=== PATIENT | female | born 1935 | race Caucasian/White ===

== ENCOUNTER 2018-10-07 17:09 | Inpatient (IN) | payer OTHER ==
[2018-10-07 17:18] VITALS: BMI 29.2
--- NOTE | 2018-10-07 18:49 | PDOC ---
Attending Attestation - HPI HPI: This patient is an 83 year old female with PMHx of DMII, hypothyroidism, cirrhosis, pancreatic cysts, who presents with 2 days of worsening cough w/ [id number] sputum. Patient also reports shortness of breath, worse on exertion. Denies fever. chills. 10/07/18 18:58 <Evelyn Poe - Last Filed: 10/07/18 18:59> - Resident Resident Name: Farshad Taylor - ED Attending Attestation I have performed the following: I have examined & evaluated the patient, The case was reviewed & discussed with the resident, I agree w/resident's findings & plan, Exceptions are as noted - Physicial Exam PE: GENERAL: Awake, alert, and fully oriented, in no acute distress HEAD: No signs of trauma EYES: PERRLA, EOMI, sclera anicteric, conjunctiva clear ENT: Auricles normal inspection, hearing grossly normal, nares patent, oropharynx clear without exudates. Moist mucosa NECK: Normal ROM, supple, no lymphadenopathy, JVD, or masses LUNGS: Good air entry B/L. +Crackles at bases B/L. HEART: Regular rate and rhythm, normal S1 and S2, no murmurs, rubs or gallops ABDOMEN: Soft, nontender, normoactive bowel sounds. No guarding, no rebound. No masses EXTREMITIES: Normal range of motion, 2+ pitting edema to mid-rivera B/L. No clubbing or cyanosis. No cords, erythema, or tenderness NEUROLOGICAL: Cranial nerves II through XII grossly intact. Normal speech. Motor and sensation intact SKIN: Warm, Dry, normal turgor, no rashes or lesions noted. - Medical Decision Making Pt with history of cirrhosis, presenting with cough, SOB, and B/L leg swelling. Suspected CHF. Will send labs, obtain CXR. Likely admission, as she has no prior history of CHF. As per family at bedside, she has known history of leukopenia and thrombocytopenia. She follows with Dr. Mazariegos. <Mallika Garrett - Last Filed: 10/07/18 20:07> Attestations - Attestations 10/07/18 18:59 Documentation prepared by Evelyn Poe, acting as general medical practitioner for Mallika Garrett MD. <Evelyn Poe - Last Filed: 10/07/18 18:59>
[2018-10-07 18:54] LABS: BASO % 0.3 % (0-2.0); EOS % 5.7 % (0-4.5); HEMATOCRIT 31.2 % (32.4-45.2); HEMOGLOBIN 11.1 GM/dL (10.7-15.3); LYMPH % 37.2 % (8-40); MCH 33.8 pg (25.7-33.7); MCHC 35.6 g/dl (32.0-36.0); MEAN CELL VOLUME 94.9 fl (80-96); MEAN PLT VOLUME 10.4 fl (7.5-11.1); MONO % 11.9 % (3.8-10.2); NEUT % 44.9 % (42.8-82.8); RBC 3.29 M/mm3 (3.60-5.2)
[2018-10-07 19:05] LABS: PLATELET COUNT 42 K/MM3 (134-434); WHITE BLOOD COUNT 1.5 K/mm3 (4.0-10.0)
[2018-10-07 19:47] LABS: BLOOD UREA NITROGEN 12 mg/dL (7-18); GLUCOSE,RANDOM 194 mg/dL (74-106)
[2018-10-07 19:48] LABS: ALBUMIN 2.5 g/dl (3.4-5.0); ANION GAP 7 MMOL/L (8-16); BILIRUBIN,TOTAL 1.2 mg/dL (0.2-1); CALCIUM 7.4 mg/dL (8.5-10.1); CHLORIDE 109 mmol/L (98-107); CO2 24 mmol/L (21-32); CREATININE 0.8 mg/dL (0.55-1.3); POTASSIUM 3.8 mmol/L (3.5-5.1); SGOT/AST 64 U/L (15-37); SGPT/ALT 39 U/L (13-61); SODIUM 140 mmol/L (136-145); TOT PROT 5.5 g/dl (6.4-8.2)
[2018-10-07 19:49] LABS: ALK PHOS 85 U/L (45-117); N-TERMINAL BNP 505.37 pg/ml (5-450)
[2018-10-07 19:54] LABS: PLATELET ESTIMATE DECREASED
--- NOTE | 2018-10-07 19:56 | PDOC ---
History of Present Illness - General Chief Complaint: Respiratory Stated Complaint: COLD SYMPTOMS Time Seen by Provider: 10/07/18 18:22 History Source: Patient, Family (Son at bedside) Exam Limitations: No Limitations - History of Present Illness Initial Comments: 10/07/18 19:49 The patient is an 83F with a PMH of liver cirrhosis, HTN, DM, hypothyroidism who presents to the ER for complaints of a cough. The patient is with her son who helps provide the history. The patient states that she's had 2-3 days of worsening cough with white/yellow sputum. She also admits to dyspnea on exertion , especially when she goes uphill or climbs a flight of stairs. She denies CP, fever, chills, nausea, vomiting, abdominal pain. Past History - Past Medical History Allergies/Adverse Reactions: Allergies Allergy/AdvReac Type Severity Reaction Status Date / Time No Known Drug Allergies Allergy Unverified 10/07/18 17:16 Home Medications: Ambulatory Orders Levothyroxine [Synthroid -] 50 mcg PO DAILY 03/28/13 Furosemide [Lasix] 40 mg PO DAILY 10/07/18 metFORMIN HCL [Glucophage -] 0 mg PO BID 10/07/18 Anemia: Yes (thrombocytopenia) Asthma: No Cancer: No Cardiac Disorders: No CVA: No COPD: No CHF: No Dementia: No Diabetes: Yes (DIET CONTROLLED) GI Disorders: Yes (H. PYLORI; DILATED CBD) Disorders: No HTN: Yes Hypercholesterolemia: Yes Liver Disease: Yes (LIVER CIRRHOSIS) Seizures: No Thyroid Disease: Yes - Surgical History Abdominal Surgery: Yes Appendectomy: No Cardiac Surgery: No Cholecystectomy: Yes Lung Surgery: No Neurologic Surgery: No Orthopedic Surgery: No - Suicide/Smoking/Psychosocial Hx Smoking History: Never smoked Have you smoked in the past 12 months: No Hx Alcohol Use: No Drug/Substance Use Hx: No Substance Use Type: None Review of Systems - Review of Systems Able to Perform ROS?: Yes Comments:: 10/07/18 19:59 GENERAL/CONSTITUTIONAL: No fever or chills. No weakness. HEAD, EYES, EARS, NOSE AND THROAT: No change in vision. No ear pain or discharge. No sore throat. CARDIOVASCULAR: No chest pain, palpitations, or lightheadedness. RESPIRATORY: Positive for cough and shortness of breath on exertion. No wheezing or hemoptysis. GASTROINTESTINAL: No nausea, vomiting, diarrhea, constipation, or abdominal pain. GENITOURINARY: No dysuria, frequency, hematuria, or change in urination. MUSCULOSKELETAL: No joint or muscle swelling or pain. No neck or back pain. SKIN: No rash or lesions. NEUROLOGIC: No headache, numbness, tingling, focal weakness, loss of consciousness, or change in strength/sensation. Is the patient limited Surinamese proficient: No *Physical Exam - Vital Signs Last Vital Signs Temp Pulse Resp BP Pulse Ox 97.8 F 82 18 151/76 100 10/07/18 17:13 10/07/18 17:13 10/07/18 17:13 10/07/18 17:13 10/07/18 18:45 - Physical Exam Comments: 10/07/18 20:00 GENERAL: Well developed, well nourished. Awake and alert. No acute distress. HEENT: Normocephalic, atraumatic. Hearing grossly normal. Moist mucous membranes. PERRLA, EOMI. No conjunctival pallor. NECK: Supple. Full ROM. No JVD. CARDIOVASCULAR: Regular rate and rhythm. No murmurs, rubs, or gallops. PULMONARY: No evidence of respiratory distress. B/l rales at the bases. ABDOMINAL: Soft. Non-tender. Non-distended. No rebound or guarding. GENITOURINARY: No CVA tenderness bilaterally. MUSCULOSKELETAL: Normal range of motion at all joints. No bony deformities or tenderness. EXTREMITIES: No cyanosis. No clubbing. 3+ pitting edema in b/l LE. No calf tenderness or swelling. SKIN: Warm and dry. Normal capillary refill. No rashes. No jaundice. NEUROLOGICAL: Alert, awake, appropriate. Cranial nerves 2-12 grossly intact. Normal speech. PSYCHIATRIC: Cooperative. Good eye contact. Appropriate mood and affect. Moderate Sedation - Procedure Monitoring Vital Signs: Procedure Monitoring Vital Signs Temperature 97.8 F 10/07/18 17:13 Pulse Rate 82 10/07/18 17:13 Respiratory Rate 18 10/07/18 17:13 Blood Pressure 151/76 10/07/18 17:13 O2 Sat by Pulse Oximetry (%) 100 10/07/18 18:45 Heart Score/ECG Review #1 General ECG Interpretation: Sinus Rhythm, Normal Rate, Normal Intervals, No acute ischemic changes Compared to previous ECG there are: No significant change 10/07/18 20:03 NSR vent rate 60 AR 132 QRS 76 QTc 459 No STD or YIMI No signs of acute ischemia ED Treatment Course - LABORATORY CBC & Chemistry Diagram: 10/07/18 18:47 10/07/18 18:47 - ADDITIONAL ORDERS Additional order review: 10/07/18 18:47 RBC 3.29 L MCV 94.9 MCHC 35.6 RDW 15.0 MPV 10.4 Neutrophils % 44.9 Lymphocytes % 37.2 Monocytes % 11.9 H Eosinophils % 5.7 H Basophils % 0.3 - RADIOLOGY Radiology Studies Ordered: Category Date Time Status CHEST X-RAY PORTABLE* [RAD] Stat Radiology 10/07/18 18:35 Taken Medical Decision Making - Medical Decision Making 10/07/18 20:04 THe patient is an 83F with a PMH of HTN, DM, hypothyroidism, and hepatic cirrhosis who presents to the ER with wosrening HAIRSTON and leg swelling with a cough, concerning for PNA vs CHF. Preliminary read of CXR concerning for cephalization of fluids without infiltrate. Labs show WBC of 1.5, known to pt and being worked up by Dr. Mazariegos, heme/onc. BNP is 500. Will give lasix for presumed CHF although pt has no history. 10/07/18 20:[address] Hayden for admission. *DC/Admit/Observation/Transfer Diagnosis at time of Disposition: Acute exacerbation of CHF (congestive heart failure) Qualifiers: Heart failure type: unspecified Qualified Code(s): I50.9 - Heart failure, unspecified - Discharge Dispostion Condition at time of disposition: Guarded Decision to Admit order: Yes - Referrals Referrals: Anuja De La Rosa MD [Primary Care Provider] - - Patient Instructions - Post Discharge Activity
[2018-10-07] MEDS ORDERED: FUROSEMIDE 40 MG/4 ML INJECTABLE VIAL IVPUSH ONE (19:59)
[2018-10-07] MEDS ORDERED: FUROSEMIDE 40 MG/4 ML INJECTABLE VIAL ONE (20:06)
[2018-10-07 20:38] LABS: VENOUS PC02 42.9 mmHg (38-52); VENOUS PH 7.39 (7.32-7.42); VENOUS PO2 28.4 mmHg (28-48)
[2018-10-07 20:46] LABS: URINE APPEARANCE CLEAR; URINE BILIRUBIN NEGATIVE (<2.0 mg/dL); URINE COLOR STRAW; URINE GLUCOSE (UA) NEGATIVE (NEGATIVE); URINE KETONE NEGATIVE (NEGATIVE); URINE LEUK ESTERASE NEGATIVE (NEGATIVE); URINE NITRITE NEGATIVE (NEGATIVE); URINE PROTEIN NEGATIVE (NEGATIVE); URINE UROBILINOGEN 4.0 E.U/dl mg/dL (0.2-1.0)
[2018-10-07 20:51] LABS: INR 1.35 (0.83-1.09)
[2018-10-07 20:53] LABS: ACTIVATED PTT 35.8 SECONDS (25.2-36.5)
[2018-10-07] MEDS ORDERED: AZITHROMYCIN IVPB 500 MG/250 ML BAG IVPB ONE ×2 (20:58→21:29)
[2018-10-07] MEDS ORDERED: CEFTRIAXONE 1 GM in DEXTROSE 5%-WATER - 50 ML IVPB ONE (20:58)
--- NOTE | 2018-10-07 21:00 | HP ---
CHIEF COMPLAINT: cough PCP: Estrella HISTORY OF PRESENT ILLNESS: 83yo immunocompromised woman with a PMH of who presents to the ER for complaints of a productive- yellow sputum cough for the past 2-3 days. She also c/o of early fatigue with ambulation. No orthopnea. NO mention of any sick contacts. ER course was notable for: (1) iv furosemide (2) iv ceftriaxone (3) iv azithromycin Recent Travel: 2018 traveled to [facility] and [facility] PAST MEDICAL HISTORY: liver cirrhosis, HTN, DM, hypothyroidism PAST SURGICAL HISTORY: hysterectomy, appendectomy Social History: Smoking: no Alcohol: no Drugs: no Family History: brother with liver cirrhosis Allergies No Known Drug Allergies Allergy (Unverified 10/07/18 17:16) HOME MEDICATIONS: Home Medications Medication Instructions Recorded Levothyroxine [Synthroid -] 50 mcg PO DAILY 03/28/13 Furosemide [Lasix] 40 mg PO DAILY 10/07/18 metFORMIN HCL [Glucophage -] 0 mg PO BID 10/07/18 REVIEW OF SYSTEMS CONSTITUTIONAL: Absent: fever, chills, diaphoresis, generalized weakness, malaise, loss of appetite, weight change HEENT: Absent: rhinorrhea, nasal congestion, throat pain, throat swelling, difficulty swallowing, mouth swelling, ear pain, eye pain, visual changes CARDIOVASCULAR: Absent: chest pain, syncope, palpitations, irregular heart rate, lightheadedness , peripheral edema RESPIRATORY: Absent: orthopnea, wheezing, stridor, hemoptysis present- cough, shortness of breath, dyspnea with exertion, GASTROINTESTINAL: Absent: abdominal pain, abdominal distension, nausea, vomiting, diarrhea, constipation, melena, hematochezia GENITOURINARY: Absent: dysuria, frequency, urgency, hesitancy, hematuria, flank pain, genital pain MUSCULOSKELETAL: Absent: myalgia, arthralgia, joint swelling, back pain, neck pain, b/l lower ext swelling SKIN: Absent: rash, itching, pallor HEMATOLOGIC/IMMUNOLOGIC: Absent: easy bleeding, easy bruising, lymphadenopathy, frequent infections ENDOCRINE: Absent: unexplained weight gain, unexplained weight loss, heat intolerance, cold intolerance NEUROLOGIC: Absent: headache, focal weakness or paresthesias, dizziness, unsteady gait, seizure, mental status changes, bladder or bowel incontinence PSYCHIATRIC: Absent: anxiety, depression, suicidal or homicidal ideation, hallucinations. PHYSICAL EXAMINATION Vital Signs - 24 hr 10/07/18 10/07/18 17:13 18:45 Temperature 97.8 F Pulse Rate 82 Respiratory 18 Rate Blood Pressure 151/76 O2 Sat by Pulse 99 100 Oximetry (%) GENERAL: Awake, alert, and fully oriented, in no acute distress. HEAD: Normal with no signs of trauma. EYES: Pupils equal, round and reactive to light, extraocular movements intact, sclera anicteric, conjunctiva clear. No lid lag. EARS, NOSE, THROAT: Ears normal, nares patent, oropharynx clear without exudates. Moist mucous membranes. NECK: Normal range of motion, supple without lymphadenopathy, JVD, or masses. LUNGS: Breath sounds equal, left midlung crackles appreciated HEART: Regular rate and rhythm, normal S1 and S2 without murmur, rub or gallop. ABDOMEN: Soft, nontender, not distended, normoactive bowel sounds, no guarding, no rebound, no masses. No hepatomegaly or splenomegaly. MUSCULOSKELETAL: Normal range of motion at all joints. No bony deformities or tenderness. No CVA tenderness. UPPER EXTREMITIES: 2+ pulses, warm, well-perfused. No cyanosis. No clubbing. No peripheral edema. LOWER EXTREMITIES: 2+ pulses, warm, well-perfused. No calf tenderness. 2+ pedal edema up to knees b/l NEUROLOGICAL: Cranial nerves II-XII intact. Normal speech. Normal gait. PSYCHIATRIC: Cooperative. Good eye contact. Appropriate mood and affect. SKIN: Warm, dry, normal turgor, no rashes or lesions noted, normal capillary refill. Laboratory Results - last 24 hr 10/07/18 10/07/18 10/07/18 18:47 18:47 20:10 WBC 1.5 L* RBC 3.29 L Hgb 11.1 Hct 31.2 L D MCV 94.9 MCH 33.8 H MCHC 35.6 RDW 15.0 Plt Count 42 L MPV 10.4 Absolute Neuts (auto) 0.7 L Neutrophils % 44.9 Neutrophils % (Manual) 35.0 L Band Neutrophils % 8.0 Lymphocytes % 37.2 Lymphocytes % (Manual) 40.0 Monocytes % 11.9 H Monocytes % (Manual) 9 Eosinophils % 5.7 H Eosinophils % (Manual) 4.0 Basophils % 0.3 Basophils % (Manual) 0.0 Nucleated RBC % 0 Other Cell Type 1 prolymp Platelet Estimate Decreased Platelet Comment No clumping noted PT with INR 16.00 H INR 1.35 H PTT (Actin FS) 35.8 VBG pH POC VBG pCO2 POC VBG pO2 Mixed VBG HCO3 Sodium 140 Potassium 3.8 Chloride 109 H Carbon Dioxide 24 Anion Gap 7 L BUN 12 Creatinine 0.8 Creat Clearance w eGFR > 60 Random Glucose 194 H Calcium 7.4 L Total Bilirubin 1.2 H AST 64 H ALT 39 Alkaline Phosphatase 85 Creatine Kinase 133 Troponin I 0.03 B-Natriuretic Peptide 505.37 H Total Protein 5.5 L Albumin 2.5 L Urine Color Urine Appearance Urine pH Ur Specific [place] Urine Protein Urine Glucose (UA) Urine Ketones Urine Blood Urine Nitrite Urine Bilirubin Urine Urobilinogen Ur Leukocyte Esterase 10/07/18 10/07/18 20:10 20:30 WBC RBC Hgb Hct MCV MCH MCHC RDW Plt Count MPV Absolute Neuts (auto) Neutrophils % Neutrophils % (Manual) Band Neutrophils % Lymphocytes % Lymphocytes % (Manual) Monocytes % Monocytes % (Manual) Eosinophils % Eosinophils % (Manual) Basophils % Basophils % (Manual) Nucleated RBC % Other Cell Type Platelet Estimate Platelet Comment PT with INR INR PTT (Actin FS) VBG pH 7.39 POC VBG pCO2 42.9 POC VBG pO2 28.4 Mixed VBG HCO3 25.4 H Sodium Potassium Chloride Carbon Dioxide Anion Gap BUN Creatinine Creat Clearance w eGFR Random Glucose Calcium Total Bilirubin AST ALT Alkaline Phosphatase Creatine Kinase Troponin I B-Natriuretic Peptide Total Protein Albumin Urine Color Straw Urine Appearance Clear Urine pH 7.0 Ur Specific [place] 1.004 L Urine Protein Negative Urine Glucose (UA) Negative Urine Ketones Negative Urine Blood Negative Urine Nitrite Negative Urine Bilirubin Negative Urine Urobilinogen 4.0 e.u/dl H Ur Leukocyte Esterase Negative CXR reviewed EKG reviewed ASSESSMENT/PLAN: #Community acquired pneumonia in an immunocompromised pt- b/l infiltrates seen on CXR, pancytopenia #CHF exacerbation- uncertain whether present however cannot r/o at this time given her CXR infiltrates and lower ext edema #Pancytopenia- uncertain cause, follows with Dr. Mazariegos in clinic - avoid heparin #Liver cirrhosis #Hypothyroidism -ceftriaxone 1g IV q24hrs -azithromycin 500mg IV q24hrs -ID evaluation -procalcitonin -trend cbc -sputum culture -urine legionella ag -blood cultures x2 -flu swab -esr -ID consult -lasix 40mg IV daily -metoprolol 25mg po bid -lisinopril 5mg daily -cardiology consult -i/o -daily weight -fluid restriction -lower ext duplex US to r/o DVT -c/w home dose levothyroxine 50mcg daily -send tsh -dvt ppx - SCDs - no heparin due to thrombocytopenia -diet- 2g Na Visit type - Emergency Visit Emergency Visit: Yes ED Registration Date: 10/07/18 Care time: The patient presented to the Emergency Department on the above date and was hospitalized for further evaluation of their emergent condition. - New Patient This patient is new to me today: Yes Date on this admission: 10/07/18 - Critical Care Critical Care patient: No
[2018-10-07] MEDS ORDERED: SODIUM CHLORIDE 0.9% 1000 ML INFUS.BAG IV ONE (21:09)
[2018-10-07] MEDS ORDERED: CEFTRIAXONE 1 GM/50 ML BAG ONE (21:29)
[2018-10-07] MEDS: INSULIN SLIDING SCALE (NOVOLOG) 1 VIAL SQ SCH (22:57)
[2018-10-07] MEDS: metoPROLOL SUCCINATE 25 MG TAB.SR.24H (FP) PO SCH (23:00)
[2018-10-07] MEDS ORDERED: INSULIN (NOVOLOG) ASPART 100 UNITS/ML 10ML VIAL ONE (23:03)
[2018-10-08] MEDS ORDERED: LEVOTHYROXINE NA 25 MCG TABLET (FP) ONE (06:55)
[2018-10-08] MEDS: INSULIN SLIDING SCALE (NOVOLOG) 1 VIAL SQ SCH ×4 (07:10→22:44)
[2018-10-08] MEDS: LEVOTHYROXINE NA 50 MCG TABLET (FP) PO SCH (07:10)
[2018-10-08 07:17] LABS: BASO % 0.3 % (0-2.0); EOS % 2.8 % (0-4.5); HEMATOCRIT 32.5 % (32.4-45.2); HEMOGLOBIN 11.3 GM/dL (10.7-15.3); LYMPH % 24.2 % (8-40); MCH 33.4 pg (25.7-33.7); MCHC 34.8 g/dl (32.0-36.0); MEAN CELL VOLUME 95.8 fl (80-96); MONO % 12.4 % (3.8-10.2); NEUT % 60.3 % (42.8-82.8); PLATELET COUNT 44 K/MM3 (134-434); RBC 3.39 M/mm3 (3.60-5.2); RDW 14.6 % (11.6-15.6)
[2018-10-08 07:25] LABS: WHITE BLOOD COUNT 1.8 K/mm3 (4.0-10.0)
[2018-10-08 08:19] LABS: ANION GAP 6 MMOL/L (8-16); BLOOD UREA NITROGEN 14 mg/dL (7-18); CALCIUM 7.7 mg/dL (8.5-10.1); CHLORIDE 109 mmol/L (98-107); CO2 24 mmol/L (21-32); CREATININE 0.6 mg/dL (0.55-1.3); GLUCOSE,RANDOM 121 mg/dL (74-106); MAGNESIUM 1.6 mg/dL (1.8-2.4); POTASSIUM 3.8 mmol/L (3.5-5.1); SODIUM 140 mmol/L (136-145)
[2018-10-08] MEDS: metoPROLOL SUCCINATE 25 MG TAB.SR.24H (FP) PO SCH ×2 (10:53→22:44)
[2018-10-08] MEDS: LISINOPRIL 5 MG TABLET (FP) PO SCH (10:53)
[2018-10-08] MEDS: FUROSEMIDE 40 MG/4 ML INJECTABLE VIAL IVPUSH SCH (10:53)
[2018-10-08 13:13] LABS: ANISOCYTOSIS 1+; MACROCYTOSIS 1+; PLATELET ESTIMATE DECREASED
--- NOTE | 2018-10-08 13:38 | CON.PULM ---
Consult Consult Specialty:: PULMONARY Referred by:: LONNIE Reason for Consultation:: SOB/COUGH - History of Present Illness Chief Complaint: SOB/COUGH History of Present Illness: The patient is an 83F with a PMH of liver cirrhosis, HTN, DM, hypothyroidism who presents to the ER for complaints of a cough. The patient is with her daughter in law who helps provide the history. The patient states that she's had 2-3 days of worsening cough with white/yellow sputum. She also admits to dyspnea on exertion, especially when she goes uphill or climbs a flight of stairs. She denies CP, fever, chills, nausea, vomiting, abdominal pain. 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 No: AFIB Pulmonary: No: COPD, O2 Dependent Gastrointestinal: Yes: Esophageal Varices, Other (cirrhosis) Hepatobiliary: Yes: Cirrhosis Renal/: No: Renal Failure Reproductive: Yes: Postmenopausal ...: No Heme/Onc: Yes: Anemia, Thrombocytopenia, Other (pancytopenic) Infectious Disease: No: AIDS Psych: No: Addictions Musculoskeletal: Yes: Osteoarthritis Rheumatology: No: Fibromyalgia Endocrine: Yes: Diabetes Mellitus, Hypothyroidism - Alcohol/Substance Use Hx Alcohol Use: No - Smoking History Smoking history: Never smoked Have you smoked in the past 12 months: No - Social History Place of : Other Home Medications - Allergies Allergies/Adverse Reactions: Allergies Allergy/AdvReac Type Severity Reaction Status Date / Time No Known Drug Allergies Allergy Unverified 10/07/18 17:16 - Home Medications Home Medications: Ambulatory Orders Levothyroxine [Synthroid -] 50 mcg PO DAILY 03/28/13 Furosemide [Lasix] 40 mg PO DAILY 10/07/18 metFORMIN HCL [Glucophage -] 0 mg PO BID 10/07/18 Family Disease History - Family Disease History Family History: Unremarkable Review of Systems - Review of Systems Constitutional: denies: Fever Eyes: denies: Blurred Vision HENT: denies: Difficult Swallowing Neck: denies: Decreased ROM Cardiovascular: denies: Chest Pain Respiratory: reports: Cough, Exercise Intolerance, SOB on Exertion. denies: Hemoptysis, Wheezing Gastrointestinal: denies: Abdominal Pain Physical Exam Vital Sings: Vital Signs Temperature 98.1 F 10/07/18 19:25 Pulse Rate 63 10/08/18 03:46 Respiratory Rate 18 10/08/18 03:46 Blood Pressure 128/52 L 10/08/18 03:46 O2 Sat by Pulse Oximetry (%) 100 10/08/18 03:46 Constitutional: Yes: Calm Eyes: Yes: EOM Intact HENT: Yes: Normocephalic Neck: Yes: Trachea Midline, Other (jvd) Cardiovascular: Yes: Regular Rate and Rhythm Respiratory: Yes: Rales (bilateral diffuse) Gastrointestinal: Yes: Normal Bowel Sounds Edema: LLE: 2+, RLE: 2+ Integumentary: Yes: WNL Neurological: Yes: WNL ...Motor Strength: WNL Psychiatric: Yes: WNL Labs: CBC, BMP 10/08/18 07:05 10/08/18 07:05 rest reviewed Imaging - Results Chest X-ray: Report Reviewed, Image Reviewed Problem List - Problems (1) Acute bronchitis Code(s): J20.9 - ACUTE BRONCHITIS, UNSPECIFIED (2) Acute exacerbation of CHF (congestive heart failure) Code(s): I50.9 - HEART FAILURE, UNSPECIFIED Qualifiers: Heart failure type: unspecified Qualified Code(s): I50.9 - Heart failure, unspecified (3) Pancytopenia Code(s): D61.818 - OTHER PANCYTOPENIA (4) HTN (hypertension) Code(s): I10 - ESSENTIAL (PRIMARY) HYPERTENSION (5) Hypothyroidism Code(s): E03.9 - HYPOTHYROIDISM, UNSPECIFIED (6) Diabetes Code(s): E11.9 - TYPE 2 DIABETES MELLITUS WITHOUT COMPLICATIONS Assessment/Plan LIKELY COMBINATION ACUTE BRONCHITIS WITH VOLUME OVERLOAD HTN/DM/CIRRHOSIS/ESOPHAGEAL VARICIES/PANCYTOPENIA PANCULTURE/ANTIBIOTICS DIURETICS/O2 SUPPLEMENTATION/CONSIDER BRONCHODILATORS/NO ROLE FOR STEROIDS DVT/PUD PROPHYLAXSIS GLYCEMIC CONTROL WILL FOLLOW Josephine VACA MD
--- NOTE | 2018-10-08 18:52 | PN ---
Progress Note (short form) - Note Progress Note: ID CONSULT DICTATED BRONCHITIS R/O PNEUMONIA PANCYTOPENIA/ NEUTROPENIA AWAIT C/S CONTINUE ZITHROMAX/CEFTRIAXONE
--- NOTE | 2018-10-08 19:10 | CON.CARD ---
Consult Consult Specialty:: cardiology Reason for Consultation:: shortness of breath - History of Present Illness Chief Complaint: Pt, with son at bedside, c/o fatigue. History of Present Illness: This patient is an 83 year old female with PMHx of DMII, hypothyroidism, cirrhosis, pancreatic cysts, who presents with 2 days of worsening cough w/ sjpxz-ek-yjupwv sputum. Patient also reports shortness of breath, worse on exertion. Denies fever. chills. 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 No: AFIB Pulmonary: No: COPD, O2 Dependent Gastrointestinal: Yes: Esophageal Varices, Other (cirrhosis) Hepatobiliary: Yes: Cirrhosis Renal/: No: Renal Failure ...: No Heme/Onc: Yes: Anemia Infectious Disease: No: AIDS Psych: No: Addictions Musculoskeletal: Yes: Osteoarthritis Rheumatology: No: Fibromyalgia Endocrine: Yes: Diabetes Mellitus, Hypothyroidism - Alcohol/Substance Use Hx Alcohol Use: No - Smoking History Smoking history: Never smoked Have you smoked in the past 12 months: No Home Medications - Allergies Allergies/Adverse Reactions: Allergies Allergy/AdvReac Type Severity Reaction Status Date / Time No Known Drug Allergies Allergy Unverified 10/07/18 17:16 - Home Medications Home Medications: Ambulatory Orders Levothyroxine [Synthroid -] 50 mcg PO DAILY 03/28/13 Furosemide [Lasix] 40 mg PO DAILY 10/07/18 metFORMIN HCL [Glucophage -] 0 mg PO BID 10/07/18 Family Disease History - Family Disease History Family History: Denies Review of Systems - Review of Systems Constitutional: reports: Weakness Eyes: reports: No Symptoms HENT: reports: No Symptoms Neck: reports: No Symptoms Cardiovascular: reports: No Symptoms Respiratory: reports: No Symptoms, Cough Gastrointestinal: reports: Nausea Genitourinary: reports: No Symptoms Breasts: reports: No Symptoms Reported Musculoskeletal: reports: Muscle Weakness Integumentary: reports: No Symptoms Neurological: reports: Weakness Endocrine: reports: No Symptoms Hematology/Lymphatic: reports: No Symptoms Psychiatric: reports: No Symptoms Vital Signs: Vital Signs Temperature 100.1 F H 10/08/18 18:47 Pulse Rate 70 10/08/18 18:47 Respiratory Rate 18 10/08/18 18:47 Blood Pressure 118/60 10/08/18 18:47 O2 Sat by Pulse Oximetry (%) 97 10/08/18 18:47 Constitutional: Yes: No Distress Eyes: Yes: WNL HENT: Yes: WNL Neck: Yes: WNL Respiratory: Yes: Diminished Gastrointestinal: Yes: Soft. No: Tenderness Renal/: No: Anuria Cardiovascular: Yes: Regular Rate and Rhythm JVD: No Carotid Bruit: No PMI: Non-Displaced Heart Sounds: Yes: S1, S2 Murmur: Yes: Systolic Murmur, Grade 2 Musculoskeletal: Yes: Muscle Weakness Extremities: Yes: WNL Edema: No Peripheral Pulses WNL: No Integumentary: Yes: WNL Neurological: Yes: Alert, Oriented, Weakness Psychiatric: Yes: WNL - Other Data Labs, Other Data: CBC, BMP 10/08/18 07:05 10/08/18 07:05 INR, PTT INR 1.35 (0.83-1.09) H 10/07/18 20:10 Troponin, BNP 10/07/18 10/08/18 18:47 07:05 Troponin I 0.03 0.03 B-Natriuretic Peptide 505.37 H Troponin, BNP 10/07/18 10/08/18 18:47 07:05 Troponin I 0.03 0.03 B-Natriuretic Peptide 505.37 H Abnormal Lab Results 10/09/18 10/09/18 08:55 08:55 Total Protein (PEP) 5.4 L Free [place] LC, Quant 35.2 H Free Lambda LC, Quant 32.0 H Ejection Fraction %: LVEF > or = 40 % Imaging - Results Chest X-ray: Image Reviewed EKG: Image Reviewed Problem List - Problems (1) Acute bronchitis Code(s): J20.9 - ACUTE BRONCHITIS, UNSPECIFIED (2) Acute exacerbation of CHF (congestive heart failure) Assessment/Plan: Continue metoprolol, lisinopril, and furosemide. Hx diastolic CHF, with mild aortic stenosis and moderately severe MR; f/u repeat ECHO. F/u BUN/Cr, electrolytes, daily weight, Is and Os. Code(s): I50.9 - HEART FAILURE, UNSPECIFIED Qualifiers: Heart failure type: diastolic Qualified Code(s): I50.33 - Acute on chronic diastolic (congestive) heart failure (3) Diabetes Code(s): E11.9 - TYPE 2 DIABETES MELLITUS WITHOUT COMPLICATIONS Qualifiers: Diabetes mellitus type: type 2 (4) HTN (hypertension) Code(s): I10 - ESSENTIAL (PRIMARY) HYPERTENSION (5) Hypothyroidism Code(s): E03.9 - HYPOTHYROIDISM, UNSPECIFIED (6) Shortness of breath Code(s): R06.02 - SHORTNESS OF BREATH (7) Pancytopenia Assessment/Plan: F/u with hematology. Hx chronically low platelets and WBCs. Hx liver cirrhosis and marked splenomegaly. Code(s): D61.818 - OTHER PANCYTOPENIA (8) Sepsis Assessment/Plan: ?bronchitis/PNA. On antibiotics. Code(s): A41.9 - SEPSIS, UNSPECIFIED ORGANISM (9) Cirrhosis Code(s): K74.60 - UNSPECIFIED CIRRHOSIS OF LIVER
[2018-10-08] MEDS ORDERED: CEFTRIAXONE 2 GM/100 ML BAG IVPB ONE (19:24)
[2018-10-08] MEDS: CEFTRIAXONE 2 GM in DEXTROSE 5%-WATER 100 ML IVPB SCH (19:32)
--- NOTE | 2018-10-08 20:01 | CONSULT ---
Consult Consult Specialty:: heme Referred by:: Dr. Hayden Reason for Consultation:: pancytopenia - History of Present Illness Chief Complaint: SOB History of Present Illness: 83F with hypothyroidism, cirrhosis, DM admitted with SOB, likelye 2/2 acute bronchitis +/-CHF. On Abx. Heme consulted for pancytopenia: Hgb 11.3, MCV 96, WBC 1.8 (ANC 1.1). Plt 44. Except for new mild anemia, counts were similar when checked in 2016 and 2010. Spleen was markedly enlarged on 08/2017 imaging. Pt is scheduled to see Dr. Mazariegos for the first time in October. She is feeling better. Denies melena, hematochezia, weight loss, fevers, night sweats. 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 No: AFIB Pulmonary: No: COPD, O2 Dependent Gastrointestinal: Yes: Esophageal Varices, Other (cirrhosis) Hepatobiliary: Yes: Cirrhosis Renal/: No: Renal Failure ...: No Infectious Disease: No: AIDS Psych: No: Addictions Musculoskeletal: Yes: Osteoarthritis Rheumatology: No: Fibromyalgia Endocrine: Yes: Diabetes Mellitus, Hypothyroidism - Alcohol/Substance Use Hx Alcohol Use: No - Smoking History Smoking history: Never smoked Have you smoked in the past 12 months: No Home Medications - Allergies Allergies/Adverse Reactions: Allergies Allergy/AdvReac Type Severity Reaction Status Date / Time No Known Drug Allergies Allergy Unverified 10/07/18 17:16 - Home Medications Home Medications: Ambulatory Orders Levothyroxine [Synthroid -] 50 mcg PO DAILY 03/28/13 Furosemide [Lasix] 40 mg PO DAILY 10/07/18 metFORMIN HCL [Glucophage -] 0 mg PO BID 10/07/18 Review of Systems - Review of Systems Constitutional: reports: No Symptoms Cardiovascular: reports: No Symptoms Respiratory: reports: Cough, SOB Gastrointestinal: reports: No Symptoms Neurological: reports: No Symptoms (w) Physical Exam Vital Signs: Vital Signs Temperature 100.1 F H 10/08/18 18:47 Pulse Rate 70 10/08/18 18:47 Respiratory Rate 18 10/08/18 18:47 Blood Pressure 118/60 10/08/18 18:47 O2 Sat by Pulse Oximetry (%) 97 10/08/18 18:47 Constitutional: Yes: Well Nourished, No Distress Cardiovascular: Yes: Regular Rate and Rhythm Respiratory: Yes: Regular, Rales Gastrointestinal: Yes: WNL, Soft (unable to feel spleen) Edema: Yes Edema: LLE: 2+, RLE: 2+ Labs: CBC, BMP 10/08/18 07:05 10/08/18 07:05 Imaging - Results Chest X-ray: Report Reviewed Assessment/Plan 83F with hypothyroidism, cirrhosis, DM admitted with cough and SOB due to acute bronchitis and possibly CHF. 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 Peripheral smear without plt clumps, rare RBC fragments, no obvious e/o dysplasia or immature cells. Recommend nutritional w/u iron studies, b12, folate; retics; HIV, HBV, HCV, SPEP/UPEP
[2018-10-08] MEDS: AZITHROMYCIN IVPB 500 MG/250 ML BAG IVPB SCH (20:14)
[2018-10-08] MEDS ORDERED: ALBUTEROL SO4 2.5/IPRATROPIUM 0.5 INH SOL 3 ML VIAL.NEB. NEB PRN (20:47)
[2018-10-08] MEDS ORDERED: BENZOCAINE/MENTH/CETYLPYRD CL 1 EACH LOZENGE MM PRN (20:47)
--- NOTE | 2018-10-08 20:48 | PN ---
Progress Note, Physician Chief Complaint: BRONCHITIS R/O PNEUMONIA History of Present Illness: NAD Feeling better Seen by ID+Pulmonary+Cardiology - Current Medication List Current Medications: Active Medications Furosemide (Lasix Injection -) 40 mg IVPUSH DAILY [facility] Last Admin: 10/08/18 10:53 Dose: 40 mg Ceftriaxone Sodium 2 gm/ (Dextrose) 100 mls @ 200 mls/hr IVPB DAILY [facility]; Protocol Last Admin: 10/08/18 19:32 Dose: 200 mls/hr Azithromycin (Zithromax 500mg Ivpb (Pre-Docked)) 500 mg in 250 mls @ 250 mls/ hr IVPB DAILY [facility] Insulin Aspart (Novolog Vial Sliding Scale -) 1 vial SQ ACHS [facility]; Protocol Last Admin: 10/08/18 18:36 Dose: Not Given Levothyroxine Sodium (Synthroid -) 50 mcg PO AM [facility] Last Admin: 10/08/18 07:10 Dose: 50 mcg Lisinopril (Prinivil) 5 mg PO DAILY [facility] Last Admin: 10/08/18 10:53 Dose: 5 mg Metoprolol Succinate (Toprol Xl -) 25 mg PO BID [facility] Last Admin: 10/08/18 10:53 Dose: 25 mg - Objective Vital Signs: Vital Signs Temperature 100.1 F H 10/08/18 18:47 Pulse Rate 70 10/08/18 18:47 Respiratory Rate 18 10/08/18 18:47 Blood Pressure 118/60 10/08/18 18:47 O2 Sat by Pulse Oximetry (%) 97 10/08/18 18:47 Constitutional: Yes: Well Nourished, No Distress, Calm Cardiovascular: Yes: Regular Rate and Rhythm Respiratory: Yes: Regular, SOB on Exertion Gastrointestinal: Yes: WNL Musculoskeletal: Yes: WNL Extremities: Yes: WNL Edema: No Peripheral Pulses WNL: Yes Neurological: Yes: Alert, Oriented Psychiatric: Yes: Alert, Oriented Labs: CBC, BMP 10/08/18 07:05 10/08/18 07:05 INR, PTT INR 1.35 (0.83-1.09) H 10/07/18 20:10 Problem List - Problems (1) Acute bronchitis Assessment/Plan: -Pulmonary+ ID consult -Nasal O2 PRN -Bronchodilators -IV abx -Mucinex Code(s): J20.9 - ACUTE BRONCHITIS, UNSPECIFIED (2) Diabetes Assessment/Plan: -Last A1c at 7.8 -BGM AC HS -Diabetic low sodium diet -Novolog sliding scale Code(s): E11.9 - TYPE 2 DIABETES MELLITUS WITHOUT COMPLICATIONS (3) Shortness of breath Assessment/Plan: -Cardiology+Pulmonary -Nasal O2 prn -bronchodilator -echo Code(s): R06.02 - SHORTNESS OF BREATH (4) Pancytopenia Assessment/Plan: -Oncology consult Code(s): D61.818 - OTHER PANCYTOPENIA Assessment/Plan see problem list Physical therapy
[2018-10-08] MEDS ORDERED: AZITHROMYCIN IVPB 500 MG/250 ML BAG IVPB ONE (21:03)
--- NOTE | 2018-10-08 22:12 | EKG ---
Test Reason : Blood Pressure : / mmHG Vent. Rate : 059 BPM Atrial Rate : 059 BPM P-R Int : 132 ms QRS Dur : 076 ms QT Int : 464 ms P-R-T Axes : 024 042 030 degrees QTc Int : 459 ms SINUS BRADYCARDIA OTHERWISE NORMAL ECG WHEN COMPARED WITH ECG OF 24-MAY-2011 09:52, NO SIGNIFICANT CHANGE WAS FOUND Confirmed by SHILPI HERNANDEZ MD ([id number]) on 10/08/2018 10:11:31 PM Referred By: Confirmed By:SHILPI HERNANDEZ MD
[2018-10-08] MEDS ORDERED: METOPROLOL TARTRATE 25 MG TABLET (FP) ONE (22:38)
[2018-10-08] MEDS: guaiFENesin/D-METHORPHAN HB 1 EACH TAB.ER.12H PO SCH (22:44)
--- NOTE | 2018-10-08 23:41 | CONS ---
DATE OF CONSULTATION: 10/08/2018 The patient is an 83-year-old female with a history of diabetes, hypertension, cirrhosis, and cytopenia, evaluated for possible pneumonia. She was admitted to the hospital with a 2-day history of worsening shortness of breath and cough, productive of yellowish sputum. She was seen in the emergency room where chest x-ray showed increased markings bilaterally suggestive of congestive heart failure. A rapid flu test was negative. She was afebrile, but was noted to be pancytopenic with neutropenia. At the present time, she is awake and alert. She appears slightly short of breath at rest on nasal cannula O2. No reports of any ill contacts. No recent hospitalizations. On review of her laboratory data it appears that she has a history of pancytopenia dating back to at least 2010. PAST MEDICAL HISTORY: Positive for diabetes mellitus, hypertension, hypothyroidism, cirrhosis, pancreatic cysts, history of pancytopenia. ALLERGIES: No known drug allergies. MEDICATIONS: Synthroid, Lasix, Glucophage. SOCIAL HISTORY: Lives at home in the community. Nonsmoker, nondrinker. No recent hospitalizations. REVIEW OF SYSTEMS: Neurologic: No loss of consciousness, seizure activity, focal weakness. Cardiac: Negative chest pain or palpitations. Respiratory: As per HPI. Gastrointestinal: Negative vomiting or diarrhea. Genitourinary: Negative for urinary tract infection. LABORATORY DATA: White count 1.8, 60 neutrophils, 3 bands, 24 lymphocytes, 12 monocytes. Absolute neutrophil count 1.1. Hematocrit 32.5, platelets 44. BUN 14, creatinine 0.6, lactic acid 2.2. Urinalysis is negative for leukocyte esterase. PHYSICAL EXAMINATION: General: She is awake and alert. She appears slightly short of breath at rest on nasal cannula. Vital Signs: Temperature 98.1, blood pressure 128/52, pulse 63 and regular, respirations 18 per minute. HEENT: Sclerae anicteric. Heart Sounds: S1, S2. Lungs: A few crepitations at the bases bilaterally. Abdomen: Soft, obese, nontender. Extremities: Positive for lower extremity edema. IMPRESSION: 1. Tracheobronchitis, rule out pneumonia. 2. Pancytopenia with neutropenia. 3. Lactic acidosis. 4. Possible congestive heart failure. PLAN: Await culture results. Await urine Legionella and Pneumococcal antigens. Continue empiric antibiotic coverage with ceftriaxone and Zithromax. Hematology evaluation. Will follow, thank you for the kind referral. ANABEL BARNES M.D. [facility]/[id number]
[2018-10-09] MEDS: LEVOTHYROXINE NA 50 MCG TABLET (FP) PO SCH (06:36)
[2018-10-09] MEDS: INSULIN SLIDING SCALE (NOVOLOG) 1 VIAL SQ SCH ×4 (06:36→22:43)
[2018-10-09] MEDS: guaiFENesin/D-METHORPHAN HB 1 EACH TAB.ER.12H PO SCH ×2 (09:32→22:43)
[2018-10-09] MEDS: LISINOPRIL 5 MG TABLET (FP) PO SCH (09:32)
[2018-10-09] MEDS: metoPROLOL SUCCINATE 25 MG TAB.SR.24H (FP) PO SCH ×2 (09:33→22:43)
[2018-10-09] MEDS: FUROSEMIDE 40 MG/4 ML INJECTABLE VIAL IVPUSH SCH (09:33)
[2018-10-09] MEDS: CEFTRIAXONE 2 GM in DEXTROSE 5%-WATER 100 ML IVPB SCH (09:33)
[2018-10-09] MEDS: AZITHROMYCIN IVPB 500 MG/250 ML BAG IVPB SCH (09:34)
[2018-10-09] MEDS ORDERED: AZITHROMYCIN IVPB 500 MG/250 ML BAG IVPB ONE (09:44)
[2018-10-09] MEDS ORDERED: CEFTRIAXONE 2 GM/100 ML BAG IVPB ONE (09:44)
[2018-10-09 09:46] LABS: BASO % 0.3 % (0-2.0); HEMATOCRIT 32.6 % (32.4-45.2); HEMOGLOBIN 11.4 GM/dL (10.7-15.3); LYMPH % 31.5 % (8-40); MEAN CELL VOLUME 94.3 fl (80-96); MEAN PLT VOLUME 10.2 fl (7.5-11.1); MONO % 14.9 % (3.8-10.2); NEUT % 49.3 % (42.8-82.8); PLATELET COUNT 38 K/MM3 (134-434); RBC 3.45 M/mm3 (3.60-5.2); RDW 14.6 % (11.6-15.6); RETICULOCYTES 1.99 % (0.5-1.5)
[2018-10-09 09:57] LABS: WHITE BLOOD COUNT 1.5 K/mm3 (4.0-10.0)
--- NOTE | 2018-10-09 10:08 | PN ---
Progress Note, Physician History of Present Illness: This patient is an 83 year old female with PMHx of DMII, hypothyroidism, cirrhosis, pancreatic cysts, who presents with 2 days of worsening cough w/ [id number] sputum. Patient also reports shortness of breath, worse on exertion. - Current Medication List Current Medications: Active Medications Albuterol/Ipratropium (Duoneb -) 1 amp NEB Q6H PRN PRN Reason: SHORTNESS OF BREATH Benzocaine/Menthol (Cepacol Lozenge -) 1 each MM Q2H PRN PRN Reason: SORE THROAT Furosemide (Lasix Injection -) 40 mg IVPUSH DAILY [facility] Last Admin: 10/09/18 09:33 Dose: 40 mg Guaifenesin (Mucinex Dm -) 2 tablet PO BID [facility] Last Admin: 10/09/18 09:32 Dose: 2 tablet Ceftriaxone Sodium 2 gm/ (Dextrose) 100 mls @ 200 mls/hr IVPB DAILY [facility]; Protocol Last Admin: 10/09/18 09:33 Dose: 200 mls/hr Azithromycin (Zithromax 500mg Ivpb (Pre-Docked)) 500 mg in 250 mls @ 250 mls/ hr IVPB DAILY [facility] Last Admin: 10/09/18 09:34 Dose: 250 mls/hr Insulin Aspart (Novolog Vial Sliding Scale -) 1 vial SQ ACHS [facility]; Protocol Last Admin: 10/09/18 06:36 Dose: Not Given Levothyroxine Sodium (Synthroid -) 50 mcg PO AM [facility] Last Admin: 10/09/18 06:36 Dose: 50 mcg Lisinopril (Prinivil) 5 mg PO DAILY [facility] Last Admin: 10/09/18 09:32 Dose: 5 mg Metoprolol Succinate (Toprol Xl -) 25 mg PO BID [facility] Last Admin: 10/09/18 09:33 Dose: 25 mg - Objective Vital Signs: Vital Signs Temperature 98.7 F 10/09/18 09:58 Pulse Rate 64 10/09/18 09:58 Respiratory Rate 17 10/09/18 09:58 Blood Pressure 123/56 L 10/09/18 09:58 O2 Sat by Pulse Oximetry (%) 97 10/08/18 18:47 Eyes: Yes: WNL, Conjunctiva Clear, EOM Intact HENT: Yes: WNL, Atraumatic, Normocephalic Neck: Yes: WNL, Supple, Trachea Midline Cardiovascular: Yes: WNL, Regular Rate and Rhythm Respiratory: Yes: WNL, Regular, CTA Bilaterally Gastrointestinal: Yes: WNL, Normal Bowel Sounds Genitourinary: Yes: WNL Musculoskeletal: Yes: WNL Extremities: Yes: WNL Edema: Yes Integumentary: Yes: WNL Neurological: Yes: WNL, Alert, Oriented ...Motor Strength: WNL Psychiatric: Yes: WNL Labs: CBC, BMP 10/09/18 08:55 INR, PTT INR 1.35 (0.83-1.09) H 10/07/18 20:10 Assessment/Plan - Problems (1) Acute bronchitis Code(s): J20.9 - ACUTE BRONCHITIS, UNSPECIFIED (2) Acute exacerbation of CHF (congestive heart failure) Assessment/Plan: Continue metoprolol, lisinopril, and furosemide. Hx diastolic CHF, with mild aortic stenosis and moderately severe MR; f/u repeat ECHO. F/u BUN/Cr, electrolytes, daily weight, Is and Os. Code(s): I50.9 - HEART FAILURE, UNSPECIFIED Qualifiers: Heart failure type: unspecified Qualified Code(s): I50.9 - Heart failure, unspecified (3) Diabetes Code(s): E11.9 - TYPE 2 DIABETES MELLITUS WITHOUT COMPLICATIONS (4) HTN (hypertension) Code(s): I10 - ESSENTIAL (PRIMARY) HYPERTENSION (5) Hypothyroidism Code(s): E03.9 - HYPOTHYROIDISM, UNSPECIFIED (6) Shortness of breath Code(s): R06.02 - SHORTNESS OF BREATH (7) Pancytopenia Assessment/Plan: F/u with hematology. Hx chronically low platelets and WBCs. Hx liver cirrhosis and marked splenomegaly. Code(s): D61.818 - OTHER PANCYTOPENIA (8) Sepsis Assessment/Plan: ?bronchitis/PNA. On antibiotics. Code(s): A41.9 - SEPSIS, UNSPECIFIED ORGANISM
[2018-10-09 11:30] LABS: ALBUMIN 2.6 g/dl (3.4-5.0); ALK PHOS 76 U/L (45-117); ANION GAP 9 MMOL/L (8-16); BILIRUBIN,TOTAL 1.8 mg/dL (0.2-1); BLOOD UREA NITROGEN 14 mg/dL (7-18); CALCIUM 8.1 mg/dL (8.5-10.1); CHLORIDE 106 mmol/L (98-107); CO2 24 mmol/L (21-32); CREATININE 0.7 mg/dL (0.55-1.3); GLUCOSE,RANDOM 143 mg/dL (74-106); POTASSIUM 3.7 mmol/L (3.5-5.1); SGOT/AST 55 U/L (15-37); SGPT/ALT 34 U/L (13-61); SODIUM 140 mmol/L (136-145); TOT PROT 5.5 g/dl (6.4-8.2)
[2018-10-09 13:24] LABS: ANISOCYTOSIS 1+; MACROCYTOSIS 1+; PLATELET ESTIMATE DECREASED
--- NOTE | 2018-10-09 13:24 | PN ---
Progress Note (short form) - Note Progress Note: PULMONARY States breathing is improving. +nonproductive cough. No fevers or chills. Vital Signs Period Temp Pulse Resp BP Sys/Parker Pulse Ox Last 24 Hr 98.7 F-100.1 F 64-70 17-18 118-123/56-60 97-97 Intake & Output 10/06/18 10/07/18 10/08/18 10/09/18 23:59 23:59 23:59 23:59 Intake Total 50 Balance 50 Weight 72.575 kg Gen: NAD at rest Heart: RRR Lung: bibasilar rales L>R Abd: soft, nontender Ext: + edema CBC, BMP 10/09/18 08:55 10/09/18 06:00 Active Medications Albuterol/Ipratropium (Duoneb -) 1 amp NEB Q6H PRN PRN Reason: SHORTNESS OF BREATH Benzocaine/Menthol (Cepacol Lozenge -) 1 each MM Q2H PRN PRN Reason: SORE THROAT Furosemide (Lasix Injection -) 40 mg IVPUSH DAILY [facility] Last Admin: 10/09/18 09:33 Dose: 40 mg Guaifenesin (Mucinex Dm -) 2 tablet PO BID [facility] Last Admin: 10/09/18 09:32 Dose: 2 tablet Ceftriaxone Sodium 2 gm/ (Dextrose) 100 mls @ 200 mls/hr IVPB DAILY [facility]; Protocol Last Admin: 10/09/18 09:33 Dose: 200 mls/hr Azithromycin (Zithromax 500mg Ivpb (Pre-Docked)) 500 mg in 250 mls @ 250 mls/ hr IVPB DAILY [facility] Last Admin: 10/09/18 09:34 Dose: 250 mls/hr Insulin Aspart (Novolog Vial Sliding Scale -) 1 vial SQ ACHS [facility]; Protocol Last Admin: 10/09/18 12:16 Dose: Not Given Levothyroxine Sodium (Synthroid -) 50 mcg PO AM [facility] Last Admin: 10/09/18 06:36 Dose: 50 mcg Lisinopril (Prinivil) 5 mg PO DAILY [facility] Last Admin: 10/09/18 09:32 Dose: 5 mg Metoprolol Succinate (Toprol Xl -) 25 mg PO BID [facility] Last Admin: 10/09/18 09:33 Dose: 25 mg A/P Acute Bronchitis Acute on Chronic Diastolic Heart Failure Mitral Regurgitation Liver Cirrhosis Pancytopenia DM Hypothyroidism - continue empiric antibiotics - f/u cultures - lasix - monitor urine output, creatinine - O2 as needed - echocardiogram - monitor CBC
--- NOTE | 2018-10-09 15:18 | ECHO ---
Name: CRISTOPHER PEREZ Exam:Adult Echocardiogram Study Date: 10/09/2018 10:58 AM Age: 83 yrs Reason For Study: CHF Height: 62 in Weight: 160 lb BSA: 1.7 m2 MMode/2D Measurements & Calculations IVSd: 1.2 cm Ao root diam: 2.4 cm LVIDd: 4.4 cm LA dimension: 4.4 cm LVIDs: 2.7 cm LVPWd: 0.95 cm EDV(Teich): 86.2 ml ESV(Teich): 26.1 ml Doppler Measurements & Calculations MV E max timmy: 79.1 cm/sec MR max timmy: 445.8 cm/sec MV A max timmy: 90.2 cm/sec MR max P.6 mmHg MV E/A: 0.88 MV dec time: 0.14 sec TR max timmy: 251.1 cm/sec Med Peak E' Timmy: 6.2 cm/sec TR max P.3 mmHg Med E/e': 12.8 Lat Peak E' Timmy: 4.8 cm/sec Lat E/e': 16.5 PI Vmax: 71.9 cm/sec Procedure A complete two-dimensional transthoracic echocardiogram was performed (2D, M-mode, Doppler and color flow Doppler). Left Ventricle The left ventricle is normal in size. Left ventricular systolic function is normal. Ejection Fraction = 60- 65%. Grade I diastolic dysfunction, (abnormal relaxation pattern). Ratio E/E'= 13. No regional wall m otion abnormalities noted. Right Ventricle The right ventricle is normal size. The right ventricular systolic function is normal. Atria The left atrium is mildly dilated. LA volume index is 39 ml/m2. Right atrial size is normal. Mitral Valve There is mild mitral annular calcification. There is mild to moderate mitral regurgitation. Tricuspid Valve The tricuspid valve is normal in structure and function. There is mild tricuspid regurgitation. Aortic Valve There is mild aortic sclerosis.;. Mild aortic regurgitation. Pulmonic Valve The pulmonic valve is not well visualized. Great Vessels The aortic root is normal size. Pericardium/Pleura There is no pericardial effusion. Interpretation Summary The left ventricle is normal in size. Left ventricular systolic function is normal. No regional wall motion abnormalities noted. Ejection Fraction = 60-65%. Grade I diastolic dysfunction, (abnormal relaxation pattern). Ratio E/E'= 13 The right ventricular systolic function is normal. The left atrium is mildly dilated. Right atrial size is normal. There is mild mitral annular calcification. There is mild to moderate mitral regurgitation. There is mild tricuspid regurgitation. There is mild aortic sclerosis.; Mild aortic regurgitation. There is no pericardial effusion. Previous study is not available for comparison Armando Arriaga MD 10/09/2018 03:18 PM
--- NOTE | 2018-10-09 15:25 | PN ---
Progress Note, Physician Chief Complaint: patient awake alert says breathing is better - Current Medication List Current Medications: Active Medications Albuterol/Ipratropium (Duoneb -) 1 amp NEB Q6H PRN PRN Reason: SHORTNESS OF BREATH Benzocaine/Menthol (Cepacol Lozenge -) 1 each MM Q2H PRN PRN Reason: SORE THROAT Furosemide (Lasix Injection -) 40 mg IVPUSH DAILY [facility] Last Admin: 10/09/18 09:33 Dose: 40 mg Guaifenesin (Mucinex Dm -) 2 tablet PO BID [facility] Last Admin: 10/09/18 09:32 Dose: 2 tablet Ceftriaxone Sodium 2 gm/ (Dextrose) 100 mls @ 200 mls/hr IVPB DAILY [facility]; Protocol Last Admin: 10/09/18 09:33 Dose: 200 mls/hr Azithromycin (Zithromax 500mg Ivpb (Pre-Docked)) 500 mg in 250 mls @ 250 mls/ hr IVPB DAILY [facility] Last Admin: 10/09/18 09:34 Dose: 250 mls/hr Insulin Aspart (Novolog Vial Sliding Scale -) 1 vial SQ ACHS [facility]; Protocol Last Admin: 10/09/18 12:16 Dose: Not Given Levothyroxine Sodium (Synthroid -) 50 mcg PO AM [facility] Last Admin: 10/09/18 06:36 Dose: 50 mcg Lisinopril (Prinivil) 5 mg PO DAILY [facility] Last Admin: 10/09/18 09:32 Dose: 5 mg Metoprolol Succinate (Toprol Xl -) 25 mg PO BID [facility] Last Admin: 10/09/18 09:33 Dose: 25 mg - Objective Vital Signs: Vital Signs Temperature 98.7 F 10/09/18 13:35 Pulse Rate 60 10/09/18 13:35 Respiratory Rate 18 10/09/18 13:35 Blood Pressure 129/57 L 10/09/18 13:35 O2 Sat by Pulse Oximetry (%) 97 10/09/18 09:00 Constitutional: Yes: Calm Cardiovascular: Yes: Regular Rate and Rhythm, S1, S2 Respiratory: Yes: CTA Bilaterally Gastrointestinal: Yes: Normal Bowel Sounds, Soft Edema: Yes Neurological: Yes: Alert, Oriented Labs: CBC, BMP 10/09/18 08:55 10/09/18 06:00 INR, PTT INR 1.35 (0.83-1.09) H 10/07/18 20:10 Problem List - Problems (1) Acute bronchitis Assessment/Plan: iv abx nebulizers Code(s): J20.9 - ACUTE BRONCHITIS, UNSPECIFIED (2) Acute exacerbation of CHF (congestive heart failure) Assessment/Plan: iv lasix echo noted grade 1 diastolic dysfunction Code(s): I50.9 - HEART FAILURE, UNSPECIFIED Qualifiers: Heart failure type: diastolic Qualified Code(s): I50.33 - Acute on chronic diastolic (congestive) heart failure (3) Diabetes Assessment/Plan: sliding scale bgm Code(s): E11.9 - TYPE 2 DIABETES MELLITUS WITHOUT COMPLICATIONS Qualifiers: Diabetes mellitus type: type 2 (4) HTN (hypertension) Assessment/Plan: lisinopril 5mg Code(s): I10 - ESSENTIAL (PRIMARY) HYPERTENSION (5) Hypothyroidism Assessment/Plan: synthroid 75mcg Code(s): E03.9 - HYPOTHYROIDISM, UNSPECIFIED (6) Pancytopenia Assessment/Plan: heme on board Code(s): D61.818 - OTHER PANCYTOPENIA
[2018-10-09] MEDS ORDERED: MAGNESIUM SULF 50% (8.12 MEQ/2 ML-1 GM VIAL) IVPB ONE (15:45)
[2018-10-09 17:39] LABS: MAGNESIUM 1.7 mg/dL (1.8-2.4)
[2018-10-10] MEDS: INSULIN SLIDING SCALE (NOVOLOG) 1 VIAL SQ SCH ×4 (06:31→21:59)
[2018-10-10] MEDS: LEVOTHYROXINE NA 75 MCG TABLET (FP) PO SCH (06:31)
[2018-10-10 07:41] LABS: BASO % 0.2 % (0-2.0); HEMATOCRIT 31.8 % (32.4-45.2); HEMOGLOBIN 11.3 GM/dL (10.7-15.3); LYMPH % 27.8 % (8-40); MCH 33.3 pg (25.7-33.7); MCHC 35.6 g/dl (32.0-36.0); MEAN CELL VOLUME 93.7 fl (80-96); MEAN PLT VOLUME 11.3 fl (7.5-11.1); MONO % 13.2 % (3.8-10.2); NEUT % 54.8 % (42.8-82.8); PLATELET COUNT 50 K/MM3 (134-434); RDW 14.8 % (11.6-15.6); WHITE BLOOD COUNT 2.2 K/mm3 (4.0-10.0)
[2018-10-10 08:20] LABS: ALBUMIN 2.4 g/dl (3.4-5.0); ALK PHOS 76 U/L (45-117); ANION GAP 7 MMOL/L (8-16); BILIRUBIN,TOTAL 1.6 mg/dL (0.2-1); BLOOD UREA NITROGEN 16 mg/dL (7-18); CALCIUM 7.6 mg/dL (8.5-10.1); CHLORIDE 108 mmol/L (98-107); CO2 25 mmol/L (21-32); CREATININE 0.7 mg/dL (0.55-1.3); GLUCOSE,RANDOM 95 mg/dL (74-106); MAGNESIUM 2.1 mg/dL (1.8-2.4); POTASSIUM 3.5 mmol/L (3.5-5.1); SGOT/AST 48 U/L (15-37); SGPT/ALT 33 U/L (13-61); SODIUM 140 mmol/L (136-145); TOT PROT 5.2 g/dl (6.4-8.2)
[2018-10-10] MEDS: guaiFENesin/D-METHORPHAN HB 1 EACH TAB.ER.12H PO SCH ×2 (10:00→21:56)
[2018-10-10] MEDS ORDERED: DEXTROSE 5%-WATER 100 ML IVPB ONE (10:19)
[2018-10-10] MEDS: FUROSEMIDE 40 MG/4 ML INJECTABLE VIAL IVPUSH SCH (10:31)
[2018-10-10] MEDS: metoPROLOL SUCCINATE 25 MG TAB.SR.24H (FP) PO SCH ×2 (10:31→21:55)
[2018-10-10] MEDS: LISINOPRIL 5 MG TABLET (FP) PO SCH (10:31)
[2018-10-10] MEDS: CEFTRIAXONE 2 GM in DEXTROSE 5%-WATER 100 ML IVPB SCH (10:31)
[2018-10-10] MEDS: AZITHROMYCIN IVPB 500 MG/250 ML BAG IVPB SCH (10:32)
--- NOTE | 2018-10-10 12:03 | PN ---
Progress Note, Physician History of Present Illness: PULMONARY ALERT,FEELING BETTER,LESS DYSPNEIC,LESS COUGH,OOB-CHAIR - Current Medication List Current Medications: Active Medications Albuterol/Ipratropium (Duoneb -) 1 amp NEB Q6H PRN PRN Reason: SHORTNESS OF BREATH Benzocaine/Menthol (Cepacol Lozenge -) 1 each MM Q2H PRN PRN Reason: SORE THROAT Furosemide (Lasix Injection -) 40 mg IVPUSH DAILY [facility] Last Admin: 10/10/18 10:31 Dose: 40 mg Guaifenesin (Mucinex Dm -) 2 tablet PO BID [facility] Last Admin: 10/09/18 22:43 Dose: 2 tablet Ceftriaxone Sodium 2 gm/ (Dextrose) 100 mls @ 200 mls/hr IVPB DAILY [facility]; Protocol Last Admin: 10/10/18 10:31 Dose: 200 mls/hr Azithromycin (Zithromax 500mg Ivpb (Pre-Docked)) 500 mg in 250 mls @ 250 mls/ hr IVPB DAILY [facility] Last Admin: 10/10/18 10:32 Dose: 250 mls/hr Insulin Aspart (Novolog Vial Sliding Scale -) 1 vial SQ ACHS [facility]; Protocol Last Admin: 10/10/18 06:31 Dose: Not Given Levothyroxine Sodium (Synthroid -) 75 mcg PO AM [facility] Last Admin: 10/10/18 06:31 Dose: 75 mcg Lisinopril (Prinivil) 5 mg PO DAILY [facility] Last Admin: 10/10/18 10:31 Dose: 5 mg Metoprolol Succinate (Toprol Xl -) 25 mg PO BID [facility] Last Admin: 10/10/18 10:31 Dose: 25 mg - Objective Vital Signs: Vital Signs Temperature 98 F 10/10/18 09:00 Pulse Rate 69 10/10/18 09:00 Respiratory Rate 20 10/10/18 09:00 Blood Pressure 132/63 10/10/18 09:00 O2 Sat by Pulse Oximetry (%) 94 L 10/09/18 21:00 Constitutional: Yes: Well Nourished, Calm Eyes: Yes: WNL HENT: Yes: WNL Neck: Yes: WNL Cardiovascular: Yes: Regular Rate and Rhythm, S1, S2 Respiratory: Yes: Rhonchi (FEW SCATTERED RHONCHI) Gastrointestinal: Yes: Normal Bowel Sounds, Soft Extremities: Yes: WNL Edema: No Labs: CBC, BMP 10/10/18 06:40 10/10/18 06:40 INR, PTT INR 1.35 (0.83-1.09) H 10/07/18 20:10 Problem List - Problems (1) Acute bronchitis Code(s): J20.9 - ACUTE BRONCHITIS, UNSPECIFIED (2) Acute exacerbation of CHF (congestive heart failure) Code(s): I50.9 - HEART FAILURE, UNSPECIFIED Qualifiers: Heart failure type: diastolic Qualified Code(s): I50.33 - Acute on chronic diastolic (congestive) heart failure (3) Diabetes Code(s): E11.9 - TYPE 2 DIABETES MELLITUS WITHOUT COMPLICATIONS Qualifiers: Diabetes mellitus type: type 2 (4) HTN (hypertension) Code(s): I10 - ESSENTIAL (PRIMARY) HYPERTENSION (5) Hypothyroidism Code(s): E03.9 - HYPOTHYROIDISM, UNSPECIFIED (6) Pancytopenia Code(s): D61.818 - OTHER PANCYTOPENIA (7) Shortness of breath Code(s): R06.02 - SHORTNESS OF BREATH Assessment/Plan A/P Acute Bronchitis Acute on Chronic Diastolic Heart Failure Mitral Regurgitation Liver Cirrhosis Pancytopenia DM Hypothyroidism - empiric antibiotics - lasix - monitor urine output, creatinine - O2 as needed - chest ct - monitor CBC DR SNOW
--- NOTE | 2018-10-10 16:35 | PN ---
Progress Note, Physician Chief Complaint: AWAKE ALERT EVENTS REVIEWED NO DISTRESS - Current Medication List Current Medications: Active Medications Albuterol/Ipratropium (Duoneb -) 1 amp NEB Q6H PRN PRN Reason: SHORTNESS OF BREATH Benzocaine/Menthol (Cepacol Lozenge -) 1 each MM Q2H PRN PRN Reason: SORE THROAT Furosemide (Lasix Injection -) 40 mg IVPUSH DAILY [facility] Last Admin: 10/10/18 10:31 Dose: 40 mg Guaifenesin (Mucinex Dm -) 2 tablet PO BID [facility] Last Admin: 10/09/18 22:43 Dose: 2 tablet Ceftriaxone Sodium 2 gm/ (Dextrose) 100 mls @ 200 mls/hr IVPB DAILY [facility]; Protocol Last Admin: 10/10/18 10:31 Dose: 200 mls/hr Azithromycin (Zithromax 500mg Ivpb (Pre-Docked)) 500 mg in 250 mls @ 250 mls/ hr IVPB DAILY [facility] Last Admin: 10/10/18 10:32 Dose: 250 mls/hr Insulin Aspart (Novolog Vial Sliding Scale -) 1 vial SQ ACHS [facility]; Protocol Last Admin: 10/10/18 06:31 Dose: Not Given Levothyroxine Sodium (Synthroid -) 75 mcg PO AM [facility] Last Admin: 10/10/18 06:31 Dose: 75 mcg Lisinopril (Prinivil) 5 mg PO DAILY [facility] Last Admin: 10/10/18 10:31 Dose: 5 mg Metoprolol Succinate (Toprol Xl -) 25 mg PO BID [facility] Last Admin: 10/10/18 10:31 Dose: 25 mg Potassium Chloride (K-Dur -) 20 meq PO DAILY [facility] - Objective Vital Signs: Vital Signs Temperature 98.2 F 10/10/18 14:00 Pulse Rate 65 10/10/18 14:00 Respiratory Rate 20 10/10/18 09:00 Blood Pressure 105/49 L 10/10/18 14:00 O2 Sat by Pulse Oximetry (%) 96 10/10/18 09:00 Constitutional: Yes: No Distress Eyes: Yes: WNL HENT: Yes: WNL Neck: Yes: WNL Cardiovascular: Yes: WNL Respiratory: Yes: WNL Gastrointestinal: Yes: WNL Genitourinary: Yes: WNL Musculoskeletal: Yes: WNL Edema: No Peripheral Pulses WNL: Yes Integumentary: Yes: WNL Wound/Incision: Yes: Clean/Dry Neurological: Yes: WNL ...Motor Strength: WNL Psychiatric: Yes: WNL Labs: CBC, BMP 10/10/18 06:40 10/10/18 06:40 INR, PTT INR 1.35 (0.83-1.09) H 10/07/18 20:10 Problem List - Problems (1) Acute bronchitis Code(s): J20.9 - ACUTE BRONCHITIS, UNSPECIFIED (2) Acute exacerbation of CHF (congestive heart failure) Code(s): I50.9 - HEART FAILURE, UNSPECIFIED Qualifiers: Heart failure type: diastolic Qualified Code(s): I50.33 - Acute on chronic diastolic (congestive) heart failure (3) Diabetes Code(s): E11.9 - TYPE 2 DIABETES MELLITUS WITHOUT COMPLICATIONS Qualifiers: Diabetes mellitus type: type 2 (4) HTN (hypertension) Code(s): I10 - ESSENTIAL (PRIMARY) HYPERTENSION (5) Hypothyroidism Code(s): E03.9 - HYPOTHYROIDISM, UNSPECIFIED (6) Pancytopenia Code(s): D61.818 - OTHER PANCYTOPENIA (7) Sepsis Code(s): A41.9 - SEPSIS, UNSPECIFIED ORGANISM Assessment/Plan IV ABX CHANGED TO PO DC PLANNING TOMORROW ID F/U NEBS 02 NC OOB TO CHAIR
--- NOTE | 2018-10-10 16:58 | PN ---
Progress Note, Physician Chief Complaint: Pt sitting up at bedside; feels better; no chest or abdominal pain; History of Present Illness: This patient is an 83 year old female with PMHx of DMII, hypothyroidism, cirrhosis, pancreatic cysts, who presents with 2 days of worsening cough w/ [id number] sputum. Patient also reports shortness of breath, worse on exertion. Denies fever. chills. 10/07/18 18:58 <Evelyn Poe - Last Filed: 10/07/18 18:59> - Current Medication List Current Medications: Active Medications Albuterol/Ipratropium (Duoneb -) 1 amp NEB Q6H PRN PRN Reason: SHORTNESS OF BREATH Benzocaine/Menthol (Cepacol Lozenge -) 1 each MM Q2H PRN PRN Reason: SORE THROAT Furosemide (Lasix Injection -) 40 mg IVPUSH DAILY [facility] Last Admin: 10/10/18 10:31 Dose: 40 mg Guaifenesin (Mucinex Dm -) 2 tablet PO BID [facility] Last Admin: 10/09/18 22:43 Dose: 2 tablet Ceftriaxone Sodium 2 gm/ (Dextrose) 100 mls @ 200 mls/hr IVPB DAILY [facility]; Protocol Last Admin: 10/10/18 10:31 Dose: 200 mls/hr Azithromycin (Zithromax 500mg Ivpb (Pre-Docked)) 500 mg in 250 mls @ 250 mls/ hr IVPB DAILY [facility] Last Admin: 10/10/18 10:32 Dose: 250 mls/hr Insulin Aspart (Novolog Vial Sliding Scale -) 1 vial SQ ACHS [facility]; Protocol Last Admin: 10/10/18 06:31 Dose: Not Given Levothyroxine Sodium (Synthroid -) 75 mcg PO AM [facility] Last Admin: 10/10/18 06:31 Dose: 75 mcg Lisinopril (Prinivil) 5 mg PO DAILY [facility] Last Admin: 10/10/18 10:31 Dose: 5 mg Metoprolol Succinate (Toprol Xl -) 25 mg PO BID [facility] Last Admin: 10/10/18 10:31 Dose: 25 mg Potassium Chloride (K-Dur -) 20 meq PO DAILY [facility] - Objective Vital Signs: Vital Signs Temperature 98.2 F 10/10/18 14:00 Pulse Rate 65 10/10/18 14:00 Respiratory Rate 20 10/10/18 09:00 Blood Pressure 105/49 L 10/10/18 14:00 O2 Sat by Pulse Oximetry (%) 96 10/10/18 09:00 Constitutional: Yes: Calm Eyes: Yes: WNL HENT: Yes: WNL Neck: Yes: WNL Cardiovascular: Yes: Murmur, S1, S2 Respiratory: Yes: Diminished (mildly). No: Rales Gastrointestinal: Yes: Soft. No: Tenderness ...Rectal Exam: Yes: Deferred Genitourinary: No: Anuria Breast(s): Yes: WNL Musculoskeletal: Yes: Muscle Weakness Extremities: Yes: Cool Edema: No Peripheral Pulses WNL: Yes Integumentary: Yes: WNL Neurological: Yes: WNL Psychiatric: Yes: WNL Labs: CBC, BMP 10/10/18 06:40 10/10/18 06:40 INR, PTT INR 1.35 (0.83-1.09) H 10/07/18 20:10 Abnormal Lab Results 10/09/18 10/09/18 08:55 08:55 Total Protein (PEP) 5.4 L Free [place] LC, Quant 35.2 H Free [place] LC, Quant 32.0 H - ....Imaging Ultrasound: Report Reviewed (ECHO) Problem List - Problems (1) Acute bronchitis Assessment/Plan: f/u with business advisor. Code(s): J20.9 - ACUTE BRONCHITIS, UNSPECIFIED (2) Acute exacerbation of CHF (congestive heart failure) Assessment/Plan: Continue metoprolol, lisinopril, and furosemide. ECHO: normal LVEF; abnormal diastolic compliance; mild LAE; mild TR and AR; miild-moderate MR. F/u BUN/Cr, electrolytes, daily weight, Is and Os. Code(s): I50.9 - HEART FAILURE, UNSPECIFIED Qualifiers: Heart failure type: diastolic Qualified Code(s): I50.33 - Acute on chronic diastolic (congestive) heart failure (3) Diabetes Code(s): E11.9 - TYPE 2 DIABETES MELLITUS WITHOUT COMPLICATIONS Qualifiers: Diabetes mellitus type: type 2 (4) HTN (hypertension) Code(s): I10 - ESSENTIAL (PRIMARY) HYPERTENSION (5) Hypothyroidism Code(s): E03.9 - HYPOTHYROIDISM, UNSPECIFIED (6) Shortness of breath Code(s): R06.02 - SHORTNESS OF BREATH (7) Pancytopenia Assessment/Plan: F/u with hematology. Hx chronically low platelets and WBCs. Hx liver cirrhosis and marked splenomegaly. Code(s): D61.818 - OTHER PANCYTOPENIA (8) Sepsis Assessment/Plan: ?bronchitis/PNA. On antibiotics. Code(s): A41.9 - SEPSIS, UNSPECIFIED ORGANISM
[2018-10-10] MEDS: POTASSIUM CHLORIDE TABS 20 MEQ TABLET.ER (FP) PO SCH (18:35)
[2018-10-10 19:13] LABS: FREE KAPPA,SERUM 35.2 mg/L (3.3-19.4)
[2018-10-10] MEDS ORDERED: PT OWN MED DRAWER 7, Y5N ONE (21:16)
[2018-10-11] MEDS: LEVOTHYROXINE NA 75 MCG TABLET (FP) PO SCH (06:04)
[2018-10-11] MEDS: INSULIN SLIDING SCALE (NOVOLOG) 1 VIAL SQ SCH ×4 (06:04→21:09)
--- NOTE | 2018-10-11 08:20 | PN ---
Progress Note, Physician - Current Medication List Current Medications: Active Medications Albuterol/Ipratropium (Duoneb -) 1 amp NEB Q6H PRN PRN Reason: SHORTNESS OF BREATH Benzocaine/Menthol (Cepacol Lozenge -) 1 each MM Q2H PRN PRN Reason: SORE THROAT Furosemide (Lasix Injection -) 40 mg IVPUSH DAILY [facility] Last Admin: 10/10/18 10:31 Dose: 40 mg Guaifenesin (Mucinex Dm -) 2 tablet PO BID [facility] Last Admin: 10/10/18 21:56 Dose: 2 tablet Ceftriaxone Sodium 2 gm/ (Dextrose) 100 mls @ 200 mls/hr IVPB DAILY [facility]; Protocol Last Admin: 10/10/18 10:31 Dose: 200 mls/hr Azithromycin (Zithromax 500mg Ivpb (Pre-Docked)) 500 mg in 250 mls @ 250 mls/ hr IVPB DAILY [facility] Last Admin: 10/10/18 10:32 Dose: 250 mls/hr Insulin Aspart (Novolog Vial Sliding Scale -) 1 vial SQ ACHS [facility]; Protocol Last Admin: 10/11/18 06:04 Dose: Not Given Levothyroxine Sodium (Synthroid -) 75 mcg PO AM [facility] Last Admin: 10/11/18 06:04 Dose: 75 mcg Lisinopril (Prinivil) 5 mg PO DAILY [facility] Last Admin: 10/10/18 10:31 Dose: 5 mg Metoprolol Succinate (Toprol Xl -) 25 mg PO BID [facility] Last Admin: 10/10/18 21:55 Dose: 25 mg Potassium Chloride (K-Dur -) 20 meq PO DAILY [facility] Last Admin: 10/10/18 18:35 Dose: 20 meq - Objective Vital Signs: Vital Signs Temperature 98.4 F 10/11/18 06:00 Pulse Rate 58 L 10/11/18 06:00 Respiratory Rate 20 10/11/18 06:00 Blood Pressure 124/69 10/11/18 06:00 O2 Sat by Pulse Oximetry (%) 95 10/10/18 21:00 Labs: CBC, BMP 10/10/18 06:40 10/10/18 06:40 INR, PTT INR 1.35 (0.83-1.09) H 10/07/18 20:10 Assessment/Plan - Problems (1) Acute bronchitis--Pneumonia Assessment/Plan: iv abx nebulizers pulm and id on case Code(s): J20.9 - ACUTE BRONCHITIS, UNSPECIFIED (2) Acute exacerbation of CHF (congestive heart failure) Assessment/Plan: iv lasix echo noted grade 1 diastolic dysfunction cardio on board Code(s): I50.9 - HEART FAILURE, UNSPECIFIED Qualifiers: Heart failure type: diastolic Qualified Code(s): I50.33 - Acute on chronic diastolic (congestive) heart failure (3) Diabetes Assessment/Plan: sliding scale bgm Code(s): E11.9 - TYPE 2 DIABETES MELLITUS WITHOUT COMPLICATIONS Qualifiers: Diabetes mellitus type: type 2 (4) HTN (hypertension) Assessment/Plan: lisinopril 5mg Code(s): I10 - ESSENTIAL (PRIMARY) HYPERTENSION (5) Hypothyroidism Assessment/Plan: synthroid 75mcg Code(s): E03.9 - HYPOTHYROIDISM, UNSPECIFIED (6) Pancytopenia Assessment/Plan: heme on board chronic--stable Code(s): D61.818 - OTHER PANCYTOPENIA (7) Hepatoma Assessment/Plan: chronic--pt has refused any w/u in past
--- NOTE | 2018-10-11 10:13 | PN ---
Progress Note, Physician History of Present Illness: This patient is an 83 year old female with PMHx of DMII, hypothyroidism, cirrhosis, pancreatic cysts, who presents with 2 days of worsening cough w/ [id number] sputum. Patient also reports shortness of breath, worse on exertion. - Current Medication List Current Medications: Active Medications Albuterol/Ipratropium (Duoneb -) 1 amp NEB Q6H PRN PRN Reason: SHORTNESS OF BREATH Benzocaine/Menthol (Cepacol Lozenge -) 1 each MM Q2H PRN PRN Reason: SORE THROAT Furosemide (Lasix -) 40 mg PO DAILY [facility] Guaifenesin (Mucinex Dm -) 2 tablet PO BID [facility] Last Admin: 10/10/18 21:56 Dose: 2 tablet Ceftriaxone Sodium 2 gm/ (Dextrose) 100 mls @ 200 mls/hr IVPB DAILY [facility]; Protocol Last Admin: 10/10/18 10:31 Dose: 200 mls/hr Azithromycin (Zithromax 500mg Ivpb (Pre-Docked)) 500 mg in 250 mls @ 250 mls/ hr IVPB DAILY [facility] Last Admin: 10/10/18 10:32 Dose: 250 mls/hr Insulin Aspart (Novolog Vial Sliding Scale -) 1 vial SQ ACHS [facility]; Protocol Last Admin: 10/11/18 06:04 Dose: Not Given Levothyroxine Sodium (Synthroid -) 75 mcg PO AM [facility] Last Admin: 10/11/18 06:04 Dose: 75 mcg Lisinopril (Prinivil) 5 mg PO DAILY [facility] Last Admin: 10/10/18 10:31 Dose: 5 mg Metoprolol Succinate (Toprol Xl -) 25 mg PO BID [facility] Last Admin: 10/10/18 21:55 Dose: 25 mg Potassium Chloride (K-Dur -) 20 meq PO DAILY [facility] Last Admin: 10/10/18 18:35 Dose: 20 meq - Objective Vital Signs: Vital Signs Temperature 98.4 F 10/11/18 06:00 Pulse Rate 58 L 10/11/18 06:00 Respiratory Rate 20 10/11/18 08:39 Blood Pressure 124/69 10/11/18 06:00 O2 Sat by Pulse Oximetry (%) 95 10/11/18 08:39 Eyes: Yes: WNL, Conjunctiva Clear, EOM Intact HENT: Yes: WNL, Atraumatic, Normocephalic Neck: Yes: WNL, Supple, Trachea Midline Cardiovascular: Yes: WNL, Regular Rate and Rhythm Respiratory: Yes: WNL, Regular, CTA Bilaterally Gastrointestinal: Yes: WNL, Normal Bowel Sounds Genitourinary: Yes: WNL Musculoskeletal: Yes: WNL Extremities: Yes: WNL Edema: No Integumentary: Yes: WNL Neurological: Yes: WNL, Alert, Oriented ...Motor Strength: WNL Psychiatric: Yes: WNL Labs: CBC, BMP 10/10/18 06:40 10/10/18 06:40 INR, PTT INR 1.35 (0.83-1.09) H 10/07/18 20:10 Assessment/Plan - Problems (1) Acute bronchitis Assessment/Plan: 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 Code(s): J20.9 - ACUTE BRONCHITIS, UNSPECIFIED (2) Acute exacerbation of CHF (congestive heart failure) Assessment/Plan: Continue metoprolol, lisinopril, and furosemide. ECHO: normal LVEF; abnormal diastolic compliance; mild LAE; mild TR and AR; miild-moderate MR. F/u BUN/Cr, electrolytes, daily weight, Is and Os. Code(s): I50.9 - HEART FAILURE, UNSPECIFIED Qualifiers: Heart failure type: diastolic Qualified Code(s): I50.33 - Acute on chronic diastolic (congestive) heart failure (3) Diabetes Code(s): E11.9 - TYPE 2 DIABETES MELLITUS WITHOUT COMPLICATIONS Qualifiers: Diabetes mellitus type: type 2 (4) HTN (hypertension) Code(s): I10 - ESSENTIAL (PRIMARY) HYPERTENSION (5) Hypothyroidism Code(s): E03.9 - HYPOTHYROIDISM, UNSPECIFIED (6) Shortness of breath Code(s): R06.02 - SHORTNESS OF BREATH (7) Pancytopenia Assessment/Plan: F/u with hematology. Hx chronically low platelets and WBCs. Hx liver cirrhosis and marked splenomegaly. Code(s): D61.818 - OTHER PANCYTOPENIA (8) Sepsis Assessment/Plan: ?bronchitis/PNA. On antibiotics. Code(s): A41.9 - SEPSIS, UNSPECIFIED ORGANISM d/c telemetry MIBI stress test as outpatient
[2018-10-11] MEDS ORDERED: DEXTROSE 5%-WATER 100 ML IVPB ONE (10:25)
[2018-10-11] MEDS ORDERED: PT OWN MED DRAWER 7, Y5N ONE (10:30)
[2018-10-11] MEDS: LISINOPRIL 5 MG TABLET (FP) PO SCH (10:39)
[2018-10-11] MEDS: metoPROLOL SUCCINATE 25 MG TAB.SR.24H (FP) PO SCH ×2 (10:39→21:09)
[2018-10-11] MEDS: FUROSEMIDE 40 MG TABLET (FP) PO SCH (10:39)
[2018-10-11] MEDS: AZITHROMYCIN IVPB 500 MG/250 ML BAG IVPB SCH (10:40)
[2018-10-11] MEDS: POTASSIUM CHLORIDE TABS 20 MEQ TABLET.ER (FP) PO SCH (10:40)
[2018-10-11] MEDS: CEFTRIAXONE 2 GM in DEXTROSE 5%-WATER 100 ML IVPB SCH (10:40)
[2018-10-11] MEDS: guaiFENesin/D-METHORPHAN HB 1 EACH TAB.ER.12H PO SCH ×2 (10:40→21:09)
--- NOTE | 2018-10-11 11:35 | PN ---
Progress Note, Physician History of Present Illness: pulmonary alert,no distress,less cough - Current Medication List Current Medications: Active Medications Albuterol/Ipratropium (Duoneb -) 1 amp NEB Q6H PRN PRN Reason: SHORTNESS OF BREATH Benzocaine/Menthol (Cepacol Lozenge -) 1 each MM Q2H PRN PRN Reason: SORE THROAT Furosemide (Lasix -) 40 mg PO DAILY [facility] Last Admin: 10/11/18 10:39 Dose: 40 mg Guaifenesin (Mucinex Dm -) 2 tablet PO BID [facility] Last Admin: 10/11/18 10:40 Dose: 2 tablet Ceftriaxone Sodium 2 gm/ (Dextrose) 100 mls @ 200 mls/hr IVPB DAILY [facility]; Protocol Last Admin: 10/11/18 10:40 Dose: 200 mls/hr Azithromycin (Zithromax 500mg Ivpb (Pre-Docked)) 500 mg in 250 mls @ 250 mls/ hr IVPB DAILY [facility] Last Admin: 10/11/18 10:40 Dose: 250 mls/hr Insulin Aspart (Novolog Vial Sliding Scale -) 1 vial SQ ACHS [facility]; Protocol Last Admin: 10/11/18 06:04 Dose: Not Given Levothyroxine Sodium (Synthroid -) 75 mcg PO AM [facility] Last Admin: 10/11/18 06:04 Dose: 75 mcg Lisinopril (Prinivil) 5 mg PO DAILY [facility] Last Admin: 10/11/18 10:39 Dose: 5 mg Metoprolol Succinate (Toprol Xl -) 25 mg PO BID [facility] Last Admin: 10/11/18 10:39 Dose: 25 mg Potassium Chloride (K-Dur -) 20 meq PO DAILY [facility] Last Admin: 10/11/18 10:40 Dose: 20 meq - Objective Vital Signs: Vital Signs Temperature 98 F 10/11/18 10:00 Pulse Rate 60 10/11/18 10:00 Respiratory Rate 20 10/11/18 10:00 Blood Pressure 124/56 L 10/11/18 10:00 O2 Sat by Pulse Oximetry (%) 95 10/11/18 08:39 Constitutional: Yes: Well Nourished, Calm Eyes: Yes: WNL HENT: Yes: WNL Neck: Yes: WNL Cardiovascular: Yes: Regular Rate and Rhythm, S1, S2 Respiratory: Yes: Rhonchi (few rhonchi) Gastrointestinal: Yes: Normal Bowel Sounds, Soft Extremities: Yes: WNL Edema: No Labs: Problem List - Problems (1) Acute bronchitis Code(s): J20.9 - ACUTE BRONCHITIS, UNSPECIFIED (2) Acute exacerbation of CHF (congestive heart failure) Code(s): I50.9 - HEART FAILURE, UNSPECIFIED Qualifiers: Heart failure type: diastolic Qualified Code(s): I50.33 - Acute on chronic diastolic (congestive) heart failure (3) Diabetes Code(s): E11.9 - TYPE 2 DIABETES MELLITUS WITHOUT COMPLICATIONS Qualifiers: Diabetes mellitus type: type 2 (4) HTN (hypertension) Code(s): I10 - ESSENTIAL (PRIMARY) HYPERTENSION (5) Hypothyroidism Code(s): E03.9 - HYPOTHYROIDISM, UNSPECIFIED (6) Pancytopenia Code(s): D61.818 - OTHER PANCYTOPENIA (7) Shortness of breath Code(s): R06.02 - SHORTNESS OF BREATH Assessment/Plan A/P Acute Bronchitis improving Pneumonia improving Acute on Chronic Diastolic Heart Failure Mitral Regurgitation Liver Cirrhosis Pancytopenia DM Hypothyroidism - antibiotics - lasix - monitor urine output, creatinine - O2 as needed - monitor CBC DR SNOW
--- NOTE | 2018-10-11 15:07 | PN ---
Physical Exam: SUBJECTIVE: Patient seen and examined; no complaints; all count have improved OBJECTIVE: Vital Signs Period Temp Pulse Resp BP Sys/Parker Pulse Ox Last 24 Hr 97.8 F-98.7 F 58-68 20-20 100-124/44-69 95-95 GENERAL: The patient is awake, alert, and fully oriented, in no acute distress. NECK: Trachea midline, full range of motion, supple. LUNGS: Breath sounds equal, clear to auscultation bilaterally, no wheezes, no crackles, no accessory muscle use. HEART: Regular rate and rhythm, S1, S2 without murmur, rub or gallop. ABDOMEN: Soft, nontender, nondistended, normoactive bowel sounds, no guarding, no rebound, no hepatosplenomegaly, no masses. EXTREMITIES: 2+ pulses, warm, well-perfused, no edema. NEUROLOGICAL: Cranial nerves II through XII grossly intact. Normal speech, gait not observed. PSYCH: Normal mood, normal affect. SKIN: Warm, dry, normal turgor, no rashes or lesions noted Laboratory Results - last 24 hr 10/09/18 10/09/18 10/10/18 08:55 08:55 17:13 POC Glucometer 121 Total Protein (PEP) 5.4 L Albumin (PEP) 2.9 Globulin 2.5 Albumin/Globulin Ratio 1.2 Beta Globulins 0.9 LEONELA M-Chris Not observed Free [place] LC, Quant 35.2 H Free Lambda LC, Quant 32.0 H Free [place]/Lambda Ratio 1.10 10/10/18 10/11/18 10/11/18 21:58 05:56 11:14 POC Glucometer 124 99 185 Total Protein (PEP) Albumin (PEP) Globulin Albumin/Globulin Ratio Beta Globulins LEONELA M-Chris Free [place] LC, Quant Free Lambda LC, Quant Free [place]/Lambda Ratio Active Medications Generic Name Dose Route Start Last Admin Trade Name Freq PRN Reason Stop Dose Admin Albuterol/Ipratropium 1 amp 10/08/18 20:47 Duoneb - NEB Q6H PRN SHORTNESS OF BREATH Benzocaine/Menthol 1 each 10/08/18 20:47 Cepacol Lozenge - MM Q2H PRN SORE THROAT Furosemide 40 mg 10/11/18 10:00 10/11/18 10:39 Lasix - PO 40 mg DAILY [facility] Administration Guaifenesin 2 tablet 10/08/18 22:00 10/11/18 10:40 Mucinex Dm - PO 2 tablet BID [facility] Administration Ceftriaxone Sodium 2 gm/ 100 mls @ 200 mls/hr 10/08/18 19:00 10/11/18 10:40 Dextrose IVPB 200 mls/hr DAILY [facility] Administration Protocol Azithromycin 500 mg in 250 mls @ 250 mls/hr 10/08/18 19:00 10/11/18 10:40 Zithromax 500mg Ivpb (Pre-Docked) IVPB 250 mls/hr DAILY [facility] Administration Insulin Aspart 1 vial 10/07/18 22:00 10/11/18 12:36 Novolog Vial Sliding Scale - SQ 2 units ACHS [facility] Administration Protocol Levothyroxine Sodium 75 mcg 10/10/18 07:00 10/11/18 06:04 Synthroid - PO 75 mcg AM [facility] Administration Lisinopril 5 mg 10/08/18 10:00 10/11/18 10:39 Prinivil PO 5 mg DAILY [facility] Administration Metoprolol Succinate 25 mg 10/07/18 22:00 10/11/18 10:39 Toprol Xl - PO 25 mg BID [facility] Administration Potassium Chloride 20 meq 10/10/18 12:30 10/11/18 10:40 K-Dur - PO 20 meq DAILY [facility] Administration ASSESSMENT/PLAN: 83F with hypothyroidism, cirrhosis, DM admitted with SOB, likelye 2/2 acute bronchitis +/-CHF. On Abx. Heme consulted for pancytopenia: Hgb 11.3, MCV 96, WBC 1.8 (ANC 1.1). Plt 44. Except for new mild anemia, counts were similar when checked in 2016 and 2010. Spleen was markedly enlarged on 08/2017 imaging. Pt is scheduled to see Dr. Mazariegos for the first time in October. Acute Bronchitis Pneumonia Acute on Chronic Diastolic Heart Failure Liver Cirrhosis Pancytopenia DM Hypothyroidism -pancytopenia improved after antibiotic treatment; also may be secondary to liver cirrhosis -corrected reticulocyte count normal; which does not suggest acute hemolysis; -b12 and folate normal -as per chart plan to DC in am --protein studies follow up ; had appt in October Dr. Mazariegos office Visit type - Emergency Visit Emergency Visit: Yes ED Registration Date: 10/07/18 Care time: The patient presented to the Emergency Department on the above date and was hospitalized for further evaluation of their emergent condition. - New Patient This patient is new to me today: Yes Date on this admission: 10/11/18 - Critical Care Critical Care patient: No
--- NOTE | 2018-10-11 15:56 | PN ---
Progress Note, Physician History of Present Illness: IMPROVED AMBULATORY NO C/O CHEST PAIN/ DYSPNEA/ COUGH AFEBRILE WBC IMPROVED 2.2 ANC 1.2 BC (-) CT SMALL INFILTRATE L BASE - Current Medication List Current Medications: Active Medications Albuterol/Ipratropium (Duoneb -) 1 amp NEB Q6H PRN PRN Reason: SHORTNESS OF BREATH Benzocaine/Menthol (Cepacol Lozenge -) 1 each MM Q2H PRN PRN Reason: SORE THROAT Furosemide (Lasix -) 40 mg PO DAILY [facility] Last Admin: 10/11/18 10:39 Dose: 40 mg Guaifenesin (Mucinex Dm -) 2 tablet PO BID [facility] Last Admin: 10/11/18 10:40 Dose: 2 tablet Ceftriaxone Sodium 2 gm/ (Dextrose) 100 mls @ 200 mls/hr IVPB DAILY [facility]; Protocol Last Admin: 10/11/18 10:40 Dose: 200 mls/hr Azithromycin (Zithromax 500mg Ivpb (Pre-Docked)) 500 mg in 250 mls @ 250 mls/ hr IVPB DAILY [facility] Last Admin: 10/11/18 10:40 Dose: 250 mls/hr Insulin Aspart (Novolog Vial Sliding Scale -) 1 vial SQ ACHS [facility]; Protocol Last Admin: 10/11/18 12:36 Dose: 2 units Levothyroxine Sodium (Synthroid -) 75 mcg PO AM [facility] Last Admin: 10/11/18 06:04 Dose: 75 mcg Lisinopril (Prinivil) 5 mg PO DAILY [facility] Last Admin: 10/11/18 10:39 Dose: 5 mg Metoprolol Succinate (Toprol Xl -) 25 mg PO BID [facility] Last Admin: 10/11/18 10:39 Dose: 25 mg Potassium Chloride (K-Dur -) 20 meq PO DAILY [facility] Last Admin: 10/11/18 10:40 Dose: 20 meq - Objective Vital Signs: Vital Signs Temperature 97.9 F 10/11/18 14:00 Pulse Rate 76 10/11/18 14:00 Respiratory Rate 20 10/11/18 10:00 Blood Pressure 117/60 10/11/18 14:00 O2 Sat by Pulse Oximetry (%) 95 10/11/18 08:39 Constitutional: Yes: No Distress Eyes: Yes: Conjunctiva Clear Cardiovascular: Yes: Regular Rate and Rhythm, S1, S2 Respiratory: Yes: CTA Bilaterally Gastrointestinal: Yes: Normal Bowel Sounds, Soft. No: Tenderness Edema: No Labs: CBC, BMP 10/10/18 06:40 10/10/18 06:40 INR, PTT INR 1.35 (0.83-1.09) H 10/07/18 20:10 Assessment/Plan LLL PNEUMONIA PANCYTOPENIA/ NEUTROPENIA IMPROVED CHRONIC LIVER DISEASE CONTINUE ZITHROMAX/ CEFTRIAXONE
--- NOTE | 2018-10-11 16:43 | PN ---
Progress Note, Physician Chief Complaint: Bronchitis Pancytopenia CHF History of Present Illness: Previous notes and events reviewed awake and alert NAD denies SOB and chest pain - Current Medication List Current Medications: Active Medications Albuterol/Ipratropium (Duoneb -) 1 amp NEB Q6H PRN PRN Reason: SHORTNESS OF BREATH Benzocaine/Menthol (Cepacol Lozenge -) 1 each MM Q2H PRN PRN Reason: SORE THROAT Furosemide (Lasix -) 40 mg PO DAILY [facility] Last Admin: 10/11/18 10:39 Dose: 40 mg Guaifenesin (Mucinex Dm -) 2 tablet PO BID [facility] Last Admin: 10/11/18 10:40 Dose: 2 tablet Ceftriaxone Sodium 2 gm/ (Dextrose) 100 mls @ 200 mls/hr IVPB DAILY [facility]; Protocol Last Admin: 10/11/18 10:40 Dose: 200 mls/hr Azithromycin (Zithromax 500mg Ivpb (Pre-Docked)) 500 mg in 250 mls @ 250 mls/ hr IVPB DAILY [facility] Last Admin: 10/11/18 10:40 Dose: 250 mls/hr Insulin Aspart (Novolog Vial Sliding Scale -) 1 vial SQ ACHS [facility]; Protocol Last Admin: 10/11/18 12:36 Dose: 2 units Levothyroxine Sodium (Synthroid -) 75 mcg PO AM [facility] Last Admin: 10/11/18 06:04 Dose: 75 mcg Lisinopril (Prinivil) 5 mg PO DAILY [facility] Last Admin: 10/11/18 10:39 Dose: 5 mg Metoprolol Succinate (Toprol Xl -) 25 mg PO BID [facility] Last Admin: 10/11/18 10:39 Dose: 25 mg Potassium Chloride (K-Dur -) 20 meq PO DAILY [facility] Last Admin: 10/11/18 10:40 Dose: 20 meq - Objective Vital Signs: Vital Signs Temperature 97.9 F 10/11/18 14:00 Pulse Rate 76 10/11/18 14:00 Respiratory Rate 20 10/11/18 10:00 Blood Pressure 117/60 10/11/18 14:00 O2 Sat by Pulse Oximetry (%) 95 10/11/18 08:39 Constitutional: Yes: Well Nourished, No Distress, Calm Eyes: Yes: Conjunctiva Clear HENT: Yes: Atraumatic Cardiovascular: Yes: Regular Rate and Rhythm Respiratory: Yes: Regular, CTA Bilaterally Gastrointestinal: Yes: Normal Bowel Sounds, Soft Musculoskeletal: Yes: Muscle Weakness Extremities: Yes: WNL Edema: No Neurological: Yes: Alert, Oriented Psychiatric: Yes: Alert, Oriented Labs: CBC, BMP 10/10/18 06:40 10/10/18 06:40 INR, PTT INR 1.35 (0.83-1.09) H 10/07/18 20:10 Microbiology 10/07/18 Unknown Blood - Peripheral Venous Blood Culture - Preliminary NO GROWTH OBTAINED AFTER 72 HOURS, INCUBATION TO CONTINUE FOR 2 DAYS. 10/07/18 Unknown Blood - Peripheral Venous Blood Culture - Preliminary NO GROWTH OBTAINED AFTER 72 HOURS, INCUBATION TO CONTINUE FOR 2 DAYS. 10/07/18 20:30 Urine - Urine Clean Catch Urine Culture - Final NO GROWTH OBTAINED Problem List - Problems (1) Acute bronchitis Assessment/Plan: -ID on board -pulm on boar -IV ABT -O2 via NC -bronchodilators Code(s): J20.9 - ACUTE BRONCHITIS, UNSPECIFIED (2) Acute exacerbation of CHF (congestive heart failure) Assessment/Plan: -cardiology on board -1L fluid restriction -daily weights -Echo EF 60-65% -continue with lasix Code(s): I50.9 - HEART FAILURE, UNSPECIFIED Qualifiers: Heart failure type: diastolic Qualified Code(s): I50.33 - Acute on chronic diastolic (congestive) heart failure (3) Diabetes Assessment/Plan: -[facility] -diabetic diet Code(s): E11.9 - TYPE 2 DIABETES MELLITUS WITHOUT COMPLICATIONS Qualifiers: Diabetes mellitus type: type 2 (4) HTN (hypertension) Assessment/Plan: -continue with lisinopril, metoprolol Code(s): I10 - ESSENTIAL (PRIMARY) HYPERTENSION (5) Pancytopenia Assessment/Plan: -hematology on board Code(s): D61.818 - OTHER PANCYTOPENIA (6) Cirrhosis Assessment/Plan: -CT scan show 3.3 cm left hepatic lobe lesion suggestive of hepatoma -GI consult placed Code(s): K74.60 - UNSPECIFIED CIRRHOSIS OF LIVER
--- NOTE | 2018-10-11 18:56 | PN ---
Teaching Attending Note Name of Resident: Geraldine Lacy ATTENDING PHYSICIAN STATEMENT I saw and evaluated the patient. I reviewed the resident's note and discussed the case with the resident. I agree with the resident's findings and plan as documented. SUBJECTIVE: patient seen and examined Clinically improved Last Vital Signs Temp Pulse Resp BP Pulse Ox 97.9 F 76 20 117/60 95 10/11/18 14:00 10/11/18 14:00 10/11/18 10:00 10/11/18 14:00 10/11/18 08:39 HEENT: HANK, EOM Intact Oropharynx: No thrush, No mucositis Cor: RSR, No murmurs, No gallops Lungsrales LLL Abd: Soft, Normal bowel sounds, liver 3 FB, spleen 1 FB Ext:No significant edema Skin: No rashes, Integument intact CBC, BMP 10/10/18 06:40 10/10/18 06:40 Current Medications Generic Name Dose Route Start Last Admin Trade Name Freq PRN Reason Stop Dose Admin Albuterol/Ipratropium 1 amp 10/08/18 20:47 Duoneb - NEB Q6H PRN SHORTNESS OF BREATH Benzocaine/Menthol 1 each 10/08/18 20:47 Cepacol Lozenge - MM Q2H PRN SORE THROAT Furosemide 40 mg 10/11/18 10:00 10/11/18 10:39 Lasix - PO 40 mg DAILY [facility] Administration Guaifenesin 2 tablet 10/08/18 22:00 10/11/18 10:40 Mucinex Dm - PO 2 tablet BID [facility] Administration Ceftriaxone Sodium 2 gm/ 100 mls @ 200 mls/hr 10/08/18 19:00 10/11/18 10:40 Dextrose IVPB 200 mls/hr DAILY [facility] Administration Protocol Azithromycin 500 mg in 250 mls @ 250 mls/hr 10/08/18 19:00 10/11/18 10:40 Zithromax 500mg Ivpb (Pre-Docked) IVPB 250 mls/hr DAILY [facility] Administration Insulin Aspart 1 vial 10/07/18 22:00 10/11/18 17:13 Novolog Vial Sliding Scale - SQ Not Given ACHS [facility] Protocol Levothyroxine Sodium 75 mcg 10/10/18 07:00 10/11/18 06:04 Synthroid - PO 75 mcg AM [facility] Administration Lisinopril 5 mg 10/08/18 10:00 10/11/18 10:39 Prinivil PO 5 mg DAILY [facility] Administration Metoprolol Succinate 25 mg 10/07/18 22:00 10/11/18 10:39 Toprol Xl - PO 25 mg BID [facility] Administration Potassium Chloride 20 meq 10/10/18 12:30 10/11/18 10:40 K-Dur - PO 20 meq DAILY [facility] Administration OBJECTIVE: Impression: 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
[2018-10-12] MEDS: INSULIN SLIDING SCALE (NOVOLOG) 1 VIAL SQ SCH ×4 (06:09→21:30)
[2018-10-12] MEDS: LEVOTHYROXINE NA 75 MCG TABLET (FP) PO SCH (06:09)
[2018-10-12 06:39] LABS: BASO % 0.4 % (0-2.0); EOS % 3.7 % (0-4.5); HEMATOCRIT 31.9 % (32.4-45.2); HEMOGLOBIN 11.3 GM/dL (10.7-15.3); MCH 33.1 pg (25.7-33.7); MCHC 35.4 g/dl (32.0-36.0); MEAN CELL VOLUME 93.6 fl (80-96); MEAN PLT VOLUME 10.5 fl (7.5-11.1); MONO % 10.3 % (3.8-10.2); NEUT % 51.6 % (42.8-82.8); PLATELET COUNT 54 K/MM3 (134-434); RBC 3.41 M/mm3 (3.60-5.2); RDW 14.5 % (11.6-15.6); WHITE BLOOD COUNT 2.1 K/mm3 (4.0-10.0)
[2018-10-12 07:33] LABS: ALBUMIN 2.4 g/dl (3.4-5.0); ALK PHOS 74 U/L (45-117); ANION GAP 6 MMOL/L (8-16); BILIRUBIN,TOTAL 1.3 mg/dL (0.2-1); BLOOD UREA NITROGEN 16 mg/dL (7-18); CALCIUM 7.8 mg/dL (8.5-10.1); CHLORIDE 108 mmol/L (98-107); CO2 26 mmol/L (21-32); CREATININE 0.7 mg/dL (0.55-1.3); GLUCOSE,RANDOM 95 mg/dL (74-106); POTASSIUM 3.8 mmol/L (3.5-5.1); SGOT/AST 49 U/L (15-37); SGPT/ALT 31 U/L (13-61); SODIUM 139 mmol/L (136-145); TOT PROT 5.3 g/dl (6.4-8.2)
--- NOTE | 2018-10-12 08:55 | CON.GI ---
Consult Consult Specialty:: GI Referred by:: Reina Grey NP Reason for Consultation:: Liver lesion, Hepatoma - History of Present Illness Chief Complaint: Liver lesion History of Present Illness: Patient is an 83 y/o female with past medical history of liver cirrhosis, HTN, DM, Hypothyroidism. I was consulted for the patient due Chest CT findings of a liver lesion. Chest CT Scan shows 3.3cm left hepatic lobe lesion noted suggestive of a hepatoma. Current LFTs show AST 49, ALT 31, Alk Phospatase 74. Patient denies abdominal pain, nausea, vomiting, abnormal weight loss. 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 No: AFIB Pulmonary: No: COPD, O2 Dependent Gastrointestinal: Yes: Esophageal Varices, Other (cirrhosis) Hepatobiliary: Yes: Cirrhosis Renal/: No: Renal Failure ...: No Infectious Disease: No: AIDS Psych: No: Addictions Musculoskeletal: Yes: Osteoarthritis Rheumatology: No: Fibromyalgia Endocrine: Yes: Diabetes Mellitus, Hypothyroidism - Alcohol/Substance Use Hx Alcohol Use: No - Smoking History Smoking history: Never smoked Have you smoked in the past 12 months: No Home Medications - Allergies Allergies/Adverse Reactions: Allergies Allergy/AdvReac Type Severity Reaction Status Date / Time No Known Drug Allergies Allergy Unverified 10/07/18 17:16 - Home Medications Home Medications: Ambulatory Orders Levothyroxine [Synthroid -] 50 mcg PO DAILY 03/28/13 Furosemide [Lasix] 40 mg PO DAILY 10/07/18 metFORMIN HCL [Glucophage -] 0 mg PO BID 10/07/18 Review of Systems - Review of Systems Constitutional: reports: No Symptoms Eyes: reports: No Symptoms HENT: reports: No Symptoms Neck: reports: No Symptoms Cardiovascular: reports: No Symptoms Respiratory: reports: No Symptoms Gastrointestinal: reports: No Symptoms Genitourinary: reports: No Symptoms Breasts: reports: No Symptoms Reported Musculoskeletal: reports: No Symptoms Integumentary: reports: No Symptoms Neurological: reports: No Symptoms Endocrine: reports: No Symptoms Hematology/Lymphatic: reports: No Symptoms Psychiatric: reports: No Symptoms Physical Exam-GI Vital Signs: Vital Signs Temperature 98.9 F 10/12/18 05:00 Pulse Rate 61 10/12/18 08:44 Respiratory Rate 18 10/12/18 08:44 Blood Pressure 121/64 10/12/18 08:44 O2 Sat by Pulse Oximetry (%) 95 10/12/18 08:44 Constitutional: Yes: Well Nourished, No Distress, Calm Eyes: Yes: Conjunctiva Clear HENT: Yes: Atraumatic Cardiovascular: Yes: Regular Rate and Rhythm Respiratory: Yes: Regular, CTA Bilaterally Gastrointestinal Inspection: Yes: Scars (lower midline). No: WNL, Ascites, Distention, Hernia, Other ...Auscultate: Yes: Normoactive Bowel Sounds. No: Hyperactive Bowel Sounds, Hypoactive Bowel Sounds, No Bowel Sounds, Other ...Palpate: Yes: Soft (non tender), Other. No: Firm/Rigid, Guarding, Hepatomegaly, Mass, Pulsatile Mass, Splenomegaly, Tenderness, Tenderness, Epigastium, Tenderness, Rebound ...Percussion: Yes: Tympanitic. No: Dullness, Fluid Wave, Other Neurological: Yes: Alert, Oriented Psychiatric: Yes: Alert, Oriented Labs: CBC, BMP 10/12/18 05:30 10/12/18 05:30 INR, PTT INR 1.35 (0.83-1.09) H 10/07/18 20:10 Active Medications Generic Name Dose Route Start Last Admin Trade Name Freq PRN Reason Stop Dose Admin Albuterol/Ipratropium 1 amp 10/08/18 20:47 Duoneb - NEB Q6H PRN SHORTNESS OF BREATH Benzocaine/Menthol 1 each 10/08/18 20:47 Cepacol Lozenge - MM Q2H PRN SORE THROAT Furosemide 40 mg 10/11/18 10:00 10/11/18 10:39 Lasix - PO 40 mg DAILY [facility] Administration Guaifenesin 2 tablet 10/08/18 22:00 10/11/18 21:09 Mucinex Dm - PO 2 tablet BID [facility] Administration Ceftriaxone Sodium 2 gm/ 100 mls @ 200 mls/hr 10/08/18 19:00 10/11/18 10:40 Dextrose IVPB 200 mls/hr DAILY [facility] Administration Protocol Azithromycin 500 mg in 250 mls @ 250 mls/hr 10/08/18 19:00 10/11/18 10:40 Zithromax 500mg Ivpb (Pre-Docked) IVPB 250 mls/hr DAILY [facility] Administration Insulin Aspart 1 vial 10/07/18 22:00 10/12/18 06:09 Novolog Vial Sliding Scale - SQ Not Given ACHS [facility] Protocol Levothyroxine Sodium 75 mcg 10/10/18 07:00 10/12/18 06:09 Synthroid - PO 75 mcg AM [facility] Administration Lisinopril 5 mg 10/08/18 10:00 10/11/18 10:39 Prinivil PO 5 mg DAILY [facility] Administration Metoprolol Succinate 25 mg 10/07/18 22:00 10/11/18 21:09 Toprol Xl - PO 25 mg BID [facility] Administration Potassium Chloride 20 meq 10/10/18 12:30 10/11/18 10:40 K-Dur - PO 20 meq DAILY [facility] Administration Imaging - Results Cat Scan: Report Reviewed Problem List - Problems (1) Liver lesion Assessment/Plan: >CT scan shows possible hepatoma consult interventional radiology >AFP, CEA, CA 19-9, CA 125, Hepatitis profile, HCV AB >MRI with contrast of abdomen >patient instructed to follow up as outpatient for further GI workup Code(s): K76.9 - LIVER DISEASE, UNSPECIFIED
[2018-10-12] MEDS ORDERED: DEXTROSE 5%-WATER 100 ML IVPB ONE (09:02)
[2018-10-12] MEDS: CEFTRIAXONE 2 GM in DEXTROSE 5%-WATER 100 ML IVPB SCH (09:48)
[2018-10-12] MEDS: AZITHROMYCIN IVPB 500 MG/250 ML BAG IVPB SCH (09:49)
[2018-10-12] MEDS: metoPROLOL SUCCINATE 25 MG TAB.SR.24H (FP) PO SCH ×2 (09:49→21:31)
[2018-10-12] MEDS: LISINOPRIL 5 MG TABLET (FP) PO SCH (09:49)
[2018-10-12] MEDS: guaiFENesin/D-METHORPHAN HB 1 EACH TAB.ER.12H PO SCH ×2 (09:49→21:48)
[2018-10-12] MEDS: POTASSIUM CHLORIDE TABS 20 MEQ TABLET.ER (FP) PO SCH (09:49)
[2018-10-12] MEDS: FUROSEMIDE 40 MG TABLET (FP) PO SCH (09:49)
--- NOTE | 2018-10-12 09:55 | PN ---
Progress Note, Physician Chief Complaint: Pt sitting up at bedside; feels better; no chest or abdominal pain; not dyspneic ; c/o having to be "stuck" so many times for blood tests. History of Present Illness: This patient is an 83 year old female with PMHx of DMII, hypothyroidism, cirrhosis, pancreatic cysts, who presents with 2 days of worsening cough w/ [id number] sputum. Patient also reports shortness of breath, worse on exertion. Denies fever. chills. 10/07/18 18:58 <Evelyn Poe - Last Filed: 10/07/18 18:59> - Current Medication List Current Medications: Active Medications Albuterol/Ipratropium (Duoneb -) 1 amp NEB Q6H PRN PRN Reason: SHORTNESS OF BREATH Benzocaine/Menthol (Cepacol Lozenge -) 1 each MM Q2H PRN PRN Reason: SORE THROAT Furosemide (Lasix -) 40 mg PO DAILY [facility] Last Admin: 10/11/18 10:39 Dose: 40 mg Guaifenesin (Mucinex Dm -) 2 tablet PO BID [facility] Last Admin: 10/11/18 21:09 Dose: 2 tablet Ceftriaxone Sodium 2 gm/ (Dextrose) 100 mls @ 200 mls/hr IVPB DAILY [facility]; Protocol Last Admin: 10/11/18 10:40 Dose: 200 mls/hr Azithromycin (Zithromax 500mg Ivpb (Pre-Docked)) 500 mg in 250 mls @ 250 mls/ hr IVPB DAILY [facility] Last Admin: 10/11/18 10:40 Dose: 250 mls/hr Insulin Aspart (Novolog Vial Sliding Scale -) 1 vial SQ ACHS [facility]; Protocol Last Admin: 10/12/18 06:09 Dose: Not Given Levothyroxine Sodium (Synthroid -) 75 mcg PO AM [facility] Last Admin: 10/12/18 06:09 Dose: 75 mcg Lisinopril (Prinivil) 5 mg PO DAILY [facility] Last Admin: 10/11/18 10:39 Dose: 5 mg Metoprolol Succinate (Toprol Xl -) 25 mg PO BID [facility] Last Admin: 10/11/18 21:09 Dose: 25 mg Potassium Chloride (K-Dur -) 20 meq PO DAILY [facility] Last Admin: 10/11/18 10:40 Dose: 20 meq - Objective Vital Signs: Vital Signs Temperature 98.9 F 10/12/18 05:00 Pulse Rate 61 10/12/18 08:44 Respiratory Rate 18 10/12/18 08:44 Blood Pressure 121/64 10/12/18 08:44 O2 Sat by Pulse Oximetry (%) 95 10/12/18 08:44 Constitutional: Yes: Calm Eyes: Yes: WNL HENT: Yes: WNL Neck: Yes: WNL Respiratory: Yes: WNL Gastrointestinal: Yes: WNL ...Rectal Exam: Yes: Deferred Genitourinary: No: Anuria Breast(s): Yes: WNL Musculoskeletal: Yes: Muscle Weakness Extremities: Yes: Cool Edema: No Peripheral Pulses WNL: No Integumentary: Yes: WNL Neurological: Yes: WNL Psychiatric: Yes: WNL Labs: CBC, BMP 10/12/18 05:30 10/12/18 05:30 INR, PTT INR 1.35 (0.83-1.09) H 10/07/18 20:10 Abnormal Lab Results 10/12/18 10/12/18 05:30 05:30 WBC 2.1 L RBC 3.41 L Hct 31.9 L Plt Count 54 L Absolute Neuts (auto) 1.1 L Monocytes % 10.3 H Chloride 108 H Anion Gap 6 L Calcium 7.8 L Total Bilirubin 1.3 H AST 49 H Total Protein 5.3 L Albumin 2.4 L Abnormal Lab Results 10/12/18 10/12/18 05:30 05:30 WBC 2.1 L RBC 3.41 L Hct 31.9 L Plt Count 54 L Absolute Neuts (auto) 1.1 L Monocytes % 10.3 H Chloride 108 H Anion Gap 6 L Calcium 7.8 L Total Bilirubin 1.3 H AST 49 H Total Protein 5.3 L Albumin 2.4 L Problem List - Problems (1) Acute bronchitis Assessment/Plan: 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 Code(s): J20.9 - ACUTE BRONCHITIS, UNSPECIFIED (2) Acute exacerbation of CHF (congestive heart failure) Code(s): I50.9 - HEART FAILURE, UNSPECIFIED Qualifiers: Heart failure type: diastolic Qualified Code(s): I50.33 - Acute on chronic diastolic (congestive) heart failure (3) Diabetes Code(s): E11.9 - TYPE 2 DIABETES MELLITUS WITHOUT COMPLICATIONS Qualifiers: Diabetes mellitus type: type 2 (4) HTN (hypertension) Code(s): I10 - ESSENTIAL (PRIMARY) HYPERTENSION (5) Hypothyroidism Code(s): E03.9 - HYPOTHYROIDISM, UNSPECIFIED (6) Shortness of breath Code(s): R06.02 - SHORTNESS OF BREATH (7) Pancytopenia Code(s): D61.818 - OTHER PANCYTOPENIA (8) Sepsis Code(s): A41.9 - SEPSIS, UNSPECIFIED ORGANISM
--- NOTE | 2018-10-12 11:03 | PN ---
Progress Note, Physician Chief Complaint: patient lying in bed no distress - Current Medication List Current Medications: Active Medications Albuterol/Ipratropium (Duoneb -) 1 amp NEB Q6H PRN PRN Reason: SHORTNESS OF BREATH Benzocaine/Menthol (Cepacol Lozenge -) 1 each MM Q2H PRN PRN Reason: SORE THROAT Furosemide (Lasix -) 40 mg PO DAILY [facility] Last Admin: 10/12/18 09:49 Dose: 40 mg Guaifenesin (Mucinex Dm -) 2 tablet PO BID [facility] Last Admin: 10/12/18 09:49 Dose: 2 tablet Ceftriaxone Sodium 2 gm/ (Dextrose) 100 mls @ 200 mls/hr IVPB DAILY [facility]; Protocol Last Admin: 10/12/18 09:48 Dose: 200 mls/hr Azithromycin (Zithromax 500mg Ivpb (Pre-Docked)) 500 mg in 250 mls @ 250 mls/ hr IVPB DAILY [facility] Last Admin: 10/12/18 09:49 Dose: 250 mls/hr Insulin Aspart (Novolog Vial Sliding Scale -) 1 vial SQ ACHS [facility]; Protocol Last Admin: 10/12/18 06:09 Dose: Not Given Levothyroxine Sodium (Synthroid -) 75 mcg PO AM [facility] Last Admin: 10/12/18 06:09 Dose: 75 mcg Lisinopril (Prinivil) 5 mg PO DAILY [facility] Last Admin: 10/12/18 09:49 Dose: 5 mg Metoprolol Succinate (Toprol Xl -) 25 mg PO BID [facility] Last Admin: 10/12/18 09:49 Dose: 25 mg Potassium Chloride (K-Dur -) 20 meq PO DAILY [facility] Last Admin: 10/12/18 09:49 Dose: 20 meq - Objective Vital Signs: Vital Signs Temperature 98.9 F 10/12/18 05:00 Pulse Rate 61 10/12/18 08:44 Respiratory Rate 18 10/12/18 08:44 Blood Pressure 121/64 10/12/18 08:44 O2 Sat by Pulse Oximetry (%) 95 10/12/18 08:44 Cardiovascular: Yes: Regular Rate and Rhythm, S1, S2 Respiratory: Yes: CTA Bilaterally, Diminished (at bases) Gastrointestinal: Yes: Normal Bowel Sounds, Soft Edema: No Neurological: Yes: Alert Labs: CBC, BMP 10/12/18 05:30 10/12/18 05:30 INR, PTT INR 1.35 (0.83-1.09) H 10/07/18 20:10 Problem List - Problems (1) Liver lesion Assessment/Plan: appreicate gi consult MRI of abdomen Code(s): K76.9 - LIVER DISEASE, UNSPECIFIED (2) Acute bronchitis Assessment/Plan: iv abx nebulizers small left posterior basilar infiltrate Code(s): J20.9 - ACUTE BRONCHITIS, UNSPECIFIED (3) Acute exacerbation of CHF (congestive heart failure) Assessment/Plan: iv lasix now change to po lasix echo noted grade 1 diastolic dysfunction Code(s): I50.9 - HEART FAILURE, UNSPECIFIED Qualifiers: Heart failure type: diastolic Qualified Code(s): I50.33 - Acute on chronic diastolic (congestive) heart failure (4) Diabetes Assessment/Plan: sliding scale bgm Code(s): E11.9 - TYPE 2 DIABETES MELLITUS WITHOUT COMPLICATIONS Qualifiers: Diabetes mellitus type: type 2 (5) HTN (hypertension) Assessment/Plan: lisinopril 5mg Code(s): I10 - ESSENTIAL (PRIMARY) HYPERTENSION (6) Hypothyroidism Assessment/Plan: synthroid 75mcg Code(s): E03.9 - HYPOTHYROIDISM, UNSPECIFIED (7) Pancytopenia Assessment/Plan: heme on board Code(s): D61.818 - OTHER PANCYTOPENIA
--- NOTE | 2018-10-12 12:16 | PN ---
Progress Note (short form) - Note Progress Note: PULMONARY Denies shortness of breath, cough or wheezing. No fevers or chills. Vital Signs Period Temp Pulse Resp BP Sys/Parker Pulse Ox Last 24 Hr 97.5 F-98.9 F 59-76 18-20 117-128/59-64 95-95 Gen: NAD at rest Heart: RRR Lung: bibasilar rales L>R Abd: soft, nontender Ext: + edema CBC, BMP 10/12/18 05:30 10/12/18 05:30 Active Medications Albuterol/Ipratropium (Duoneb -) 1 amp NEB Q6H PRN PRN Reason: SHORTNESS OF BREATH Benzocaine/Menthol (Cepacol Lozenge -) 1 each MM Q2H PRN PRN Reason: SORE THROAT Furosemide (Lasix -) 40 mg PO DAILY [facility] Last Admin: 10/12/18 09:49 Dose: 40 mg Guaifenesin (Mucinex Dm -) 2 tablet PO BID [facility] Last Admin: 10/12/18 09:49 Dose: 2 tablet Ceftriaxone Sodium 2 gm/ (Dextrose) 100 mls @ 200 mls/hr IVPB DAILY [facility]; Protocol Last Admin: 10/12/18 09:48 Dose: 200 mls/hr Azithromycin (Zithromax 500mg Ivpb (Pre-Docked)) 500 mg in 250 mls @ 250 mls/ hr IVPB DAILY [facility] Last Admin: 10/12/18 09:49 Dose: 250 mls/hr Insulin Aspart (Novolog Vial Sliding Scale -) 1 vial SQ ACHS [facility]; Protocol Last Admin: 10/12/18 06:09 Dose: Not Given Levothyroxine Sodium (Synthroid -) 75 mcg PO AM [facility] Last Admin: 10/12/18 06:09 Dose: 75 mcg Lisinopril (Prinivil) 5 mg PO DAILY [facility] Last Admin: 10/12/18 09:49 Dose: 5 mg Metoprolol Succinate (Toprol Xl -) 25 mg PO BID [facility] Last Admin: 10/12/18 09:49 Dose: 25 mg Potassium Chloride (K-Dur -) 20 meq PO DAILY [facility] Last Admin: 10/12/18 09:49 Dose: 20 meq A/P Acute Bronchitis Acute on Chronic Diastolic Heart Failure Mitral Regurgitation Liver Cirrhosis Pancytopenia DM Hypothyroidism - continue antibiotics - lasix - monitor urine output, creatinine - O2 as needed - monitor CBC
[2018-10-13 04:15] LABS: CARCINOEMBRYONIC ANTIGEN 2.7 ng/mL (0.0-4.7)
[2018-10-13] MEDS: INSULIN SLIDING SCALE (NOVOLOG) 1 VIAL SQ SCH ×2 (06:30→10:25)
[2018-10-13] MEDS: LEVOTHYROXINE NA 75 MCG TABLET (FP) PO SCH (06:46)
--- NOTE | 2018-10-13 08:41 | DS ---
Physical Examination Vital Signs: Vital Signs Temperature 98.0 F 10/13/18 02:00 Pulse Rate 62 10/13/18 06:00 Respiratory Rate 20 10/13/18 06:00 Blood Pressure 126/60 10/13/18 06:00 O2 Sat by Pulse Oximetry (%) 95 10/12/18 21:00 Cardiovascular: Yes: Regular Rate and Rhythm Respiratory: Yes: Regular, CTA Bilaterally Gastrointestinal: Yes: Normal Bowel Sounds, Soft Labs: CBC, BMP 10/12/18 05:30 10/12/18 05:30 Discharge Summary Reason For Visit: ACUTE ON CHRONIC CONGESTIVE HEART FAILURE Current Active Problems Acute bronchitis (Acute) Acute exacerbation of CHF (congestive heart failure) (Acute) Cirrhosis (Acute) Diabetes (Acute) HTN (hypertension) (Acute) Hypothyroidism (Acute) Liver lesion (Acute) Pancytopenia (Acute) Sepsis (Acute) Shortness of breath (Acute) Hospital Course: - Problems (1) Liver lesion Assessment/Plan: appreicate gi consult MRI of abdomen pt has refuses and still refusing w/u Code(s): K76.9 - LIVER DISEASE, UNSPECIFIED (2) Acute bronchitis Assessment/Plan: iv abx--to po nebulizers small left posterior basilar infiltrate Code(s): J20.9 - ACUTE BRONCHITIS, UNSPECIFIED (3) Acute exacerbation of CHF (congestive heart failure) Assessment/Plan: iv lasix now change to po lasix echo noted grade 1 diastolic dysfunction Code(s): I50.9 - HEART FAILURE, UNSPECIFIED Qualifiers: Heart failure type: diastolic Qualified Code(s): I50.33 - Acute on chronic diastolic (congestive) heart failure (4) Diabetes Assessment/Plan: sliding scale bgm Code(s): E11.9 - TYPE 2 DIABETES MELLITUS WITHOUT COMPLICATIONS Qualifiers: Diabetes mellitus type: type 2 (5) HTN (hypertension) Assessment/Plan: lisinopril 5mg Code(s): I10 - ESSENTIAL (PRIMARY) HYPERTENSION (6) Hypothyroidism Assessment/Plan: synthroid 75mcg Code(s): E03.9 - HYPOTHYROIDISM, UNSPECIFIED (7) Pancytopenia Assessment/Plan: heme on board Code(s): D61.818 - OTHER PANCYTOPENIA Condition: Guarded - Instructions Referrals: Anuja De La Rosa MD [Primary Care Provider] - - Home Medications Comprehensive Discharge Medication List: Ambulatory Orders Levothyroxine [Synthroid -] 50 mcg PO DAILY 03/28/13 Furosemide [Lasix] 40 mg PO DAILY 10/07/18 metFORMIN HCL [Glucophage -] 0 mg PO BID 10/07/18 Cefuroxime Axetil [Ceftin -] 500 mg PO BID #14 tablet 10/13/18 Levothyroxine [Synthroid -] 75 mcg PO AM #30 tablet 10/13/18 Lisinopril [Prinivil] 5 mg PO DAILY #30 tablet 10/13/18 Metoprolol Succinate [Toprol XL -] 25 mg PO BID #60 tab.sr.24h 10/13/18 Potassium Chloride [K-Dur -] 20 meq PO DAILY #30 tablet.er 10/13/18
[2018-10-13] MEDS ORDERED: CEFUROXIME AXETIL 500 MG TABLET PO SCH (10:00)
[2018-10-13] MEDS: FUROSEMIDE 40 MG TABLET (FP) PO SCH (10:15)
[2018-10-13] MEDS: POTASSIUM CHLORIDE TABS 20 MEQ TABLET.ER (FP) PO SCH (10:15)
[2018-10-13] MEDS: metoPROLOL SUCCINATE 25 MG TAB.SR.24H (FP) PO SCH (10:15)
[2018-10-13] MEDS: LISINOPRIL 5 MG TABLET (FP) PO SCH (10:15)
[2018-10-13] MEDS ORDERED: INSULIN (NOVOLOG) ASPART 100 UNITS/ML 10ML VIAL ONE (10:25)
[2018-10-13 14:30] VITALS: BP 110/58; PULSE 59; TEMP 98.1
[2018-10-13 21:09] LABS: HEP B CORE AB, IGM Negative (Negative); HEP B CORE AB, TOT Negative (Negative)
[2018-10-14 00:08] LABS: HBSAG SCREEN Negative (Negative); HEP A AB, IGM Negative (Negative); HEP B CORE AB, TOT Negative (Negative)
== END 2018-10-13 15:58 | disposition home or self-care (01) | DRG 291 ==
LOC: JER 17:09 → JERBED 20:43 → J4W 10-09 13:54 → J6S 10-13 07:55
PROVIDERS: ADMIT Internal Medicine; ATTEND Family Medicine
DX: I11.0 Hypertensive heart disease with heart failure (principal); J18.9 Pneumonia, unspecified organism; D61.818 Other pancytopenia; K86.2 Cyst of pancreas; I50.33 Acute on chronic diastolic (congestive) heart failure; K74.60 Unspecified cirrhosis of liver; J20.9 Acute bronchitis, unspecified; E11.9 Type 2 diabetes mellitus without complications; E03.9 Hypothyroidism, unspecified; D69.6 Thrombocytopenia, unspecified; Z79.84 Long term (current) use of oral hypoglycemic drugs; D73.1 Hypersplenism; I34.0 Nonrheumatic mitral (valve) insufficiency; D13.4 Benign neoplasm of liver; K74.69 Other cirrhosis of liver
CPT/HCPCS: 36415; 71045-TC-FY; 71250-TC; 80048; 80053; 81003; 82105; 82378; 82550; 82607; 82728; 82746; 82803; 82962; 83540; 83605; 83735; 83880; 83883; 84155; 84165; 84443; 84484; 85025; 85044; 85610; 85651; 85730; 86301; 86304; 86704; 86705; 86706; 86707; 86708; 86803; 87040; 87086; 87340; 87804; 93005; 93010; 93306-TC; 93970-TC; 97116-GP; 99285-25; J7030

== ENCOUNTER 2018-11-12 09:10 | Inpatient (IN) | payer OTHER ==
--- NOTE | 2018-11-12 09:53 | PDOC ---
History of Present Illness - General Chief Complaint: Altered Mental Status Stated Complaint: ALTERED MENTAL STATUS Time Seen by Provider: 11/12/18 09:21 History Source: Patient, Family Exam Limitations: No Limitations - History of Present Illness Initial Comments: 11/12/18 10:07 HPI Ms Brewer is a 83 YOF with PMH hypothyroidism, HTN, diastolic CHF, liver cirrhosis/lesion of unclear etiology, pancytopenia, recent bronchitis/PNA presenting with AMS x 2 days, which family noticed after visiting her and calling via telephone. Family notes she has been talking nonsense over the phone, disoriented and confused. Yesterday, there was episode of dizziness and gait imbalance, where she walked like she was drunk. no falls. No trauma. +urinary frequency noted, likely 2/2 diuretic use for her diastolic CHF. bilateral leg swelling present at baseline, much improved compared to her previous admission time 1 month ago. Last admission in 10/07-10/13/2018 for acute bronchitis /pna s/p abx course and diastolic CHF exacerbation. Denies fever, chills, BROWN, chest pain, SOB, palpitation, weakness, N, V, D, abdominal pain, bladder and bowel problems, leg swelling, currently on furosemide, lisinopril, metoprolol, synthroid. Per primary doctor, started on chlorthalidone on PMD visit 2 weeks ago, and also clomitrazole for her oral thrush by Dr Mazariegos Allergies: NKA Past Medical History: hypothyroidism, HTN, diastolic CHF, liver cirrhosis/lesion , pancytopenia, recent bronchitis Social history: Lives with alone in nursing home center. No smoking. No alcohol. No illicit drugs. Surgical history: DARIAN, fibroid, BSO, cholecystectomy PMD: Dr D eLa Rosa H/O: Dr Mazariegos Past History - Past Medical History Allergies/Adverse Reactions: Allergies Allergy/AdvReac Type Severity Reaction Status Date / Time No Known Drug Allergies Allergy Unverified 11/12/18 09:16 Home Medications: Ambulatory Orders Levothyroxine [Synthroid -] 50 mcg PO DAILY 03/28/13 Furosemide [Lasix] 40 mg PO DAILY 10/07/18 metFORMIN HCL [Glucophage -] 0 mg PO BID 10/07/18 Cefuroxime Axetil [Ceftin -] 500 mg PO BID #14 tablet 10/13/18 Levothyroxine [Synthroid -] 75 mcg PO AM #30 tablet 10/13/18 Lisinopril [Prinivil] 5 mg PO DAILY #30 tablet 10/13/18 Metoprolol Succinate [Toprol XL -] 25 mg PO BID #60 tab.sr.24h 10/13/18 Potassium Chloride [K-Dur -] 20 meq PO DAILY #30 tablet.er 10/13/18 Anemia: Yes (thrombocytopenia) Asthma: No Cancer: No Cardiac Disorders: No CVA: No COPD: No CHF: No Dementia: No Diabetes: Yes (DIET CONTROLLED) GI Disorders: Yes (H. PYLORI; DILATED CBD) Disorders: No HTN: Yes Hypercholesterolemia: Yes Liver Disease: Yes (LIVER CIRRHOSIS) Seizures: No Thyroid Disease: Yes - Surgical History Abdominal Surgery: Yes Appendectomy: No Cardiac Surgery: No Cholecystectomy: Yes Lung Surgery: No Neurologic Surgery: No Orthopedic Surgery: No - Suicide/Smoking/Psychosocial Hx Smoking History: Never smoked Have you smoked in the past 12 months: No Hx Alcohol Use: No Drug/Substance Use Hx: No Substance Use Type: None Review of Systems - Review of Systems Comments:: 11/12/18 10:07 Review of systems Constitutional: no fevers or chills. HEENT: no headache No congestion. No visual/hearing disturbances. No sore throat or ear pain. +dizziness CVS: no cp or syncope. Resp: no sob. No cough. Gastrointestinal: no abdominal pain, nausea or vomiting. No diarrhea Genitourinary: no urinary sx, hematuria. +urinary frequency. MUSCULOSKELETAL: No joint pain and swelling. No myalgias. No neck or back pain. SKIN: no redness or skin changes, no discharge, no rash. No wounds. Hematologic: no easy bruising/bleeding. NEUROLOGIC: No headache, LOC. No weakness, numbness or tingling. +dizziness. Allergic/Immunologic: no allergies Psych: no hallucinations/anxiety or depression All other systems reviewed and negative, or as documented in HPI. *Physical Exam - Vital Signs Last Vital Signs Temp Pulse Resp BP Pulse Ox 97.9 F 65 18 109/55 L 99 11/12/18 09:13 11/12/18 09:13 11/12/18 09:13 11/12/18 09:13 11/12/18 09:13 - Physical Exam Comments: 11/12/18 10:08 Physical exam: General: Well appearing, awake and alert, NAD. pleasant elderly female. HEENT: NCAT, PERRL, EOMI, clear conjunctiva, anicteric, moist mucus membranes, clear oropharynx, no oral lesions.. No thrush visible in posterior oropharynx. Neck: neck supple, FROM Resp: CTAB, normal and even respirations, no respiratory distress CVS: RRR, no murmurs, 2+ peripheral pulses throughout, no peripheral edema Abdomen: soft, NTND, no peritoneal signs. Back: nontender, normal inspection and ROM MSK: no edema, VIRK x4, ROM intact at pelvis, prox joints, hip and shoulder. No clubbing or cyanosis. normal bulk and tone. Neuro: alert, oriented to person time and place. no focal neuro deficits. 5/5 prox and distal strength in all extrem, SILT. speech clear. gait_ Psych: no hallucinations, delusions or paranoia. Skin: warm and well perfused, cap refill <2 sec, normal color Heart Score/ECG Review #1 ECG reviewed & interpreted by me at: 13:10 General ECG Interpretation: Sinus Rhythm, Normal Rate, Normal Intervals 11/12/18 14:08 EKG normal sinus rhythm at 62 bpm, no interval abnormalities, narrow QRS, ST and T wave segments and morphology normal. Nonspecific T wave abnormalities in III, AVF similar to prior ED Treatment Course - LABORATORY CBC & Chemistry Diagram: 11/12/18 10:07 11/12/18 10:07 - RADIOLOGY Radiology Studies Ordered: Category Date Time Status HEAD CT WITHOUT CONTRAST [CT] Stat CT Scan 11/12/18 09:28 Ordered CHEST X-RAY PORTABLE* [RAD] Stat Radiology 11/12/18 09:28 Ordered Medical Decision Making - Medical Decision Making 11/12/18 10:08 See HPI for details Vital signs reviewed, wnl. no fever. normotensive, no respiratory distress. DDx AMS: infection, UTI, metabolic/electrolyte derangement, metabolic/infectious , encephalopathy, dehydration, CVA, ACS, elevated ammonia Prior notes reviewed, including admissions, discharges and consultations. laboratory results and imaging reviewed, basic labs and lytes wnl, notable for chronic leukopenia. +ammonia 161, correlating with grade I hepatic encephalopathy UA_small leuk esterase, but wbc 4, f/u urine culture, not enough to suggest infection, as no urinary sx and defer abx until cultures. CXR_no acute chest pathology CTH neg for CVA or bleed or mass Cardiac panel_neg trop, less likely cardiac. EKG normal sinus rhythm at 62 bpm, no interval abnormalities, narrow QRS, ST and T wave segments and morphology normal. Nonspecific T wave abnormalities similar to prior ED course - lactulose for hepatic encephalopathy, with +known liver disease and elevated ammonia level. Admit for AMS workup, hepatic encephalopathy. Discussed results and management plan with pt and family member at bedside, agree with impression and plan admit to Dr Cárdenas, trade promotion analyst physician for Dr De La Rosa, signed out, admit order in. 11/12/18 12:10 11/12/18 12:12 11/12/18 12:13 11/12/18 14:07 *DC/Admit/Observation/Transfer Diagnosis at time of Disposition: Hepatic encephalopathy Altered mental status, unspecified Qualifiers: Altered mental status type: unspecified Qualified Code(s): R41.82 - Altered mental status, unspecified - Discharge Dispostion Condition at time of disposition: Fair Decision to Admit order: Yes Decision to Admit order Date/Time: 11/12/18 12:13 Decision to Admit Order Category Date Time Status Decision to Admit to Hospital Routine Admission 11/12/18 12:07 Ordered - Referrals - Patient Instructions - Post Discharge Activity
[2018-11-12 10:30] LABS: BASO % 0.3 % (0-2.0); EOS % 2.1 % (0-4.5); HEMATOCRIT 38.4 % (32.4-45.2); HEMOGLOBIN 13.2 GM/dL (10.7-15.3); LYMPH % 20.2 % (8-40); MCH 32.2 pg (25.7-33.7); MCHC 34.4 g/dl (32.0-36.0); MEAN CELL VOLUME 93.5 fl (80-96); MEAN PLT VOLUME 11.5 fl (7.5-11.1); MONO % 9.7 % (3.8-10.2); NEUT % 67.7 % (42.8-82.8); PLATELET COUNT 61 K/MM3 (134-434); RBC 4.11 M/mm3 (3.60-5.2); RDW 14.3 % (11.6-15.6); WHITE BLOOD COUNT 3.6 K/mm3 (4.0-10.0)
[2018-11-12] MEDS ORDERED: LACTULOSE 20 GM/30 ML UDC (FOR ORAL USE ONLY) PO ONE (11:03)
[2018-11-12] MEDS ORDERED: LACTULOSE 20 GM/30 ML UDC (FOR ORAL USE ONLY) ONE (11:09)
[2018-11-12 11:10] LABS: EPI CELLS 1.5 /HPF (0-5); PH,URINE 8.5 (5.0-8.0); URINE APPEARANCE CLEAR; URINE BACTERIA 11.7 /hpf (NEGATIVE); URINE BILIRUBIN NEGATIVE (NEGATIVE); URINE CASTS 4 /hpf (0-8); URINE COLOR DK YELLOW; URINE GLUCOSE (UA) NEGATIVE (NEGATIVE); URINE KETONE TRACE (NEGATIVE); URINE LEUK ESTERASE 1+ (NEGATIVE); URINE NITRITE NEGATIVE (NEGATIVE); URINE PROTEIN TRACE (NEGATIVE); URINE RBC 4 /hpf (0-4); URINE WBC 2 /hpf (0-5)
[2018-11-12 11:49] LABS: ALBUMIN 3.1 g/dl (3.4-5.0); ALK PHOS 87 U/L (45-117); ANION GAP 8 MMOL/L (8-16); BILIRUBIN,TOTAL 2.6 mg/dL (0.2-1); BLOOD UREA NITROGEN 29 mg/dL (7-18); CALCIUM 9.4 mg/dL (8.5-10.1); CHLORIDE 105 mmol/L (98-107); CO2 25 mmol/L (21-32); CREATININE 0.8 mg/dL (0.55-1.3); GLUCOSE,RANDOM 160 mg/dL (74-106); SGOT/AST 55 U/L (15-37); SGPT/ALT 38 U/L (13-61); SODIUM 138 mmol/L (136-145); TOT PROT 6.7 g/dl (6.4-8.2)
--- NOTE | 2018-11-12 14:02 | HP ---
Admitting History and Physical - Primary Care Physician PCP: Anuja De La Rosa - Admission Chief Complaint: CONFUSION/AMS History of Present Illness: 83 Y/O FEMALE H/O DM, HTN, LIVER CIRRHOSIS HER WITH CONFUSION AND AMS. FOUND TO HAVE ELEVATED AMMONIA LEVELS. DENIES FALLS OR LOC. FAMILY BEDSIDE. History Source: Family Member Limitations to Obtaining History: Clinical Condition - Past Medical History Cardiovascular: Yes: CHF, HTN. No: AFIB Gastrointestinal: Yes: Esophageal Varices, Other (cirrhosis) Hepatobiliary: Yes: Cirrhosis Heme/Onc: Yes: Anemia Musculoskeletal: Yes: Osteoarthritis Endocrine: Yes: Diabetes Mellitus, Hypothyroidism - Smoking History Smoking history: Never smoked Have you smoked in the past 12 months: No - Alcohol/Substance Use Hx Alcohol Use: No Home Medications - Allergies Allergies/Adverse Reactions: Allergies Allergy/AdvReac Type Severity Reaction Status Date / Time No Known Drug Allergies Allergy Unverified 11/12/18 09:16 - Home Medications Home Medications: Ambulatory Orders Levothyroxine [Synthroid -] 50 mcg PO DAILY 03/28/13 Furosemide [Lasix] 40 mg PO DAILY 10/07/18 metFORMIN HCL [Glucophage -] 0 mg PO BID 10/07/18 Cefuroxime Axetil [Ceftin -] 500 mg PO BID #14 tablet 10/13/18 Levothyroxine [Synthroid -] 75 mcg PO AM #30 tablet 10/13/18 Lisinopril [Prinivil] 5 mg PO DAILY #30 tablet 10/13/18 Metoprolol Succinate [Toprol XL -] 25 mg PO BID #60 tab.sr.24h 10/13/18 Potassium Chloride [K-Dur -] 20 meq PO DAILY #30 tablet.er 10/13/18 Review of Systems - Review of Systems Constitutional: reports: Weakness Eyes: reports: No Symptoms HENT: reports: No Symptoms Neck: reports: No Symptoms Cardiovascular: reports: No Symptoms Respiratory: reports: No Symptoms Gastrointestinal: reports: No Symptoms Genitourinary: reports: No Symptoms Musculoskeletal: reports: No Symptoms Neurological: reports: Confusion Physical Examination Vital Signs: Vital Signs Temperature 98.2 F 11/12/18 10:29 Pulse Rate 62 11/12/18 10:29 Respiratory Rate 16 11/12/18 10:29 Blood Pressure 94/60 11/12/18 10:29 O2 Sat by Pulse Oximetry (%) 98 11/12/18 10:29 Constitutional: Yes: Mild Distress Eyes: Yes: WNL HENT: Yes: WNL Neck: Yes: WNL Cardiovascular: Yes: Regular Rate and Rhythm Respiratory: Yes: WNL Gastrointestinal: Yes: WNL Musculoskeletal: Yes: WNL Extremities: Yes: WNL Edema: No Integumentary: Yes: WNL Wound/Incision: Yes: Clean/Dry Neurological: Yes: Confusion ...Motor Strength: WNL Psychiatric: Yes: Other Labs: CBC, BMP 11/12/18 10:07 11/12/18 10:07 Problem List - Problems (1) Altered mental status, unspecified Code(s): R41.82 - ALTERED MENTAL STATUS, UNSPECIFIED Qualifiers: Altered mental status type: unspecified Qualified Code(s): R41.82 - Altered mental status, unspecified (2) Hepatic encephalopathy Code(s): K72.90 - HEPATIC FAILURE, UNSPECIFIED WITHOUT COMA (3) Cirrhosis Code(s): K74.60 - UNSPECIFIED CIRRHOSIS OF LIVER (4) Diabetes Code(s): E11.9 - TYPE 2 DIABETES MELLITUS WITHOUT COMPLICATIONS Qualifiers: Diabetes mellitus type: type 2 (5) HTN (hypertension) Code(s): I10 - ESSENTIAL (PRIMARY) HYPERTENSION (6) Hypothyroidism Code(s): E03.9 - HYPOTHYROIDISM, UNSPECIFIED Assessment/Plan LACTOLOSE PER RECTAL GIVEN START XIFAXIN TID PT EVAL NEURO CHECKS SWALLOW EVAL R/O ASPIRATIONS WILL NEED CONTINUED TREATMENT FOR HEPATIC ENCEPHALOPATHY STOP CHLORTHALIDONE IN ELDERLY WOMAN WITH AMS
[2018-11-12 17:00] LABS: INR 1.47 (0.83-1.09); PROTHROMBIN TIME (PATIENT) 17.4 SEC (9.7-13.0)
[2018-11-12] MEDS: INSULIN SLIDING SCALE (NOVOLOG) 1 VIAL SQ SCH ×2 (17:30→21:34)
[2018-11-12] MEDS: metFORMIN HCL 500 MG TABLET (FP) PO SCH (17:30)
[2018-11-12 18:17] VITALS: BMI 26.5
[2018-11-12] MEDS: RIFAXIMIN 550 MG TABLET (UD) PO SCH (21:33)
[2018-11-12] MEDS: metoPROLOL SUCCINATE 25 MG TAB.SR.24H (FP) PO SCH (21:34)
[2018-11-12] MEDS: HEPARIN NA (PORCINE) 5,000 UNITS/ML 1ML VIAL SQ SCH (21:34)
[2018-11-13] MEDS ORDERED: ONDANSETRON 4 MG/2 ML VIAL IVPUSH ONE (00:01)
[2018-11-13] MEDS: INSULIN SLIDING SCALE (NOVOLOG) 1 VIAL SQ SCH ×4 (06:24→21:21)
[2018-11-13] MEDS: metFORMIN HCL 500 MG TABLET (FP) PO SCH ×2 (06:40→17:09)
[2018-11-13] MEDS: LEVOTHYROXINE NA 75 MCG TABLET (FP) PO SCH (06:40)
[2018-11-13 07:32] LABS: HEMATOCRIT 38.8 % (32.4-45.2); HEMOGLOBIN 13.2 GM/dL (10.7-15.3); MCH 31.4 pg (25.7-33.7); MEAN CELL VOLUME 92.4 fl (80-96); MEAN PLT VOLUME 12.6 fl (7.5-11.1); PLATELET COUNT 68 K/MM3 (134-434); RDW 14.5 % (11.6-15.6); WHITE BLOOD COUNT 6.1 K/mm3 (4.0-10.0)
[2018-11-13 08:02] LABS: ALK PHOS 88 U/L (45-117); ANION GAP 11 MMOL/L (8-16); BILIRUBIN,TOTAL 2.9 mg/dL (0.2-1); BLOOD UREA NITROGEN 36 mg/dL (7-18); CALCIUM 8.9 mg/dL (8.5-10.1); CHLORIDE 104 mmol/L (98-107); CO2 26 mmol/L (21-32); CREATININE 1.2 mg/dL (0.55-1.3); GLUCOSE,RANDOM 166 mg/dL (74-106); POTASSIUM 3.9 mmol/L (3.5-5.1); SGOT/AST 49 U/L (15-37); SGPT/ALT 33 U/L (13-61); SODIUM 140 mmol/L (136-145); TOT PROT 6.4 g/dl (6.4-8.2)
--- NOTE | 2018-11-13 09:13 | CON.GI ---
Consult Consult Specialty:: GI Referred by:: Dr. Rose Cárdenas Reason for Consultation:: Hepatic Encephalopathy - History of Present Illness Chief Complaint: Altered mental status History of Present Illness: Patient is an 83 y/o female with past medical history of CHF, HTN, DM, OA, hypothyroidism, and liver cirrhosis. I was asked to evaluate patient for hepatic encephalopathy. Patient presented to ER with altered mental status and was noted with elevated ammonia level 161, now currently 140.4. Patient has history of cirrhosis but denies history of chronic alcohol use. On examination patient complain of abnormal weight loss. She states she lost a total of 7lbs in more than 1 month. Patient denies abdominal pain, nausea, vomiting, diarrhea , melena. - History Source History Provided By: Patient Limitations to Obtaining History: Clinical Condition - Past Medical History Cardio/Vascular: Yes: CHF, HTN. No: AFIB Gastrointestinal: Yes: Esophageal Varices, Other (cirrhosis) Hepatobiliary: Yes: Cirrhosis ...: No Musculoskeletal: Yes: Osteoarthritis Endocrine: Yes: Diabetes Mellitus, Hypothyroidism - Alcohol/Substance Use Hx Alcohol Use: No - Smoking History Smoking history: Never smoked Have you smoked in the past 12 months: No - Social History Usual Living Arrangement: Alone Home Medications - Allergies Allergies/Adverse Reactions: Allergies Allergy/AdvReac Type Severity Reaction Status Date / Time No Known Drug Allergies Allergy Unverified 11/12/18 09:16 - Home Medications Home Medications: Ambulatory Orders Levothyroxine [Synthroid -] 50 mcg PO DAILY 03/28/13 Furosemide [Lasix] 40 mg PO DAILY 10/07/18 metFORMIN HCL [Glucophage -] 0 mg PO BID 10/07/18 Cefuroxime Axetil [Ceftin -] 500 mg PO BID #14 tablet 10/13/18 Levothyroxine [Synthroid -] 75 mcg PO AM #30 tablet 10/13/18 Lisinopril [Prinivil] 5 mg PO DAILY #30 tablet 10/13/18 Metoprolol Succinate [Toprol XL -] 25 mg PO BID #60 tab.sr.24h 10/13/18 Potassium Chloride [K-Dur -] 20 meq PO DAILY #30 tablet.er 10/13/18 Review of Systems - Review of Systems Constitutional: reports: Unintentional Wgt. Loss Eyes: reports: No Symptoms HENT: reports: No Symptoms Neck: reports: No Symptoms Cardiovascular: reports: No Symptoms Respiratory: reports: No Symptoms Gastrointestinal: reports: No Symptoms Genitourinary: reports: No Symptoms Breasts: reports: No Symptoms Reported Musculoskeletal: reports: No Symptoms Integumentary: reports: No Symptoms Neurological: reports: Confusion Endocrine: reports: No Symptoms Hematology/Lymphatic: reports: No Symptoms Psychiatric: reports: No Symptoms Physical Exam-GI Vital Signs: Vital Signs Temperature 99.2 F 11/13/18 06:00 Pulse Rate 77 11/13/18 06:00 Respiratory Rate 20 11/12/18 22:29 Blood Pressure 148/81 11/13/18 06:00 O2 Sat by Pulse Oximetry (%) 97 11/12/18 22:29 Constitutional: Yes: No Distress, Calm Eyes: Yes: Conjunctiva Clear HENT: Yes: Atraumatic Cardiovascular: Yes: Regular Rate and Rhythm Respiratory: Yes: Regular, CTA Bilaterally Gastrointestinal Inspection: Yes: WNL. No: Ascites, Distention, Hernia, Scars, Other ...Auscultate: Yes: Normoactive Bowel Sounds ...Palpate: Yes: Soft. No: Firm/Rigid, Guarding, Hepatomegaly, Mass, Pulsatile Mass, Splenomegaly, Tenderness, Tenderness, Epigastium, Tenderness, Rebound, Other ...Percussion: Yes: Tympanitic. No: Dullness, Fluid Wave, Other Neurological: Yes: Alert, Confusion Psychiatric: Yes: Alert, Oriented (to person and place) Labs: CBC, BMP 11/13/18 07:00 11/13/18 07:00 INR, PTT INR 1.47 (0.83-1.09) H 11/12/18 16:00 Imaging - Results Chest X-ray: Report Reviewed Cat Scan: Report Reviewed Problem List - Problems (1) Hepatic encephalopathy Assessment/Plan: R>continue with Xifaxin 550mg BID and Lactulose 20 BID >Abdominal US ordered Code(s): K72.90 - HEPATIC FAILURE, UNSPECIFIED WITHOUT COMA (2) Unintentional weight loss Assessment/Plan: -AFP, CEA, CA 19-9, CA 125 ordered Code(s): R63.4 - ABNORMAL WEIGHT LOSS
--- NOTE | 2018-11-13 09:23 | PN ---
Progress Note, Physician - Current Medication List Current Medications: Active Medications Furosemide (Lasix -) 40 mg PO DAILY [facility] Heparin Sodium (Porcine) (Heparin -) 5,000 unit SQ BID [facility] Last Admin: 11/12/18 21:34 Dose: 5,000 unit Insulin Aspart (Novolog Vial Sliding Scale -) 1 vial SQ ACHS [facility]; Protocol Last Admin: 11/13/18 06:24 Dose: Not Given Lactulose (Cephulac (Oral Use)) 20 gm PO Q8H PRN PRN Reason: CONSTIPATION Levothyroxine Sodium (Synthroid -) 75 mcg PO DAILY@0700 [facility] Last Admin: 11/13/18 06:40 Dose: 75 mcg Lisinopril (Prinivil) 5 mg PO DAILY [facility] Metformin HCl (Glucophage -) 500 mg PO BID@0700,1630 [facility] Last Admin: 11/13/18 06:40 Dose: 500 mg Metoprolol Succinate (Toprol Xl -) 25 mg PO BID [facility] Last Admin: 11/12/18 21:34 Dose: 25 mg Nadolol (Corgard -) 40 mg PO DAILY [facility] Rifaximin (Xifaxan -) 550 mg PO BID [facility] Last Admin: 11/12/18 21:33 Dose: 550 mg - Objective Vital Signs: Vital Signs Temperature 99.2 F 11/13/18 06:00 Pulse Rate 77 11/13/18 06:00 Respiratory Rate 20 11/12/18 22:29 Blood Pressure 148/81 11/13/18 06:00 O2 Sat by Pulse Oximetry (%) 97 11/12/18 22:29 Cardiovascular: Yes: S1, S2 Respiratory: Yes: Regular, CTA Bilaterally Gastrointestinal: Yes: Normal Bowel Sounds, Soft Labs: CBC, BMP 11/13/18 07:00 11/13/18 07:00 INR, PTT INR 1.47 (0.83-1.09) H 11/12/18 16:00 Problem List - Problems (1) Hepatic encephalopathy Assessment/Plan: Laboratory Tests 11/12/18 11/13/18 10:07 07:00 Ammonia 161.00 H 140.40 H Continue with lactulose and xifaxin Code(s): K72.90 - HEPATIC FAILURE, UNSPECIFIED WITHOUT COMA (2) Altered mental status, unspecified Assessment/Plan: as above Code(s): R41.82 - ALTERED MENTAL STATUS, UNSPECIFIED Qualifiers: Altered mental status type: unspecified Qualified Code(s): R41.82 - Altered mental status, unspecified (3) Diabetes Assessment/Plan: [facility] Code(s): E11.9 - TYPE 2 DIABETES MELLITUS WITHOUT COMPLICATIONS Qualifiers: Diabetes mellitus type: type 2
[2018-11-13] MEDS ORDERED: PT OWN MED DRAWER 7, Y5N ONE (09:44)
[2018-11-13] MEDS: LISINOPRIL 5 MG TABLET (FP) PO SCH (09:48)
[2018-11-13] MEDS: RIFAXIMIN 550 MG TABLET (UD) PO SCH ×2 (09:48→21:21)
[2018-11-13] MEDS: FUROSEMIDE 40 MG TABLET (FP) PO SCH (09:48)
[2018-11-13] MEDS: metoPROLOL SUCCINATE 25 MG TAB.SR.24H (FP) PO SCH ×2 (09:48→21:21)
[2018-11-13] MEDS: NADOLOL 40 MG TABLET (FP) PO SCH (09:48)
[2018-11-13] MEDS: HEPARIN NA (PORCINE) 5,000 UNITS/ML 1ML VIAL SQ SCH ×2 (09:48→21:21)
[2018-11-13] MEDS: LACTULOSE 20 GM/30 ML UDC (FOR ORAL USE ONLY) PO PRN (09:49)
--- NOTE | 2018-11-13 10:01 | EKG ---
Test Reason : Blood Pressure : / mmHG Vent. Rate : 062 BPM Atrial Rate : 062 BPM P-R Int : 154 ms QRS Dur : 070 ms QT Int : 460 ms P-R-T Axes : -16 -05 009 degrees QTc Int : 466 ms NORMAL SINUS RHYTHM NONSPECIFIC T WAVE ABNORMALITY ABNORMAL ECG WHEN COMPARED WITH ECG OF 07-OCT-2018 18:55, NO SIGNIFICANT CHANGE WAS FOUND Confirmed by SHILPI HERNANDEZ MD ([id number]) on 11/13/2018 10:01:03 AM Referred By: Confirmed By:SHILPI HERNANDEZ MD
--- NOTE | 2018-11-13 11:06 | CONSULT ---
Admitting History and Physical - Primary Care Physician PCP: Rose Cárdenas - Admission History of Present Illness: 83 y/o female with past medical history of CHF, HTN, DM, OA, hypothyroidism, and liver cirrhosis admitted with AMS and elevated ammonia level 161 with dx of hepatic encephalopathy. Patient with h/o cirrhosis but denies history of chronic alcohol use and reports abnormal weight loss. Pt has reportedly vomited and abdomen is enlarged. Pt has been evaluated by GI. This is my first consult with this pt. Selected Entries 11/12/18 11/12/18 11/12/18 09:13 10:29 18:08 Temperature 97.9 F 98.2 F 97.6 F 11/13/18 11/13/18 06:00 10:00 Temperature 99.2 F 99.0 F Laboratory Tests 11/12/18 11/13/18 10:07 07:00 WBC 3.6 L 6.1 History Source: Family Member Limitations to Obtaining History: Clinical Condition (euphoric, oriented to [facility] ,83 yo.) - Past Medical History Cardiovascular: Yes: CHF, HTN. No: AFIB Gastrointestinal: Yes: Esophageal Varices, Other (cirrhosis) Hepatobiliary: Yes: Cirrhosis ...: No Heme/Onc: Yes: Anemia Musculoskeletal: Yes: Osteoarthritis Endocrine: Yes: Diabetes Mellitus, Hypothyroidism - Smoking History Smoking history: Never smoked Have you smoked in the past 12 months: No - Alcohol/Substance Use Hx Alcohol Use: No History - Admission Reason For Visit: HEPATIC ENCEPHALOPATHY - Diagnostics X-ray: Report Reviewed - General Mental Status: Alert and Oriented, Awake and Alert, Able to Follow Commands, Vague (slow to respond) Attention: Distractible, Mild Impairment Ability to Follow Directions: Good Head/Neck Control: WFL - Hearing Hearing: Impaired Hearing Aide: No With Patient: No Speech Evaluation - Communication Primary Language: CROATIAN Communication: Yes: Simple Responses Oral Expression Ability: Yes: Mild Impairment - Speech Production Able to Make Needs Known: Yes: Mildly Impaired Intelligibility: Yes: WNL - Speech Characteristics Voice Loudness: Normal Voice Pitch: Yes: Normal Voice Phonatory-based Quality: Yes: Normal Speech Pattern: Normal Speech Clarity: < 100% Nasal Resonance: Normal Articulation: Yes: Precise Rate of Speech: Too Slow - Language/Auditory Comprehension Follows: Yes: 1 Stage Simple Commands Observation: Able to respond to yes/no queries: Yes, Yes/No Confusion: No, Comprehends Conversational Speech: Yes - Language/Verbal Expression Aphasia: Yes: Anomia Able to Respond to Simple Queries: Yes: Mildly Impaired Able to Communicate Wants and Needs: Yes: Mildly Impaired Functional Communication Status: Yes: Mildly Impaired - Swallow Evaluation/Bedside Assessment Current Nutritional Intake: Regular, Thin Liquids Oral Secretions: Yes: WFL Dentition: Yes: Edentulous (lost upper dentures a week ago. More difficulty chewing now.), Dental Appliance Lower Facial Symmetry at Rest: Symmetrical Facial Symmetry on Retraction: Symmetrical Facial Movement: Controlled Against Resistance Opening: Normal Against Resistance Closing: Normal Pucker Lips: Normal Smile: Normal Lingual Movement: Normal, Symmetric Lingual Speed of Movement: Normal Lingual Movement Strgth Against Opposition: Normal Lingual Movement Characteristics: Normal Velopharyngeal Movement: Normal Laryngeal Elevation: WFL Laryngeal Movement: Able to Palpate Rate of Intake: WFL Bolus Size: WFL Labial Seal: WFL Chewing: Impaired Oral Prep Time: WFL A-P Transit: WFL Pocketing: None Timing of Swallow: WFL Coughing/Throat Clear: No Change in Voice: No Recommendations - Speech Evaluation, Impression/Plan Impression: Euphoric, slow to formulate responses. Improving since admission.Swallowing intact. Lost upper dentures a week ago. h/o "fungal infection in her throat diagnosed by Dr. Mazariegos 2 weeks ago, per pt's daughter Kaylan. - Dysphagia Impressions/Plan Dysphagia Impressions: Minimal Impairment (chewing difficulty related to dentures and mental status) *Silent aspiration: cannot be R/O at bedside Dysphagia Treatment Plan: Small Bites, Chin Tuck/Down, Clear Pocket Food, Safe Rate, 1/2 tsp. at a time, OOB for 1 h. after meals - Recommendations Diet Consistency: Dysphagia Pureed Medication Administration: Crushed with applesauce Liquids: Thin Liquids Supplement: Ensure, Magic Cup
--- NOTE | 2018-11-13 19:37 | CONSULT ---
Consult - text type - Consultation Consultation Note: NEUROLOGY CONSULT APPRECIATED: Events reviewed and discussed with nursing. Health aide from facility aiding in translation. This 83 yo RH woman lives with her son. PMHX includes hypothyroidism, CHF, HTN, DM, and liver cirrhosis (etiology?). Maintained on levothyroxine, furosemide, metformin, lisinopril, and metoprolol. Here after reports of 2 days of increasing confusion and gait imbalance per family. Pt is a vague historian. WBC 3.6 pt 61 BUN 36/Cr 1.2 ammonia 140.40 TSH 2.08 UA WBC=2 Ct head (reviewed): Mod atrophy. Periventricular ischemic changes. SARA: Cor reg. No bruit. Neck supple. Wearing diaper NEURO: Mentation/Speech: Ox [facility]. September. No year. TRUMP. Poor reversals. Recalls 0 of 3 @ 3 mins. CNII-CNXII: EOM intact. Poss left visual field cut. Gag ok. Motor: Mild L drift. No asterixis or myoclonus. St normal. Reflexes normal. Decreased ESE's. Toes downgoing. Coordination: No FTN dystaxia. Sensation: Sl.Reduced vibration in toes. Romberg - Gait: Flexed, sl shuffle. Unsteady. Impression: 1. Non-focal exam sig for Moderate, B/L cerebral dysfunction c/w hepatic encephalopathy 2. Possible R cerebral accentuation (CVA) with reduced visual response on the left. Suggest: Monitor ammonia and r/o GI bleed Lactulose and Rx as per Dr. Hamilton MRI of brain (C-) Obtain B12, RPR PT with walker for gait training Pt may require higher level of care (home health services, SNF) Thank you very much, Jeremiah Paul MD
[2018-11-14] MEDS: LACTULOSE 20 GM/30 ML UDC (FOR ORAL USE ONLY) PO PRN ×2 (00:22→10:56)
[2018-11-14] MEDS: metFORMIN HCL 500 MG TABLET (FP) PO SCH ×2 (06:07→17:49)
[2018-11-14] MEDS: LEVOTHYROXINE NA 75 MCG TABLET (FP) PO SCH (06:07)
[2018-11-14] MEDS: INSULIN SLIDING SCALE (NOVOLOG) 1 VIAL SQ SCH ×4 (06:07→21:53)
--- NOTE | 2018-11-14 08:42 | PN.GI ---
GI Progress Note Subjective: Patient denies abdominal pain, nausea, vomiting, diarrhea. Abdominal US shows liver measuring 11.5cm in sagittal length with diffuse coarse echotexture, echogenic lesion in right hepatic lobe 2.4x1.8cm, hypoechoic mass anteriorly measuring 3x2.6cm, the echogenic lesion may represent cavernous hemangioma. - Objective Vital Signs: Vital Signs Temperature 98.6 F 11/14/18 06:07 Pulse Rate 65 11/14/18 06:07 Respiratory Rate 20 11/14/18 06:07 Blood Pressure 105/57 L 11/14/18 06:07 O2 Sat by Pulse Oximetry (%) 96 11/13/18 22:00 Constitutional: No Distress, Calm Eyes: Yes: Conjunctiva Clear HENT: Yes: Atraumatic Cardiovascular: Yes: Regular Rate and Rhythm Respiratory: Yes: Regular, CTA Bilaterally Gastrointestinal Inspection: Yes: WNL. No: Ascites, Distention, Hernia, Scars, Other ...Auscultate: Yes: Normoactive Bowel Sounds. No: Hyperactive Bowel Sounds, Hypoactive Bowel Sounds, No Bowel Sounds, Other ...Palpate: Yes: Soft. No: Firm/Rigid, Guarding, Hepatomegaly, Mass, Pulsatile Mass, Splenomegaly, Tenderness, Tenderness, Epigastium, Tenderness, Rebound, Other Neurological: Yes: Alert, Confusion Labs: CBC, BMP 11/13/18 07:00 11/13/18 07:00 INR, PTT INR 1.47 (0.83-1.09) H 11/12/18 16:00 Active Medications Generic Name Dose Route Start Last Admin Trade Name Freq PRN Reason Stop Dose Admin Furosemide 40 mg 11/13/18 10:00 11/13/18 09:48 Lasix - PO 40 mg DAILY [facility] Administration Heparin Sodium (Porcine) 5,000 unit 11/12/18 22:00 11/13/18 21:21 Heparin - SQ 5,000 unit BID [facility] Administration Insulin Aspart 1 vial 11/12/18 16:30 11/14/18 06:07 Novolog Vial Sliding Scale - SQ Not Given ACHS [facility] Protocol Lactulose 20 gm 11/12/18 16:57 11/14/18 00:22 Cephulac (Oral Use) PO 20 gm Q8H PRN Administration CONSTIPATION Levothyroxine Sodium 75 mcg 11/13/18 07:00 11/14/18 06:07 Synthroid - PO 75 mcg DAILY@0700 [facility] Administration Lisinopril 5 mg 11/13/18 10:00 11/13/18 09:48 Prinivil PO 5 mg DAILY [facility]SA Administration Metformin HCl 500 mg 11/12/18 16:30 11/14/18 06:07 Glucophage - PO 500 mg BID@0700,1630 [facility] Administration Metoprolol Succinate 25 mg 11/12/18 22:00 11/13/18 21:21 Toprol Xl - PO 25 mg BID [facility] Administration Nadolol 40 mg 11/13/18 10:00 11/13/18 09:48 Corgard - PO 40 mg DAILY [facility] Administration Rifaximin 550 mg 11/12/18 22:00 11/13/18 21:21 Xifaxan - PO 550 mg BID D[facility] Administration Problem List - Problems (1) Hepatic encephalopathy Assessment/Plan: R>continue with Xifaxin 550mg BID and Lactulose 20 BID >Abdominal US results reviewed Code(s): K72.90 - HEPATIC FAILURE, UNSPECIFIED WITHOUT COMA (2) Unintentional weight loss Assessment/Plan: -AFP, CEA, CA 19-9, CA 125 ordered Code(s): R63.4 - ABNORMAL WEIGHT LOSS
[2018-11-14] MEDS: FUROSEMIDE 40 MG TABLET (FP) PO SCH (09:21)
[2018-11-14] MEDS: LISINOPRIL 5 MG TABLET (FP) PO SCH (09:21)
[2018-11-14] MEDS: NADOLOL 40 MG TABLET (FP) PO SCH (09:21)
[2018-11-14] MEDS: metoPROLOL SUCCINATE 25 MG TAB.SR.24H (FP) PO SCH ×2 (09:21→21:53)
[2018-11-14] MEDS: RIFAXIMIN 550 MG TABLET (UD) PO SCH ×2 (10:56→21:53)
[2018-11-14] MEDS: HEPARIN NA (PORCINE) 5,000 UNITS/ML 1ML VIAL SQ SCH ×2 (10:56→21:53)
--- NOTE | 2018-11-14 14:56 | PN ---
Progress Note, CHILD CARE COORDINATOR - Note Progress Note: Selected Entries 11/14/18 11/14/18 11/14/18 02:00 06:07 09:00 Breakfast Diet Tolerated Lunch Temperature 98.3 F 98.6 F 97.7 F 11/14/18 11/14/18 11/14/18 09:52 10:00 14:10 Breakfast 100% Diet Tolerated Well Well Well Lunch 100% Temperature 98.1 F 97.6 F Laboratory Tests 11/13/18 07:00 WBC 6.1 Tolerating puree/thin liquids.Sleeping but family reports mentation improving. Continue puree due to missing dentition.
--- NOTE | 2018-11-14 16:31 | PN ---
Progress Note, Physician Chief Complaint: Hepatic Encephalopathy AMS History of Present Illness: Previous notes and events reviewed awake and alert NAD denies complaints of chest pain or SOB - Current Medication List Current Medications: Active Medications Furosemide (Lasix -) 40 mg PO DAILY [facility] Last Admin: 11/14/18 09:21 Dose: Not Given Heparin Sodium (Porcine) (Heparin -) 5,000 unit SQ BID [facility] Last Admin: 11/14/18 10:56 Dose: 5,000 unit Insulin Aspart (Novolog Vial Sliding Scale -) 1 vial SQ ACHS [facility]; Protocol Last Admin: 11/14/18 16:25 Dose: Not Given Lactulose (Cephulac (Oral Use)) 20 gm PO Q8H PRN PRN Reason: CONSTIPATION Last Admin: 11/14/18 10:56 Dose: 20 gm Levothyroxine Sodium (Synthroid -) 75 mcg PO DAILY@0700 [facility] [place] Last Admin: 11/14/18 06:07 Dose: 75 mcg Lisinopril (Prinivil) 5 mg PO DAILY [facility] [place] Last Admin: 11/14/18 09:21 Dose: Not Given Metformin HCl (Glucophage -) 500 mg PO BID@0700,1630 [facility] Last Admin: 11/14/18 06:07 Dose: 500 mg Metoprolol Succinate (Toprol Xl -) 25 mg PO BID [facility] [place] Last Admin: 11/14/18 09:21 Dose: Not Given Nadolol (Corgard -) 40 mg PO DAILY [facility] [place] Last Admin: 11/14/18 09:21 Dose: Not Given Rifaximin (Xifaxan -) 550 mg PO BID [facility] [place] Last Admin: 11/14/18 10:56 Dose: 550 mg - Objective Vital Signs: Vital Signs Temperature 97.6 F 11/14/18 14:10 Pulse Rate 63 11/14/18 14:10 Respiratory Rate 20 11/14/18 10:00 Blood Pressure 113/45 L 11/14/18 14:10 O2 Sat by Pulse Oximetry (%) 96 11/13/18 22:00 Constitutional: Yes: No Distress, Calm Eyes: Yes: Conjunctiva Clear HENT: Yes: Atraumatic Cardiovascular: Yes: Regular Rate and Rhythm Respiratory: Yes: Regular, CTA Bilaterally Gastrointestinal: Yes: Normal Bowel Sounds, Soft Genitourinary: Yes: Incontinence Musculoskeletal: Yes: Muscle Weakness Extremities: Yes: WNL Edema: No Neurological: Yes: Alert, Pre-Existing Deficit Psychiatric: Yes: Alert Labs: CBC, BMP 11/13/18 07:00 11/13/18 07:00 INR, PTT INR 1.47 (0.83-1.09) H 11/12/18 16:00 Microbiology 11/12/18 11:05 Urine - Urine Clean Catch Urine Culture - Final NO GROWTH OBTAINED Problem List - Problems (1) Altered mental status, unspecified Assessment/Plan: -Neurology on board -pending MRI of brain Code(s): R41.82 - ALTERED MENTAL STATUS, UNSPECIFIED Qualifiers: Altered mental status type: unspecified Qualified Code(s): R41.82 - Altered mental status, unspecified (2) Hepatic encephalopathy Assessment/Plan: -GI on board -continue xifaxin -ammonia level 140 Code(s): K72.90 - HEPATIC FAILURE, UNSPECIFIED WITHOUT COMA (3) Unintentional weight loss Assessment/Plan: -tumor markers pending Code(s): R63.4 - ABNORMAL WEIGHT LOSS (4) Diabetes Assessment/Plan: -bgm achs -ISS and metformin Code(s): E11.9 - TYPE 2 DIABETES MELLITUS WITHOUT COMPLICATIONS Qualifiers: Diabetes mellitus type: type 2 (5) HTN (hypertension) Assessment/Plan: -continue with nadolol, lisinopril Code(s): I10 - ESSENTIAL (PRIMARY) HYPERTENSION (6) Hypothyroidism Assessment/Plan: -continue with levothyroxine Code(s): E03.9 - HYPOTHYROIDISM, UNSPECIFIED Assessment/Plan see problem list
[2018-11-15] MEDS: metFORMIN HCL 500 MG TABLET (FP) PO SCH ×2 (06:10→17:15)
[2018-11-15] MEDS: LEVOTHYROXINE NA 75 MCG TABLET (FP) PO SCH (06:10)
[2018-11-15] MEDS: INSULIN SLIDING SCALE (NOVOLOG) 1 VIAL SQ SCH ×4 (06:11→21:15)
[2018-11-15 07:12] LABS: HEMATOCRIT 35.6 % (32.4-45.2); HEMOGLOBIN 12.3 GM/dL (10.7-15.3); MCH 32.1 pg (25.7-33.7); MCHC 34.6 g/dl (32.0-36.0); MEAN CELL VOLUME 92.8 fl (80-96); PLATELET COUNT 53 K/MM3 (134-434); RBC 3.84 M/mm3 (3.60-5.2); RDW 14.6 % (11.6-15.6); WHITE BLOOD COUNT 3.2 K/mm3 (4.0-10.0)
[2018-11-15 07:38] LABS: ALBUMIN 2.7 g/dl (3.4-5.0); ALK PHOS 90 U/L (45-117); ANION GAP 8 MMOL/L (8-16); BLOOD UREA NITROGEN 25 mg/dL (7-18); CALCIUM 8.2 mg/dL (8.5-10.1); CHLORIDE 106 mmol/L (98-107); CO2 25 mmol/L (21-32); CREATININE 0.9 mg/dL (0.55-1.3); GLUCOSE,RANDOM 141 mg/dL (74-106); POTASSIUM 3.6 mmol/L (3.5-5.1); SGOT/AST 71 U/L (15-37); SGPT/ALT 44 U/L (13-61); SODIUM 139 mmol/L (136-145); TOT PROT 5.9 g/dl (6.4-8.2)
--- NOTE | 2018-11-15 08:32 | PN.GI ---
GI Progress Note Subjective: Patient examined at bedside and denies complaints of abdominal pain, nausea, vomiting, diarrhea. - Objective Vital Signs: Vital Signs Temperature 98.4 F 11/15/18 06:43 Pulse Rate 73 11/15/18 06:43 Respiratory Rate 20 11/15/18 06:43 Blood Pressure 116/64 11/15/18 06:43 O2 Sat by Pulse Oximetry (%) 95 11/14/18 22:00 Constitutional: No Distress, Calm Eyes: Yes: Conjunctiva Clear HENT: Yes: Atraumatic Cardiovascular: Yes: Regular Rate and Rhythm Respiratory: Yes: Regular, CTA Bilaterally Gastrointestinal Inspection: Yes: WNL. No: Ascites, Distention, Hernia, Scars, Other ...Auscultate: Yes: Normoactive Bowel Sounds. No: Hyperactive Bowel Sounds, Hypoactive Bowel Sounds, No Bowel Sounds, Other ...Palpate: Yes: Soft. No: Firm/Rigid, Guarding, Hepatomegaly, Mass, Pulsatile Mass, Splenomegaly, Tenderness, Tenderness, Epigastium, Tenderness, Rebound, Other ...Percussion: Yes: Tympanitic. No: Dullness, Fluid Wave, Other Neurological: Yes: Alert, Pre-Existing Deficit Psychiatric: Yes: Alert Labs: CBC, BMP 11/15/18 05:30 11/15/18 05:30 INR, PTT INR 1.47 (0.83-1.09) H 11/12/18 16:00 Active Medications Generic Name Dose Route Start Last Admin Trade Name Freq PRN Reason Stop Dose Admin Furosemide 40 mg 11/13/18 10:00 11/14/18 09:21 Lasix - PO Not Given DAILY [facility] Heparin Sodium (Porcine) 5,000 unit 11/12/18 22:00 11/14/18 21:53 Heparin - SQ 5,000 unit BID [facility] Administration Insulin Aspart 1 vial 11/12/18 16:30 11/15/18 06:11 Novolog Vial Sliding Scale - SQ Not Given ACHS [facility] Protocol Lactulose 20 gm 11/12/18 16:57 11/14/18 10:56 Cephulac (Oral Use) PO 20 gm Q8H PRN Administration CONSTIPATION Levothyroxine Sodium 75 mcg 11/13/18 07:00 11/15/18 06:10 Synthroid - PO 75 mcg DAILY@0700 [facility] Administration Lisinopril 5 mg 11/13/18 10:00 11/14/18 09:21 Prinivil PO Not Given DAILY [facility] Metformin HCl 500 mg 11/12/18 16:30 11/15/18 06:10 Glucophage - PO 500 mg BID@0700,1630 [facility] Administration Metoprolol Succinate 25 mg 11/12/18 22:00 11/14/18 21:53 Toprol Xl - PO 25 mg BID [facility] Administration Nadolol 40 mg 11/13/18 10:00 11/14/18 09:21 Corgard - PO Not Given DAILY [facility] Rifaximin 550 mg 11/12/18 22:00 11/14/18 21:53 Xifaxan - PO 550 mg BID [facility] Administration Problem List - Problems (1) Hepatic encephalopathy Assessment/Plan: R>continue with Xifaxin 550mg BID and Lactulose 20 BID >Abdominal US results reviewed >follow up as outpatient for further management Code(s): K72.90 - HEPATIC FAILURE, UNSPECIFIED WITHOUT COMA (2) Unintentional weight loss Assessment/Plan: -AFP pending, CEA 3.4, CA 19-9 35, CA 125 12.8 Code(s): R63.4 - ABNORMAL WEIGHT LOSS
[2018-11-15] MEDS: FUROSEMIDE 40 MG TABLET (FP) PO SCH (10:08)
[2018-11-15] MEDS: HEPARIN NA (PORCINE) 5,000 UNITS/ML 1ML VIAL SQ SCH ×2 (10:08→21:18)
[2018-11-15] MEDS: LISINOPRIL 5 MG TABLET (FP) PO SCH (10:08)
[2018-11-15] MEDS: NADOLOL 40 MG TABLET (FP) PO SCH (10:08)
[2018-11-15] MEDS: metoPROLOL SUCCINATE 25 MG TAB.SR.24H (FP) PO SCH ×2 (10:08→21:21)
[2018-11-15] MEDS: RIFAXIMIN 550 MG TABLET (UD) PO SCH ×2 (10:09→21:19)
--- NOTE | 2018-11-15 10:39 | PN ---
Progress Note, Physician Chief Complaint: Hepatic Encephalopathy AMS History of Present Illness: MRI brain is pending Seen by GI On Xifaxan sitting in chair, moved to bed for asymptomatic hypotension. Pt denies any dizziness or light headedness She is on 2 beta blockers, not sure why Pleasantly confused - Current Medication List Current Medications: Active Medications Furosemide (Lasix -) 40 mg PO DAILY [facility] Last Admin: 11/15/18 10:08 Dose: 40 mg Heparin Sodium (Porcine) (Heparin -) 5,000 unit SQ BID [facility] Last Admin: 11/15/18 10:08 Dose: 5,000 unit Insulin Aspart (Novolog Vial Sliding Scale -) 1 vial SQ ACHS [facility]; Protocol Last Admin: 11/15/18 06:11 Dose: Not Given Lactulose (Cephulac (Oral Use)) 20 gm PO Q8H PRN PRN Reason: CONSTIPATION Last Admin: 11/14/18 10:56 Dose: 20 gm Levothyroxine Sodium (Synthroid -) 75 mcg PO DAILY@0700 [facility] Last Admin: 11/15/18 06:10 Dose: 75 mcg Lisinopril (Prinivil) 5 mg PO DAILY [facility] Last Admin: 11/15/18 10:08 Dose: 5 mg Metformin HCl (Glucophage -) 500 mg PO BID@0700,1630 [facility] Last Admin: 11/15/18 06:10 Dose: 500 mg Metoprolol Succinate (Toprol Xl -) 25 mg PO BID [facility] Last Admin: 11/15/18 10:08 Dose: 25 mg Nadolol (Corgard -) 40 mg PO DAILY [facility] Last Admin: 11/15/18 10:08 Dose: 40 mg Rifaximin (Xifaxan -) 550 mg PO BID [facility] Last Admin: 11/15/18 10:09 Dose: 550 mg - Objective Vital Signs: Vital Signs Temperature 97.8 F 11/15/18 09:00 Pulse Rate 68 11/15/18 09:00 Respiratory Rate 20 11/15/18 09:00 Blood Pressure 112/57 L 11/15/18 09:00 O2 Sat by Pulse Oximetry (%) 95 11/14/18 22:00 Constitutional: Yes: Well Nourished, No Distress, Calm Cardiovascular: Yes: Regular Rate and Rhythm Respiratory: Yes: Regular Gastrointestinal: Yes: Normal Bowel Sounds, Soft Musculoskeletal: Yes: Muscle Weakness Extremities: Yes: WNL Edema: No Peripheral Pulses WNL: Yes Neurological: Yes: Alert, Confusion Psychiatric: Yes: Alert Labs: CBC, BMP 11/15/18 05:30 11/15/18 05:30 INR, PTT INR 1.47 (0.83-1.09) H 11/12/18 16:00 Problem List - Problems (1) Altered mental status, unspecified Assessment/Plan: -Seen by Neurology -Awaiting MRI -2/2 metabolic encephalopathy Code(s): R41.82 - ALTERED MENTAL STATUS, UNSPECIFIED Qualifiers: Altered mental status type: unspecified Qualified Code(s): R41.82 - Altered mental status, unspecified (2) Hepatic encephalopathy Assessment/Plan: -On Xifixan -Lactulose changed to standing dose -needs to have 3-4 BM's per day, as ammonia level is rising Code(s): K72.90 - HEPATIC FAILURE, UNSPECIFIED WITHOUT COMA (3) Cirrhosis Assessment/Plan: -Seen by GI -workup outpatient Code(s): K74.60 - UNSPECIFIED CIRRHOSIS OF LIVER (4) Diabetes Assessment/Plan: -BGM AC HS -Novolog sliding scale -Last A1c at 6.6 in 10/2018 -Continue metformin -Diabetic diet Code(s): E11.9 - TYPE 2 DIABETES MELLITUS WITHOUT COMPLICATIONS Qualifiers: Diabetes mellitus type: type 2 (5) HTN (hypertension) Code(s): I10 - ESSENTIAL (PRIMARY) HYPERTENSION Assessment/Plan See problem list Physical therapy Spoke to daughter at bedside
[2018-11-15] MEDS: LACTULOSE 20 GM/30 ML UDC (FOR ORAL USE ONLY) PO PRN (12:45)
[2018-11-15] MEDS ORDERED: LACTULOSE 20 GM/30 ML UDC (FOR ORAL USE ONLY) PO SCH (14:00)
--- NOTE | 2018-11-15 16:00 | CON.CARD ---
Consult Consult Specialty:: Cardiology - History of Present Illness History of Present Illness: Ms Brewer is a 83 YOF with PMH hypothyroidism, HTN, diastolic CHF, liver cirrhosis/lesion of unclear etiology, pancytopenia, recent bronchitis/PNA presenting with AMS x 2 days, which family noticed after visiting her and calling via telephone. Family notes she has been talking nonsense over the phone, disoriented and confused. Yesterday, there was episode of dizziness and gait imbalance, where she walked like she was drunk. no falls. No trauma. +urinary frequency noted, likely 2/2 diuretic use for her diastolic CHF. bilateral leg swelling present at baseline, much improved compared to her previous admission time 1 month ago. Last admission in 10/07-10/13/2018 for acute bronchitis /pna s/p abx course and diastolic CHF exacerbation. Denies fever, chills, BROWN, chest pain, SOB, palpitation, weakness, N, V, D, abdominal pain, bladder and bowel problems, leg swelling, currently on furosemide, lisinopril, metoprolol, synthroid. Per primary doctor, started on chlorthalidone on PMD visit 2 weeks ago, and also clomitrazole for her oral thrush by Dr Mazariegos Allergies: NKA Past Medical History: hypothyroidism, HTN, diastolic CHF, liver cirrhosis/lesion , pancytopenia, recent bronchitis Social history: [facility] with [facility] [place] [facility] [place]. No smoking. No alcohol. No illicit drugs. Surgical history: DARIAN, fibroid, BSO, cholecystectomy PMD: Dr De La Rosa H/O: Dr Mazariegos - History Source History Provided By: Patient, Medical Record - Past Medical History Cardio/Vascular: Yes: CHF, HTN. No: AFIB Gastrointestinal: Yes: Esophageal Varices, Other (cirrhosis) Hepatobiliary: Yes: Cirrhosis ...: No Musculoskeletal: Yes: Osteoarthritis Endocrine: Yes: Diabetes Mellitus, Hypothyroidism - Alcohol/Substance Use Hx Alcohol Use: No - Smoking History Smoking history: Never smoked Have you smoked in the past 12 months: No - Social History Usual Living Arrangement: Alone Home Medications - Allergies Allergies/Adverse Reactions: Allergies Allergy/AdvReac Type Severity Reaction Status Date / Time No Known Drug Allergies Allergy Unverified 11/12/18 09:16 - Home Medications Home Medications: Ambulatory Orders Levothyroxine [Synthroid -] 50 mcg PO DAILY 08/14/13 Furosemide [Lasix] 40 mg PO DAILY 10/07/18 metFORMIN HCL [Glucophage -] 0 mg PO BID 10/07/18 Cefuroxime Axetil [Ceftin -] 500 mg PO BID #14 tablet 10/13/18 Levothyroxine [Synthroid -] 75 mcg PO AM #30 tablet 10/13/18 Lisinopril [Prinivil] 5 mg PO DAILY #30 tablet 10/13/18 Metoprolol Succinate [Toprol XL -] 25 mg PO BID #60 tab.sr.24h 10/13/18 Potassium Chloride [K-Dur -] 20 meq PO DAILY #30 tablet.er 10/13/18 Review of Systems - Review of Systems Constitutional: reports: No Symptoms Eyes: reports: No Symptoms HENT: reports: No Symptoms Neck: reports: No Symptoms Cardiovascular: reports: No Symptoms Gastrointestinal: reports: No Symptoms Genitourinary: reports: No Symptoms Breasts: reports: No Symptoms Reported Musculoskeletal: reports: No Symptoms Integumentary: reports: No Symptoms Neurological: reports: No Symptoms Endocrine: reports: No Symptoms Hematology/Lymphatic: reports: No Symptoms Psychiatric: reports: No Symptoms Vital Signs: Vital Signs Temperature 98.2 F 11/15/18 15:06 Pulse Rate 69 11/15/18 15:06 Respiratory Rate 20 11/15/18 15:06 Blood Pressure 118/46 L 11/15/18 15:06 O2 Sat by Pulse Oximetry (%) 95 11/14/18 22:00 Constitutional: Yes: Well Nourished, No Distress, Calm Eyes: Yes: WNL, Conjunctiva Clear, EOM Intact HENT: Yes: WNL, Atraumatic, Normocephalic Neck: Yes: WNL, Supple, Trachea Midline Respiratory: Yes: WNL, Regular, CTA Bilaterally Gastrointestinal: Yes: WNL, Normal Bowel Sounds Renal/: Yes: WNL Cardiovascular: Yes: WNL, Regular Rate and Rhythm Musculoskeletal: Yes: WNL Extremities: Yes: WNL Integumentary: Yes: WNL ...Motor Strength: WNL Psychiatric: Yes: WNL, Alert, Oriented - Other Data Labs, Other Data: CBC, BMP 11/15/18 05:30 11/15/18 05:30 INR, PTT INR 1.47 (0.83-1.09) H 11/12/18 16:00 Imaging - Results EKG: Image Reviewed (sr nonspec rep abn) Problem List - Problems (1) Altered mental status, unspecified Code(s): R41.82 - ALTERED MENTAL STATUS, UNSPECIFIED Qualifiers: Altered mental status type: unspecified Qualified Code(s): R41.82 - Altered mental status, unspecified (2) Hepatic encephalopathy Code(s): K72.90 - HEPATIC FAILURE, UNSPECIFIED WITHOUT COMA (3) Unintentional weight loss Code(s): R63.4 - ABNORMAL WEIGHT LOSS (4) Acute bronchitis Code(s): J20.9 - ACUTE BRONCHITIS, UNSPECIFIED (5) Acute exacerbation of CHF (congestive heart failure) Code(s): I50.9 - HEART FAILURE, UNSPECIFIED Qualifiers: Heart failure type: diastolic Qualified Code(s): I50.33 - Acute on chronic diastolic (congestive) heart failure (6) Cirrhosis Code(s): K74.60 - UNSPECIFIED CIRRHOSIS OF LIVER (7) Diabetes Code(s): E11.9 - TYPE 2 DIABETES MELLITUS WITHOUT COMPLICATIONS Qualifiers: Diabetes mellitus type: type 2 (8) HTN (hypertension) Code(s): I10 - ESSENTIAL (PRIMARY) HYPERTENSION (9) Hypothyroidism Code(s): E03.9 - HYPOTHYROIDISM, UNSPECIFIED (10) Liver lesion Code(s): K76.9 - LIVER DISEASE, UNSPECIFIED (11) Pancytopenia Code(s): D61.818 - OTHER PANCYTOPENIA (12) Sepsis Code(s): A41.9 - SEPSIS, UNSPECIFIED ORGANISM (13) Shortness of breath Code(s): R06.02 - SHORTNESS OF BREATH Assessment/Plan hypothyroidism, HTN, diastolic CHF diastolic , moderate mrliver cirrhosis/ lesion of unclear etiology, pancytopenia, recent bronchitis/PNA presenting with AMS Plan cardiac jeter stable repeat ekg check bnp will f/u
[2018-11-15] MEDS ORDERED: INSULIN (NOVOLOG) ASPART 100 UNITS/ML 10ML VIAL ONE (19:34)
[2018-11-15] MEDS: LACTULOSE 20 GM/30 ML UDC (FOR ORAL USE ONLY) PO SCH (21:18)
[2018-11-16] MEDS: LEVOTHYROXINE NA 75 MCG TABLET (FP) PO SCH (06:36)
[2018-11-16] MEDS: INSULIN SLIDING SCALE (NOVOLOG) 1 VIAL SQ SCH ×4 (06:36→22:27)
[2018-11-16] MEDS: metFORMIN HCL 500 MG TABLET (FP) PO SCH ×2 (06:42→17:16)
[2018-11-16] MEDS: LACTULOSE 20 GM/30 ML UDC (FOR ORAL USE ONLY) PO SCH ×3 (06:42→22:27)
[2018-11-16] MEDS: metoPROLOL SUCCINATE 25 MG TAB.SR.24H (FP) PO SCH ×2 (10:07→22:27)
[2018-11-16] MEDS: FUROSEMIDE 40 MG TABLET (FP) PO SCH (10:07)
[2018-11-16] MEDS: LISINOPRIL 5 MG TABLET (FP) PO SCH (10:07)
[2018-11-16] MEDS: RIFAXIMIN 550 MG TABLET (UD) PO SCH ×2 (10:26→22:27)
[2018-11-16] MEDS: HEPARIN NA (PORCINE) 5,000 UNITS/ML 1ML VIAL SQ SCH ×2 (10:26→22:27)
--- NOTE | 2018-11-16 11:10 | PN ---
Progress Note, Physician Chief Complaint: Hepatic Encephalopathy AMS History of Present Illness: Previous notes and events reviewed awake and alert NAD denies complaints of chest pain or SOB patient hypotensive--denies dizziness or chest pain--EKG ordered - Current Medication List Current Medications: Active Medications Furosemide (Lasix -) 40 mg PO DAILY [facility] Last Admin: 11/16/18 10:07 Dose: Not Given Heparin Sodium (Porcine) (Heparin -) 5,000 unit SQ BID [facility] Last Admin: 11/16/18 10:26 Dose: 5,000 unit Insulin Aspart (Novolog Vial Sliding Scale -) 1 vial SQ ACHS [facility]; Protocol Last Admin: 11/16/18 06:36 Dose: Not Given Lactulose (Cephulac (Oral Use)) 20 gm PO TID [facility] Last Admin: 11/16/18 06:42 Dose: 20 gm Levothyroxine Sodium (Synthroid -) 75 mcg PO DAILY@0700 [facility] Last Admin: 11/16/18 06:36 Dose: 75 mcg Lisinopril (Prinivil) 2.5 mg PO DAILY [facility] Last Admin: 11/16/18 10:07 Dose: Not Given Metformin HCl (Glucophage -) 500 mg PO BID@0700,1630 [facility] Last Admin: 11/16/18 06:42 Dose: 500 mg Metoprolol Succinate (Toprol Xl -) 25 mg PO BID [facility] Last Admin: 11/16/18 10:07 Dose: Not Given Rifaximin (Xifaxan -) 550 mg PO BID [facility] Last Admin: 11/16/18 10:26 Dose: 550 mg - Objective Vital Signs: Vital Signs Temperature 98.3 F 11/16/18 09:28 Pulse Rate 70 11/16/18 09:28 Respiratory Rate 18 11/16/18 09:28 Blood Pressure 103/54 L 11/16/18 09:28 O2 Sat by Pulse Oximetry (%) 95 11/16/18 09:00 Constitutional: Yes: No Distress, Calm Eyes: Yes: Conjunctiva Clear HENT: Yes: Atraumatic Cardiovascular: Yes: Regular Rate and Rhythm Respiratory: Yes: Regular, CTA Bilaterally Gastrointestinal: Yes: Normal Bowel Sounds, Soft Musculoskeletal: Yes: Muscle Weakness Extremities: Yes: WNL Edema: No Neurological: Yes: Alert, Pre-Existing Deficit Psychiatric: Yes: Alert Labs: CBC, BMP 11/15/18 05:30 11/15/18 05:30 INR, PTT INR 1.47 (0.83-1.09) H 11/12/18 16:00 Problem List - Problems (1) Altered mental status, unspecified Assessment/Plan: -Neurology on board -Brain MRI shows moderate atrophy and chronic microvascular ischemic disease changes, no acute intracranial pathology -ammonia level 140--ammonia level ordered for AM Code(s): R41.82 - ALTERED MENTAL STATUS, UNSPECIFIED Qualifiers: Altered mental status type: unspecified Qualified Code(s): R41.82 - Altered mental status, unspecified (2) Hepatic encephalopathy Assessment/Plan: -GI on board -continue xifaxin -ammonia level 140--repeat in AM -lactoulose TID Code(s): K72.90 - HEPATIC FAILURE, UNSPECIFIED WITHOUT COMA (3) Unintentional weight loss Assessment/Plan: -tumor markes negative Code(s): R63.4 - ABNORMAL WEIGHT LOSS (4) Diabetes Assessment/Plan: -bgm achs -ISS and metformin Code(s): E11.9 - TYPE 2 DIABETES MELLITUS WITHOUT COMPLICATIONS Qualifiers: Diabetes mellitus type: type 2 (5) HTN (hypertension) Assessment/Plan: -lasix, lisinopril, toprol XL -hold BP meds if SBP <100 and/or DBP <70 -cardiology on board Code(s): I10 - ESSENTIAL (PRIMARY) HYPERTENSION (6) Hypothyroidism Assessment/Plan: -continue with levothyroxine Code(s): E03.9 - HYPOTHYROIDISM, UNSPECIFIED (7) Cirrhosis Assessment/Plan: -GI on board -outpatient workup on discharge Code(s): K74.60 - UNSPECIFIED CIRRHOSIS OF LIVER
--- NOTE | 2018-11-16 11:30 | PN ---
Progress Note, SOFTWARE QUALITY ANALYST - Note Progress Note: Selected Entries 11/15/18 11/15/18 11/15/18 06:43 09:00 12:47 Breakfast Diet Tolerated Fair Lunch 75% Supper Temperature 98.4 F 97.8 F 11/15/18 11/15/18 11/15/18 13:45 15:06 21:02 Breakfast Diet Tolerated Fair Lunch Supper 50% Temperature 98.1 F 98.2 F 11/15/18 11/16/18 11/16/18 22:33 06:54 09:28 Breakfast Diet Tolerated Lunch Supper Temperature 98.0 F 99.0 F 98.3 F 11/16/18 10:27 Breakfast 75% Diet Tolerated Fair Lunch Supper Temperature Laboratory Tests 11/15/18 05:30 WBC 3.2 L Reported to be doing much better.Continue diet as ordered.
--- NOTE | 2018-11-16 14:14 | EKG ---
Test Reason : Blood Pressure : / mmHG Vent. Rate : 063 BPM Atrial Rate : 063 BPM P-R Int : 152 ms QRS Dur : 076 ms QT Int : 444 ms P-R-T Axes : -07 055 057 degrees QTc Int : 454 ms NORMAL SINUS RHYTHM NORMAL ECG WHEN COMPARED WITH ECG OF 12-NOV-2018 13:10, CRITERIA FOR INFERIOR INFARCT ARE NO LONGER PRESENT T WAVE INVERSION NO LONGER EVIDENT IN INFERIOR LEADS NONSPECIFIC T WAVE ABNORMALITY NO LONGER EVIDENT IN ANTERIOR LEADS Confirmed by AMIRA SMITH MD ([id number]) on 11/16/2018 2:14:09 PM Referred By: RAMU LONG Confirmed By:AMIRA SMITH MD
[2018-11-16] MEDS ORDERED: INSULIN (NOVOLOG) ASPART 100 UNITS/ML 10ML VIAL ONE ×2 (17:11→19:49)
[2018-11-17] MEDS: metFORMIN HCL 500 MG TABLET (FP) PO SCH ×2 (06:11→18:43)
[2018-11-17] MEDS: LEVOTHYROXINE NA 75 MCG TABLET (FP) PO SCH (06:11)
[2018-11-17] MEDS: LACTULOSE 20 GM/30 ML UDC (FOR ORAL USE ONLY) PO SCH ×3 (06:11→21:29)
[2018-11-17] MEDS: INSULIN SLIDING SCALE (NOVOLOG) 1 VIAL SQ SCH ×4 (06:11→21:29)
[2018-11-17 08:14] LABS: HEMATOCRIT 33.3 % (32.4-45.2); HEMOGLOBIN 11.3 GM/dL (10.7-15.3); MCH 31.8 pg (25.7-33.7); MCHC 34.1 g/dl (32.0-36.0); MEAN CELL VOLUME 93.3 fl (80-96); MEAN PLT VOLUME 12.7 fl (7.5-11.1); PLATELET COUNT 52 K/MM3 (134-434); RBC 3.57 M/mm3 (3.60-5.2); RDW 14.6 % (11.6-15.6); WHITE BLOOD COUNT 2.2 K/mm3 (4.0-10.0)
[2018-11-17 08:26] LABS: ALBUMIN 2.5 g/dl (3.4-5.0); ALK PHOS 83 U/L (45-117); ANION GAP 7 MMOL/L (8-16); BILIRUBIN,TOTAL 1.9 mg/dL (0.2-1); BLOOD UREA NITROGEN 20 mg/dL (7-18); CALCIUM 8.1 mg/dL (8.5-10.1); CHLORIDE 105 mmol/L (98-107); CO2 28 mmol/L (21-32); CREATININE 0.8 mg/dL (0.55-1.3); GLUCOSE,RANDOM 118 mg/dL (74-106); POTASSIUM 3.8 mmol/L (3.5-5.1); SGOT/AST 80 U/L (15-37); SGPT/ALT 57 U/L (13-61); SODIUM 140 mmol/L (136-145); TOT PROT 5.4 g/dl (6.4-8.2)
[2018-11-17] MEDS: FUROSEMIDE 40 MG TABLET (FP) PO SCH (11:20)
[2018-11-17] MEDS: RIFAXIMIN 550 MG TABLET (UD) PO SCH ×2 (11:20→21:29)
[2018-11-17] MEDS: HEPARIN NA (PORCINE) 5,000 UNITS/ML 1ML VIAL SQ SCH ×2 (11:20→21:29)
[2018-11-17] MEDS: LISINOPRIL 5 MG TABLET (FP) PO SCH (11:21)
[2018-11-17] MEDS: metoPROLOL SUCCINATE 25 MG TAB.SR.24H (FP) PO SCH ×2 (11:21→21:29)
--- NOTE | 2018-11-17 14:40 | PN ---
Progress Note, Physician Chief Complaint: patient seen and examiend in bed family at bedside - Current Medication List Current Medications: Active Medications Furosemide (Lasix -) 40 mg PO DAILY [facility] Last Admin: 11/17/18 11:20 Dose: 40 mg Heparin Sodium (Porcine) (Heparin -) 5,000 unit SQ BID [facility] Last Admin: 11/17/18 11:20 Dose: 5,000 unit Insulin Aspart (Novolog Vial Sliding Scale -) 1 vial SQ ACHS [facility]; Protocol Last Admin: 11/17/18 11:26 Dose: Not Given Lactulose (Cephulac (Oral Use)) 20 gm PO TID [facility] Last Admin: 11/17/18 06:11 Dose: 20 gm Levothyroxine Sodium (Synthroid -) 75 mcg PO DAILY@0700 [facility] Last Admin: 11/17/18 06:11 Dose: 75 mcg Lisinopril (Prinivil) 2.5 mg PO DAILY [facility] Last Admin: 11/17/18 11:21 Dose: 2.5 mg Metformin HCl (Glucophage -) 500 mg PO BID@0700,1630 [facility] Last Admin: 11/17/18 06:11 Dose: 500 mg Metoprolol Succinate (Toprol Xl -) 25 mg PO BID [facility] Last Admin: 11/17/18 11:21 Dose: 25 mg Rifaximin (Xifaxan -) 550 mg PO BID [facility] Last Admin: 11/17/18 11:20 Dose: 550 mg - Objective Vital Signs: Vital Signs Temperature 98.4 F 11/17/18 06:05 Pulse Rate 77 11/17/18 06:05 Respiratory Rate 20 11/17/18 06:05 Blood Pressure 108/62 11/17/18 06:05 O2 Sat by Pulse Oximetry (%) 95 11/16/18 21:00 Constitutional: Yes: Calm, Thin Cardiovascular: Yes: Regular Rate and Rhythm, S1, S2 Respiratory: Yes: CTA Bilaterally Gastrointestinal: Yes: Normal Bowel Sounds, Soft Edema: No Neurological: Yes: Alert Labs: CBC, BMP 11/17/18 06:25 11/17/18 06:25 INR, PTT INR 1.47 (0.83-1.09) H 11/12/18 16:00 Problem List - Problems (1) Hepatic encephalopathy Assessment/Plan: ammonia trending down stil elevated lactulose rifaxmin brain Kee noted no acute infacts neurlogy on board Code(s): K72.90 - HEPATIC FAILURE, UNSPECIFIED WITHOUT COMA (2) Hypothyroidism Assessment/Plan: synthroid tsh noted Code(s): E03.9 - HYPOTHYROIDISM, UNSPECIFIED (3) Diabetes Assessment/Plan: bgm metformin Code(s): E11.9 - TYPE 2 DIABETES MELLITUS WITHOUT COMPLICATIONS Qualifiers: Diabetes mellitus type: type 2
[2018-11-18] MEDS ORDERED: PT OWN MED DRAWER 7, Y5N ONE (00:26)
[2018-11-18] MEDS ORDERED: INSULIN (NOVOLOG) ASPART 100 UNITS/ML 10ML VIAL ONE (00:26)
[2018-11-18] MEDS: INSULIN SLIDING SCALE (NOVOLOG) 1 VIAL SQ SCH ×4 (06:28→22:01)
[2018-11-18] MEDS: LEVOTHYROXINE NA 75 MCG TABLET (FP) PO SCH (07:11)
[2018-11-18] MEDS: LACTULOSE 20 GM/30 ML UDC (FOR ORAL USE ONLY) PO SCH ×3 (07:11→22:07)
[2018-11-18] MEDS: metFORMIN HCL 500 MG TABLET (FP) PO SCH ×2 (07:11→17:46)
[2018-11-18 08:23] LABS: BASO % 0.3 % (0-2.0); EOS % 4.1 % (0-4.5); HEMATOCRIT 31.6 % (32.4-45.2); HEMOGLOBIN 10.9 GM/dL (10.7-15.3); MCH 32.3 pg (25.7-33.7); MCHC 34.5 g/dl (32.0-36.0); MEAN CELL VOLUME 93.4 fl (80-96); MEAN PLT VOLUME 12.4 fl (7.5-11.1); MONO % 10.9 % (3.8-10.2); NEUT % 52.7 % (42.8-82.8); PLATELET COUNT 47 K/MM3 (134-434); RBC 3.38 M/mm3 (3.60-5.2); RDW 14.9 % (11.6-15.6); WHITE BLOOD COUNT 2.2 K/mm3 (4.0-10.0)
[2018-11-18 08:29] LABS: ALBUMIN 2.5 g/dl (3.4-5.0); ALK PHOS 86 U/L (45-117); ANION GAP 8 MMOL/L (8-16); BILIRUBIN,TOTAL 1.7 mg/dL (0.2-1); BLOOD UREA NITROGEN 16 mg/dL (7-18); CHLORIDE 105 mmol/L (98-107); CO2 27 mmol/L (21-32); CREATININE 0.7 mg/dL (0.55-1.3); GLUCOSE,RANDOM 98 mg/dL (74-106); POTASSIUM 3.8 mmol/L (3.5-5.1); SGOT/AST 73 U/L (15-37); SGPT/ALT 56 U/L (13-61); SODIUM 140 mmol/L (136-145); TOT PROT 5.5 g/dl (6.4-8.2)
[2018-11-18] MEDS: metoPROLOL SUCCINATE 25 MG TAB.SR.24H (FP) PO SCH ×2 (09:17→22:07)
[2018-11-18] MEDS: LISINOPRIL 5 MG TABLET (FP) PO SCH (09:17)
[2018-11-18] MEDS: FUROSEMIDE 40 MG TABLET (FP) PO SCH (09:17)
[2018-11-18] MEDS: HEPARIN NA (PORCINE) 5,000 UNITS/ML 1ML VIAL SQ SCH ×2 (09:23→22:07)
[2018-11-18] MEDS: RIFAXIMIN 550 MG TABLET (UD) PO SCH ×2 (09:23→22:07)
--- NOTE | 2018-11-18 14:23 | PN ---
Progress Note, Physician - Current Medication List Current Medications: Active Medications Furosemide (Lasix -) 40 mg PO DAILY [facility] Last Admin: 11/18/18 09:17 Dose: Not Given Heparin Sodium (Porcine) (Heparin -) 5,000 unit SQ BID [facility] Last Admin: 11/18/18 09:23 Dose: 5,000 unit Insulin Aspart (Novolog Vial Sliding Scale -) 1 vial SQ ACHS [facility]; Protocol Last Admin: 11/18/18 11:36 Dose: Not Given Lactulose (Cephulac (Oral Use)) 20 gm PO TID [facility] Last Admin: 11/18/18 13:41 Dose: 20 gm Levothyroxine Sodium (Synthroid -) 75 mcg PO DAILY@0700 [facility] Last Admin: 11/18/18 07:11 Dose: 75 mcg Lisinopril (Prinivil) 2.5 mg PO DAILY [facility] Last Admin: 11/18/18 09:17 Dose: Not Given Metformin HCl (Glucophage -) 500 mg PO BID@0700,1630 [facility] Last Admin: 11/18/18 07:11 Dose: 500 mg Metoprolol Succinate (Toprol Xl -) 25 mg PO BID [facility] Last Admin: 11/18/18 09:17 Dose: Not Given Rifaximin (Xifaxan -) 550 mg PO BID [facility] Last Admin: 11/18/18 09:23 Dose: 550 mg - Objective Vital Signs: Vital Signs Temperature 98.3 F 11/18/18 06:00 Pulse Rate 65 11/18/18 06:00 Respiratory Rate 20 11/17/18 21:14 Blood Pressure 98/48 L 11/18/18 06:00 O2 Sat by Pulse Oximetry (%) 97 11/17/18 21:00 Cardiovascular: Yes: Regular Rate and Rhythm Respiratory: Yes: Regular, CTA Bilaterally Gastrointestinal: Yes: Normal Bowel Sounds, Soft Labs: CBC, BMP 11/18/18 07:00 11/18/18 07:00 INR, PTT INR 1.47 (0.83-1.09) H 11/12/18 16:00 Problem List - Problems (1) Hepatic encephalopathy Code(s): K72.90 - HEPATIC FAILURE, UNSPECIFIED WITHOUT COMA (2) Altered mental status, unspecified Code(s): R41.82 - ALTERED MENTAL STATUS, UNSPECIFIED Qualifiers: Altered mental status type: unspecified Qualified Code(s): R41.82 - Altered mental status, unspecified (3) Diabetes Code(s): E11.9 - TYPE 2 DIABETES MELLITUS WITHOUT COMPLICATIONS Qualifiers: Diabetes mellitus type: type 2 Assessment/Plan - Problems (1) Hepatic encephalopathy Assessment/Plan: ammonia trending down stil elevated lactulose rifaxmin brain Kee noted no acute infacts neurlogy on board Code(s): K72.90 - HEPATIC FAILURE, UNSPECIFIED WITHOUT COMA (2) Hypothyroidism Assessment/Plan: synthroid tsh noted Code(s): E03.9 - HYPOTHYROIDISM, UNSPECIFIED (3) Diabetes Assessment/Plan: bgm metformin Code(s): E11.9 - TYPE 2 DIABETES MELLITUS WITHOUT COMPLICATIONS Qualifiers: Diabetes mellitus type: type 2
[2018-11-19] MEDS: LACTULOSE 20 GM/30 ML UDC (FOR ORAL USE ONLY) PO SCH ×3 (06:37→21:25)
[2018-11-19] MEDS: INSULIN SLIDING SCALE (NOVOLOG) 1 VIAL SQ SCH ×4 (06:37→21:29)
[2018-11-19] MEDS: metFORMIN HCL 500 MG TABLET (FP) PO SCH ×2 (06:37→16:43)
[2018-11-19] MEDS: LEVOTHYROXINE NA 75 MCG TABLET (FP) PO SCH (06:37)
[2018-11-19] MEDS: metoPROLOL SUCCINATE 25 MG TAB.SR.24H (FP) PO SCH ×2 (09:20→21:26)
[2018-11-19] MEDS: LISINOPRIL 5 MG TABLET (FP) PO SCH (09:20)
[2018-11-19] MEDS: FUROSEMIDE 40 MG TABLET (FP) PO SCH (09:20)
[2018-11-19] MEDS: HEPARIN NA (PORCINE) 5,000 UNITS/ML 1ML VIAL SQ SCH ×2 (09:30→21:25)
[2018-11-19] MEDS: RIFAXIMIN 550 MG TABLET (UD) PO SCH ×2 (09:30→21:26)
--- NOTE | 2018-11-19 12:33 | PN ---
Progress Note, Physician - Current Medication List Current Medications: Active Medications Furosemide (Lasix -) 40 mg PO DAILY [facility] Last Admin: 11/19/18 09:20 Dose: Not Given Heparin Sodium (Porcine) (Heparin -) 5,000 unit SQ BID [facility] Last Admin: 11/19/18 09:30 Dose: 5,000 unit Insulin Aspart (Novolog Vial Sliding Scale -) 1 vial SQ ACHS [facility]; Protocol Last Admin: 11/19/18 11:44 Dose: 2 units Lactulose (Cephulac (Oral Use)) 20 gm PO TID [facility] Last Admin: 11/19/18 06:37 Dose: 20 gm Levothyroxine Sodium (Synthroid -) 75 mcg PO DAILY@0700 [facility] Last Admin: 11/19/18 06:37 Dose: 75 mcg Lisinopril (Prinivil) 2.5 mg PO DAILY [facility] Last Admin: 11/19/18 09:20 Dose: Not Given Metformin HCl (Glucophage -) 500 mg PO BID@0700,1630 [facility] Last Admin: 11/19/18 06:37 Dose: 500 mg Metoprolol Succinate (Toprol Xl -) 25 mg PO BID [facility] Last Admin: 11/19/18 09:20 Dose: Not Given Rifaximin (Xifaxan -) 550 mg PO BID [facility] Last Admin: 11/19/18 09:30 Dose: 550 mg - Objective Vital Signs: Vital Signs Temperature 97.6 F 11/19/18 08:57 Pulse Rate 75 11/19/18 08:57 Respiratory Rate 18 11/19/18 08:57 Blood Pressure 100/47 L 11/19/18 08:57 O2 Sat by Pulse Oximetry (%) 97 11/18/18 21:00 Cardiovascular: Yes: S1, S2 Respiratory: Yes: Regular, CTA Bilaterally Gastrointestinal: Yes: Normal Bowel Sounds, Soft Labs: CBC, BMP 11/18/18 07:00 11/18/18 07:00 INR, PTT INR 1.47 (0.83-1.09) H 11/12/18 16:00 Problem List - Problems (1) Hepatic encephalopathy Code(s): K72.90 - HEPATIC FAILURE, UNSPECIFIED WITHOUT COMA (2) Altered mental status, unspecified Code(s): R41.82 - ALTERED MENTAL STATUS, UNSPECIFIED Qualifiers: Altered mental status type: unspecified Qualified Code(s): R41.82 - Altered mental status, unspecified (3) Diabetes Code(s): E11.9 - TYPE 2 DIABETES MELLITUS WITHOUT COMPLICATIONS Qualifiers: Diabetes mellitus type: type 2 Assessment/Plan - Problems (1) Hepatic encephalopathy Assessment/Plan: ammonia trending down still elevated-trending down--60 lactulose rifaxmin brain Kee noted no acute infacts neurlogy on board Code(s): K72.90 - HEPATIC FAILURE, UNSPECIFIED WITHOUT COMA (2) Hypothyroidism Assessment/Plan: synthroid tsh noted Code(s): E03.9 - HYPOTHYROIDISM, UNSPECIFIED (3) Diabetes Assessment/Plan: bgm metformin Code(s): E11.9 - TYPE 2 DIABETES MELLITUS WITHOUT COMPLICATIONS Qualifiers: Diabetes mellitus type: type 2
[2018-11-19 12:45] LABS: BASO % 0.3 % (0-2.0); HEMATOCRIT 36.2 % (32.4-45.2); HEMOGLOBIN 12.3 GM/dL (10.7-15.3); LYMPH % 24.9 % (8-40); MCH 32.4 pg (25.7-33.7); MEAN CELL VOLUME 95.4 fl (80-96); MEAN PLT VOLUME 11.6 fl (7.5-11.1); MONO % 9.8 % (3.8-10.2); PLATELET COUNT 53 K/MM3 (134-434); RBC 3.79 M/mm3 (3.60-5.2); RDW 14.7 % (11.6-15.6); WHITE BLOOD COUNT 2.7 K/mm3 (4.0-10.0)
[2018-11-19 13:11] LABS: ALBUMIN 2.7 g/dl (3.4-5.0); ALK PHOS 107 U/L (45-117); ANION GAP 8 MMOL/L (8-16); BILIRUBIN,TOTAL 1.4 mg/dL (0.2-1); BLOOD UREA NITROGEN 16 mg/dL (7-18); CALCIUM 8.8 mg/dL (8.5-10.1); CHLORIDE 103 mmol/L (98-107); CO2 26 mmol/L (21-32); CREATININE 0.9 mg/dL (0.55-1.3); GLUCOSE,RANDOM 224 mg/dL (74-106); POTASSIUM 4.2 mmol/L (3.5-5.1); SGOT/AST 76 U/L (15-37); SGPT/ALT 63 U/L (13-61); SODIUM 137 mmol/L (136-145); TOT PROT 6.3 g/dl (6.4-8.2)
--- NOTE | 2018-11-19 21:04 | PN ---
Progress Note, Physician - Current Medication List Current Medications: Active Medications Furosemide (Lasix -) 40 mg PO DAILY [facility] Last Admin: 11/19/18 09:20 Dose: Not Given Heparin Sodium (Porcine) (Heparin -) 5,000 unit SQ BID [facility] Insulin Aspart (Novolog Vial Sliding Scale -) 1 vial SQ ACHS [facility]; Protocol Last Admin: 11/19/18 16:43 Dose: Not Given Lactulose (Cephulac (Oral Use)) 20 gm PO TID [facility] Last Admin: 11/19/18 14:36 Dose: 20 gm Levothyroxine Sodium (Synthroid -) 75 mcg PO DAILY@0700 [facility] Last Admin: 11/19/18 06:37 Dose: 75 mcg Lisinopril (Prinivil) 2.5 mg PO DAILY [facility] Last Admin: 11/19/18 09:20 Dose: Not Given Metformin HCl (Glucophage -) 500 mg PO BID@0700,1630 [facility] Last Admin: 11/19/18 16:43 Dose: 500 mg Metoprolol Succinate (Toprol Xl -) 25 mg PO BID [facility] Last Admin: 11/19/18 09:20 Dose: Not Given Rifaximin (Xifaxan -) 550 mg PO BID [facility] - Objective Vital Signs: Vital Signs Temperature 98.2 F 11/19/18 15:34 Pulse Rate 75 11/19/18 15:34 Respiratory Rate 18 11/19/18 15:34 Blood Pressure 110/54 L 11/19/18 15:34 O2 Sat by Pulse Oximetry (%) 94 L 11/19/18 09:00 Labs: CBC, BMP 11/19/18 12:25 11/19/18 12:25 INR, PTT INR 1.47 (0.83-1.09) H 11/12/18 16:00
--- NOTE | 2018-11-19 21:04 | PN ---
Progress Note, Physician - Current Medication List Current Medications: Active Medications Furosemide (Lasix -) 40 mg PO DAILY [facility] Last Admin: 11/19/18 09:20 Dose: Not Given Heparin Sodium (Porcine) (Heparin -) 5,000 unit SQ BID [facility] Insulin Aspart (Novolog Vial Sliding Scale -) 1 vial SQ ACHS [facility]; Protocol Last Admin: 11/19/18 16:43 Dose: Not Given Lactulose (Cephulac (Oral Use)) 20 gm PO TID [facility] Last Admin: 11/19/18 14:36 Dose: 20 gm Levothyroxine Sodium (Synthroid -) 75 mcg PO DAILY@0700 [facility] Last Admin: 11/19/18 06:37 Dose: 75 mcg Lisinopril (Prinivil) 2.5 mg PO DAILY [facility] Last Admin: 11/19/18 09:20 Dose: Not Given Metformin HCl (Glucophage -) 500 mg PO BID@0700,1630 [facility] Last Admin: 11/19/18 16:43 Dose: 500 mg Metoprolol Succinate (Toprol Xl -) 25 mg PO BID [facility] Last Admin: 11/19/18 09:20 Dose: Not Given Rifaximin (Xifaxan -) 550 mg PO BID [facility] - Objective Vital Signs: Vital Signs Temperature 98.2 F 11/19/18 15:34 Pulse Rate 75 11/19/18 15:34 Respiratory Rate 18 11/19/18 15:34 Blood Pressure 110/54 L 11/19/18 15:34 O2 Sat by Pulse Oximetry (%) 94 L 11/19/18 09:00 Labs: CBC, BMP 11/19/18 12:25 11/19/18 12:25 INR, PTT INR 1.47 (0.83-1.09) H 11/12/18 16:00
--- NOTE | 2018-11-19 21:04 | PN ---
Progress Note, Physician Chief Complaint: Pt A&O; no chest pain, abdominal pain, or dyspnea. No leg swelling. History of Present Illness: Ms Brewer is a 83 YO woman with PMH hypothyroidism, HTN, diastolic CHF, liver cirrhosis/lesion of unclear etiology, pancytopenia, recent bronchitis/PNA presenting with AMS x 2 days, which family noticed after visiting her and calling via telephone. Family notes she has been talking nonsense over the phone, disoriented and confused. Yesterday, there was episode of dizziness and gait imbalance, where she walked like she was drunk. no falls. No trauma. +urinary frequency noted, likely 2/2 diuretic use for her diastolic CHF. bilateral leg swelling present at baseline, much improved compared to her previous admission time 1 month ago. Last admission in 10/07-10/13/2018 for acute bronchitis /pna s/p abx course and diastolic CHF exacerbation. - Current Medication List Current Medications: Active Medications Furosemide (Lasix -) 40 mg PO DAILY [facility] Last Admin: 11/19/18 09:20 Dose: Not Given Heparin Sodium (Porcine) (Heparin -) 5,000 unit SQ BID [facility] Insulin Aspart (Novolog Vial Sliding Scale -) 1 vial SQ ACHS [facility]; Protocol Last Admin: 11/19/18 16:43 Dose: Not Given Lactulose (Cephulac (Oral Use)) 20 gm PO TID [facility] Last Admin: 11/19/18 14:36 Dose: 20 gm Levothyroxine Sodium (Synthroid -) 75 mcg PO DAILY@0700 [facility] Last Admin: 11/19/18 06:37 Dose: 75 mcg Lisinopril (Prinivil) 2.5 mg PO DAILY [facility] Last Admin: 11/19/18 09:20 Dose: Not Given Metformin HCl (Glucophage -) 500 mg PO BID@0700,1630 [facility] Last Admin: 11/19/18 16:43 Dose: 500 mg Metoprolol Succinate (Toprol Xl -) 25 mg PO BID [facility] Last Admin: 11/19/18 09:20 Dose: Not Given Rifaximin (Xifaxan -) 550 mg PO BID [facility] - Objective Vital Signs: Vital Signs Temperature 98.2 F 11/19/18 15:34 Pulse Rate 75 11/19/18 15:34 Respiratory Rate 18 11/19/18 15:34 Blood Pressure 110/54 L 11/19/18 15:34 O2 Sat by Pulse Oximetry (%) 94 L 11/19/18 09:00 Labs: CBC, BMP 11/19/18 12:25 11/19/18 12:25 INR, PTT INR 1.47 (0.83-1.09) H 11/12/18 16:00 Abnormal Lab Results 11/19/18 11/19/18 11/19/18 12:25 12:25 12:25 WBC 2.7 L Plt Count 53 L MPV 11.6 H Random Glucose 224 H Total Bilirubin 1.4 H AST 76 H ALT 63 H Ammonia 60.00 H Total Protein 6.3 L Albumin 2.7 L
[2018-11-20] MEDS: LEVOTHYROXINE NA 75 MCG TABLET (FP) PO SCH (06:09)
[2018-11-20] MEDS: LACTULOSE 20 GM/30 ML UDC (FOR ORAL USE ONLY) PO SCH ×2 (06:10→14:31)
[2018-11-20] MEDS: metFORMIN HCL 500 MG TABLET (FP) PO SCH (06:10)
[2018-11-20] MEDS: INSULIN SLIDING SCALE (NOVOLOG) 1 VIAL SQ SCH ×2 (06:26→11:55)
[2018-11-20 08:43] LABS: BASO % 0.3 % (0-2.0); LYMPH % 29.8 % (8-40); MCH 32.7 pg (25.7-33.7); MCHC 34.3 g/dl (32.0-36.0); MEAN CELL VOLUME 95.4 fl (80-96); MEAN PLT VOLUME 12.2 fl (7.5-11.1); MONO % 10.1 % (3.8-10.2); NEUT % 56.8 % (42.8-82.8); PLATELET COUNT 53 K/MM3 (134-434); RBC 3.67 M/mm3 (3.60-5.2); RDW 15.1 % (11.6-15.6); WHITE BLOOD COUNT 2.1 K/mm3 (4.0-10.0)
[2018-11-20 09:11] LABS: ANION GAP 6 MMOL/L (8-16); BLOOD UREA NITROGEN 13 mg/dL (7-18); CALCIUM 8.8 mg/dL (8.5-10.1); CHLORIDE 108 mmol/L (98-107); CO2 26 mmol/L (21-32); CREATININE 0.7 mg/dL (0.55-1.3); GLUCOSE,RANDOM 128 mg/dL (74-106); SODIUM 140 mmol/L (136-145)
[2018-11-20] MEDS: RIFAXIMIN 550 MG TABLET (UD) PO SCH (09:51)
[2018-11-20] MEDS: HEPARIN NA (PORCINE) 5,000 UNITS/ML 1ML VIAL SQ SCH (09:52)
[2018-11-20] MEDS: FUROSEMIDE 40 MG TABLET (FP) PO SCH (09:52)
[2018-11-20] MEDS: LISINOPRIL 5 MG TABLET (FP) PO SCH (09:52)
[2018-11-20] MEDS: metoPROLOL SUCCINATE 25 MG TAB.SR.24H (FP) PO SCH (09:52)
--- NOTE | 2018-11-20 10:47 | PN ---
Progress Note, Physician History of Present Illness: Ms Brewer is a 83 YOF with PMH hypothyroidism, HTN, diastolic CHF, liver cirrhosis/lesion of unclear etiology, pancytopenia, recent bronchitis/PNA presenting with AMS x 2 days, which family noticed after visiting her and calling via telephone. Family notes she has been talking nonsense over the phone, disoriented and confused. Yesterday, there was episode of dizziness and gait imbalance, where she walked like she was drunk. no falls. No trauma. +urinary frequency noted, likely 2/2 diuretic use for her diastolic CHF. bilateral leg swelling present at baseline, much improved compared to her previous admission time 1 month ago. Last admission in 10/07-10/13/2018 for acute bronchitis /pna s/p abx course and diastolic CHF exacerbation. Denies fever, chills, BROWN, chest pain, SOB, palpitation, weakness, N, V, D, abdominal pain, bladder and bowel problems, leg swelling, currently on furosemide, lisinopril, metoprolol, synthroid. Per primary doctor, started on chlorthalidone on PMD visit 2 weeks ago, and also clomitrazole for her oral thrush by Dr Mazariegos Allergies: NKA Past Medical History: hypothyroidism, HTN, diastolic CHF, liver cirrhosis/lesion , pancytopenia, recent bronchitis Social history: [facility] with [facility]. No smoking. No alcohol. No illicit drugs. Surgical history: DARIAN, fibroid, BSO, cholecystectomy PMD: Dr De La Rosa H/O: Dr Mazariegos - Current Medication List Current Medications: Active Medications Furosemide (Lasix -) 40 mg PO DAILY [facility] Last Admin: 11/20/18 09:52 Dose: 40 mg Heparin Sodium (Porcine) (Heparin -) 5,000 unit SQ BID [facility] Last Admin: 11/20/18 09:52 Dose: 5,000 unit Insulin Aspart (Novolog Vial Sliding Scale -) 1 vial SQ ACHS [facility]; Protocol Last Admin: 11/20/18 06:26 Dose: Not Given Lactulose (Cephulac (Oral Use)) 20 gm PO TID [facility] Last Admin: 11/20/18 06:10 Dose: 20 gm Levothyroxine Sodium (Synthroid -) 75 mcg PO DAILY@0700 [facility] Last Admin: 11/20/18 06:09 Dose: 75 mcg Lisinopril (Prinivil) 2.5 mg PO DAILY [facility] Last Admin: 11/20/18 09:52 Dose: 2.5 mg Metformin HCl (Glucophage -) 500 mg PO BID@0700,1630 [facility] Last Admin: 11/20/18 06:10 Dose: 500 mg Metoprolol Succinate (Toprol Xl -) 25 mg PO BID [facility] Last Admin: 11/20/18 09:52 Dose: 25 mg Rifaximin (Xifaxan -) 550 mg PO BID [facility] Last Admin: 11/20/18 09:51 Dose: 550 mg - Objective Vital Signs: Vital Signs Temperature 98.5 F 11/20/18 09:57 Pulse Rate 75 11/20/18 09:57 Respiratory Rate 18 11/20/18 09:57 Blood Pressure 109/57 L 11/20/18 09:57 O2 Sat by Pulse Oximetry (%) 94 L 11/19/18 21:00 Eyes: Yes: WNL, Conjunctiva Clear, EOM Intact HENT: Yes: WNL, Atraumatic, Normocephalic Neck: Yes: WNL, Supple, Trachea Midline Cardiovascular: Yes: WNL, Regular Rate and Rhythm Respiratory: Yes: WNL, Regular, CTA Bilaterally Gastrointestinal: Yes: WNL, Normal Bowel Sounds Genitourinary: Yes: WNL Musculoskeletal: Yes: WNL Extremities: Yes: WNL Edema: No Integumentary: Yes: WNL Neurological: Yes: WNL, Alert, Oriented ...Motor Strength: WNL Psychiatric: Yes: WNL Labs: CBC, BMP 11/20/18 07:50 11/20/18 07:50 INR, PTT INR 1.47 (0.83-1.09) H 11/12/18 16:00 Problem List - Problems (1) Altered mental status, unspecified Code(s): R41.82 - ALTERED MENTAL STATUS, UNSPECIFIED Qualifiers: Altered mental status type: unspecified Qualified Code(s): R41.82 - Altered mental status, unspecified (2) Hepatic encephalopathy Code(s): K72.90 - HEPATIC FAILURE, UNSPECIFIED WITHOUT COMA (3) Unintentional weight loss Code(s): R63.4 - ABNORMAL WEIGHT LOSS (4) Acute bronchitis Code(s): J20.9 - ACUTE BRONCHITIS, UNSPECIFIED (5) Acute exacerbation of CHF (congestive heart failure) Code(s): I50.9 - HEART FAILURE, UNSPECIFIED Qualifiers: Heart failure type: diastolic Qualified Code(s): I50.33 - Acute on chronic diastolic (congestive) heart failure (6) Cirrhosis Code(s): K74.60 - UNSPECIFIED CIRRHOSIS OF LIVER (7) Diabetes Code(s): E11.9 - TYPE 2 DIABETES MELLITUS WITHOUT COMPLICATIONS Qualifiers: Diabetes mellitus type: type 2 (8) HTN (hypertension) Code(s): I10 - ESSENTIAL (PRIMARY) HYPERTENSION (9) Hypothyroidism Code(s): E03.9 - HYPOTHYROIDISM, UNSPECIFIED (10) Liver lesion Code(s): K76.9 - LIVER DISEASE, UNSPECIFIED (11) Pancytopenia Code(s): D61.818 - OTHER PANCYTOPENIA (12) Sepsis Code(s): A41.9 - SEPSIS, UNSPECIFIED ORGANISM (13) Shortness of breath Code(s): R06.02 - SHORTNESS OF BREATH Assessment/Plan hypothyroidism, HTN, diastolic CHF diastolic , moderate mrliver cirrhosis/ lesion of unclear etiology, pancytopenia, recent bronchitis/PNA presenting with AMS Plan cardiac jeter stable repeat ekg check bnp will f/u
--- NOTE | 2018-11-20 11:47 | DS ---
Physical Examination Vital Signs: Vital Signs Temperature 98.5 F 11/20/18 09:57 Pulse Rate 75 11/20/18 09:57 Respiratory Rate 18 11/20/18 09:57 Blood Pressure 109/57 L 11/20/18 09:57 O2 Sat by Pulse Oximetry (%) 94 L 11/19/18 21:00 Constitutional: Yes: Calm, Thin Cardiovascular: Yes: Regular Rate and Rhythm, S1, S2 Respiratory: Yes: CTA Bilaterally Gastrointestinal: Yes: Normal Bowel Sounds, Soft Edema: No Neurological: Yes: Alert Labs: CBC, BMP 11/20/18 07:50 11/20/18 07:50 Discharge Summary Reason For Visit: HEPATIC ENCEPHALOPATHY Current Active Problems Altered mental status, unspecified (Acute) Hepatic encephalopathy (Acute) Unintentional weight loss (Acute) Other Procedures: brain MRI. moderate atrophy and chronic microvascular changes noted. liver sono: small liver with Hospital Course: Chief Complaint: CONFUSION/AMS History of Present Illness: 83 Y/O FEMALE H/O DM, HTN, LIVER CIRRHOSIS HER WITH CONFUSION AND AMS. FOUND TO HAVE ELEVATED AMMONIA LEVELS. DENIES FALLS OR LOC. FAMILY BEDSIDE. seen by [facility] nad GI lactulose and rifaminin for hepatic encephalopathy ammonia trending down FUwith GI as outpatient seen by swallow team pureed deit Condition: Fair - Instructions Disposition: ALF FACILITY - Home Medications Comprehensive Discharge Medication List: Ambulatory Orders Levothyroxine [Synthroid -] 50 mcg PO DAILY 03/28/13 Furosemide [Lasix] 40 mg PO DAILY 10/07/18 metFORMIN HCL [Glucophage -] 0 mg PO BID 10/07/18 Cefuroxime Axetil [Ceftin -] 500 mg PO BID #14 tablet 10/13/18 Levothyroxine [Synthroid -] 75 mcg PO AM #30 tablet 10/13/18 Lisinopril [Prinivil] 5 mg PO DAILY #30 tablet 10/13/18 Metoprolol Succinate [Toprol XL -] 25 mg PO BID #60 tab.sr.24h 10/13/18 Potassium Chloride [K-Dur -] 20 meq PO DAILY #30 tablet.er 10/13/18
[2018-11-20 15:09] VITALS: BP 113/51; PULSE 77; TEMP 98.1
== END 2018-11-20 17:12 | disposition home or self-care (01) | DRG 442 ==
LOC: JER 09:10 → JERBED 12:07 → J6S 16:17
PROVIDERS: ADMIT Family Medicine; ATTEND Family Medicine
DX: K72.90 Hepatic failure, unspecified without coma (principal); I50.30 Unspecified diastolic (congestive) heart failure; K74.60 Unspecified cirrhosis of liver; E11.9 Type 2 diabetes mellitus without complications; R63.4 Abnormal weight loss; D18.03 Hemangioma of intra-abdominal structures; I95.9 Hypotension, unspecified; E03.9 Hypothyroidism, unspecified; R41.82 Altered mental status, unspecified; I11.0 Hypertensive heart disease with heart failure
CPT/HCPCS: 36415; 70450-TC; 70551-TC; 71045-TC-FY; 76705-TC; 80048; 80053; 81003; 82105; 82140; 82378; 82607; 82962; 83880; 84443; 84484; 85025; 85027; 85610; 86301; 86304; 86593; 87086; 93005; 93010; 97116-GP; 97161-GP; 99283-25; J1644

== ENCOUNTER 2019-03-05 13:00 | Emergency (ER) | payer OTHER ==
[2019-03-05 13:10] VITALS: BMI 25.1
--- NOTE | 2019-03-05 13:10 | PDOC ---
Rapid Medical Evaluation Medical Evaluation: Allergies Allergy/AdvReac Type Severity Reaction Status Date / Time No Known Drug Allergies Allergy Unverified 11/12/18 09:16 03/05/19 13:06 I have performed a brief in-person evaluation of this patient. The patient presents with a chief complaint of: "Acting strange" per family Pertinent physical exam findings: AA&Ox person, elevated NH4 from labs drawn yesterday I have ordered the following: labs, CTH, bgm, urine, ekg, cxr The patient will proceed to the ED for further evaluation. 03/05/19 13:08 Discharge Disposition - Diagnosis Altered mental status, unspecified - Referrals - Patient Instructions - Post Discharge Activity
[2019-03-05 14:05] LABS: BASO % 0.3 % (0-2.0); EOS % 4.2 % (0-4.5); HEMATOCRIT 37.7 % (32.4-45.2); HEMOGLOBIN 12.7 GM/dL (10.7-15.3); LYMPH % 27.6 % (8-40); MCH 32.1 pg (25.7-33.7); MCHC 33.6 g/dl (32.0-36.0); MEAN CELL VOLUME 95.5 fl (80-96); MEAN PLT VOLUME 12.5 fl (7.5-11.1); NEUT % 53.9 % (42.8-82.8); PLATELET COUNT 88 K/MM3 (134-434); RBC 3.95 M/mm3 (3.60-5.2); RDW 14.1 % (11.6-15.6); WHITE BLOOD COUNT 4.6 K/mm3 (4.0-10.0)
[2019-03-05 14:22] LABS: INR 1.34 (0.83-1.09); PROTHROMBIN TIME (PATIENT) 15.9 SEC (9.7-13.0)
[2019-03-05 14:34] LABS: ALK PHOS 110 U/L (45-117); ANION GAP 11 MMOL/L (8-16); BILIRUBIN,TOTAL 2.6 mg/dL (0.2-1); BLOOD UREA NITROGEN 31.8 mg/dL (7-18); CALCIUM 9.5 mg/dL (8.5-10.1); CHLORIDE 102 mmol/L (98-107); CO2 28 mmol/L (21-32); CREATININE 1.6 mg/dL (0.55-1.3); GLUCOSE,RANDOM 129 mg/dL (74-106); POTASSIUM 3.5 mmol/L (3.5-5.1); SGOT/AST 47 U/L (15-37); SGPT/ALT 32 U/L (13-61); SODIUM 140 mmol/L (136-145); TOT PROT 6.3 g/dl (6.4-8.2)
[2019-03-05] MEDS ORDERED: LACTULOSE 20 GM/30 ML UDC (FOR ORAL USE ONLY) PO ONE (15:28)
--- NOTE | 2019-03-05 15:55 | PDOC ---
History of Present Illness - General Chief Complaint: Altered Mental Status Stated Complaint: ACTING WEIRD Time Seen by Provider: 03/05/19 13:11 - History of Present Illness Initial Comments: 03/05/19 15:54 HPI: 83 y/o F hx of DM, HTN, diastolic CHF, hypothyroidism, cirrhosis presenting with 1 day of confusion and appearing tired to family. She was in her normal state of health but around noon she started speaking incomprehensibly. No other complaints. Patient denies BROWN, vision change, palpitations, cough, wheezing, orthopena, PND , leg swelling/pain, N/V, F,C, CP, SOB, urinary complaints, hematuria, BPR, abdominal pain, diarrhea, constipation, lightheadedness, weakness, sensory changes. Of note, she had her blood drawn yesterday and her son is an employee here and when he saw her ammonia level elevated at 140 he brought her in. PMHx: as noted above ROS: as noted SHx: Denies Etoh, IVDA, tobacco use Allergies: NKDA Past History - Past Medical History Allergies/Adverse Reactions: Allergies Allergy/AdvReac Type Severity Reaction Status Date / Time No Known Drug Allergies Allergy Verified 03/05/19 13:10 Home Medications: Ambulatory Orders Furosemide [Lasix] 40 mg PO TID 10/07/18 Levothyroxine [Synthroid -] 75 mcg PO AM #30 tablet 10/13/18 metFORMIN HCL [Glucophage -] 500 mg PO BID #60 tab 11/20/18 Lactulose (Oral Use) [Cephulac -] 20 gm PO Q6H 03/05/19 Lisinopril [Prinivil] 5 mg PO DAILY 03/05/19 Anemia: Yes (thrombocytopenia) Asthma: No Cancer: No Cardiac Disorders: No CVA: No COPD: No CHF: No Dementia: No Diabetes: Yes (DIET CONTROLLED) GI Disorders: Yes (H. PYLORI; DILATED CBD) Disorders: No HTN: Yes Hypercholesterolemia: Yes Liver Disease: Yes (LIVER CIRRHOSIS) Seizures: No Thyroid Disease: Yes - Surgical History Abdominal Surgery: Yes Appendectomy: No Cardiac Surgery: No Cholecystectomy: Yes Lung Surgery: No Neurologic Surgery: No Orthopedic Surgery: No - Immunization History Immunization Up to Date: Yes - Suicide/Smoking/Psychosocial Hx Smoking History: Never smoked Have you smoked in the past 12 months: No Hx Alcohol Use: No Drug/Substance Use Hx: No Substance Use Type: None Hx Substance Use Treatment: No Review of Systems - Review of Systems Comments:: 03/05/19 19:22 GENERAL/CONSTITUTIONAL: No fever or chills. No weakness. HEAD, EYES, EARS, NOSE AND THROAT: No change in vision. No ear pain or discharge. No sore throat. CARDIOVASCULAR: No chest pain or shortness of breath RESPIRATORY: No cough, wheezing, or hemoptysis. GASTROINTESTINAL: No nausea, vomiting, diarrhea or constipation. GENITOURINARY: No dysuria, frequency, or change in urination. MUSCULOSKELETAL: No joint or muscle swelling or pain. No neck or back pain. SKIN: No rash NEUROLOGIC: No headache, vertigo, loss of consciousness, or change in strength/ sensation. ENDOCRINE: No increased thirst. No abnormal weight change HEMATOLOGIC/LYMPHATIC: No anemia, easy bleeding, or history of blood clots. ALLERGIC/IMMUNOLOGIC: No hives or skin allergy. *Physical Exam - Vital Signs Last Vital Signs Temp Pulse Resp BP Pulse Ox 97.7 F 62 18 127/56 L 98 03/05/19 13:08 03/05/19 13:08 03/05/19 13:08 03/05/19 13:08 03/05/19 13:08 - Physical Exam Comments: 03/05/19 19:22 GENERAL: Awake, alert, and fully oriented, in no acute distress HEAD: No signs of trauma, normocephalic, atraumatic EYES: PERRLA, EOMI, sclera anicteric, conjunctiva clear ENT: Auricles normal inspection, hearing grossly normal, nares patent, oropharynx clear without exudates. Moist mucosa NECK: Normal ROM, supple, no lymphadenopathy, JVD, or masses LUNGS: No distress, speaks full sentences, clear to auscultation bilaterally HEART: Regular rate and rhythm, normal S1 and S2, +systolic murmur, peripheral pulses normal and equal bilaterally. ABDOMEN: Soft, nontender, normoactive bowel sounds. No guarding, no rebound. No masses EXTREMITIES : Normal inspection, Normal range of motion, no edema. No clubbing or cyanosis. NEUROLOGICAL: Cranial nerves II through XII grossly intact. Normal speech, normal gait, no focal sensorimotor deficits SKIN: Warm, Dry, normal turgor, no rashes or lesions noted ED Treatment Course - LABORATORY CBC & Chemistry Diagram: 03/05/19 13:45 03/05/19 13:45 - ADDITIONAL ORDERS Additional order review: Laboratory Results 03/05/19 03/05/19 03/05/19 15:00 13:45 13:45 WBC RBC Hgb Hct MCV MCH MCHC RDW Plt Count MPV Absolute Neuts (auto) Neutrophils % Lymphocytes % Monocytes % Eosinophils % Basophils % Nucleated RBC % PT with INR 15.90 H INR 1.34 H Sodium Potassium Chloride Carbon Dioxide Anion Gap BUN Creatinine Est GFR (CKD-EPI)AfAm Est GFR (CKD-EPI)NonAf Random Glucose Calcium Magnesium 2.3 Total Bilirubin AST ALT Alkaline Phosphatase Ammonia 69.90 H Creatine Kinase Troponin I Total Protein Albumin 03/05/19 03/05/19 13:45 13:45 WBC 4.6 RBC 3.95 Hgb 12.7 Hct 37.7 MCV 95.5 MCH 32.1 MCHC 33.6 RDW 14.1 Plt Count 88 L D MPV 12.5 H Absolute Neuts (auto) 2.5 Neutrophils % 53.9 Lymphocytes % 27.6 Monocytes % 14.0 H Eosinophils % 4.2 Basophils % 0.3 Nucleated RBC % 0 PT with INR INR Sodium 140 Potassium 3.5 Chloride 102 Carbon Dioxide 28 Anion Gap 11 BUN 31.8 H Creatinine 1.6 H Est GFR (CKD-EPI)AfAm 34.66 Est GFR (CKD-EPI)NonAf 29.91 Random Glucose 129 H Calcium 9.5 Magnesium Total Bilirubin 2.6 H AST 47 H ALT 32 Alkaline Phosphatase 110 Ammonia Creatine Kinase 63 Troponin I < 0.02 Total Protein 6.3 L Albumin 3.0 L 03/05/19 13:45 RBC 3.95 MCV 95.5 MCHC 33.6 RDW 14.1 MPV 12.5 H Neutrophils % 53.9 Lymphocytes % 27.6 Monocytes % 14.0 H Eosinophils % 4.2 Basophils % 0.3 Medical Decision Making - Medical Decision Making 03/05/19 19:23 83 y/o F hx of DM, HTN, diastolic CHF, hypothyroidism, cirrhosis presenting with 1 day of confusion and elevated ammonia 140s. -will rule out causes of acute hepatic decompensation -cbc, cmp, ammonia, ua, trops -ekg, cxr 03/05/19 19:24 downtrending ammonia from 140 to 70 Hospitalist consulted for admission for AMS and increased ammonia, however, RADIOLOGY ADMINISTRATOR reported family would like to go home and in setting of decreased amminia would not require admission son states he is comfortable taking mother home in setting of decreased ammonia with 1:1 supervision and would like to leave 03/05/19 19:26 Patient preapred for DC with close followup for PCP and to return to ED if condiiton worsens *DC/Admit/Observation/Transfer Diagnosis at time of Disposition: Altered mental status, unspecified Qualifiers: Altered mental status type: unspecified Qualified Code(s): R41.82 - Altered mental status, unspecified - Discharge Dispostion Disposition: HOME Condition at time of disposition: Stable Decision to Admit order: No - Referrals Referrals: Anuja De La Rosa MD [Primary Care Provider] - - Patient Instructions Printed Discharge Instructions: DI for Altered Mental Status Additional Instructions: Additional Instructions: Please return to the emergency department with any new or worsening symptoms or concerns. Please follow up with your primary care physician within 72 hours. - Post Discharge Activity
[2019-03-05] MEDS ORDERED: LACTULOSE 20 GM/30 ML UDC (FOR ORAL USE ONLY) ONE (15:56)
--- NOTE | 2019-03-05 16:55 | PDOC ---
Documentation entered by Candice Saavedra SCRIBE, acting as scribe for Mallika Garrett MD. Mallika Garrett MD: This documentation has been prepared by the Quentin foster Adrianna, SCRIBE, under my direction and personally reviewed by me in its entirety. I confirm that the documentation accurately reflects all work, treatment, procedures, and medical decision making performed by me. Attending Attestation - Resident Resident Name: JayaTrae - ED Attending Attestation I have performed the following: I have examined & evaluated the patient, The case was reviewed & discussed with the resident, I agree w/resident's findings & plan, Exceptions are as noted - HPI HPI: The patient is an 83 year old female, with a significant PMH of hypothyroidism, HTN, diastolic CHF, liver cirrhosis/lesion of unclear etiology, pancytopenia, thrombocytopenia, bronchitis/PNA, and DM, who presents for evaluation of confusion and elevated ammonia for one day. Son at bedside notes the patient has been more confused than normal. Patient had lab work done at PCP s office yesterday, which demonstrated elevated ammonia measured at 160 (baseline is 50) . Patients ammonia level is 65 while in the ED. Patient is otherwise asymptomatic while in the ED. Denies fever, chills, nausea, vomit, chest pain, SOB, palpitations, changes in vision, or changes in sensation. Allergies: NKA, NKDA Surgical History: Abdominal surgery, cholecystectomy Social History: Denies EtOH, tobacco, or illicit drug use. PCP: Dr. De La Rosa - Physicial Exam PE: GENERAL: Awake, alert, and fully oriented, in no acute distress HEAD: No signs of trauma EYES: PERRLA, EOMI, sclera anicteric, conjunctiva clear ENT: Auricles normal inspection, hearing grossly normal, nares patent, oropharynx clear without exudates. Moist mucosa NECK: Normal ROM, supple, no lymphadenopathy, JVD, or masses LUNGS: Breath sounds equal, clear to auscultation bilaterally. No wheezes, and no crackles HEART: Regular rate and rhythm, normal S1 and S2, no murmurs, rubs or gallops ABDOMEN: Soft, nontender, normoactive bowel sounds. No guarding, no rebound. No masses EXTREMITIES: Normal range of motion, no edema. No clubbing or cyanosis. No cords, erythema, or tenderness NEUROLOGICAL: Cranial nerves II through XII grossly intact. Normal speech, normal gait SKIN: Warm, Dry, normal turgor, no rashes or lesions noted. - Medical Decision Making Initial plan was for admission, however, case was discussed with hospitalist- prior ammonia was ~160, now 65. As she is improving, will continue to treat with lactulose at home. D/w son at bedside, who is comfortable with this plan, and will bring her back if she starts to worsen again. She is with family 07/03, and can be monitored. ED Treatment Course - LABORATORY CBC & Chemistry Diagram: 03/05/19 13:45 03/05/19 13:45 - ADDITIONAL ORDERS Additional order review: Laboratory Results 03/05/19 03/05/19 03/05/19 15:00 13:45 13:45 PT with INR 15.90 H INR 1.34 H Sodium Potassium Chloride Carbon Dioxide Anion Gap BUN Creatinine Est GFR (CKD-EPI)AfAm Est GFR (CKD-EPI)NonAf Random Glucose Calcium Magnesium 2.3 Total Bilirubin AST ALT Alkaline Phosphatase Ammonia 69.90 H Creatine Kinase Troponin I Total Protein Albumin 03/05/19 13:45 PT with INR INR Sodium 140 Potassium 3.5 Chloride 102 Carbon Dioxide 28 Anion Gap 11 BUN 31.8 H Creatinine 1.6 H Est GFR (CKD-EPI)AfAm 34.66 Est GFR (CKD-EPI)NonAf 29.91 Random Glucose 129 H Calcium 9.5 Magnesium Total Bilirubin 2.6 H AST 47 H ALT 32 Alkaline Phosphatase 110 Ammonia Creatine Kinase 63 Troponin I < 0.02 Total Protein 6.3 L Albumin 3.0 L 03/05/19 13:45 RBC 3.95 MCV 95.5 MCHC 33.6 RDW 14.1 MPV 12.5 H Neutrophils % 53.9 Lymphocytes % 27.6 Monocytes % 14.0 H Eosinophils % 4.2 Basophils % 0.3 - RADIOLOGY Radiograph Interpretation: EXAM#: TYPE/EXAM: RESULT: [id number] RAD/CHEST PA LAT CHEST : Chest pain A single AP view of the chest reveals scoliosis with convexity to the right, clear lungs, sclerotic knob, normal katty and normal heart. The angles are sharp and the soft tissues are intact. There is a scoliosis with degenerative changes. Reported By: Filemon Berg MD 03/05/19 14:41 EXAM#: TYPE/EXAM: RESULT: [id number] CT/HEAD CT WITHOUT CONTRAST HISTORY PROVIDED : Confusion IMPRESSION: No evidence of acute intracranial pathology. Reported By: Bakari Ellsworth MD 03/05/19 15:10 - Additional Consults Time Called: 15:45 (paged SIDE TRIMMER Mirna) Time Called: 16:40 (paged SHEILA Bradley )
[2019-03-05] MEDS ORDERED: SENNOSIDES 8.6MG TABLET (FP) PO PRN (17:21)
[2019-03-05] MEDS ORDERED: DOCUSATE SODIUM 100 MG CAPSULE (FP) PO PRN (17:21)
[2019-03-05] MEDS ORDERED: ACETAMINOPHEN 325 MG TABLET (FP) PO PRN (17:21)
--- NOTE | 2019-03-05 17:24 | EKG ---
Test Reason : Blood Pressure : / mmHG Vent. Rate : 059 BPM Atrial Rate : 059 BPM P-R Int : 142 ms QRS Dur : 076 ms QT Int : 472 ms P-R-T Axes : -20 015 019 degrees QTc Int : 467 ms SINUS BRADYCARDIA OTHERWISE NORMAL ECG WHEN COMPARED WITH ECG OF 16-NOV-2018 11:42, T WAVE INVERSION NOW EVIDENT IN INFERIOR LEADS Confirmed by MARILU GOODMAN MD ([id number]) on 03/05/2019 5:23:47 PM Referred By: Confirmed By:MARILU GOODMAN MD
--- NOTE | 2019-03-05 17:28 | HP ---
Admitting History and Physical - Primary Care Physician PCP: Anuja De La Rosa - Admission Chief Complaint: Mild confusion History Source: Patient, Caregiver - Past Medical History Cardiovascular: Yes: CHF, HTN. No: AFIB Gastrointestinal: Yes: Esophageal Varices, Other (cirrhosis) Hepatobiliary: Yes: Cirrhosis Heme/Onc: Yes: Anemia Musculoskeletal: Yes: Osteoarthritis Endocrine: Yes: Diabetes Mellitus, Hypothyroidism - Smoking History Smoking history: Never smoked Have you smoked in the past 12 months: No - Alcohol/Substance Use Hx Alcohol Use: No - Social History History of Recent Travel: No Home Medications - Allergies Allergies/Adverse Reactions: Allergies Allergy/AdvReac Type Severity Reaction Status Date / Time No Known Drug Allergies Allergy Verified 03/05/19 13:10 - Home Medications Home Medications: Ambulatory Orders Furosemide [Lasix] 40 mg PO TID 10/07/18 Levothyroxine [Synthroid -] 75 mcg PO AM #30 tablet 10/13/18 metFORMIN HCL [Glucophage -] 500 mg PO BID #60 tab 11/20/18 Lactulose (Oral Use) [Cephulac -] 20 gm PO Q6H 03/05/19 Lisinopril [Prinivil] 5 mg PO DAILY 03/05/19 Physical Examination Vital Signs: Vital Signs Temperature 97.7 F 03/05/19 13:08 Pulse Rate 59 L 03/05/19 16:58 Respiratory Rate 17 03/05/19 16:58 Blood Pressure 106/56 L 03/05/19 16:58 O2 Sat by Pulse Oximetry (%) 98 03/05/19 16:58 Labs: CBC, BMP 03/05/19 13:45 03/05/19 13:45 Imaging - Results Chest X-ray: Report Reviewed Cat Scan: Report Reviewed Visit type - Emergency Visit Emergency Visit: Yes Care time: The patient presented to the Emergency Department on the above date and was hospitalized for further evaluation of their emergent condition. - New Patient This patient is new to me today: Yes Date on this admission: 03/05/19 - Critical Care Critical Care patient: No
[2019-03-05] MEDS ORDERED: LACTATED RINGERS SOLUTION 500 ML IV SCH (17:30)
[2019-03-05] MEDS ORDERED: LACTULOSE 20 GM/30 ML UDC (FOR ORAL USE ONLY) PO SCH (18:00)
[2019-03-05 18:58] VITALS: BP 115/75; PULSE 62; TEMP 98.1
[2019-03-05] MEDS ORDERED: HEPARIN NA (PORCINE) 5,000 UNITS/ML 1ML VIAL SQ SCH (22:00)
[2019-03-05] MEDS ORDERED: FUROSEMIDE 40 MG TABLET (FP) PO SCH (22:00)
[2019-03-06] MEDS ORDERED: LEVOTHYROXINE NA 75 MCG TABLET (FP) PO SCH (07:00)
[2019-03-06] MEDS ORDERED: metFORMIN HCL 500 MG TABLET (FP) PO SCH (07:00)
[2019-03-06] MEDS ORDERED: LISINOPRIL 5 MG TABLET (FP) PO SCH (10:00)
[2019-03-06] MEDS ORDERED: NADOLOL 40 MG TABLET (FP) PO SCH (10:00)
== END 2019-03-05 18:57 | disposition home or self-care (01) ==
LOC: JER 13:00 → JERBED 17:39 → UNDOADMIN 17:39
DX: R41.82 Altered mental status, unspecified (principal); I11.0 Hypertensive heart disease with heart failure; E78.5 Hyperlipidemia, unspecified; I50.30 Unspecified diastolic (congestive) heart failure; E11.9 Type 2 diabetes mellitus without complications; E03.9 Hypothyroidism, unspecified; K74.60 Unspecified cirrhosis of liver; D69.6 Thrombocytopenia, unspecified
CPT/HCPCS: 36415; 70450-TC; 71046-TC-FY; 80053; 82140; 82550; 83735; 84484; 85025; 85610; 93005; 93010; 99283-25

== ENCOUNTER 2019-03-09 12:47 | Inpatient (IN) | payer OTHER ==
[2019-03-09 12:51] VITALS: BMI 23.3
--- NOTE | 2019-03-09 13:06 | PDOC ---
History of Present Illness - General Chief Complaint: Altered Mental Status Stated Complaint: ACTING DIFFERENT Time Seen by Provider: 03/09/19 13:05 Past History - Past Medical History Allergies/Adverse Reactions: Allergies Allergy/AdvReac Type Severity Reaction Status Date / Time No Known Drug Allergies Allergy Verified 03/09/19 12:51 Home Medications: Ambulatory Orders Furosemide [Lasix] 40 mg PO TID 10/07/18 Levothyroxine [Synthroid -] 75 mcg PO AM #30 tablet 10/13/18 metFORMIN HCL [Glucophage -] 500 mg PO BID #60 tab 11/20/18 Lactulose (Oral Use) [Cephulac -] 20 gm PO Q6H 03/05/19 Lisinopril [Prinivil] 5 mg PO DAILY 03/05/19 Anemia: Yes (thrombocytopenia) Asthma: No Cancer: No Cardiac Disorders: No CVA: No COPD: No CHF: No Dementia: No Diabetes: Yes (DIET CONTROLLED) GI Disorders: Yes (H. PYLORI; DILATED CBD) Disorders: No HTN: Yes Hypercholesterolemia: Yes Liver Disease: Yes (LIVER CIRRHOSIS) Seizures: No Thyroid Disease: Yes - Surgical History Abdominal Surgery: Yes Appendectomy: No Cardiac Surgery: No Cholecystectomy: Yes Lung Surgery: No Neurologic Surgery: No Orthopedic Surgery: No - Immunization History Immunization Up to Date: Yes - Suicide/Smoking/Psychosocial Hx Smoking History: Never smoked Have you smoked in the past 12 months: No Hx Alcohol Use: No Drug/Substance Use Hx: No Substance Use Type: None Hx Substance Use Treatment: No *Physical Exam - Vital Signs Last Vital Signs Temp Pulse Resp BP Pulse Ox 97.3 F L 67 14 127/60 97 03/09/19 12:48 03/09/19 12:48 03/09/19 12:48 03/09/19 12:48 03/09/19 12:48 ED Treatment Course - LABORATORY CBC & Chemistry Diagram: 03/09/19 13:30 03/09/19 13:30 Medical Decision Making - Medical Decision Making HPI: 83F with PMH of cirrhosis, HTN, HLD, DM presenting with confusion. Patient was brought in by her son who is providing collateral history. She was seen on Tuesday in this ED for elevated ammonia level which was repeated and downtrending. Patient has acutely gotten worse since that time. Her son reports that the patient is speaking nonsensically. She takes lactulose at home and has not missed any doses. Patient does not have any acute complaints. No fevers, chills, chest pain, or shortness of breath. ROS: not able to complete due to confusion PE: General: Awake, alert, oriented x 2 (able to state name, but not age/ able to state place/ able to state month, but not year), in no acute distress Head: No signs of trauma Eyes: EOMI, sclera anicteric ENT: Moist mucus membranes Neck: Normal ROM, supple Lungs: Lungs clear, Normal breath sounds Cardio: Regular rhythm, S1 and S2 present Abdomen: Soft, nontender. No guarding, no rebound, no masses Extremities: Normal range of motion, Distal pulses present, No tremor noted upon flexion of bilateral wrists SKIN: Warm, Dry, normal turgor Neurologic: Cranial nerves II through XII grossly intact ED Courses/MDM: DDX including but not limited to hyperammonemia, CVA/TIA, infection, metabolic derangement, brain bleed Labs EKG CXR CT head Home dose of lactulose due at 1:30pm 03/09/19 13:05 Ammonia is 150. Patient has failed outpatient therapy. 03/09/19 14:20 CXR: "Single AP view of the chest reveals scoliosis with convexity to the right , clear lungs, sclerotic knob, normal katty and prominent heart. The angles are sharp and the soft tissues are intact. Since 03/05/2019, there is no change of an adverse nature. Impression: No acute pathology. Large heart. Scoliosis. " 03/09/19 14:37 CBC WBC 5.7 K/mm3 (4.0-10.0) 03/09/19 13:30 RBC 4.14 M/mm3 (3.60-5.2) 03/09/19 13:30 Hgb 13.5 GM/dL (10.7-15.3) 03/09/19 13:30 Hct 39.5 % (32.4-45.2) 03/09/19 13:30 MCV 95.4 fl (80-96) 03/09/19 13:30 MCH 32.7 pg (25.7-33.7) 03/09/19 13:30 MCHC 34.2 g/dl (32.0-36.0) 03/09/19 13:30 RDW 14.4 % (11.6-15.6) 03/09/19 13:30 Plt Count 94 K/MM3 (134-434) L 03/09/19 13:30 MPV 13.1 fl (7.5-11.1) H 03/09/19 13:30 Absolute Neuts (auto) 3.2 K/mm3 (1.5-8.0) 03/09/19 13:30 Neutrophils % 56.5 % (42.8-82.8) 03/09/19 13:30 Lymphocytes % 26.4 % (8-40) 03/09/19 13:30 Monocytes % 12.4 % (3.8-10.2) H 03/09/19 13:30 Eosinophils % 4.3 % (0-4.5) 03/09/19 13:30 Basophils % 0.4 % (0-2.0) 03/09/19 13:30 Nucleated RBC % 0 % (0-0) 03/09/19 13:30 No anemia or leukocytosis CMP Sodium 140 mmol/L (136-145) 03/09/19 13:30 Potassium 3.9 mmol/L (3.5-5.1) 03/09/19 13:30 Chloride 102 mmol/L (98-107) 03/09/19 13:30 Carbon Dioxide 23 mmol/L (21-32) 03/09/19 13:30 Anion Gap 15 MMOL/L (8-16) 03/09/19 13:30 BUN 27.1 mg/dL (7-18) H 03/09/19 13:30 Creatinine 1.6 mg/dL (0.55-1.3) H 03/09/19 13:30 Est GFR (CKD-EPI)AfAm 34.66 03/09/19 13:30 Est GFR (CKD-EPI)NonAf 29.91 03/09/19 13:30 Random Glucose 150 mg/dL (74-106) H 03/09/19 13:30 Calcium 9.6 mg/dL (8.5-10.1) 03/09/19 13:30 Total Bilirubin 3.0 mg/dL (0.2-1) H 03/09/19 13:30 AST 58 U/L (15-37) H 03/09/19 13:30 ALT 35 U/L (13-61) 03/09/19 13:30 Alkaline Phosphatase 109 U/L (45-117) 03/09/19 13:30 Ammonia 150.10 umol/L (11-32) H 03/09/19 13:30 B-Natriuretic Peptide 120.6 pg/ml (5-450) 03/09/19 13:30 Total Protein 6.5 g/dl (6.4-8.2) 03/09/19 13:30 Albumin 3.1 g/dl (3.4-5.0) L 03/09/19 13:30 Elevated BUN and Cr Normal BNP CT head negative for acute pathology: "Sequential axial images were obtained from the base of the skull to the vertex. There is no evidence of acute intracranial hemorrhage, mass lesions or infarctions. There is a mild degree of diffuse cerebral atrophy with sulcal widening and ventricular dilatation. Since a prior study of 03/05/2019, there has been no significant change. IMPRESSION: No evidence of acute intracranial pathology." Plan for admission 03/09/19 15:[address] Melvin who accepted patient for admission under Dr. De La Rosa 03/09/19 15:44 *DC/Admit/Observation/Transfer Diagnosis at time of Disposition: Confusion, Hyperammonemia - Discharge Dispostion Condition at time of disposition: Guarded Decision to Admit order: Yes - Referrals - Patient Instructions - Post Discharge Activity
[2019-03-09] MEDS ORDERED: LACTULOSE 20 GM/30 ML UDC (FOR ORAL USE ONLY) PO ONE (13:24)
[2019-03-09] MEDS ORDERED: LACTULOSE 20 GM/30 ML UDC (FOR ORAL USE ONLY) ONE (13:42)
[2019-03-09 13:49] LABS: BASO % 0.4 % (0-2.0); EOS % 4.3 % (0-4.5); HEMATOCRIT 39.5 % (32.4-45.2); HEMOGLOBIN 13.5 GM/dL (10.7-15.3); LYMPH % 26.4 % (8-40); MCH 32.7 pg (25.7-33.7); MCHC 34.2 g/dl (32.0-36.0); MEAN CELL VOLUME 95.4 fl (80-96); MEAN PLT VOLUME 13.1 fl (7.5-11.1); MONO % 12.4 % (3.8-10.2); NEUT % 56.5 % (42.8-82.8); PLATELET COUNT 94 K/MM3 (134-434); RBC 4.14 M/mm3 (3.60-5.2); RDW 14.4 % (11.6-15.6); WHITE BLOOD COUNT 5.7 K/mm3 (4.0-10.0)
--- NOTE | 2019-03-09 14:24 | PDOC ---
Documentation entered by Judi Saavedra SCRIBE, acting as scribe for Damir Juarez MD. Damir Juarez MD: This documentation has been prepared by the Quentin foster Brenda, SCRIBE, under my direction and personally reviewed by me in its entirety. I confirm that the documentation accurately reflects all work, treatment, procedures, and medical decision making performed by me. Attending Attestation - Resident Resident Name: Mallika Hartley - ED Attending Attestation I have performed the following: I have examined & evaluated the patient, The case was reviewed & discussed with the resident, I agree w/resident's findings & plan, Exceptions are as noted - HPI HPI: 03/09/19 13:59 The patient is an 83 year old female, with a significant PMH of hypothyroidism, HTN, diastolic CHF, liver cirrhosis/lesion of unclear etiology, pancytopenia, thrombocytopenia, bronchitis/PNA, and DM, who presents to the emergency department with altered mental status. Son, on the bedside who is an employee at [employer] and brought her here for evaluation of increasing confusion. The son reports that she has been saying things that aren't sensical, and doesnt know which month it is. He notes that she usually communicates normally and is aware , but hasn't been able to recently. Allergies: NKDA Surgical History: Abdominal surgery, cholecystectomy Social History: Denies EtOH, tobacco, or illicit drug use PCP: Dr. De La Rosa / - Physicial Exam PE: 03/09/19 14:24 GENERAL: Awake, alert, and fully oriented, in no acute distress HEAD: No signs of trauma EYES: PERRLA, EOMI, sclera anicteric, conjunctiva clear ENT: Auricles normal inspection, hearing grossly normal.Moist mucosa NECK: Normal ROM, supple, no lymphadenopathy, JVD, or masses LUNGS: Breath sounds equal, clear to auscultation bilaterally. No wheezes, and no crackles HEART: Regular rate and rhythm, normal S1 and S2, no murmurs, rubs or gallops ABDOMEN: Soft, nontender, normoactive bowel sounds. No guarding, no rebound. No masses EXTREMITIES: Normal range of motion, no edema. No clubbing or cyanosis. No cords, erythema, or tenderness NEUROLOGICAL: Cranial nerves II through XII intact. 5/5 strength in upper and lower extremities. No pronator drift. Coordinated movements but not always follow directions Unable to access asterixis due to not following commands. Normal but slowed speech. SKIN: Warm, Dry, normal turgor, no rashes or lesions noted. - Medical Decision Making 03/09/19 14:21 A portion of this note was written by my scribe, under my supervision. Vital Signs Temp Pulse Resp BP Pulse Ox 97.3 F L 67 14 127/60 97 03/09/19 12:48 03/09/19 12:48 03/09/19 12:48 03/09/19 12:48 03/09/19 12:48 83 year old female HTN, DM, thyroid disorder, CHF, liver cirrhosis p/w worsening AMS. The patient was here in the ED several days ago for the onset of confusion. At that time, she had a workup performed and ultimately deemed to be elements of hepatic encelopathy. At that time, determined to have outpatient PO lactulose. Pt since then has stayed with her family. The patient's family has been giving the patient laculose as scheduled, but family noted that the confusion was worsening. At baseline, the patient can converse without confusion. Here in the ED, pt seems to be alert and pleasant but confused. She is AAOx2.5. Neurologically intact and normal. I suspect that the patient likely has hepatic encelopathy as ammonia level still persistently elevated. However, will need UA to r/o occult UTI as a provoking factor. Head CT and labs reviewed with no other obvious findings. Ultimately, because the AMS is worsened despite treatment, pt should be admitted to the hospital CBC, BMP 03/09/19 13:30 03/09/19 13:30 CMP Sodium 140 mmol/L (136-145) 03/09/19 13:30 Potassium 3.9 mmol/L (3.5-5.1) 03/09/19 13:30 Chloride 102 mmol/L (98-107) 03/09/19 13:30 Carbon Dioxide 23 mmol/L (21-32) 03/09/19 13:30 Anion Gap 15 MMOL/L (8-16) 03/09/19 13:30 BUN 27.1 mg/dL (7-18) H 03/09/19 13:30 Creatinine 1.6 mg/dL (0.55-1.3) H 03/09/19 13:30 Est GFR (CKD-EPI)AfAm 34.66 03/09/19 13:30 Est GFR (CKD-EPI)NonAf 29.91 03/09/19 13:30 Random Glucose 150 mg/dL (74-106) H 03/09/19 13:30 Calcium 9.6 mg/dL (8.5-10.1) 03/09/19 13:30 Total Bilirubin 3.0 mg/dL (0.2-1) H 03/09/19 13:30 AST 58 U/L (15-37) H 03/09/19 13:30 ALT 35 U/L (13-61) 03/09/19 13:30 Alkaline Phosphatase 109 U/L (45-117) 03/09/19 13:30 Ammonia 150.10 umol/L (11-32) H 03/09/19 13:30 B-Natriuretic Peptide 120.6 pg/ml (5-450) 03/09/19 13:30 Total Protein 6.5 g/dl (6.4-8.2) 03/09/19 13:30 Albumin 3.1 g/dl (3.4-5.0) L 03/09/19 13:30 UA pending. Admit.
[2019-03-09 14:32] LABS: ALBUMIN 3.1 g/dl (3.4-5.0); BLOOD UREA NITROGEN 27.1 mg/dL (7-18); CALCIUM 9.6 mg/dL (8.5-10.1); CREATININE 1.6 mg/dL (0.55-1.3); N-TERMINAL BNP 120.6 pg/ml (5-450); POTASSIUM 3.9 mmol/L (3.5-5.1); TOT PROT 6.5 g/dl (6.4-8.2)
--- NOTE | 2019-03-09 16:11 | HP ---
Admitting History and Physical - Admission Chief Complaint: came in for incerased confusion History of Present Illness: 83F with PMH of cirrhosis, HTN, HLD, DM presenting with confusion. Patient was brought in by her son who is providing collateral history. She was seen on Tuesday in this ED for elevated ammonia level which was repeated and downtrending. Patient has acutely gotten worse since that time. Her son reports that the patient is speaking nonsensically. She takes lactulose at home and has not missed any doses. Patient does not have any acute complaints. No fevers, chills, chest pain, or shortness of breath. History Source: Family Member, Medical Record - Past Medical History Cardiovascular: Yes: CHF, HTN. No: AFIB Gastrointestinal: Yes: Esophageal Varices, Other (cirrhosis) Hepatobiliary: Yes: Cirrhosis Heme/Onc: Yes: Anemia Musculoskeletal: Yes: Osteoarthritis Endocrine: Yes: Diabetes Mellitus, Hypothyroidism - Smoking History Smoking history: Never smoked Have you smoked in the past 12 months: No - Alcohol/Substance Use Hx Alcohol Use: No Home Medications - Allergies Allergies/Adverse Reactions: Allergies Allergy/AdvReac Type Severity Reaction Status Date / Time No Known Drug Allergies Allergy Verified 03/09/19 12:51 - Home Medications Home Medications: Ambulatory Orders Furosemide [Lasix] 40 mg PO TID 10/07/18 Levothyroxine [Synthroid -] 75 mcg PO AM #30 tablet 10/13/18 metFORMIN HCL [Glucophage -] 500 mg PO BID #60 tab 11/20/18 Lactulose (Oral Use) [Cephulac -] 20 gm PO Q6H 03/05/19 Lisinopril [Prinivil] 5 mg PO DAILY 03/05/19 Physical Examination Vital Signs: Vital Signs Temperature 97.3 F L 03/09/19 12:48 Pulse Rate 67 03/09/19 12:48 Respiratory Rate 14 03/09/19 12:48 Blood Pressure 127/60 03/09/19 12:48 O2 Sat by Pulse Oximetry (%) 97 03/09/19 12:48 Labs: CBC, BMP 03/09/19 13:30 03/09/19 13:30 Problem List - Problems (1) Confusion Assessment/Plan: related to inc ammonia lactulose qid Code(s): R41.0 - DISORIENTATION, UNSPECIFIED (2) Hyperammonemia Assessment/Plan: lacutlose Code(s): E72.20 - DISORDER OF UREA CYCLE METABOLISM, UNSPECIFIED (3) Cirrhosis Assessment/Plan: nadalojerrod rifamiximn gi consult dr pederson Code(s): K74.60 - UNSPECIFIED CIRRHOSIS OF LIVER (4) Diabetes Assessment/Plan: bgm sliding sclae Code(s): E11.9 - TYPE 2 DIABETES MELLITUS WITHOUT COMPLICATIONS Qualifiers: Diabetes mellitus type: type 2 (5) Hypothyroidism Assessment/Plan: tsh synthroid Code(s): E03.9 - HYPOTHYROIDISM, UNSPECIFIED
[2019-03-09] MEDS ORDERED: LACTULOSE 20 GM/30 ML UDC (FOR ORAL USE ONLY) PO PRN (16:36)
[2019-03-09] MEDS ORDERED: SODIUM CHLORIDE 1,000 ML IV SCH (16:45)
[2019-03-09] MEDS: LACTULOSE 20 GM/30 ML UDC (FOR ORAL USE ONLY) PO SCH (18:47)
[2019-03-09] MEDS ORDERED: PNEUMOC 13-VAL CONJ-DIP CRM/PF 0.5 ML DISP.SYRIN IM ONE (19:00)
[2019-03-09] MEDS ORDERED: INSULIN (NOVOLOG) ASPART 100 UNITS/ML 10ML VIAL ONE (21:30)
[2019-03-09] MEDS: INSULIN SLIDING SCALE (NOVOLOG) 1 VIAL SQ SCH (21:46)
[2019-03-09] MEDS: RIFAXIMIN 550 MG TABLET (UD) PO SCH (21:47)
[2019-03-09] MEDS ORDERED: HEPARIN NA (PORCINE) 5,000 UNITS/ML 1ML VIAL SQ SCH (22:00)
[2019-03-09] MEDS ORDERED: INSULIN SLIDING SCALE (NOVOLOG) 1 VIAL SQ SCH (22:00)
[2019-03-09] MEDS ORDERED: HEPARIN NA (PORCINE) 5,000 UNITS/ML 1ML VIAL IVPUSH PRN ×2 (22:30)
[2019-03-09] MEDS ORDERED: HEPARIN - 25,000 UNIT in SODIUM CHLORIDE 495 ML IV SCH (22:30)
[2019-03-09 23:43] LABS: EPI CELLS 0.9 /HPF (0-5/HPF); HYALINE CASTS 6 /lpf (0-8); URINE APPEARANCE CLEAR; URINE BACTERIA 2.2 /hpf (NEGATIVE); URINE BILIRUBIN NEGATIVE (NEGATIVE); URINE COLOR YELLOW; URINE GLUCOSE (UA) NEGATIVE (NEGATIVE); URINE KETONE NEGATIVE (NEGATIVE); URINE LEUK ESTERASE TRACE (NEGATIVE); URINE NITRITE NEGATIVE (NEGATIVE); URINE PROTEIN NEGATIVE (NEGATIVE); URINE RBC 1 /hpf (0-4); URINE WBC 1 /hpf (0-5)
[2019-03-10] MEDS: LACTULOSE 20 GM/30 ML UDC (FOR ORAL USE ONLY) PO SCH ×5 (00:21→23:51)
[2019-03-10 01:22] LABS: ALBUMIN 2.6 g/dl (3.4-5.0); BLOOD UREA NITROGEN 28.6 mg/dL (7-18); CALCIUM 8.9 mg/dL (8.5-10.1); CREATININE 1.6 mg/dL (0.55-1.3); TOT PROT 5.6 g/dl (6.4-8.2)
[2019-03-10] MEDS ORDERED: POTASSIUM CHLORIDE TABS 10 MEQ TABLET.ER (FP) PO ONE (01:55)
--- NOTE | 2019-03-10 02:02 | HOSP ---
Subjective - Review of Symptoms Events since last encounter: Radiologist called with US Abdomen: interval development of thrombus within the main portal vein, further evaluation multiphase contast CT suggest, left hepatic lobe lesion suggestive of neoplastic disease , hepatic cirrhosis and splenomegaly seen. STAT CMP, Lactic acid, CTA ordered, Heparin drip started. STAT labs noted with K+ 3.0, lactic acid 5.4, kcl ordered and Vascular surgery consult placed. Trend Lactic and BMP. Pending CTA monitor closely General: No: Chills, Night Sweats, Fatigue, Malaise, Appetite, Other HEENT: No: Head Aches, Visual Changes, Eye Pain, Ear Pain, Dysphasia, Sinus Congestion, Post Nasal Drip, Sore Throat, Other Pulmonary: No: Dyspnea, Cough, Pleuritic Chest Pain, Other Cardiovascular: No: Chest Pain, Palpitations, Orthopnea, Paroxysmal Noc. Dyspnea , Edema, Light Headedness, Other Gastrointestinal: No: Nausea, NOSYM, Vomiting, Abdominal Pain, Diarrhea, Constipation, Melena, Hematochezia, Other Physical Examination Vital Signs: Vital Signs Temperature 97.9 F 03/09/19 18:27 Pulse Rate 59 L 03/09/19 18:27 Respiratory Rate 18 03/09/19 18:27 Blood Pressure 143/58 L 03/09/19 18:27 O2 Sat by Pulse Oximetry (%) 97 03/09/19 17:57 Constitutional: Yes: No Distress Eyes: Yes: Conjunctiva Clear, EOM Intact HENT: Yes: Atraumatic, Normocephalic Neck: Yes: Supple, Trachea Midline Cardiovascular: Yes: Regular Rate and Rhythm Respiratory: Yes: Regular, CTA Bilaterally Gastrointestinal: Yes: Normal Bowel Sounds, Soft Labs: CBC, BMP 03/09/19 13:30 03/10/19 00:05 Hospitalist Encounter Assessment: ? Main portal vein thrombus - pending CTA - heparin drip in place - follow up vascular surgery consult - trend lactic and BMP (K + level)
[2019-03-10] MEDS ORDERED: INSULIN (NOVOLOG) ASPART 100 UNITS/ML 10ML VIAL ONE ×2 (06:16→21:03)
[2019-03-10] MEDS: LEVOTHYROXINE NA 75 MCG TABLET (FP) PO SCH (06:39)
[2019-03-10] MEDS: INSULIN SLIDING SCALE (NOVOLOG) 1 VIAL SQ SCH ×4 (06:41→21:22)
[2019-03-10] MEDS ORDERED: SODIUM CHLORIDE 0.45% 1,000 ML IV SCH (07:00)
[2019-03-10 08:29] LABS: HEMATOCRIT 31.6 % (32.4-45.2); HEMOGLOBIN 11.1 GM/dL (10.7-15.3); MCH 32.7 pg (25.7-33.7); MEAN CELL VOLUME 93.4 fl (80-96); MEAN PLT VOLUME 11.8 fl (7.5-11.1); PLATELET COUNT 52 K/MM3 (134-434); RBC 3.38 M/mm3 (3.60-5.2); WHITE BLOOD COUNT 2.5 K/mm3 (4.0-10.0)
--- NOTE | 2019-03-10 09:47 | CON.GI ---
Consult Consult Specialty:: GI Referred by:: Hospitalist service Reason for Consultation:: Hepatic encephalopathy; cirrhosis; liver mass; portal vein thrombosis. - History of Present Illness Chief Complaint: 83 y.o. F with several admissions for hepatic encephalopathy, brought to hospital because of increasing confusion. History of Present Illness: 83 y.o. F with cryptogenic cirrhosis. Known to have esophageal varices (EGD 2014 ), liver mass found on CT scan 08/2017 (son not aware of liver mass or of any workup of this mass). Has been on lactulose 15 cc qid at home, no Xifaxan. Also on metolazone, potassium, levothyroxine, nadolol, metformin. - History Source History Provided By: Family Member Limitations to Obtaining History: No Limitations - Past Medical History [employer]: Yes: Other (hepatic encephalopathy) Cardio/Vascular: Yes: CHF, HTN. No: AFIB Gastrointestinal: Yes: Esophageal Varices, Other (cirrhosis) Hepatobiliary: Yes: Cirrhosis ...: No Musculoskeletal: Yes: Osteoarthritis Endocrine: Yes: Diabetes Mellitus, Hypothyroidism - Alcohol/Substance Use Hx Alcohol Use: No - Smoking History Smoking history: Never smoked Have you smoked in the past 12 months: No - Social History Usual Living Arrangement: Alone Home Medications - Allergies Allergies/Adverse Reactions: Allergies Allergy/AdvReac Type Severity Reaction Status Date / Time No Known Drug Allergies Allergy Verified 03/09/19 12:51 - Home Medications Home Medications: Ambulatory Orders Furosemide [Lasix] 40 mg PO TID 10/07/18 Levothyroxine [Synthroid -] 75 mcg PO AM #30 tablet 10/13/18 metFORMIN HCL [Glucophage -] 500 mg PO BID #60 tab 11/20/18 Lactulose (Oral Use) [Cephulac -] 20 gm PO Q6H 03/05/19 Lisinopril [Prinivil] 5 mg PO DAILY 03/05/19 Metolazone PO DAILY 03/10/19 Physical Exam-GI Vital Signs: Vital Signs Temperature 98.3 F 03/10/19 09:24 Pulse Rate 60 03/10/19 09:24 Respiratory Rate 18 03/10/19 09:24 Blood Pressure 111/69 03/10/19 09:24 O2 Sat by Pulse Oximetry (%) 96 03/10/19 09:00 ...Rectal Exam: Yes: Deferred Neurological: Yes: Oriented (Currently alert, oriented to year, place. No asterixis.) Labs: CBC, BMP 03/10/19 07:35 Imaging - Results Ultrasound: Report Reviewed Problem List - Problems (1) Confusion Code(s): R41.0 - DISORIENTATION, UNSPECIFIED (2) Portal cirrhosis Code(s): K74.69 - OTHER CIRRHOSIS OF LIVER Assessment/Plan Case discussed with Dr De La Rosa, who informs me that the patient has been aware of the liver tumor and has not wanted any biopsy or other investigation. Given her history of esophageal varices, will d/c heparin. Also the portal vein thrombus might be a tumor thrombus instead of a blood clot. Current the patient is alert, oriented to place ("[place]'"), year ("2018"), and knows who the president is ("Trump"). Would initiate Xifaxan 550 mg bid in addition to lactulose. Would also obtain AFP as outpatient to help make a diagnosis.
[2019-03-10] MEDS ORDERED: POTASSIUM CHLORIDE TABS 10 MEQ TABLET.ER (FP) PO SCH (10:00)
[2019-03-10 10:02] LABS: INR 1.59 (0.83-1.09); PROTHROMBIN TIME (PATIENT) 18.9 SEC (9.7-13.0)
[2019-03-10 10:09] LABS: ALBUMIN 2.6 g/dl (3.4-5.0); BILIRUBIN,TOTAL 2.3 mg/dL (0.2-1); BLOOD UREA NITROGEN 28.2 mg/dL (7-18); CALCIUM 8.8 mg/dL (8.5-10.1); CREATININE 1.5 mg/dL (0.55-1.3); MAGNESIUM 1.8 mg/dL (1.8-2.4); PHOSPHOROUS 3.5 mg/dL (2.5-4.9); POTASSIUM 3.1 mmol/L (3.5-5.1); TOT PROT 5.4 g/dl (6.4-8.2)
[2019-03-10] MEDS: RIFAXIMIN 550 MG TABLET (UD) PO SCH ×2 (10:43→21:22)
[2019-03-10] MEDS: NADOLOL 20 MG TABLET (FP) PO SCH (11:40)
[2019-03-10] MEDS ORDERED: POTASSIUM CHLORIDE TABS 20 MEQ TABLET.ER (FP) PO ONE (13:45)
--- NOTE | 2019-03-10 13:48 | DS ---
Physical Examination Vital Signs: Vital Signs Temperature 98.3 F 03/10/19 09:24 Pulse Rate 60 03/10/19 09:24 Respiratory Rate 18 03/10/19 09:24 Blood Pressure 111/69 03/10/19 09:24 O2 Sat by Pulse Oximetry (%) 96 03/10/19 09:00 Cardiovascular: Yes: Regular Rate and Rhythm Respiratory: Yes: Regular, CTA Bilaterally Gastrointestinal: Yes: Normal Bowel Sounds, Soft Neurological: Yes: Alert, Oriented Labs: CBC, BMP 03/10/19 07:35 03/10/19 07:35 Discharge Summary Reason For Visit: CONFUSION Current Active Problems Confusion (Acute) Hyperammonemia (Acute) Portal cirrhosis (Acute) Hospital Course: - Problems (1) Confusion Assessment/Plan: related to inc ammonia lactulose qid improved Code(s): R41.0 - DISORIENTATION, UNSPECIFIED (2) Hyperammonemia Assessment/Plan: lacutlose Code(s): E72.20 - DISORDER OF UREA CYCLE METABOLISM, UNSPECIFIED (3) Cirrhosis Assessment/Plan: nadalol Xifaxin gi consult dr pederson Code(s): K74.60 - UNSPECIFIED CIRRHOSIS OF LIVER (4) Diabetes Assessment/Plan: bgm sliding sclae Code(s): E11.9 - TYPE 2 DIABETES MELLITUS WITHOUT COMPLICATIONS Qualifiers: Diabetes mellitus type: type 2 (5) Hypothyroidism Assessment/Plan: tsh synthroid Code(s): E03.9 - HYPOTHYROIDISM, UNSPECIFIED (6) 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 --maybe tumor--pt with h/o varices dc heparin (7) Anemia Assessment/Plan: trend cbc if stable will dc home (8) Liver Mass Assessment/Plan: pt aware of this > 2 years and does not want work up Condition: Guarded - Instructions Referrals: Anuja De La Rosa MD [Staff Physician] - 1 Week - Home Medications Comprehensive Discharge Medication List: Ambulatory Orders Furosemide [Lasix] 40 mg PO TID 10/07/18 Levothyroxine [Synthroid -] 75 mcg PO AM #30 tablet 10/13/18 metFORMIN HCL [Glucophage -] 500 mg PO BID #60 tab 11/20/18 Lactulose (Oral Use) [Cephulac -] 20 gm PO Q6H 03/05/19 Lisinopril [Prinivil] 5 mg PO DAILY 03/05/19 Metolazone PO DAILY 03/10/19 Potassium Chloride [K-Dur -] 20 meq PO BID #60 tablet.er 03/10/19 Rifaximin [Xifaxan -] 550 mg PO BID #60 tablet 03/10/19
[2019-03-10 14:29] LABS: BASO % 0.5 % (0-2.0); EOS % 6.2 % (0-4.5); HEMATOCRIT 30.1 % (32.4-45.2); HEMOGLOBIN 10.4 GM/dL (10.7-15.3); LYMPH % 31.6 % (8-40); MCH 32.5 pg (25.7-33.7); MCHC 34.6 g/dl (32.0-36.0); MEAN CELL VOLUME 93.8 fl (80-96); MEAN PLT VOLUME 12.6 fl (7.5-11.1); MONO % 17.2 % (3.8-10.2); NEUT % 44.5 % (42.8-82.8); PLATELET COUNT 52 K/MM3 (134-434); RBC 3.21 M/mm3 (3.60-5.2); RDW 13.8 % (11.6-15.6); WHITE BLOOD COUNT 2.7 K/mm3 (4.0-10.0)
[2019-03-10] MEDS: POTASSIUM CHLORIDE TABS 20 MEQ TABLET.ER (FP) PO SCH (21:22)
[2019-03-11] MEDS: LEVOTHYROXINE NA 75 MCG TABLET (FP) PO SCH (06:05)
[2019-03-11] MEDS: INSULIN SLIDING SCALE (NOVOLOG) 1 VIAL SQ SCH ×4 (06:05→21:32)
[2019-03-11] MEDS: LACTULOSE 20 GM/30 ML UDC (FOR ORAL USE ONLY) PO SCH ×3 (06:05→17:52)
[2019-03-11] MEDS ORDERED: PT OWN MED DRAWER 7, Y5N ONE (07:51)
[2019-03-11 07:56] LABS: BASO % 0.3 % (0-2.0); EOS % 5.1 % (0-4.5); HEMATOCRIT 31.4 % (32.4-45.2); LYMPH % 27.5 % (8-40); MCH 32.6 pg (25.7-33.7); MCHC 34.9 g/dl (32.0-36.0); MEAN CELL VOLUME 93.4 fl (80-96); MEAN PLT VOLUME 12.4 fl (7.5-11.1); MONO % 15.8 % (3.8-10.2); NEUT % 51.3 % (42.8-82.8); PLATELET COUNT 49 K/MM3 (134-434); RBC 3.36 M/mm3 (3.60-5.2); RDW 13.9 % (11.6-15.6); WHITE BLOOD COUNT 2.3 K/mm3 (4.0-10.0)
[2019-03-11] MEDS: RIFAXIMIN 550 MG TABLET (UD) PO SCH ×2 (09:28→21:32)
[2019-03-11] MEDS: POTASSIUM CHLORIDE TABS 20 MEQ TABLET.ER (FP) PO SCH ×2 (09:28→21:32)
[2019-03-11] MEDS: NADOLOL 20 MG TABLET (FP) PO SCH (09:28)
[2019-03-11 10:05] LABS: BLOOD UREA NITROGEN 28.5 mg/dL (7-18); CALCIUM 8.6 mg/dL (8.5-10.1); CREATININE 1.3 mg/dL (0.55-1.3); POTASSIUM 3.5 mmol/L (3.5-5.1)
--- NOTE | 2019-03-11 10:49 | EKG ---
Test Reason : Blood Pressure : / mmHG Vent. Rate : 066 BPM Atrial Rate : 066 BPM P-R Int : 146 ms QRS Dur : 072 ms QT Int : 454 ms P-R-T Axes : -12 008 026 degrees QTc Int : 475 ms NORMAL SINUS RHYTHM NONSPECIFIC T WAVE ABNORMALITY WHEN COMPARED WITH ECG OF 05-MAR-2019 13:30, NONSPECIFIC T WAVE ABNORMALITY NOW EVIDENT IN ANTERIOR LEADS Confirmed by YOLI PAYNE MD ([id number]) on 03/11/2019 10:48:55 AM Referred By: Confirmed By:YOLI PAYNE MD
--- NOTE | 2019-03-11 11:40 | PN ---
Progress Note, Physician - Current Medication List Current Medications: Active Medications Insulin Aspart (Novolog Vial Sliding Scale -) 1 vial SQ ACHS [facility]; Protocol Last Admin: 03/11/19 10:15 Dose: Not Given Lactulose (Cephulac (Oral Use)) 20 gm PO Q6HPO [facility] Last Admin: 03/11/19 11:34 Dose: 20 gm Levothyroxine Sodium (Synthroid -) 75 mcg PO DAILY@0700 [facility] Last Admin: 03/11/19 06:05 Dose: 75 mcg Nadolol (Corgard -) 20 mg PO DAILY [facility] Last Admin: 03/11/19 09:28 Dose: 20 mg Potassium Chloride (K-Dur -) 20 meq PO BID [facility] Last Admin: 03/11/19 09:28 Dose: 20 meq Rifaximin (Xifaxan -) 550 mg PO BID [facility] Last Admin: 03/11/19 09:28 Dose: 550 mg - Objective Vital Signs: Vital Signs Temperature 98.6 F 03/11/19 09:42 Pulse Rate 59 L 03/11/19 09:42 Respiratory Rate 18 03/11/19 09:42 Blood Pressure 115/56 L 03/11/19 09:42 O2 Sat by Pulse Oximetry (%) 96 03/11/19 09:00 Cardiovascular: Yes: Regular Rate and Rhythm Respiratory: Yes: Regular, CTA Bilaterally Gastrointestinal: Yes: Normal Bowel Sounds, Soft Labs: CBC, BMP 03/11/19 07:10 03/11/19 07:00 INR, PTT INR 1.59 (0.83-1.09) H 03/10/19 09:10 Assessment/Plan - Problems (1) Confusion Assessment/Plan: related to inc ammonia lactulose qid improved Code(s): R41.0 - DISORIENTATION, UNSPECIFIED (2) Hyperammonemia Assessment/Plan: lacutlose Code(s): E72.20 - DISORDER OF UREA CYCLE METABOLISM, UNSPECIFIED (3) Cirrhosis Assessment/Plan: nadalol Xifaxin gi consult dr pederson Code(s): K74.60 - UNSPECIFIED CIRRHOSIS OF LIVER (4) Diabetes Assessment/Plan: bgm sliding sclae Code(s): E11.9 - TYPE 2 DIABETES MELLITUS WITHOUT COMPLICATIONS Qualifiers: Diabetes mellitus type: type 2 (5) Hypothyroidism Assessment/Plan: tsh synthroid Code(s): E03.9 - HYPOTHYROIDISM, UNSPECIFIED (6) 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 --maybe tumor--pt with h/o varices dc heparin (7) Anemia Assessment/Plan: trend cbc if stable will dc home (8) Liver Mass Assessment/Plan: pt aware of this > 2 years and does not want work up Condition: Guarded dc planning--snf
[2019-03-11] MEDS: POLYETHYLENE GLYCOL 3350 119 GM BTL PO SCH ×2 (14:42→21:32)
[2019-03-11] MEDS ORDERED: INSULIN (NOVOLOG) ASPART 100 UNITS/ML 10ML VIAL ONE (21:13)
[2019-03-12] MEDS: LACTULOSE 20 GM/30 ML UDC (FOR ORAL USE ONLY) PO SCH ×5 (00:05→23:44)
[2019-03-12] MEDS: LEVOTHYROXINE NA 75 MCG TABLET (FP) PO SCH (06:23)
[2019-03-12] MEDS: INSULIN SLIDING SCALE (NOVOLOG) 1 VIAL SQ SCH ×4 (06:23→21:23)
[2019-03-12 07:40] LABS: HEMATOCRIT 31.4 % (32.4-45.2); HEMOGLOBIN 11.1 GM/dL (10.7-15.3); MCHC 35.3 g/dl (32.0-36.0); MEAN CELL VOLUME 93.5 fl (80-96); MEAN PLT VOLUME 12.2 fl (7.5-11.1); PLATELET COUNT 50 K/MM3 (134-434); RBC 3.35 M/mm3 (3.60-5.2); RDW 13.7 % (11.6-15.6); WHITE BLOOD COUNT 3.5 K/mm3 (4.0-10.0)
[2019-03-12] MEDS: POLYETHYLENE GLYCOL 3350 119 GM BTL PO SCH ×2 (09:47→21:22)
[2019-03-12] MEDS: NADOLOL 20 MG TABLET (FP) PO SCH (09:48)
[2019-03-12] MEDS: POTASSIUM CHLORIDE TABS 20 MEQ TABLET.ER (FP) PO SCH ×2 (09:48→21:22)
[2019-03-12] MEDS: RIFAXIMIN 550 MG TABLET (UD) PO SCH ×2 (09:48→21:23)
[2019-03-12] MEDS ORDERED: INSULIN (NOVOLOG) ASPART 100 UNITS/ML 10ML VIAL ONE ×2 (11:39→21:07)
--- NOTE | 2019-03-12 14:30 | DS ---
Physical Examination Vital Signs: Vital Signs Temperature 98.2 F 03/12/19 06:03 Pulse Rate 76 03/12/19 06:03 Respiratory Rate 20 03/12/19 06:03 Blood Pressure 130/59 L 03/12/19 06:03 O2 Sat by Pulse Oximetry (%) 96 03/11/19 09:00 Constitutional: Yes: Calm, Thin Cardiovascular: Yes: Regular Rate and Rhythm, S1, S2 Respiratory: Yes: CTA Bilaterally Gastrointestinal: Yes: Normal Bowel Sounds, Soft Renal/: Yes: Other (mo) Edema: No Neurological: Yes: Alert, Oriented Labs: CBC, BMP 03/12/19 06:40 03/11/19 07:00 Discharge Summary Reason For Visit: CONFUSION Current Active Problems Confusion (Acute) Hyperammonemia (Acute) Portal cirrhosis (Acute) Hospital Course: - Admission Chief Complaint: came in for incerased confusion History of Present Illness: 83F with PMH of cirrhosis, HTN, HLD, DM presenting with confusion. Patient was brought in by her son who is providing collateral history. She was seen on Tuesday in this ED for elevated ammonia level which was repeated and downtrending. Patient has acutely gotten worse since that time. Her son reports that the patient is speaking nonsensically. She takes lactulose at home and has not missed any doses. Patient does not have any acute complaints. No fevers, chills, chest pain, or shortness of breath. patient got lactulose ammonia level now 59 urinary retention failed trial of voiding reinsert mo with leg to see urologist as outpatient patient needs MRI of liver for left liver lobe lesion and contrast enhance CT scan of main portal vein to look for thrombus Condition: Guarded - Instructions Referrals: Anuja De La Rosa MD [Staff Physician] - 1 Week - Home Medications Comprehensive Discharge Medication List: Ambulatory Orders Furosemide [Lasix] 40 mg PO TID 10/07/18 Levothyroxine [Synthroid -] 75 mcg PO AM #30 tablet 10/13/18 metFORMIN HCL [Glucophage -] 500 mg PO BID #60 tab 11/20/18 Lactulose (Oral Use) [Cephulac -] 20 gm PO Q6H 03/05/19 Lisinopril [Prinivil] 5 mg PO DAILY 03/05/19 Metolazone PO DAILY 03/10/19 Potassium Chloride [K-Dur -] 20 meq PO BID #60 tablet.er 03/10/19 Rifaximin [Xifaxan -] 550 mg PO BID #60 tablet 03/10/19
--- NOTE | 2019-03-12 14:48 | PN ---
Problem List - Problems (1) Confusion Code(s): R41.0 - DISORIENTATION, UNSPECIFIED (2) Hyperammonemia Code(s): E72.20 - DISORDER OF UREA CYCLE METABOLISM, UNSPECIFIED (3) Cirrhosis Code(s): K74.60 - UNSPECIFIED CIRRHOSIS OF LIVER (4) Diabetes Code(s): E11.9 - TYPE 2 DIABETES MELLITUS WITHOUT COMPLICATIONS Qualifiers: Diabetes mellitus type: type 2 (5) Hypothyroidism Code(s): E03.9 - HYPOTHYROIDISM, UNSPECIFIED
[2019-03-12] MEDS ORDERED: MINERAL OIL ENEMA 133 ML ENEMA PR ONE (15:17)
[2019-03-12] MEDS ORDERED: BISACODYL 10 MG SUPP.RECT PR ONE (15:18)
--- NOTE | 2019-03-12 15:18 | PN ---
Progress Note (short form) - Note Progress Note: mo cath inserted for urinary retention urology consult family wants Snf Problem List - Problems (1) Confusion Code(s): R41.0 - DISORIENTATION, UNSPECIFIED (2) Hyperammonemia Code(s): E72.20 - DISORDER OF UREA CYCLE METABOLISM, UNSPECIFIED (3) Cirrhosis Code(s): K74.60 - UNSPECIFIED CIRRHOSIS OF LIVER (4) Diabetes Code(s): E11.9 - TYPE 2 DIABETES MELLITUS WITHOUT COMPLICATIONS Qualifiers: Diabetes mellitus type: type 2 (5) Hypothyroidism Code(s): E03.9 - HYPOTHYROIDISM, UNSPECIFIED
[2019-03-13 05:51] VITALS: PULSE 76
[2019-03-13] MEDS: LEVOTHYROXINE NA 75 MCG TABLET (FP) PO SCH (06:09)
[2019-03-13] MEDS: LACTULOSE 20 GM/30 ML UDC (FOR ORAL USE ONLY) PO SCH ×3 (06:09→17:29)
[2019-03-13] MEDS: INSULIN SLIDING SCALE (NOVOLOG) 1 VIAL SQ SCH ×3 (06:09→16:21)
[2019-03-13 07:30] LABS: HEMATOCRIT 31.1 % (32.4-45.2); HEMOGLOBIN 10.7 GM/dL (10.7-15.3); MCH 32.5 pg (25.7-33.7); MCHC 34.3 g/dl (32.0-36.0); MEAN CELL VOLUME 94.7 fl (80-96); MEAN PLT VOLUME 11.4 fl (7.5-11.1); PLATELET COUNT 39 K/MM3 (134-434); RBC 3.28 M/mm3 (3.60-5.2); WHITE BLOOD COUNT 2.9 K/mm3 (4.0-10.0)
[2019-03-13 08:29] LABS: ALBUMIN 2.5 g/dl (3.4-5.0); BILIRUBIN,TOTAL 2.6 mg/dL (0.2-1); BLOOD UREA NITROGEN 27.7 mg/dL (7-18); CALCIUM 8.6 mg/dL (8.5-10.1); POTASSIUM 3.7 mmol/L (3.5-5.1); TOT PROT 5.4 g/dl (6.4-8.2)
--- NOTE | 2019-03-13 08:38 | PN ---
Progress Note, Physician - Current Medication List Current Medications: Active Medications Insulin Aspart (Novolog Vial Sliding Scale -) 1 vial SQ ACHS [facility]; Protocol Last Admin: 03/13/19 06:09 Dose: Not Given Lactulose (Cephulac (Oral Use)) 20 gm PO Q6HPO [facility] Last Admin: 03/13/19 06:09 Dose: 20 gm Levothyroxine Sodium (Synthroid -) 75 mcg PO DAILY@0700 [facility] Last Admin: 03/13/19 06:09 Dose: 75 mcg Nadolol (Corgard -) 20 mg PO DAILY [facility] Last Admin: 03/12/19 09:48 Dose: 20 mg Polyethylene Glycol (Miralax (For Daily Use) -) 17 gm PO BID [facility] Last Admin: 03/12/19 21:22 Dose: 17 gm Potassium Chloride (K-Dur -) 20 meq PO BID [facility] Last Admin: 03/12/19 21:22 Dose: 20 meq Rifaximin (Xifaxan -) 550 mg PO BID [facility] Last Admin: 03/12/19 21:23 Dose: 550 mg - Objective Vital Signs: Vital Signs Temperature 97.7 F 03/13/19 05:50 Pulse Rate 76 03/13/19 05:50 Respiratory Rate 17 03/13/19 05:50 Blood Pressure 118/64 03/13/19 05:50 O2 Sat by Pulse Oximetry (%) 96 03/11/19 09:00 Cardiovascular: Yes: Regular Rate and Rhythm Respiratory: Yes: Regular, CTA Bilaterally Gastrointestinal: Yes: Normal Bowel Sounds, Soft Labs: CBC, BMP 03/13/19 06:25 03/13/19 06:25 INR, PTT INR 1.59 (0.83-1.09) H 03/10/19 09:10 Assessment/Plan - Problems (1) Confusion Assessment/Plan: related to inc ammonia lactulose qid improved Code(s): R41.0 - DISORIENTATION, UNSPECIFIED (2) Hyperammonemia Assessment/Plan: lacutlose Code(s): E72.20 - DISORDER OF UREA CYCLE METABOLISM, UNSPECIFIED (3) Cirrhosis Assessment/Plan: nadalol Xifaxin gi consult dr pederson Code(s): K74.60 - UNSPECIFIED CIRRHOSIS OF LIVER (4) Diabetes Assessment/Plan: bgm sliding sclae Code(s): E11.9 - TYPE 2 DIABETES MELLITUS WITHOUT COMPLICATIONS Qualifiers: Diabetes mellitus type: type 2 (5) Hypothyroidism Assessment/Plan: tsh synthroid Code(s): E03.9 - HYPOTHYROIDISM, UNSPECIFIED (6) 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 --maybe tumor--pt with h/o varices dc heparin (7) Anemia Assessment/Plan: trend cbc if stable will dc home (8) Liver Mass Assessment/Plan: pt aware of this > 2 years and does not want work up Condition: Guarded (9) Thrombocytopenia Assessment/Plan: Due to cirhosis dropping hem consult monitor dc planning--snf
[2019-03-13] MEDS ORDERED: PT OWN MED DRAWER 7, Y5N ONE (10:07)
[2019-03-13] MEDS: NADOLOL 20 MG TABLET (FP) PO SCH (10:09)
[2019-03-13] MEDS: POTASSIUM CHLORIDE TABS 20 MEQ TABLET.ER (FP) PO SCH (10:09)
[2019-03-13] MEDS: RIFAXIMIN 550 MG TABLET (UD) PO SCH (10:09)
[2019-03-13] MEDS: POLYETHYLENE GLYCOL 3350 119 GM BTL PO SCH (10:09)
--- NOTE | 2019-03-13 10:57 | CON.PULM ---
Consult Consult Specialty:: PULMONARY Referred by:: Dr Cárdenas Reason for Consultation:: shortness of breath - History of Present Illness Chief Complaint: confusion History of Present Illness: 83yo female with h/o HTN, DM, hyperlipidemia, hypothyroidism, LV diastolic dysfunction, liver cirrhosis with known liver mass and esophageal varices who was admitted with altered mental status. Being treated for hepatic encephalopathy with some improvement per niece at bedside. She denies shortness of breath, chest pain. No fevers, chills or sweats. No cough or wheezing. She is a nonsmoker. 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 No: AFIB Gastrointestinal: Yes: Esophageal Varices, Other (cirrhosis) Hepatobiliary: Yes: Cirrhosis ...: No Musculoskeletal: Yes: Osteoarthritis Endocrine: Yes: Diabetes Mellitus, Hypothyroidism - Alcohol/Substance Use Hx Alcohol Use: No - Smoking History Smoking history: Never smoked Have you smoked in the past 12 months: No - Social History Usual Living Arrangement: Alone Home Medications - Allergies Allergies/Adverse Reactions: Allergies Allergy/AdvReac Type Severity Reaction Status Date / Time No Known Drug Allergies Allergy Verified 03/09/19 12:51 - Home Medications Home Medications: Ambulatory Orders Furosemide [Lasix] 40 mg PO TID 10/07/18 Levothyroxine [Synthroid -] 75 mcg PO AM #30 tablet 10/13/18 metFORMIN HCL [Glucophage -] 500 mg PO BID #60 tab 11/20/18 Lactulose (Oral Use) [Cephulac -] 20 gm PO Q6H 03/05/19 Lisinopril [Prinivil] 5 mg PO DAILY 03/05/19 Metolazone PO DAILY 03/10/19 Potassium Chloride [K-Dur -] 20 meq PO BID #60 tablet.er 03/10/19 Rifaximin [Xifaxan -] 550 mg PO BID #60 tablet 03/10/19 Review of Systems - Review of Systems Constitutional: denies: Chills, Fever Eyes: denies: Recent Change in Vision HENT: denies: Nasal Congestion, Throat Pain Neck: denies: Stiffness, Tenderness Cardiovascular: denies: Chest Pain, Palpitations, Shortness of Breath Respiratory: denies: Cough, SOB, Wheezing Gastrointestinal: denies: Abdominal Pain, Nausea, Vomiting Genitourinary: denies: Dysuria, Hematuria Neurological: denies: Dizziness, Headache Endocrine: denies: Unexplained Weight Loss Physical Exam Vital Sings: Vital Signs Temperature 97.7 F 03/13/19 05:50 Pulse Rate 76 03/13/19 05:50 Respiratory Rate 17 03/13/19 05:50 Blood Pressure 118/64 03/13/19 05:50 O2 Sat by Pulse Oximetry (%) 96 03/11/19 09:00 Constitutional: Yes: Calm Eyes: Yes: Conjunctiva Clear, EOM Intact HENT: Yes: Atraumatic, Normocephalic Neck: Yes: Supple, Trachea Midline Cardiovascular: Yes: Regular Rate and Rhythm Respiratory: Yes: Diminished (decreased breath sounds at the bases) ...Clubbing: No Gastrointestinal: Yes: Normal Bowel Sounds, Soft. No: Tenderness Edema: No Neurological: Yes: Alert Labs: CBC, BMP 03/13/19 06:25 03/13/19 06:25 Imaging - Results Chest X-ray: Report Reviewed, Image Reviewed (cardiomegaly, no infiltrates) Assessment/Plan Altered Mental Status Liver Cirrhosis Hepatic Encephalopathy Liver Mass LV Diastolic Dysfunction HTN DM Hyperlipidemia Hypothyroidism - continue lactulose, rifaximin - nadolol - work up of liver mass if pt/family agrees - PT - DVT prophylaxis - will follow as needed, please call if further questions Thank you for this consult Diogenes Javde MD
--- NOTE | 2019-03-13 11:02 | CONSULT ---
Consultation: CONSULT REQUEST: Heme/Onc HISTORY OF PRESENT ILLNESS: Patient is an 83 yo F with a PMhx of Cryptogenic Cirrhosis, HTN, DM, esophageal varices (EGD 2014), Liver mass on CT (09/01), multiple admissions for encephalopathy, presenting to the ED because of confusion. Patient was found to have an elevated ammonia level. Patient was also found to have a Main portal vein thrombus on U/S. She was started on heparin but d/c'd because of history of esophageal varices. Patient has baseline thombocytopenia but was found with platelet count of 39 this am. Patient offers no complaints. Denies signs of bleeding. Patient denies sob, nausea, vomiting, fevers, chills, rectal bleeding, hematemesis, dizziness, sob, cough. Background: [place] Citizen Allergies: NKDA Surgical History: Abdominal surgery, cholecystectomy Social History: Denies EtOH, tobacco, or illicit drug use Home meds: Furosemide [Lasix] 40 mg PO TID 10/07/18 Levothyroxine [Synthroid -] 75 mcg PO AM #30 tablet 10/13/18 metFORMIN HCL [Glucophage -] 500 mg PO BID #60 tab 11/20/18 Lactulose (Oral Use) [Cephulac -] 20 gm PO Q6H 03/05/19 Lisinopril [Prinivil] 5 mg PO DAILY 03/05/19 Metolazone PO DAILY 03/10/19 REVIEW OF SYSTEMS: CONSTITUTIONAL: Absent: fever, chills, diaphoresis, generalized weakness, malaise, loss of appetite, weight change HEENT: Absent: rhinorrhea, nasal congestion, throat pain, throat swelling, difficulty swallowing, mouth swelling, ear pain, eye pain, visual changes CARDIOVASCULAR: Absent: chest pain, syncope, palpitations, irregular heart rate, lightheadedness , peripheral edema RESPIRATORY: Absent: cough, shortness of breath, dyspnea with exertion, orthopnea, wheezing, stridor, hemoptysis GASTROINTESTINAL: Absent: abdominal pain, abdominal distension, nausea, vomiting, diarrhea, constipation, melena, hematochezia GENITOURINARY: Absent: dysuria, frequency, urgency, hesitancy, hematuria, flank pain, genital pain SKIN: Absent: rash, itching, pallor HEMATOLOGIC/IMMUNOLOGIC: Absent: easy bleeding, easy bruising, lymphadenopathy, frequent infections ENDOCRINE: Absent: unexplained weight gain, unexplained weight loss, heat intolerance, cold intolerance NEUROLOGIC: Absent: headache, focal weakness or paresthesias, dizziness, unsteady gait, seizure, mental status changes, bladder or bowel incontinence PHYSICAL EXAMINATION Vital Signs - 24 hr 03/12/19 03/12/19 03/13/19 14:00 22:23 05:50 Temperature 98.4 F 98.6 F 97.7 F Pulse Rate 68 70 76 Respiratory 16 20 17 Rate Blood Pressure 122/60 130/70 118/64 GENERAL: a/o x 3 with me this am. answering questions appropriately. HEAD: Normal with no signs of trauma. EYES: cataracts, Pupils equal, round and reactive to light, sclera anicteric, conjunctiva clear. EARS, NOSE, THROAT: oropharynx clear without exudates NECK: supple without lymphadenopathy, JVD, or masses. LUNGS: CTA b/l HEART: RRR, no murmurs appreciated. ABDOMEN: Patient sitting on chair. Soft, nontender, not distended, normoactive bowel sounds LOWER EXTREMITIES: 2+ pulses, +edema BREAST: no masses palpable, no nipple discharge. Laboratory Results - last 24 hr 03/12/19 03/12/19 03/12/19 11:22 11:30 16:16 WBC RBC Hgb Hct MCV MCH MCHC RDW Plt Count MPV PTT (Actin FS) Sodium Potassium Chloride Carbon Dioxide Anion Gap BUN Creatinine Est GFR (CKD-EPI)AfAm Est GFR (CKD-EPI)NonAf POC Glucometer 238 202 Random Glucose Calcium Total Bilirubin AST ALT Alkaline Phosphatase Ammonia 59.80 H Total Protein Albumin Active Medications Generic Name Dose Route Start Last Admin Trade Name Freq PRN Reason Stop Dose Admin Insulin Aspart 1 vial 03/09/19 22:00 03/13/19 06:09 Novolog Vial Sliding Scale - SQ Not Given ACHS DASHA Protocol Lactulose 20 gm 03/09/19 18:00 03/13/19 06:09 Cephulac (Oral Use) PO 20 gm Q6HPO DASHA Administration Levothyroxine Sodium 75 mcg 03/10/19 07:00 03/13/19 06:09 Synthroid - PO 75 mcg DAILY@0700 DASHA Administration Nadolol 20 mg 03/10/19 10:00 03/13/19 10:09 Corgard - PO 20 mg DAILY DASHA Administration Polyethylene Glycol 17 gm 03/11/19 14:00 03/13/19 10:09 Miralax (For Daily Use) - PO 17 gm BID DASHA Administration Potassium Chloride 20 meq 03/10/19 22:00 03/13/19 10:09 K-Dur - PO 20 meq BID DASHA Administration Rifaximin 550 mg 03/09/19 22:00 03/13/19 10:09 Xifaxan - PO 550 mg BID DASHA Administration ASSESSMENT/PLAN: #Main Portal Vein Thrombus #Thrombocytopenia Dispo: We will continue to follow the patient. Thank you for this consultative opportunity. ATTENDING PHYSICIAN STATEMENT I saw and evaluated the patient. I reviewed the resident's note and discussed the case with the resident. I agree with the resident's findings and plan as documented. SUBJECTIVE: OBJECTIVE: ASSESSMENT AND PLAN:
[2019-03-13] MEDS ORDERED: INSULIN (NOVOLOG) ASPART 100 UNITS/ML 10ML VIAL ONE ×2 (11:19→16:08)
[2019-03-13 13:12] LABS: EPI CELLS 6.6 /HPF (0-5/HPF); HYALINE CASTS 23 /lpf (0-8); URINE APPEARANCE CLEAR; URINE BACTERIA 216.5 /hpf (NEGATIVE); URINE BILIRUBIN 1+ (NEGATIVE); URINE COLOR DK YELLOW; URINE GLUCOSE (UA) NEGATIVE (NEGATIVE); URINE KETONE TRACE (NEGATIVE); URINE LEUK ESTERASE 1+ (NEGATIVE); URINE NITRITE POSITIVE (NEGATIVE); URINE PROTEIN TRACE (NEGATIVE); URINE RBC 31 /hpf (0-4); URINE UROBILINOGEN 4.0 E.U/dl mg/dL (0.2-1.0); URINE WBC 10 /hpf (0-5)
[2019-03-13 15:23] VITALS: BP 112/62; TEMP 98.1
[2019-03-13 15:58] LABS: HEMATOCRIT 31.9 % (32.4-45.2); HEMOGLOBIN 10.9 GM/dL (10.7-15.3); RBC 3.36 M/mm3 (3.60-5.2)
[2019-03-13 16:29] LABS: MCH 32.5 pg (25.7-33.7); MCHC 34.2 g/dl (32.0-36.0); MEAN PLT VOLUME 12.8 fl (7.5-11.1); PLATELET COUNT 54 K/MM3 (134-434); RDW 14.3 % (11.6-15.6); WHITE BLOOD COUNT 3.6 K/mm3 (4.0-10.0)
--- NOTE | 2019-03-13 16:54 | DS ---
Physical Examination Vital Signs: Vital Signs Temperature 98.1 F 03/13/19 13:00 Pulse Rate 76 03/13/19 13:00 Respiratory Rate 16 03/13/19 13:00 Blood Pressure 112/62 03/13/19 13:00 O2 Sat by Pulse Oximetry (%) 96 03/11/19 09:00 Labs: CBC, BMP 03/13/19 15:00 03/13/19 06:25 Discharge Summary Reason For Visit: CONFUSION Current Active Problems Confusion (Acute) Hyperammonemia (Acute) Portal cirrhosis (Acute) Condition: Improved - Instructions Diet, Activity, Other Instructions: cbc and cmp and ammonia level q week Referrals: Anuja De La Rosa MD [Staff Physician] - 1 Week Linus Donahue MD [Staff Physician] - 1 Week (make apppt for urinary retetion to have mo cath removed) Disposition: RETIREMENT FACILITY - Home Medications Comprehensive Discharge Medication List: Ambulatory Orders Furosemide [Lasix] 40 mg PO TID 10/07/18 Levothyroxine [Synthroid -] 75 mcg PO AM #30 tablet 10/13/18 metFORMIN HCL [Glucophage -] 500 mg PO BID #60 tab 11/20/18 Lactulose (Oral Use) [Cephulac -] 20 gm PO Q6H 03/05/19 Lisinopril [Prinivil] 5 mg PO DAILY 03/05/19 Metolazone PO DAILY 03/10/19 Potassium Chloride [K-Dur -] 20 meq PO BID #60 tablet.er 03/10/19 Rifaximin [Xifaxan -] 550 mg PO BID #60 tablet 03/10/19
== END 2019-03-13 17:59 | DRG 441 ==
LOC: JER 12:47 → JERBED 15:35 → J6S 17:47
PROVIDERS: ADMIT Family Medicine; ATTEND Family Medicine
PROC: 0T2BX0Z Change Drainage Device in Bladder, External Approach (ICD-10-PCS; principal; 2019-03-12)
DX: K72.90 Hepatic failure, unspecified without coma (principal); I81 Portal vein thrombosis; E72.20 Disorder of urea cycle metabolism, unspecified; I50.32 Chronic diastolic (congestive) heart failure; I85.00 Esophageal varices without bleeding; I11.0 Hypertensive heart disease with heart failure; E11.9 Type 2 diabetes mellitus without complications; E78.5 Hyperlipidemia, unspecified; E03.9 Hypothyroidism, unspecified; R41.0 Disorientation, unspecified; K74.69 Other cirrhosis of liver; R16.0 Hepatomegaly, not elsewhere classified; R33.9 Retention of urine, unspecified; Z79.84 Long term (current) use of oral hypoglycemic drugs; D69.6 Thrombocytopenia, unspecified; M19.90 Unspecified osteoarthritis, unspecified site; D64.9 Anemia, unspecified
CPT/HCPCS: 36415; 70450-TC; 71045-TC-FY; 76700-TC; 80048; 80053; 81003; 82140; 82962; 83605; 83735; 83880; 84100; 84443; 85025; 85027; 85610; 85730; 87086; 87186; 90670; 93005; 93010; 97116-GP; 97161-GP; 99283-25; J1644; J7030

== ENCOUNTER 2019-03-15 16:03 | Inpatient (IN) | payer OTHER | END 2019-03-22 16:36 | LOC: J8W 03-20 19:52 → JER 16:03 → J4W 20:05 ==

== ENCOUNTER 2019-03-27 17:04 | Inpatient (IN) | payer OTHER ==
--- NOTE | 2019-03-27 17:46 | PDOC ---
History of Present Illness - General History Source: Patient, Family Exam Limitations: No Limitations - History of Present Illness Initial Comments: 03/27/19 17:45 83 yo female pmh liver mass, HTN, HLD, DM, Hypothyroidism and recently diagnosed hepatic encephalopathy presents from [facility] to the ED with hypotension and poor appetite as per family. Pt recently admitted for new onset hepatic encephalopathy, no cause found, pt continues treatment on lactulose and xifaxin daily. Family states pt has had the same mentation over the last 1 month while ion the NH without any recent changes. Pt unable to provide further ROS. <Konstantin Quiroz - Last Filed: 03/27/19 19:58> <Penny Wheeler - Last Filed: 03/28/19 10:30> - General Chief Complaint: Altered Mental Status Stated Complaint: AMS Time Seen by Provider: 03/27/19 17:18 Past History - Past Medical History Anemia: Yes (thrombocytopenia) Asthma: No Cancer: No Cardiac Disorders: No CVA: No COPD: No CHF: No Dementia: No Diabetes: Yes (DIET CONTROLLED) GI Disorders: Yes (H. PYLORI; DILATED CBD) Disorders: No HTN: Yes Hypercholesterolemia: Yes Liver Disease: Yes (LIVER CIRRHOSIS, mass, hyperkalemia) Seizures: No Thyroid Disease: Yes (DNR/DNI, osteoarthritis) - Surgical History Abdominal Surgery: Yes Appendectomy: No Cardiac Surgery: No Cholecystectomy: Yes Lung Surgery: No Neurologic Surgery: No Orthopedic Surgery: No - Immunization History Immunization Up to Date: Yes - Suicide/Smoking/Psychosocial Hx Smoking History: Never smoked Have you smoked in the past 12 months: No Information on smoking cessation initiated: No Hx Alcohol Use: No Drug/Substance Use Hx: No Substance Use Type: None Hx Substance Use Treatment: No <Konstantin Quiroz - Last Filed: 03/27/19 19:58> <Penny Wheeler - Last Filed: 03/28/19 10:30> - Past Medical History Allergies/Adverse Reactions: Allergies Allergy/AdvReac Type Severity Reaction Status Date / Time No Known Drug Allergies Allergy Verified 03/27/19 17:24 Home Medications: Ambulatory Orders Furosemide [Lasix] 40 mg PO TID 10/07/18 Levothyroxine [Synthroid -] 75 mcg PO AM #30 tablet 10/13/18 metFORMIN HCL [Glucophage -] 500 mg PO BID #60 tab 11/20/18 Lactulose (Oral Use) [Cephulac -] 20 gm PO Q6H 03/05/19 Lisinopril [Prinivil] 5 mg PO DAILY 03/05/19 Metolazone 5 mg PO DAILY 03/10/19 Potassium Chloride [K-Dur -] 20 meq PO BID #60 tablet.er 03/10/19 Rifaximin [Xifaxan -] 550 mg PO BID #60 tablet 03/10/19 Insulin Sliding Scale [Novolog Vial Sliding Scale -] 0 units SQ TIDAC 03/27/19 Nadolol 20 mg PO DAILY 03/27/19 Review of Systems - Review of Systems Able to Perform ROS?: No (hepatic encephalopathy) <Konstantin Quiroz - Last Filed: 03/27/19 19:58> *Physical Exam - Vital Signs Last Vital Signs Temp Pulse Resp BP Pulse Ox 98.9 F 75 16 90/44 L 95 03/27/19 17:10 03/27/19 17:10 03/27/19 17:10 03/27/19 17:10 03/27/19 17:10 - Physical Exam General Appearance: Yes: Nourished, Appropriately Dressed. No: Apparent Distress HEENT: positive: EOMI, JUNIOR Neck: positive: Supple. negative: Carotid bruit Respiratory/Chest: positive: Lungs Clear, Normal Breath Sounds. negative: Respiratory Distress, Labored Respiration, Rapid RR, Crackles, Rales, Rhonchi, Stridor, Wheezing Cardiovascular: positive: Regular Rhythm, Regular Rate, S1, S2. negative: Edema , JVD, Murmur Vascular Pulses: Dorsalis-Pedis (R): 3+, Doralis-Pedis (L): 3+ Gastrointestinal/Abdominal: positive: Flat, Soft. 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 negative: Fully Oriented <Konstantin Quiroz - Last Filed: 03/27/19 19:58> - Vital Signs Last Vital Signs Temp Pulse Resp BP Pulse Ox 97.5 F L 82 20 107/57 L 97 03/28/19 08:00 03/28/19 08:00 03/28/19 08:00 03/28/19 08:00 03/28/19 02:00 <Penny Wheeler - Last Filed: 03/28/19 10:30> ED Treatment Course - LABORATORY CBC & Chemistry Diagram: 03/27/19 18:30 03/27/19 18:30 <Konstantin Quiroz - Last Filed: 03/27/19 19:58> - LABORATORY CBC & Chemistry Diagram: 03/28/19 05:43 03/28/19 05:43 - ADDITIONAL ORDERS Additional order review: 03/27/19 18:30 RBC 3.66 MCV 94.6 MCHC 34.6 RDW 14.8 MPV 11.9 H Neutrophils % 64.7 Lymphocytes % 22.6 Monocytes % 9.6 Eosinophils % 2.8 Basophils % 0.3 - RADIOLOGY Radiology Studies Ordered: Category Date Time Status CHEST X-RAY PORTABLE* [RAD] Stat Radiology 03/27/19 17:16 Completed - Medications Given in the ED: ED Medications Discontinued Medications Generic Name Dose Route Start Last Admin Trade Name Freq PRN Reason Stop Dose Admin Sodium Chloride 500 mls @ 1,000 mls/hr 03/27/19 18:15 03/27/19 18:59 Normal Saline - IV 03/27/19 18:44 Not Given ASDIR STA Sodium Chloride 1,000 mls @ 1,000 mls/hr 03/27/19 18:22 03/27/19 18:57 Normal Saline - IV 03/27/19 19:14 1,000 mls/hr ASDIR STA Administration Sodium Chloride 1,000 mls @ 1,000 mls/hr 03/27/19 20:18 03/27/19 21:34 Normal Saline - IV 03/27/19 21:17 1,000 mls/hr ASDIR STA Administration Piperacillin Sod/Tazobactam 50 mls @ 100 mls/hr 03/27/19 20:20 03/27/19 22:25 Sod 3.375 gm/ Dextrose IVPB 03/27/19 20:49 100 mls/hr ONCE ONE Administration Protocol Sodium Chloride 1,000 mls @ 75 mls/hr 03/27/19 22:00 03/27/19 22:26 Normal Saline - IV 75 mls/hr ASDIR DASHA Administration Potassium Chloride 10 meq/ 1,005 mls @ 75 mls/hr 03/28/19 09:51 03/28/19 10: 11 Sodium Chloride IVPB Not Given ASDIR DASHA Potassium Chloride 10 meq/ 1,005 mls @ 75 mls/hr 03/28/19 09:54 03/28/19 10: 12 Sodium Chloride IVPB Not Given Q13H DASHA Potassium Chloride 20 meq 03/28/19 10:00 03/28/19 09:21 K-Dur - PO 20 meq BID DASHA Administration Sodium Chloride 1,000 ml 03/27/19 22:18 03/28/19 00:17 Normal Saline - IV 03/27/19 22:19 1,000 ml ONCE ONE Administration Vancomycin HCl 1,000 mg 03/27/19 20:19 03/27/19 22:25 Vancomycin (Pre-Docked) IVPB 03/27/19 20:20 1,000 mg ONCE ONE Administration Protocol <Penny Wheeler - Last Filed: 03/28/19 10:30> Medical Decision Making - Medical Decision Making 03/27/19 18:53 83 yo female pmh liver mass, HTN, HLD, DM, Hypothyroidism and recently diagnosed hepatic encephalopathy presents from [facility] to the ED with hypotension and poor appetite as per family. Pt recently admitted for new onset hepatic encephalopathy, no cause found, pt continues treatment on lactulose and xifaxin daily. Family states pt has had the same mentation over the last 1 month while ion the NH without any recent changes. Pt unable to provide further ROS. vitals show low BP in the 80s to 90s systolic. Baseline in the low 100s. Will give 1L NS, no CKD or CHF noted on hx cardiac work up, ammonia ordered after 250 cc BP continues to be in the 80s blood work pending, pt will be admitted for hypotension pt s/o tonight team <Konstantin Quiroz - Last Filed: 03/27/19 19:58> *DC/Admit/Observation/Transfer <Konstantin Quiroz - Last Filed: 03/27/19 19:58> - Discharge Dispostion Decision to Admit order: Yes <Penny Wheeler - Last Filed: 03/28/19 10:30> Diagnosis at time of Disposition: Hyperammonemia, Hypotension, UTI (urinary tract infection) - Discharge Dispostion Condition at time of disposition: Fair
--- NOTE | 2019-03-27 18:07 | PDOC ---
Documentation entered by Trae Headley SCRIBE, acting as scribe for Penny Wheeler MD. Penny Wheeler MD: This documentation has been prepared by the Kayode foster Renju, SCRIBE, under my direction and personally reviewed by me in its entirety. I confirm that the documentation accurately reflects all work, treatment, procedures, and medical decision making performed by me. Attending Attestation - Resident Resident Name: Konstantin Qurioz - ED Attending Attestation I have performed the following: I have examined & evaluated the patient, The case was reviewed & discussed with the resident, I agree w/resident's findings & plan - HPI HPI: 03/27/19 17:55 83 yo F BIBEMS from [place] with a significant PMH of liver mass, hepatic encephalopathy, HTN, HLD, DM, Hypothyroidism. who presents to the emergency department for evaluation of altered mental status and lethargy. Patient was recently admitted to [facility] 1 week ago for similar chief complaint and was started on lactulose and Rifaxin. Recently admitted on 03/15/2019 for hepatic encephalopathy. Unable to obtain ROS secondary to clinical condition. Allergies: None Past Medical History: hepatic encephalopathy, HTN, DM, cirrhosis with liver mass , and HLD Social history: No tobacco, ETOH or drug use. Surgical history: Abdominal surgery, cholecystectomy Meds: as documented in EMR PMD: Dr. De La Rosa 03/27/19 18:08 - Physicial Exam PE: 03/27/19 17:55 NAD, well appearing, pleasantly confused, EOMI, PERRL, dry membranes, nl conjunctiva, anicteric; neck supple. lungs clear, RRR, abdomen soft nontender. Back nontender. VIRK x4, no focal neuro deficits. No peripheral edema. normal color for ethnicity, WWP. 03/27/19 18:08 03/27/19 19:08 - Medical Decision Making 03/27/19 18:07 See HPI for details. Prior notes reviewed, including admissions, discharges and consultations. Vital signs reviewed, soft BP, recheck but also has not been eating last several days with confusion Vital Signs Temp Pulse Resp BP Pulse Ox 98.9 F 75 16 90/44 L 95 03/27/19 17:10 03/27/19 17:10 03/27/19 17:10 03/27/19 17:10 03/27/19 17:10 DDx AMS: infection, UTI, metabolic/electrolyte derangement, encephalopathy, dehydration, CVA, ACS, elevated ammonia laboratory results and imaging reviewed, pending workup including imaging, labs/ lytes, Cr function, ammonia UA/culture EKG normal sinus rhythm at 70 bpm, no interval abnormalities, narrow QRS, ST and T wave segments and morphology normal. Nonspecific T wave abnormalities ED course -s/o pending labs and workup, anticipate admission for presumed AMS/hepatic encephalopathy. Discussed results and management plan with pt and family member at bedside, agree with impression, treatment indications, recommendations and plan. 03/27/19 18:08 03/27/19 18:09 03/27/19 18:36 03/28/19 10:26 Heart Score/ECG Review #1 ECG reviewed & interpreted by me at: 18:05 General ECG Interpretation: Sinus Rhythm, Normal Rate, Normal Intervals 03/27/19 18:39 EKG normal sinus rhythm at 70 bpm, no interval abnormalities, narrow QRS, ST and T wave segments and morphology normal. Nonspecific T wave abnormalities
[2019-03-27] MEDS ORDERED: SODIUM CHLORIDE 500 ML IV STA (18:15)
[2019-03-27] MEDS ORDERED: SODIUM CHLORIDE 1,000 ML IV STA ×2 (18:22→20:18)
[2019-03-27 18:53] LABS: BASO % 0.3 % (0-2.0); EOS % 2.8 % (0-4.5); HEMATOCRIT 34.6 % (32.4-45.2); LYMPH % 22.6 % (8-40); MCH 32.7 pg (25.7-33.7); MCHC 34.6 g/dl (32.0-36.0); MEAN CELL VOLUME 94.6 fl (80-96); MEAN PLT VOLUME 11.9 fl (7.5-11.1); MONO % 9.6 % (3.8-10.2); NEUT % 64.7 % (42.8-82.8); PLATELET COUNT 110 K/MM3 (134-434); RBC 3.66 M/mm3 (3.60-5.2); RDW 14.8 % (11.6-15.6); WHITE BLOOD COUNT 5.3 K/mm3 (4.0-10.0)
[2019-03-27 19:09] LABS: EPI CELLS 3.8 /HPF (0-5/HPF); HYALINE CASTS 9 /lpf (0-8); URINE APPEARANCE TURBID; URINE BACTERIA 5289.8 /hpf (NEGATIVE); URINE BILIRUBIN 1+ (NEGATIVE); URINE COLOR DK YELLOW; URINE GLUCOSE (UA) NEGATIVE (NEGATIVE); URINE KETONE TRACE (NEGATIVE); URINE LEUK ESTERASE 3+ (NEGATIVE); URINE NITRITE NEGATIVE (NEGATIVE); URINE PROTEIN 2+ (NEGATIVE); URINE RBC 100 /hpf (0-4); URINE WBC 971 /hpf (0-5)
[2019-03-27 19:18] LABS: INR 1.37 (0.83-1.09); PROTHROMBIN TIME (PATIENT) 16.2 SEC (9.7-13.0)
[2019-03-27 19:20] LABS: ACTIVATED PTT 32.6 SECONDS (25.2-36.5)
[2019-03-27 19:21] LABS: ALBUMIN 2.6 g/dl (3.4-5.0); ALK PHOS 118 U/L (45-117); ANION GAP 14 MMOL/L (8-16); BILIRUBIN,TOTAL 1.7 mg/dL (0.2-1); BLOOD UREA NITROGEN 42.8 mg/dL (7-18); CALCIUM 9.3 mg/dL (8.5-10.1); CHLORIDE 102 mmol/L (98-107); CO2 23 mmol/L (21-32); CREATININE 1.9 mg/dL (0.55-1.3); GLUCOSE,RANDOM 137 mg/dL (74-106); POTASSIUM 4.1 mmol/L (3.5-5.1); SGOT/AST 55 U/L (15-37); SGPT/ALT 44 U/L (13-61); SODIUM 139 mmol/L (136-145); TOT PROT 5.9 g/dl (6.4-8.2)
--- NOTE | 2019-03-27 19:51 | PDOC ---
*Physical Exam - Vital Signs Last Vital Signs Temp Pulse Resp BP Pulse Ox 98.9 F 70 18 90/44 L 95 03/27/19 17:10 03/27/19 18:55 03/27/19 18:55 03/27/19 19:24 03/27/19 17:10 ED Treatment Course - LABORATORY CBC & Chemistry Diagram: 03/29/19 07:00 03/29/19 07:00 - ADDITIONAL ORDERS Additional order review: Laboratory Results 03/27/19 03/27/19 03/27/19 18:34 18:30 18:30 PT with INR INR PTT (Actin FS) Cancelled Sodium Potassium Chloride Carbon Dioxide Anion Gap BUN Creatinine Est GFR (CKD-EPI)AfAm Est GFR (CKD-EPI)NonAf Random Glucose Calcium Total Bilirubin AST ALT Alkaline Phosphatase Ammonia 127.90 H Creatine Kinase Troponin I Total Protein Albumin TSH Urine Color Dk yellow Urine Appearance Turbid Urine pH 5.0 D Ur Specific [place] 1.015 Urine Protein 2+ H Urine Glucose (UA) Negative Urine Ketones Trace H Urine Blood 3+ H Urine Nitrite Negative Urine Bilirubin 1+ H Urine Urobilinogen 1.0 Ur Leukocyte Esterase 3+ H Urine WBC (Auto) 971 Urine RBC (Auto) 100 Urine Casts (Auto) 9 U Epithel Cells (Auto) 3.8 Urine Bacteria (Auto) 5289.8 03/27/19 03/27/19 03/27/19 18:30 18:30 18:30 PT with INR 16.20 H INR 1.37 H PTT (Actin FS) 32.6 Sodium 139 Potassium 4.1 Chloride 102 Carbon Dioxide 23 Anion Gap 14 BUN 42.8 H Creatinine 1.9 H Est GFR (CKD-EPI)AfAm 28.16 Est GFR (CKD-EPI)NonAf 24.30 Random Glucose 137 H Calcium 9.3 Total Bilirubin 1.7 H AST 55 H ALT 44 Alkaline Phosphatase 118 H Ammonia Creatine Kinase 27 Troponin I < 0.02 Total Protein 5.9 L Albumin 2.6 L TSH 4.79 H Urine Color Urine Appearance Urine pH Ur Specific [place] Urine Protein Urine Glucose (UA) Urine Ketones Urine Blood Urine Nitrite Urine Bilirubin Urine Urobilinogen Ur Leukocyte Esterase Urine WBC (Auto) Urine RBC (Auto) Urine Casts (Auto) U Epithel Cells (Auto) Urine Bacteria (Auto) 03/27/19 18:30 RBC 3.66 MCV 94.6 MCHC 34.6 RDW 14.8 MPV 11.9 H Neutrophils % 64.7 Lymphocytes % 22.6 Monocytes % 9.6 Eosinophils % 2.8 Basophils % 0.3 - Medications Given in the ED: ED Medications Discontinued Medications Generic Name Dose Route Start Last Admin Trade Name Anjelica PRN Reason Stop Dose Admin Sodium Chloride 500 mls @ 1,000 mls/hr 03/27/19 18:15 03/27/19 18:59 Normal Saline - IV 03/27/19 18:44 Not Given ASDIR STA Sodium Chloride 1,000 mls @ 1,000 mls/hr 03/27/19 18:22 03/27/19 18:57 Normal Saline - IV 03/27/19 19:14 1,000 mls/hr ASDIR STA Administration Medical Decision Making - Medical Decision Making 03/27/19 19:49 Pt signed out to me by Dr. Quiroz. 83 y/o F with recent dx. of hepatic encephalopathy has been living in [facility] since diagnosis hypotensive to 80's in [facility] today. had poor appetite and was not eating. Initially given a fluid bolus of 1L and workup was done (awaiting labs) Admitting to hospital for hypotension and hyperammonemia at this time. Recycle BP every half hour UA: 3+ blood, leukocyte esterase + -Sepsis workup initiated, -Vanc and zosyn given -Lactic acid -Rectal temp -Blood culture, urine culture -another bag of fluids (1000cc) given -BP now at 93/52 03/27/19 21:49 Lactic acid pending at this time. *DC/Admit/Observation/Transfer Diagnosis at time of Disposition: Hyperammonemia, Hypotension, UTI (urinary tract infection) - Discharge Dispostion Condition at time of disposition: Fair Decision to Admit order: Yes - Referrals - Patient Instructions - Post Discharge Activity
[2019-03-27] MEDS ORDERED: VANCOMYCIN 1 GM in D5W (PRE-DOCKED) 1,000 MG/250 ML IVPB ONE (20:19)
[2019-03-27] MEDS ORDERED: PIPERACILLIN/TAZOB 3.375 GM 3.375 GM in DEXTROSE 5%-WATER - 50 ML IVPB ONE (20:20)
[2019-03-27] MEDS ORDERED: PIPERACILLIN/TAZOB 3.375 GM 3.375 GM/50 ML BAG IVPB ONE (21:45)
[2019-03-27] MEDS ORDERED: SODIUM CHLORIDE 1,000 ML IV SCH (22:00)
[2019-03-27] MEDS ORDERED: VANCOMYCIN 1 GRAM (PRE-DOCKED) 1,000 MG/250 ML BAG IVPB ONE (22:05)
--- NOTE | 2019-03-27 22:14 | HP ---
CHIEF COMPLAINT: AMS, Hypotensive, Poor PO intake PCP: Dr. De La Rosa HISTORY OF PRESENT ILLNESS: 83 year old female with PMHx of HTN, HLD, DM, Hypothyroidism, liver cirrhosis recently diagnosed hepatic encephalopathy arrived from [facility] to the ED with AMS, hypotension and poor appetite as per family. Last visit on 03/15/19 due to new onset hepatic encephalopathy, no cause found, was placed on lactulose and xifaxin daily. Unable to obtain ROS secondary to clinical condition. ER course was notable for: (1) EKG normal sinus rhythm at 70 bpm ----> Bp in 80s systolic on arrival -- given 2L IVF ; with improvement (2) positive UA, pending Urine, blood cx - give IV Vanco and Zosyn X1 (3) Ammonia level 127.90, elevated LFTs monitor trend Recent Travel: No PAST MEDICAL HISTORY: hepatic encephalopathy, liver cirrhosis, HTN, HLD DM, hypothyroidism, Anemia, thrombocytopenia, PAST SURGICAL HISTORY: hysterectomy, appendectomy Social History: Smoking:no Alcohol:no Drugs: no Family History: brother with liver cirrhosis Allergies: No Known Drug Allergies Allergy (Verified 03/27/19 17:24) HOME MEDICATIONS: Home Medications Medication Instructions Recorded Furosemide [Lasix] 40 mg PO TID 10/07/18 Levothyroxine [Synthroid -] 75 mcg PO AM #30 tablet 10/13/18 metFORMIN HCL [Glucophage -] 500 mg PO BID #60 tab 11/20/18 Lactulose (Oral Use) [Cephulac -] 20 gm PO Q6H 03/05/19 Lisinopril [Prinivil] 5 mg PO DAILY 03/05/19 Metolazone 5 mg PO DAILY 03/10/19 Potassium Chloride [K-Dur -] 20 meq PO BID #60 tablet.er 03/10/19 Rifaximin [Xifaxan -] 550 mg PO BID #60 tablet 03/10/19 Insulin Sliding Scale [Novolog 0 units SQ TIDAC 03/27/19 Vial Sliding Scale -] Nadolol 20 mg PO DAILY 03/27/19 REVIEW OF SYSTEMS unable to conduct ROS due to AMS/lethargy PHYSICAL EXAMINATION Vital Signs - 24 hr 03/27/19 03/27/19 03/27/19 17:10 18:25 18:55 Temperature 98.9 F Pulse Rate 75 Pulse Rate [ 70 70 Radial] Respiratory 16 18 18 Rate Blood Pressure 90/44 L Blood Pressure 80/40 L 84/39 L [Left Arm] O2 Sat by Pulse 95 Oximetry (%) 03/27/19 19:24 Temperature Pulse Rate Pulse Rate [ Radial] Respiratory Rate Blood Pressure Blood Pressure 90/44 L [Left Arm] O2 Sat by Pulse Oximetry (%) GENERAL: NAD HEENT: NC/AT, EOMI, No JVD LUNGS: Breath sounds equal, clear to auscultation bilaterally. No wheezes, and no crackles. HEART: Regular rate and rhythm, normal S1 and S2 without murmur, rub or gallop. ABDOMEN: Soft, nontender, not distended, normoactive bowel sounds, no guarding, no rebound, no masses. MUSCULOSKELETAL: Normal range of motion at all joints. No bony deformities or tenderness. No CVA tenderness. NEUROLOGICAL: opens eyes now responds to verbal, tactile stimuli SKIN: Warm, dry Laboratory Results - last 24 hr 03/27/19 03/27/19 03/27/19 18:30 18:30 18:30 WBC 5.3 RBC 3.66 Hgb 12.0 Hct 34.6 MCV 94.6 MCH 32.7 MCHC 34.6 RDW 14.8 Plt Count 110 L D MPV 11.9 H Absolute Neuts (auto) 3.4 Neutrophils % 64.7 Lymphocytes % 22.6 Monocytes % 9.6 Eosinophils % 2.8 Basophils % 0.3 Nucleated RBC % 0 PT with INR 16.20 H INR 1.37 H PTT (Actin FS) 32.6 Sodium 139 Potassium 4.1 Chloride 102 Carbon Dioxide 23 Anion Gap 14 BUN 42.8 H Creatinine 1.9 H Est GFR (CKD-EPI)AfAm 28.16 Est GFR (CKD-EPI)NonAf 24.30 Random Glucose 137 H Calcium 9.3 Total Bilirubin 1.7 H AST 55 H ALT 44 Alkaline Phosphatase 118 H Ammonia Creatine Kinase 27 Troponin I < 0.02 Total Protein 5.9 L Albumin 2.6 L TSH Urine Color Urine Appearance Urine pH Ur Specific [place] Urine Protein Urine Glucose (UA) Urine Ketones Urine Blood Urine Nitrite Urine Bilirubin Urine Urobilinogen Ur Leukocyte Esterase Urine WBC (Auto) Urine RBC (Auto) Urine Casts (Auto) U Epithel Cells (Auto) Urine Bacteria (Auto) 03/27/19 03/27/19 03/27/19 18:30 18:30 18:30 WBC RBC Hgb Hct MCV MCH MCHC RDW Plt Count MPV Absolute Neuts (auto) Neutrophils % Lymphocytes % Monocytes % Eosinophils % Basophils % Nucleated RBC % PT with INR INR PTT (Actin FS) Cancelled Sodium Potassium Chloride Carbon Dioxide Anion Gap BUN Creatinine Est GFR (CKD-EPI)AfAm Est GFR (CKD-EPI)NonAf Random Glucose Calcium Total Bilirubin AST ALT Alkaline Phosphatase Ammonia 127.90 H Creatine Kinase Troponin I Total Protein Albumin TSH 4.79 H Urine Color Urine Appearance Urine pH Ur Specific [place] Urine Protein Urine Glucose (UA) Urine Ketones Urine Blood Urine Nitrite Urine Bilirubin Urine Urobilinogen Ur Leukocyte Esterase Urine WBC (Auto) Urine RBC (Auto) Urine Casts (Auto) U Epithel Cells (Auto) Urine Bacteria (Auto) 03/27/19 18:34 WBC RBC Hgb Hct MCV MCH MCHC RDW Plt Count MPV Absolute Neuts (auto) Neutrophils % Lymphocytes % Monocytes % Eosinophils % Basophils % Nucleated RBC % PT with INR INR PTT (Actin FS) Sodium Potassium Chloride Carbon Dioxide Anion Gap BUN Creatinine Est GFR (CKD-EPI)AfAm Est GFR (CKD-EPI)NonAf Random Glucose Calcium Total Bilirubin AST ALT Alkaline Phosphatase Ammonia Creatine Kinase Troponin I Total Protein Albumin TSH Urine Color Dk yellow Urine Appearance Turbid Urine pH 5.0 D Ur Specific [place] 1.015 Urine Protein 2+ H Urine Glucose (UA) Negative Urine Ketones Trace H Urine Blood 3+ H Urine Nitrite Negative Urine Bilirubin 1+ H Urine Urobilinogen 1.0 Ur Leukocyte Esterase 3+ H Urine WBC (Auto) 971 Urine RBC (Auto) 100 Urine Casts (Auto) 9 U Epithel Cells (Auto) 3.8 Urine Bacteria (Auto) 5289.8 ASSESSMENT/PLAN: 83 year old female with PMHx of HTN, HLD, DM, Hypothyroidism, liver cirrhosis recently diagnosed hepatic encephalopathy arrived from [facility] to the ED with AMS, hypotension and poor appetite as per family. #AMS # UTI # hypotension # hepatic encephalopathy arrived to Ed with systolic in 80s - given 2 L NS with improvement in BP CXR: No acute infiltrate noted EKG: normal sinus rhythm at 70 bpm UA is positive given IV Vanco & zosyn given x1 in ED - pending Urine, blood cx - follow up lactic acid - monitor vitals - follow up ID - follow up GI - Continue with lactulose, and xifaxan #DM - monitor FSBS - continue with metFORMIN HCL 500 mg PO BID - continue with Novolog sliding scale #HTN - hold antihypertensive medication for now #Hypothyroidism - Continue with Synthroid 9 Problem List - Problem (1) Altered mental status, unspecified Code(s): R41.82 - ALTERED MENTAL STATUS, UNSPECIFIED Qualifiers: Altered mental status type: somnolence Qualified Code(s): R40.0 - Somnolence (2) Hypotension Code(s): I95.9 - HYPOTENSION, UNSPECIFIED (3) UTI (urinary tract infection) Code(s): N39.0 - URINARY TRACT INFECTION, SITE NOT SPECIFIED (4) Hyperammonemia Code(s): E72.20 - DISORDER OF UREA CYCLE METABOLISM, UNSPECIFIED (5) Diabetes Code(s): E11.9 - TYPE 2 DIABETES MELLITUS WITHOUT COMPLICATIONS Qualifiers: Diabetes mellitus type: type 2 (6) Hepatic encephalopathy Code(s): K72.90 - HEPATIC FAILURE, UNSPECIFIED WITHOUT COMA (7) Hypothyroidism Code(s): E03.9 - HYPOTHYROIDISM, UNSPECIFIED Visit type - Emergency Visit Emergency Visit: Yes Care time: The patient presented to the Emergency Department on the above date and was hospitalized for further evaluation of their emergent condition. - New Patient This patient is new to me today: Yes Date on this admission: 03/27/19 - Critical Care Critical Care patient: No
[2019-03-27] MEDS ORDERED: SODIUM CHLORIDE 0.9% 500 ML INFUS.BAG IV ONE (22:18)
--- NOTE | 2019-03-27 23:52 | PDOC ---
*Physical Exam - Vital Signs Last Vital Signs Temp Pulse Resp BP Pulse Ox 96.4 F L 89 18 94/53 L 95 03/27/19 22:59 03/27/19 22:59 03/27/19 18:55 03/27/19 22:59 03/27/19 22:59 ED Treatment Course - LABORATORY CBC & Chemistry Diagram: 03/27/19 18:30 03/27/19 18:30 - ADDITIONAL ORDERS Additional order review: Laboratory Results 03/27/19 03/27/19 03/27/19 18:34 18:30 18:30 PT with INR INR PTT (Actin FS) Cancelled Sodium Potassium Chloride Carbon Dioxide Anion Gap BUN Creatinine Est GFR (CKD-EPI)AfAm Est GFR (CKD-EPI)NonAf Random Glucose Calcium Total Bilirubin AST ALT Alkaline Phosphatase Ammonia 127.90 H Creatine Kinase Troponin I Total Protein Albumin TSH Urine Color Dk yellow Urine Appearance Turbid Urine pH 5.0 D Ur Specific [place] 1.015 Urine Protein 2+ H Urine Glucose (UA) Negative Urine Ketones Trace H Urine Blood 3+ H Urine Nitrite Negative Urine Bilirubin 1+ H Urine Urobilinogen 1.0 Ur Leukocyte Esterase 3+ H Urine WBC (Auto) 971 Urine RBC (Auto) 100 Urine Casts (Auto) 9 U Epithel Cells (Auto) 3.8 Urine Bacteria (Auto) 5289.8 03/27/19 03/27/19 03/27/19 18:30 18:30 18:30 PT with INR 16.20 H INR 1.37 H PTT (Actin FS) 32.6 Sodium 139 Potassium 4.1 Chloride 102 Carbon Dioxide 23 Anion Gap 14 BUN 42.8 H Creatinine 1.9 H Est GFR (CKD-EPI)AfAm 28.16 Est GFR (CKD-EPI)NonAf 24.30 Random Glucose 137 H Calcium 9.3 Total Bilirubin 1.7 H AST 55 H ALT 44 Alkaline Phosphatase 118 H Ammonia Creatine Kinase 27 Troponin I < 0.02 Total Protein 5.9 L Albumin 2.6 L TSH 4.79 H Urine Color Urine Appearance Urine pH Ur Specific [place] Urine Protein Urine Glucose (UA) Urine Ketones Urine Blood Urine Nitrite Urine Bilirubin Urine Urobilinogen Ur Leukocyte Esterase Urine WBC (Auto) Urine RBC (Auto) Urine Casts (Auto) U Epithel Cells (Auto) Urine Bacteria (Auto) 03/27/19 18:30 RBC 3.66 MCV 94.6 MCHC 34.6 RDW 14.8 MPV 11.9 H Neutrophils % 64.7 Lymphocytes % 22.6 Monocytes % 9.6 Eosinophils % 2.8 Basophils % 0.3 - Medications Given in the ED: ED Medications Discontinued Medications Generic Name Dose Route Start Last Admin Trade Name Freq PRN Reason Stop Dose Admin Sodium Chloride 500 mls @ 1,000 mls/hr 03/27/19 18:15 03/27/19 18:59 Normal Saline - IV 03/27/19 18:44 Not Given ASDIR STA Sodium Chloride 1,000 mls @ 1,000 mls/hr 03/27/19 18:22 03/27/19 18:57 Normal Saline - IV 03/27/19 19:14 1,000 mls/hr ASDIR STA Administration Sodium Chloride 1,000 mls @ 1,000 mls/hr 03/27/19 20:18 03/27/19 21:34 Normal Saline - IV 03/27/19 21:17 1,000 mls/hr ASDIR STA Administration Piperacillin Sod/Tazobactam 50 mls @ 100 mls/hr 03/27/19 20:20 03/27/19 22:25 Sod 3.375 gm/ Dextrose IVPB 03/27/19 20:49 100 mls/hr ONCE ONE Administration Protocol Vancomycin HCl 1,000 mg 03/27/19 20:19 03/27/19 22:25 Vancomycin (Pre-Docked) IVPB 03/27/19 20:20 1,000 mg ONCE ONE Administration Protocol Medical Decision Making - Medical Decision Making 03/27/19 23:52 Received signout from day team. Patient is 83F with complex medical history here today with UTI. Patient has remained persistently hypotensive despite 1L fluid bolus. Lactate 5. 2L was ordered, remained hypotensive but improving. ICU consulted, will continue to fluid resuscitate. Patient MAP now 65 with 2L +fluids from ABx in. Patient continues to mentate well, feels better. Now stable for floor. Family was consented for central line due to concerning hypotension, but does not need it at this time now. Patient is now stable for medsur. *DC/Admit/Observation/Transfer Diagnosis at time of Disposition: Hyperammonemia, Hypotension, UTI (urinary tract infection) - Referrals - Patient Instructions - Post Discharge Activity
[2019-03-28] MEDS: INSULIN SLIDING SCALE (NOVOLOG) 1 VIAL SQ SCH ×2 (06:05→16:16)
[2019-03-28] MEDS: LEVOTHYROXINE NA 75 MCG TABLET (FP) PO SCH (06:05)
[2019-03-28 07:04] LABS: HEMOGLOBIN 10.4 GM/dL (10.7-15.3); MCH 33.1 pg (25.7-33.7); MCHC 34.6 g/dl (32.0-36.0); MEAN CELL VOLUME 95.5 fl (80-96); MEAN PLT VOLUME 12.4 fl (7.5-11.1); PLATELET COUNT 56 K/MM3 (134-434); RBC 3.15 M/mm3 (3.60-5.2); RDW 14.7 % (11.6-15.6); WHITE BLOOD COUNT 3.1 K/mm3 (4.0-10.0)
[2019-03-28 07:24] LABS: ALBUMIN 2.2 g/dl (3.4-5.0); BILIRUBIN,TOTAL 1.8 mg/dL (0.2-1); BLOOD UREA NITROGEN 38.2 mg/dL (7-18); CALCIUM 8.3 mg/dL (8.5-10.1); CREATININE 1.5 mg/dL (0.55-1.3); TOT PROT 5.2 g/dl (6.4-8.2)
--- NOTE | 2019-03-28 08:28 | PN ---
Progress Note, Physician - Current Medication List Current Medications: Active Medications Heparin Sodium (Porcine) (Heparin -) 5,000 unit SQ BID [facility] Sodium Chloride (Normal Saline -) 1,000 mls @ 75 mls/hr IV ASDIR [facility] Last Admin: 03/27/19 22:26 Dose: 75 mls/hr Ceftriaxone Sodium 1 gm/ (Dextrose) 50 mls @ 100 mls/hr IVPB DAILY [facility] Insulin Aspart (Novolog Vial Sliding Scale -) 1 vial SQ [facility]; Protocol Last Admin: 03/28/19 06:05 Dose: Not Given Lactulose (Cephulac (Oral Use)) 20 gm PO TID PRN PRN Reason: CONSTIPATION Levothyroxine Sodium (Synthroid -) 75 mcg PO AM [facility] Last Admin: 03/28/19 06:05 Dose: 75 mcg Metformin HCl (Glucophage -) 500 mg PO BID@0700,1630 [facility] Potassium Chloride (K-Dur -) 20 meq PO BID [facility] Rifaximin (Xifaxan -) 550 mg PO BID [facility] - Objective Vital Signs: Vital Signs Temperature 97.5 F L 03/28/19 08:00 Pulse Rate 82 03/28/19 08:00 Respiratory Rate 20 03/28/19 08:00 Blood Pressure 107/57 L 03/28/19 08:00 O2 Sat by Pulse Oximetry (%) 97 03/28/19 02:00 Cardiovascular: Yes: Regular Rate and Rhythm Respiratory: Yes: Regular, CTA Bilaterally Gastrointestinal: Yes: Normal Bowel Sounds, Soft Labs: CBC, BMP 03/28/19 05:43 03/28/19 05:43 INR, PTT INR 1.37 (0.83-1.09) H 03/27/19 18:30 Problem List - Problems (1) Hyperammonemia Assessment/Plan: lactulose and xifaxin monitor levels Code(s): E72.20 - DISORDER OF UREA CYCLE METABOLISM, UNSPECIFIED (2) Toxic metabolic encephalopathy Code(s): G92 - TOXIC ENCEPHALOPATHY (3) UTI (urinary tract infection) Assessment/Plan: abx id await cultures Code(s): N39.0 - URINARY TRACT INFECTION, SITE NOT SPECIFIED
[2019-03-28] MEDS ORDERED: DEXTROSE 5%-WATER - 50 ML IVPB ONE (09:14)
[2019-03-28] MEDS ORDERED: cefTRIAXone SODIUM 1 GM VIAL ONE (09:14)
[2019-03-28] MEDS: CEFTRIAXONE 1 GM in DEXTROSE 5%-WATER - 50 ML IVPB SCH (09:20)
[2019-03-28] MEDS: RIFAXIMIN 550 MG TABLET (UD) PO SCH ×2 (09:21→21:30)
[2019-03-28] MEDS: HEPARIN NA (PORCINE) 5,000 UNITS/ML 1ML VIAL SQ SCH ×2 (09:21→21:30)
[2019-03-28] MEDS ORDERED: SODIUM CHLORIDE 1,000 ML with POTASSIUM CHLORIDE 10 MEQ IVPB SCH ×2 (09:51→09:54)
--- NOTE | 2019-03-28 09:55 | PN ---
Progress Note, Physician Chief Complaint: AWAKE MORE ALERT CHART AND NOTES REVIEWED - Current Medication List Current Medications: Active Medications Heparin Sodium (Porcine) (Heparin -) 5,000 unit SQ BID [facility] Last Admin: 03/28/19 09:21 Dose: 5,000 unit Ceftriaxone Sodium 1 gm/ (Dextrose) 50 mls @ 100 mls/hr IVPB DAILY [facility] Last Admin: 03/28/19 09:20 Dose: 100 mls/hr Potassium Chloride 10 meq/ (Sodium Chloride) 1,005 mls @ 75 mls/hr IVPB ASDIR [facility] Insulin Aspart (Novolog Vial Sliding Scale -) 1 vial SQ BIDAC [facility]; Protocol Last Admin: 03/28/19 06:05 Dose: Not Given Lactulose (Cephulac (Oral Use)) 20 gm PO TID PRN PRN Reason: CONSTIPATION Levothyroxine Sodium (Synthroid -) 75 mcg PO AM [facility] Last Admin: 03/28/19 06:05 Dose: 75 mcg Metformin HCl (Glucophage -) 500 mg PO BID@0700,1630 [facility] Potassium Chloride (K-Dur -) 20 meq PO BID [facility] Last Admin: 03/28/19 09:21 Dose: 20 meq Rifaximin (Xifaxan -) 550 mg PO BID [facility] Last Admin: 03/28/19 09:21 Dose: 550 mg - Objective Vital Signs: Vital Signs Temperature 97.5 F L 03/28/19 08:00 Pulse Rate 82 03/28/19 08:00 Respiratory Rate 20 03/28/19 08:00 Blood Pressure 107/57 L 03/28/19 08:00 O2 Sat by Pulse Oximetry (%) 97 03/28/19 02:00 Constitutional: Yes: No Distress HENT: Yes: WNL Neck: Yes: WNL Cardiovascular: Yes: Regular Rate and Rhythm Respiratory: Yes: WNL Gastrointestinal: Yes: WNL Genitourinary: Yes: Matias Present Musculoskeletal: Yes: Muscle Weakness Edema: No Peripheral Pulses WNL: Yes Integumentary: Yes: WNL Wound/Incision: Yes: Clean/Dry Neurological: Yes: Confusion, Pre-Existing Deficit ...Motor Strength: LLE, RLE Psychiatric: Yes: Other Labs: CBC, BMP 03/28/19 05:43 03/28/19 05:43 INR, PTT INR 1.37 (0.83-1.09) H 03/27/19 18:30 Problem List - Problems (1) Toxic metabolic encephalopathy Code(s): G92 - TOXIC ENCEPHALOPATHY (2) Hyperammonemia Code(s): E72.20 - DISORDER OF UREA CYCLE METABOLISM, UNSPECIFIED (3) Hypotension Code(s): I95.9 - HYPOTENSION, UNSPECIFIED (4) UTI (urinary tract infection) Code(s): N39.0 - URINARY TRACT INFECTION, SITE NOT SPECIFIED (5) Cirrhosis Code(s): K74.60 - UNSPECIFIED CIRRHOSIS OF LIVER (6) Hepatic encephalopathy Code(s): K72.90 - HEPATIC FAILURE, UNSPECIFIED WITHOUT COMA Assessment/Plan IV ABX PER ID SWALLOW EVAL DYSPHAGIA WORKUP PT EVAL MATAIS FOR NOW CAN DC TOMORROW DVT PROPHYLAXIS NEURO WORKUP IN PROGRESS KCL ADDED TO NS IV FLUIDS RENAL F/U
[2019-03-28] MEDS ORDERED: POTASSIUM CHLORIDE TABS 20 MEQ TABLET.ER (FP) PO SCH (10:00)
--- NOTE | 2019-03-28 10:24 | CONSULT ---
Admitting History and Physical - Primary Care Physician PCP: Anuja De La Rosa - Admission History of Present Illness: Per EMR- 83 year old female with PMHx of HTN, HLD, DM, Hypothyroidism, liver cirrhosis recently diagnosed hepatic encephalopathy arrived from [facility] to the ED with AMS, hypotension and poor appetite as per family. #AMS # UTI # hypotension # hepatic encephalopathy Selected Entries 03/27/19 03/27/19 03/27/19 17:10 20:06 20:20 Temperature 98.9 F 98.2 F 96.4 F L 03/27/19 03/28/19 03/28/19 22:59 04:00 08:00 Temperature 96.4 F L 97.6 F 97.5 F L Laboratory Tests 03/27/19 03/28/19 18:30 05:43 WBC 5.3 3.1 L Last seen by me in November,, on puree/thin liquids, as he had recently lost his dentures. Diet order 03/22/19 [facility] Reg/thin liquids. Pt now noted to have upper and lower dentures. 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 No: AFIB Gastrointestinal: Yes: Esophageal Varices, Other (cirrhosis) Hepatobiliary: Yes: Cirrhosis Heme/Onc: Yes: Anemia Musculoskeletal: Yes: Osteoarthritis Endocrine: Yes: Diabetes Mellitus, Hypothyroidism - Past Surgical History Past Surgical History: Yes: Cholecystectomy, Hysterectomy - Advance Directives Advance Directives: Yes: DNR - Smoking History Smoking history: Never smoked Have you smoked in the past 12 months: No - Alcohol/Substance Use Hx Alcohol Use: No - Social History ADL: Support Services History - Admission Reason For Visit: HYPERAMMONEMIA,HYPOTENSION,HEPATIC ENCEPHALOPATHY - Diagnostics X-ray: Report Reviewed CT Scan: Report Reviewed - General Mental Status: Alert and Oriented, Awake and Alert, Able to Follow Commands, Forgetful, Vague Attention: Distractible, Mild Impairment Ability to Follow Directions: Fair Head/Neck Control: Good - Hearing Hearing: Normal Speech Evaluation - Communication Primary Language: DJIBOUTIAN Communication: Yes: Simple Responses Oral Expression Ability: Yes: No Impairment - Speech Production Able to Make Needs Known: Yes: WNL Intelligibility: Yes: WNL - Speech Characteristics Voice Loudness: Normal Voice Pitch: Yes: Normal Voice Phonatory-based Quality: Yes: Normal Speech Pattern: Normal Speech Clarity: < 100% Nasal Resonance: Normal Articulation: Yes: Precise Rate of Speech: Intact - Language/Auditory Comprehension Follows: Yes: 1 Stage Simple Commands Observation: Able to respond to yes/no queries: No (responded No to many questions including do you speak Korean, asked in Korean), Yes/No Confusion: Yes, Comprehends Conversational Speech: Yes - Language/Verbal Expression Aphasia: Yes: Anomia - Swallow Evaluation/Bedside Assessment Current Nutritional Intake: Dysphagia Whole, Thin Liquids, Other (Ensure pudding ) Dentition: Yes: Adequate, Dental Appliance Upper, Dental Appliance Lower Facial Symmetry at Rest: Symmetrical Facial Symmetry on Retraction: Symmetrical Against Resistance Opening: Normal Against Resistance Closing: Normal Pucker Lips: Normal Smile: Normal Lingual Movement: Normal, Symmetric Lingual Speed of Movement: Normal Lingual Movement Strgth Against Opposition: Normal Lingual Movement Characteristics: Normal Velopharyngeal Movement: Normal Laryngeal Elevation: WFL Laryngeal Movement: Able to Palpate Rate of Intake: Slow/Holding Bolus Size: Small Labial Seal: WFL Chewing: Impaired (efficient but slow, suspect sec to distractibility) A-P Transit: WFL Pocketing: None Timing of Swallow: Delayed Coughing/Throat Clear: No Change in Voice: No Recommendations - Speech Evaluation, Impression/Plan Impression: Mastication efficient but slow, suspect sec to distractibility. Pt has full set of dentures now, well fitting. Needs assistance with meals. If insufficient PO acceptance, may need to downgrade diet to Chopped. No overt signs of aspiration. - Dysphagia Impressions/Plan Dysphagia Impressions: Mild Impairment *Silent aspiration: cannot be R/O at bedside Dysphagia Treatment Plan: Small Bites, Chin Tuck/Down, Clear Pocket Food, Facilitative Feeding, Safe Rate, 1/2 tsp. at a time, Elevate HOB during feed - Recommendations Diet Consistency: Dysphagia Whole Liquids: Thin Liquids Supplement: Ensure, Magic Cup, Ensure Pudding, Other (Supplement between meals)
[2019-03-28] MEDS: POTASSIUM CHLORIDE TABS 10 MEQ TABLET.ER (FP) PO SCH (10:30)
[2019-03-28] MEDS: POTASSIUM CHLORIDE 10 MEQ in SODIUM CHLORIDE 1,000 ML IVPB SCH ×2 (11:30→22:38)
--- NOTE | 2019-03-28 12:10 | CON.GI ---
Consult Consult Specialty:: Gastroenterology Referred by:: Dr. 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 No: AFIB Gastrointestinal: Yes: Esophageal Varices, Other (cirrhosis) Hepatobiliary: Yes: Cirrhosis Musculoskeletal: Yes: Osteoarthritis Endocrine: Yes: Diabetes Mellitus, Hypothyroidism - Past Surgical History Past Surgical History: Yes: Cholecystectomy, Hysterectomy - Alcohol/Substance Use Hx Alcohol Use: No - Smoking History Smoking history: Never smoked Have you smoked in the past 12 months: No - Social History Usual Living Arrangement: Intermediate ADL: Support Services Home Medications - Allergies Allergies/Adverse Reactions: Allergies Allergy/AdvReac Type Severity Reaction Status Date / Time No Known Drug Allergies Allergy Verified 03/27/19 17:24 - Home Medications Home Medications: Ambulatory Orders Furosemide [Lasix] 40 mg PO TID 10/07/18 Levothyroxine [Synthroid -] 75 mcg PO AM #30 tablet 10/13/18 metFORMIN HCL [Glucophage -] 500 mg PO BID #60 tab 11/20/18 Lactulose (Oral Use) [Cephulac -] 20 gm PO Q6H 03/05/19 Lisinopril [Prinivil] 5 mg PO DAILY 03/05/19 Metolazone 5 mg PO DAILY 03/10/19 Potassium Chloride [K-Dur -] 20 meq PO BID #60 tablet.er 03/10/19 Rifaximin [Xifaxan -] 550 mg PO BID #60 tablet 03/10/19 Insulin Sliding Scale [Novolog Vial Sliding Scale -] 0 units SQ TIDAC 03/27/19 Nadolol 20 mg PO DAILY 03/27/19 Physical Exam-GI Vital Signs: Vital Signs Temperature 97.5 F L 03/28/19 08:00 Pulse Rate 82 03/28/19 08:00 Respiratory Rate 20 03/28/19 08:00 Blood Pressure 107/57 L 03/28/19 08:00 O2 Sat by Pulse Oximetry (%) 97 03/28/19 09:00 Labs: CBC, BMP 03/28/19 05:43 03/28/19 05:43 INR, PTT INR 1.37 (0.83-1.09) H 03/27/19 18:30
--- NOTE | 2019-03-28 12:32 | CON.GI ---
Consult Consult Specialty:: Gastroenterology Referred by:: Dr. 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 Pt previously seen by Dr. Hamilton, most recently hospitalized on 03/15/19. Pt poor historian states she has cirrhosis though unclear of reason for admission. Reports feeling well today, denies abdominal pain, n/v, tolerating diet, moving bowels per nursing staff. No blood reported. More alert today per staff. Spoke with pts son Dewey who provided history reporting pt had increased weakness, confusion and poor po intake prompting hospitalization. Pts son expressing concern that pt has not been receiving her medications consistently and is looking into placement at alternate facilities. Pt also with known left lobe liver mass seen on prior imaging however pts son refused further interventions/ biopsy. UA and urine culture positive in ED, started on Rocephin. Abd US (02/2019): Cirrhotic liver, left hepatic lobe lesion measuring 4.[address] abd (08/2017): Cirrhotic appearing liver, hypodense mass within the left lobe of the liver measuring 3.1 x 2.4 x 3.8cm MRI/MRCP (2017): left lobe mass appearing consistent with HCC. - History Source History Provided By: Patient, Family Member, Medical Record - Past Medical History [employer]: Yes: Other (hepatic encephalopathy) Cardio/Vascular: Yes: CHF, HTN. No: AFIB Gastrointestinal: Yes: Esophageal Varices, Other (cirrhosis) Hepatobiliary: Yes: Cirrhosis Musculoskeletal: Yes: Osteoarthritis Endocrine: Yes: Diabetes Mellitus, Hypothyroidism - Past Surgical History Past Surgical History: Yes: Cholecystectomy, Hysterectomy - Alcohol/Substance Use Hx Alcohol Use: No - Smoking History Smoking history: Never smoked Have you smoked in the past 12 months: No - Social History Usual Living Arrangement: Halfway ADL: Support Services Home Medications - Allergies Allergies/Adverse Reactions: Allergies Allergy/AdvReac Type Severity Reaction Status Date / Time No Known Drug Allergies Allergy Verified 03/27/19 17:24 - Home Medications Home Medications: Ambulatory Orders Furosemide [Lasix] 40 mg PO TID 10/07/18 Levothyroxine [Synthroid -] 75 mcg PO AM #30 tablet 10/13/18 metFORMIN HCL [Glucophage -] 500 mg PO BID #60 tab 11/20/18 Lactulose (Oral Use) [Cephulac -] 20 gm PO Q6H 03/05/19 Lisinopril [Prinivil] 5 mg PO DAILY 03/05/19 Metolazone 5 mg PO DAILY 03/10/19 Potassium Chloride [K-Dur -] 20 meq PO BID #60 tablet.er 03/10/19 Rifaximin [Xifaxan -] 550 mg PO BID #60 tablet 03/10/19 Insulin Sliding Scale [Novolog Vial Sliding Scale -] 0 units SQ TIDAC 03/27/19 Nadolol 20 mg PO DAILY 03/27/19 Review of Systems Findings/Remarks: Pt poor historian, no complaints on my evaulation - Review of Systems Constitutional: reports: No Symptoms Cardiovascular: reports: No Symptoms Respiratory: reports: No Symptoms Gastrointestinal: reports: No Symptoms Physical Exam-GI Vital Signs: Vital Signs Temperature 97.5 F L 03/28/19 08:00 Pulse Rate 82 03/28/19 08:00 Respiratory Rate 20 03/28/19 08:00 Blood Pressure 107/57 L 03/28/19 08:00 O2 Sat by Pulse Oximetry (%) 97 03/28/19 09:00 Constitutional: Yes: Well Nourished, No Distress, Calm, Other (Alert, oriented x 2 (person, place)) Cardiovascular: Yes: WNL, Regular Rate and Rhythm Respiratory: Yes: WNL, Regular, CTA Bilaterally ...Palpate: Yes: Other (Abd soft, nt, nd, no appreciable ascites) Extremities: Yes: Other (no LE edema) Labs: CBC, BMP 03/28/19 05:43 03/28/19 05:43 INR, PTT INR 1.37 (0.83-1.09) H 03/27/19 18:30 Imaging - Results Ultrasound: Report Reviewed Problem List - Problems (1) Hepatic encephalopathy Assessment/Plan: 83yo female h/o 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 Possible medication noncompliance also contributing. LFTs with mild stable elevation. No overt bleeding. MELD 16. -Continue complete infectious workup including cultures/sensitivities -Continue antibiotics per ID -Repeat Abd US -Lactulose 30ml tid titrate to 2-3 loose bms -Rifaximin 550mg bid -Can monitor clinically, no need to monitor daily ammonia levels -2g Na diet, consistency per [employer] recommendations -Diuretics on hold until renal function improves Code(s): K72.90 - HEPATIC FAILURE, UNSPECIFIED WITHOUT COMA (2) Liver lesion, left lobe Assessment/Plan: Left hepatic lobe lesion appears increased in size on prior US with suspicion for HCC. AFP normal. LFTs stable. -Repeat abd US -Discussed previous imaging findings from MRI and CT of which son is aware including suspicion for HCC - pts son verbalized understanding and still opting for conservative measures and refuses further intervention/treatments at this time. Code(s): K76.9 - LIVER DISEASE, UNSPECIFIED
[2019-03-28] MEDS: LACTULOSE 20 GM/30 ML UDC (FOR ORAL USE ONLY) PO PRN (13:16)
--- NOTE | 2019-03-28 15:24 | PN ---
Progress Note (short form) - Note Progress Note: ID consult dictated imp/reccd 83 yo female with liver cirrhosis - currently at SNF for rehab, admitted with lethargy and poor po intake for last 2 days she has a chronic mo at the [place] no fevers known liver mass- son has declined treatment suspect UTI dehydration liver cirrhosis with varices and hepatic encephalopathy liver mass jackelyn lactic acidosis prior enterococcus in urine culture given vancomycin and zosyn in ED now on ceftriaxone will redose vancomycin after checking level and f/u cultures family at bedside reports improved mental status continue hydration Problem List - Problems (1) Hepatic encephalopathy Code(s): K72.90 - HEPATIC FAILURE, UNSPECIFIED WITHOUT COMA (2) UTI (urinary tract infection) Code(s): N39.0 - URINARY TRACT INFECTION, SITE NOT SPECIFIED (3) Cirrhosis Code(s): K74.60 - UNSPECIFIED CIRRHOSIS OF LIVER (4) JACKELYN (acute kidney injury) Code(s): N17.9 - ACUTE KIDNEY FAILURE, UNSPECIFIED (5) Lactic acid acidosis Code(s): E87.2 - ACIDOSIS
[2019-03-28] MEDS ORDERED: INSULIN (NOVOLOG) ASPART 100 UNITS/ML 10ML VIAL ONE (16:15)
[2019-03-28] MEDS ORDERED: PT OWN MED DRAWER 7, Y5N ONE (17:40)
--- NOTE | 2019-03-28 19:07 | CONS ---
DATE OF CONSULTATION: DATE OF DICTATION: 03/28/2019 INFECTIOUS DISEASE CONSULTATION REQUESTING PHYSICIAN: Rose Cárdenas M.D. CONSULTING PHYSICIAN: Lisa Mauro M.D. HISTORY OF PRESENT ILLNESS: This is an 83-year-old woman with a history of liver cirrhosis for many years. She has esophageal varices. She gets recurrent hepatic encephalopathy. She was recently discovered to have a liver mass that family has elected not to pursue. The currently has [facility]. The family reports that she has really not been able to complete any rehabilitation therapy, because every time she goes there, her appetite becomes very poor, she stops eating, she gets dehydrated, and gets readmitted to the hospital. She presents again yesterday with poor appetite and lethargy for the last 2 days. No fevers or chills. She was evaluated in the ER. She was noted to be extremely dehydrated with low blood pressure. She was given IV fluids with improvement. She was noted to have a positive urinalysis. She had a Nathan in place at the detention; it was unclear if it was changed in the ER. The nurse is unable to document this. She has had an elevated ammonia level as well. She was given vancomycin and Zosyn in the ER, and I was asked to see her for further evaluation. PAST MEDICAL HISTORY: Notable for liver cirrhosis with hepatic encephalopathy in the past and esophageal varices, hypertension, hyperlipidemia, diabetes, hypothyroidism, anemia, thrombocytopenia. SURGICAL HISTORY: Notable for hysterectomy and appendectomy. As well she has diagnosis of recent liver mass. FAMILY HISTORY: Notable for a brother with liver cirrhosis. SOCIAL HISTORY: Unremarkable. She has a lot of family support, and they have been seeing her daily at the detention. MEDICATION: Her medications at the detention include furosemide, Synthroid, Glucophage, lactulose, Prinivil, metolazone, K-Dur, rifaximin, insulin, and nadolol. REVIEW OF SYSTEMS: Per the family is notable for the poor fluid intake. They say she is not really eating well. They deny any vomiting, and she has not had any abdominal pain. They state that since she has come back, been admitted yesterday, that her mental status has markedly improved. Her prior imaging studies reveal a cirrhotic liver with a left liver lobe lesion measuring 3 x 2.4 x 3.8 cm mass. Her review of systems is as per HPI. No other review of systems could be obtained. PHYSICAL EXAMINATION: VITAL SIGNS: Temperature is 97.5, pulse is 82, blood pressure 107/57, respiratory rate 20. She is saturating 97%. HEENT: Normocephalic. Eyes are anicteric. NECK: Supple. She has no meningeal signs. LUNGS: Diminished breath sounds at the bases. HEART: Regular rate and rhythm. ABDOMEN: Soft, nontender. EXTREMITIES: Without edema. GENITOURINARY: She has a Nathan that is now draining clear urine. LABORATORY: Her white count is 3.1, hemoglobin 10.4, platelets are 56 which is her baseline, INR is 1.3, BUN and creatinine are 38 and 1.5 with a total bilirubin of 1.8, and ammonia level of 114. Urinalysis showed 3+ leukocytes with 971 white cells. She had a chest x-ray done that was normal. IMPRESSION: In summary, this is an 83-year-old woman with advanced liver cirrhosis admitted with dehydration, hepatic encephalopathy, in the setting of UTI. She has a known liver mass and now has acute kidney injury with lactic acidosis. She has prior enterococcus in the urine. She was given vancomycin and Zosyn in the emergency room and is now on ceftriaxone. We will re-dose vancomycin after checking level. Follow up her cultures. Family at bedside reports improved mental status. Would continue hydration as well. We will also see if we can document if the Nathan was changed, and if not we will change the Nathan and repeat a urine culture. LISA MAURO M.D. [id number]
[2019-03-28] MEDS: metFORMIN HCL 500 MG TABLET (FP) PO SCH ×2 (19:25→19:27)
[2019-03-28 19:43] LABS: EPI CELLS 26.1 /HPF (0-5/HPF); HYALINE CASTS 59 /lpf (0-8); PH,URINE 5.5 (5.0-8.0); URINE APPEARANCE CLOUDY; URINE BILIRUBIN NEGATIVE (NEGATIVE); URINE COLOR YELLOW; URINE GLUCOSE (UA) NEGATIVE (NEGATIVE); URINE KETONE NEGATIVE (NEGATIVE); URINE LEUK ESTERASE 3+ (NEGATIVE); URINE NITRITE NEGATIVE (NEGATIVE); URINE PROTEIN NEGATIVE (NEGATIVE); URINE WBC 24 /hpf (0-5)
[2019-03-28 22:38] LABS: URINE BACTERIA 17.1 /hpf (NEGATIVE); URINE RBC 3.7 /hpf (0-4)
[2019-03-29] MEDS: POTASSIUM CHLORIDE 10 MEQ in SODIUM CHLORIDE 1,000 ML IVPB SCH ×3 (01:46→17:05)
[2019-03-29] MEDS: INSULIN SLIDING SCALE (NOVOLOG) 1 VIAL SQ SCH ×2 (06:16→16:43)
[2019-03-29] MEDS: LEVOTHYROXINE NA 75 MCG TABLET (FP) PO SCH (06:41)
[2019-03-29 07:50] LABS: HEMATOCRIT 27.6 % (32.4-45.2); HEMOGLOBIN 9.6 GM/dL (10.7-15.3); MCH 33.1 pg (25.7-33.7); MCHC 34.9 g/dl (32.0-36.0); MEAN CELL VOLUME 94.9 fl (80-96); MEAN PLT VOLUME 11.3 fl (7.5-11.1); PLATELET COUNT 45 K/MM3 (134-434); RBC 2.91 M/mm3 (3.60-5.2); RDW 14.5 % (11.6-15.6)
[2019-03-29 08:05] LABS: ALBUMIN 2.1 g/dl (3.4-5.0); BILIRUBIN,TOTAL 1.7 mg/dL (0.2-1); BLOOD UREA NITROGEN 27.5 mg/dL (7-18); CALCIUM 8.2 mg/dL (8.5-10.1); MAGNESIUM 1.7 mg/dL (1.8-2.4); POTASSIUM 3.3 mmol/L (3.5-5.1); TOT PROT 4.9 g/dl (6.4-8.2)
[2019-03-29 08:41] LABS: WHITE BLOOD COUNT 1.4 K/mm3 (4.0-10.0)
[2019-03-29] MEDS ORDERED: PT OWN MED DRAWER 7, Y5N ONE ×4 (10:20→17:01)
[2019-03-29] MEDS ORDERED: DEXTROSE 5%-WATER - 50 ML IVPB ONE ×2 (10:20→18:44)
[2019-03-29] MEDS ORDERED: cefTRIAXone SODIUM 1 GM VIAL ONE (10:20)
[2019-03-29] MEDS: POTASSIUM CHLORIDE TABS 10 MEQ TABLET.ER (FP) PO SCH (10:24)
[2019-03-29] MEDS: RIFAXIMIN 550 MG TABLET (UD) PO SCH ×2 (10:24→21:32)
[2019-03-29] MEDS: CEFTRIAXONE 1 GM in DEXTROSE 5%-WATER - 50 ML IVPB SCH (10:25)
[2019-03-29] MEDS: HEPARIN NA (PORCINE) 5,000 UNITS/ML 1ML VIAL SQ SCH ×2 (10:26→21:32)
--- NOTE | 2019-03-29 11:59 | PN ---
Progress Note, Physician Chief Complaint: awake more alert deneis fever or chills hungry - Current Medication List Current Medications: Active Medications Heparin Sodium (Porcine) (Heparin -) 5,000 unit SQ BID [facility] Last Admin: 03/29/19 10:26 Dose: 5,000 unit Ceftriaxone Sodium 1 gm/ (Dextrose) 50 mls @ 100 mls/hr IVPB DAILY [facility] Last Admin: 03/29/19 10:25 Dose: 100 mls/hr Potassium Chloride 10 meq/ (Sodium Chloride) 1,005 mls @ 75 mls/hr IVPB Q13H [facility] Last Admin: 03/29/19 01:46 Dose: 75 mls/hr Insulin Aspart (Novolog Vial Sliding Scale -) 1 vial SQ BIDAC [facility]; Protocol Last Admin: 03/29/19 06:16 Dose: Not Given Lactulose (Cephulac (Oral Use)) 20 gm PO TID PRN PRN Reason: CONSTIPATION Last Admin: 03/28/19 13:16 Dose: 20 gm Levothyroxine Sodium (Synthroid -) 75 mcg PO AM [facility] Last Admin: 03/29/19 06:41 Dose: 75 mcg Potassium Chloride (K-Dur -) 10 meq PO DAILY [facility] Last Admin: 03/29/19 10:24 Dose: 10 meq Rifaximin (Xifaxan -) 550 mg PO BID [facility] Last Admin: 03/29/19 10:24 Dose: 550 mg - Objective Vital Signs: Vital Signs Temperature 97.8 F 03/29/19 07:04 Pulse Rate 70 03/29/19 07:04 Respiratory Rate 20 03/29/19 07:04 Blood Pressure 98/50 L 03/29/19 07:04 O2 Sat by Pulse Oximetry (%) 97 03/28/19 21:00 Constitutional: Yes: Mild Distress HENT: Yes: WNL Cardiovascular: Yes: Regular Rate and Rhythm Respiratory: Yes: WNL Gastrointestinal: Yes: Soft Musculoskeletal: Yes: Muscle Weakness Neurological: Yes: Confusion Labs: CBC, BMP 03/29/19 07:00 03/29/19 07:00 INR, PTT INR 1.37 (0.83-1.09) H 03/27/19 18:30 Problem List - Problems (1) Toxic metabolic encephalopathy Code(s): G92 - TOXIC ENCEPHALOPATHY (2) Hyperammonemia Code(s): E72.20 - DISORDER OF UREA CYCLE METABOLISM, UNSPECIFIED (3) Hypotension Code(s): I95.9 - HYPOTENSION, UNSPECIFIED (4) UTI (urinary tract infection) Code(s): N39.0 - URINARY TRACT INFECTION, SITE NOT SPECIFIED (5) Cirrhosis Code(s): K74.60 - UNSPECIFIED CIRRHOSIS OF LIVER (6) Hepatic encephalopathy Code(s): K72.90 - HEPATIC FAILURE, UNSPECIFIED WITHOUT COMA Assessment/Plan IV ABX PER ID SWALLOW EVAL DYSPHAGIA WORKUP PT EVAL leukopeni precautions neurology f/u DVT PROPHYLAXIS NEURO WORKUP IN PROGRESS KCL ADDED TO NS IV FLUIDS RENAL F/U
[2019-03-29 16:26] VITALS: BMI 23.7
--- NOTE | 2019-03-29 18:36 | PN ---
Progress Note (short form) - Note Progress Note: so alert awake eating dinner son at bedside Vital Signs Period Temp Pulse Resp BP Sys/Parker Pulse Ox Last 24 Hr 97.7 F-98.5 F 68-79 16-20 96-109/50-54 97 cor-rrr lungs clear abd soft,nt ext no edema mo- urine cloudy CBC, BMP 03/29/19 07:00 03/29/19 07:00 Microbiology 03/27/19 21:20 Urine - Urine Mo Urine Culture - Preliminary Lactose Fermenting Neg Bacilli Group D Strep Or Entero Coccus 03/27/19 21:20 Blood - Peripheral Venous Blood Culture - Preliminary NO GROWTH OBTAINED AFTER 24 HOURS, INCUBATION TO CONTINUE FOR 4 DAYS. 03/27/19 21:20 Blood - Peripheral Venous Blood Culture - Preliminary NO GROWTH OBTAINED AFTER 24 HOURS, INCUBATION TO CONTINUE FOR 4 DAYS. a/p suspect UTI dehydration liver cirrhosis with varices and hepatic encephalopathy liver mass jackelyn lactic acidosis switch to zosyn, repeat urine culture after mo change sent neutropenic precautions repeat labs in am Problem List - Problems (1) Hepatic encephalopathy Code(s): K72.90 - HEPATIC FAILURE, UNSPECIFIED WITHOUT COMA (2) UTI (urinary tract infection) Code(s): N39.0 - URINARY TRACT INFECTION, SITE NOT SPECIFIED (3) Cirrhosis Code(s): K74.60 - UNSPECIFIED CIRRHOSIS OF LIVER (4) JACKELYN (acute kidney injury) Code(s): N17.9 - ACUTE KIDNEY FAILURE, UNSPECIFIED (5) Lactic acid acidosis Code(s): E87.2 - ACIDOSIS
[2019-03-29] MEDS ORDERED: PIPERACILLIN/TAZOBACTAM 3.375 GM VIAL IVPB ONE (18:44)
[2019-03-29] MEDS: PIPERACILLIN/TAZOB 3.375 GM 3.375 GM in DEXTROSE 5%-WATER - 50 ML IVPB SCH (18:48)
--- NOTE | 2019-03-29 20:57 | PN ---
Progress Note (short form) - Note Progress Note: Patient seen and examined 83 yo female pmh liver mass, HTN, HLD, DM, Hypothyroidism and recently diagnosed hepatic encephalopathy presents from [facility] to the ED with hypotension and poor appetite as per family. Pt recently admitted for new onset hepatic encephalopathy, no cause found, pt continues treatment on lactulose and xifaxin daily. - Past Medical History Anemia: Yes (thrombocytopenia) Diabetes: Yes (DIET CONTROLLED) GI Disorders: Yes (H. PYLORI; DILATED CBD) HTN: Yes Hypercholesterolemia: Yes Liver Disease: Yes (LIVER CIRRHOSIS, mass, hyperkalemia) Thyroid Disease: Yes (DNR/DNI, osteoarthritis) - Surgical History Abdominal Surgery: Yes Cholecystectomy: Yes - Immunization History Immunization Up to Date: Yes - Suicide/Smoking/Psychosocial Hx Smoking History: Never smoked Allergies/Adverse Reactions: Allergies Allergy/AdvReac Type Severity Reaction Status Date / Time No Known Drug Allergies Allergy Verified 03/27/19 17:24 Home Medications: Ambulatory Orders Furosemide [Lasix] 40 mg PO TID 10/07/18 Levothyroxine [Synthroid -] 75 mcg PO AM #30 tablet 10/13/18 metFORMIN HCL [Glucophage -] 500 mg PO BID #60 tab 11/20/18 Lactulose (Oral Use) [Cephulac -] 20 gm PO Q6H 03/05/19 Lisinopril [Prinivil] 5 mg PO DAILY 03/05/19 Metolazone 5 mg PO DAILY 03/10/19 Potassium Chloride [K-Dur -] 20 meq PO BID #60 tablet.er 03/10/19 Rifaximin [Xifaxan -] 550 mg PO BID #60 tablet 03/10/19 Insulin Sliding Scale [Novolog Vial Sliding Scale -] 0 units SQ TIDAC 03/27/19 Nadolol 20 mg PO DAILY 03/27/19 Active Medications Generic Name Dose Route Start Last Admin Trade Name Freq PRN Reason Stop Dose Admin Heparin Sodium (Porcine) 5,000 unit 03/28/19 10:00 03/29/19 10:26 Heparin - SQ 5,000 unit BID [facility] Administration Potassium Chloride 10 meq/ 1,005 mls @ 75 mls/hr 03/28/19 09:55 03/29/19 17: 05 Sodium Chloride IVPB Not Given Q13H [facility] Piperacillin Sod/Tazobactam 50 mls @ 100 mls/hr 03/29/19 18:45 03/29/19 18:48 Sod 3.375 gm/ Dextrose IVPB 100 mls/hr Q8H-IV [facility] Administration Protocol Insulin Aspart 1 vial 03/28/19 07:00 03/29/19 16:43 Novolog Vial Sliding Scale - SQ 4 units BIDAC [facility] Administration Protocol Lactulose 20 gm 03/28/19 06:00 03/28/19 13:16 Cephulac (Oral Use) PO 20 gm TID PRN Administration CONSTIPATION Levothyroxine Sodium 75 mcg 03/28/19 07:00 03/29/19 06:41 Synthroid - PO 75 mcg AM [facility] Administration Potassium Chloride 10 meq 03/28/19 10:00 03/29/19 10:24 K-Dur - PO 10 meq DAILY [facility] Administration Rifaximin 550 mg 03/28/19 10:00 03/29/19 10:24 Xifaxan - PO 550 mg BID [facility] Administration Last Vital Signs Temp Pulse Resp BP Pulse Ox 98.5 F 79 20 109/51 L 97 03/29/19 17:52 03/29/19 17:52 03/29/19 17:52 03/29/19 17:52 03/28/19 21:00 Cor: RSR, No murmurs, No gallops Lungs: Clear to P&A Abd: Soft, Normal bowel sounds, No organomegaly Ext:No significant edema Labs/Meds reviewed A/P 83 yo female pmh liver mass, HTN, HLD, DM, Hypothyroidism and recently diagnosed hepatic encephalopathy presents from [facility] to the ED with hypotension and poor appetite . Pt recently admitted for new onset hepatic encephalopathy, no cause found, pt continues treatment on lactulose and xifaxin daily. On zosyn for presumed UTI Left hepatic lobe lesion 3.3 cm left hepatic lobe lesion noted on CT scan 03/09/19 U/S -- main portal vein thrombosis/ increased size of left hepaticc lobe lesion increasing size of left hepatic lobe lesion AFP/CEA nl in 04/02 Patient refusing further w/u with buiopsy at this time. Understands that this could compromise her outcome from presumed hepatoma. But she is adamant about deferring w/u and treatment until family issues are resolved. Portal v. thrombosis--will reconsult gi regardingportal vein thrombosis thrombocytopenic and coagulopathic from liver disease--not an ideal candidate for a/c PAncytopenic/coagulopathic from liver disease monitor
[2019-03-30] MEDS ORDERED: DEXTROSE 5%-WATER - 50 ML IVPB ONE ×4 (00:21→23:33)
[2019-03-30] MEDS ORDERED: PIPERACILLIN/TAZOBACTAM 3.375 GM VIAL IVPB ONE ×4 (00:21→23:33)
[2019-03-30] MEDS: PIPERACILLIN/TAZOB 3.375 GM 3.375 GM in DEXTROSE 5%-WATER - 50 ML IVPB SCH ×3 (01:51→17:21)
[2019-03-30] MEDS: POTASSIUM CHLORIDE 10 MEQ in SODIUM CHLORIDE 1,000 ML IVPB SCH ×2 (01:51→13:47)
[2019-03-30] MEDS: LEVOTHYROXINE NA 75 MCG TABLET (FP) PO SCH (06:19)
[2019-03-30] MEDS: INSULIN SLIDING SCALE (NOVOLOG) 1 VIAL SQ SCH ×2 (06:20→17:22)
[2019-03-30 07:55] LABS: BASO % 0.5 % (0-2.0); HEMOGLOBIN 9.4 GM/dL (10.7-15.3); LYMPH % 36.6 % (8-40); MCH 32.8 pg (25.7-33.7); MCHC 34.9 g/dl (32.0-36.0); MEAN CELL VOLUME 94.1 fl (80-96); MEAN PLT VOLUME 11.2 fl (7.5-11.1); MONO % 13.8 % (3.8-10.2); NEUT % 45.1 % (42.8-82.8); PLATELET COUNT 44 K/MM3 (134-434); RBC 2.87 M/mm3 (3.60-5.2); RDW 14.4 % (11.6-15.6)
[2019-03-30 08:13] LABS: BILIRUBIN,TOTAL 1.4 mg/dL (0.2-1); BLOOD UREA NITROGEN 20.8 mg/dL (7-18); CALCIUM 8.1 mg/dL (8.5-10.1); CREATININE 0.9 mg/dL (0.55-1.3); POTASSIUM 3.3 mmol/L (3.5-5.1); TOT PROT 4.9 g/dl (6.4-8.2)
[2019-03-30 08:22] LABS: WHITE BLOOD COUNT 1.5 K/mm3 (4.0-10.0)
[2019-03-30 08:32] LABS: INR 1.44 (0.83-1.09)
[2019-03-30 08:35] LABS: ACTIVATED PTT 48.1 SECONDS (25.2-36.5)
[2019-03-30] MEDS ORDERED: MAGNESIUM SULF 50% (8.12 MEQ/2 ML-1 GM VIAL) IVPB ONE (09:36)
[2019-03-30] MEDS ORDERED: POTASSIUM CHLORIDE TABS 10 MEQ TABLET.ER (FP) PO ONE (09:36)
--- NOTE | 2019-03-30 09:39 | PN ---
Progress Note, Physician Chief Complaint: asleep comfortable denies cp or sob , no fevers - Current Medication List Current Medications: Active Medications Heparin Sodium (Porcine) (Heparin -) 5,000 unit SQ BID [facility] Last Admin: 03/29/19 21:32 Dose: 5,000 unit Potassium Chloride 10 meq/ (Sodium Chloride) 1,005 mls @ 75 mls/hr IVPB Q13H [facility] Last Admin: 03/30/19 01:51 Dose: Not Given Piperacillin Sod/Tazobactam (Sod 3.375 gm/ Dextrose) 50 mls @ 100 mls/hr IVPB Q8H-IV [facility]; Protocol Last Admin: 03/30/19 01:51 Dose: 100 mls/hr Insulin Aspart (Novolog Vial Sliding Scale -) 1 vial SQ BIDAC [facility]; Protocol Last Admin: 03/30/19 06:20 Dose: Not Given Lactulose (Cephulac (Oral Use)) 20 gm PO TID PRN PRN Reason: CONSTIPATION Last Admin: 03/28/19 13:16 Dose: 20 gm Levothyroxine Sodium (Synthroid -) 75 mcg PO AM [facility] Last Admin: 03/30/19 06:19 Dose: 75 mcg Potassium Chloride (K-Dur -) 10 meq PO DAILY [facility] Last Admin: 03/29/19 10:24 Dose: 10 meq Rifaximin (Xifaxan -) 550 mg PO BID [facility] Last Admin: 03/29/19 21:32 Dose: 550 mg - Objective Vital Signs: Vital Signs Temperature 98.2 F 03/30/19 07:45 Pulse Rate 82 03/30/19 07:45 Respiratory Rate 20 03/30/19 07:45 Blood Pressure 114/52 L 03/30/19 07:45 O2 Sat by Pulse Oximetry (%) 97 03/29/19 21:00 Constitutional: Yes: Mild Distress Cardiovascular: Yes: Regular Rate and Rhythm Respiratory: Yes: WNL Gastrointestinal: Yes: WNL Genitourinary: Yes: Incontinence Extremities: Yes: WNL Edema: No Integumentary: Yes: WNL Wound/Incision: Yes: Clean/Dry Neurological: Yes: Confusion, Pre-Existing Deficit ...Motor Strength: LLE, RLE Psychiatric: Yes: Other Labs: CBC, BMP 03/30/19 07:30 03/30/19 07:30 INR, PTT INR 1.44 (0.83-1.09) H 03/30/19 07:30 Problem List - Problems (1) Toxic metabolic encephalopathy Code(s): G92 - TOXIC ENCEPHALOPATHY (2) Hyperammonemia Code(s): E72.20 - DISORDER OF UREA CYCLE METABOLISM, UNSPECIFIED (3) Hypotension Code(s): I95.9 - HYPOTENSION, UNSPECIFIED (4) UTI (urinary tract infection) Code(s): N39.0 - URINARY TRACT INFECTION, SITE NOT SPECIFIED (5) Cirrhosis Code(s): K74.60 - UNSPECIFIED CIRRHOSIS OF LIVER (6) Hepatic encephalopathy Code(s): K72.90 - HEPATIC FAILURE, UNSPECIFIED WITHOUT COMA Assessment/Plan IV ABX PER ID SWALLOW EVAL DYSPHAGIA WORKUP PT EVAL leukopeni precautions neurology f/u DVT PROPHYLAXIS NEURO WORKUP IN PROGRESS KCL ADDED TO NS IV FLUIDS RENAL F/U
[2019-03-30] MEDS: POTASSIUM CHLORIDE TABS 10 MEQ TABLET.ER (FP) PO SCH (09:59)
[2019-03-30] MEDS: HEPARIN NA (PORCINE) 5,000 UNITS/ML 1ML VIAL SQ SCH ×2 (10:00→21:48)
[2019-03-30] MEDS: RIFAXIMIN 550 MG TABLET (UD) PO SCH ×2 (10:00→21:48)
--- NOTE | 2019-03-30 11:31 | PN ---
Progress Note, CRNA - Note Progress Note: Selected Entries 03/29/19 03/29/19 03/29/19 07:04 08:20 14:00 Breakfast Lunch Supper Temperature 97.8 F 97.7 F 98 F 03/29/19 03/29/19 03/29/19 15:00 17:52 22:37 Breakfast 50% Lunch 75% Supper 25% Temperature 98.5 F 03/30/19 03/30/19 07:45 09:59 Breakfast Lunch Supper Temperature 98.2 F 98.2 F Laboratory Tests 03/28/19 03/29/19 03/30/19 05:43 07:00 07:30 WBC 3.1 L 1.4 L* 1.5 L* On Dys whole diet/thin liquids Neutopenic Isolation
--- NOTE | 2019-03-30 11:54 | EKG ---
Test Reason : Blood Pressure : / mmHG Vent. Rate : 070 BPM Atrial Rate : 070 BPM P-R Int : 172 ms QRS Dur : 074 ms QT Int : 468 ms P-R-T Axes : 034 044 076 degrees QTc Int : 505 ms NORMAL SINUS RHYTHM NONSPECIFIC ST AND T WAVE ABNORMALITY PROLONGED QT ABNORMAL ECG WHEN COMPARED WITH ECG OF 15-MAR-2019 16:23, RI INTERVAL HAS INCREASED Confirmed by ANABEL DUNN MD ([id number]) on 03/30/2019 11:54:33 AM Referred By: Confirmed By:ANABEL DUNN MD
[2019-03-30] MEDS: LACTULOSE 20 GM/30 ML UDC (FOR ORAL USE ONLY) PO PRN ×2 (13:47→17:21)
--- NOTE | 2019-03-30 16:14 | PN ---
Progress Note (short form) - Note Progress Note: Patient seen and examined Responds to simple questions OOB to chair with assistance of 2 ersons Poor p.o. intake Last Vital Signs Temp Pulse Resp BP Pulse Ox 98.2 F 69 16 97/45 L 97 03/30/19 09:59 03/30/19 09:59 03/30/19 09:59 03/30/19 09:59 03/30/19 09:00 Anicteric Lungs - clear Cor-RSR Soft abd, ventral hernia Ext- SCD CBC, BMP 03/30/19 07:30 03/30/19 07:30 Current Medications Generic Name Dose Route Start Last Admin Trade Name Freq PRN Reason Stop Dose Admin Heparin Sodium (Porcine) 5,000 unit 03/28/19 10:00 03/30/19 10:00 Heparin - SQ 5,000 unit BID [facility] Administration Potassium Chloride 10 meq/ 1,005 mls @ 75 mls/hr 03/28/19 09:55 03/30/19 13: 47 Sodium Chloride IVPB 75 mls/hr Q13H [facility] Administration Piperacillin Sod/Tazobactam 50 mls @ 100 mls/hr 03/29/19 18:45 03/30/19 10:00 Sod 3.375 gm/ Dextrose IVPB 100 mls/hr Q8H-IV [facility] Administration Protocol Insulin Aspart 1 vial 03/28/19 07:00 03/30/19 06:20 Novolog Vial Sliding Scale - SQ Not Given BIDAC [facility] Protocol Lactulose 20 gm 03/28/19 06:00 03/30/19 13:47 Cephulac (Oral Use) PO 20 gm TID PRN Administration CONSTIPATION Levothyroxine Sodium 75 mcg 03/28/19 07:00 03/30/19 06:19 Synthroid - PO 75 mcg AM [facility] Administration Potassium Chloride 10 meq 03/28/19 10:00 03/30/19 09:59 K-Dur - PO 10 meq DAILY [facility] Administration Rifaximin 550 mg 03/28/19 10:00 03/30/19 10:00 Xifaxan - PO 550 mg BID [facility] Administration Impression: Hepatic encephalopathy Cryptogenic cirrhosis UTI on antibiotics Pancytopenia Liver mass- --09/01----> 3.1 x 3.7 (MRI); 04/01 ---> 4.1 x 3.8 Plan: Neupogen Suspect neutropenia secondary to liver disease, hypersplenism and UTI Monitor CBC
[2019-03-30] MEDS ORDERED: PT OWN MED DRAWER 7, Y5N ONE (17:16)
[2019-03-30] MEDS: TBO-FILGRASTIM 300 MCG/0.5 ML DISP.SYRINGE SQ SCH (17:33)
[2019-03-30 23:44] LABS: PLATELET ESTIMATE MOD DECREASED
[2019-03-31] MEDS: PIPERACILLIN/TAZOB 3.375 GM 3.375 GM in DEXTROSE 5%-WATER - 50 ML IVPB SCH ×3 (01:33→17:20)
[2019-03-31] MEDS: POTASSIUM CHLORIDE 10 MEQ in SODIUM CHLORIDE 1,000 ML IVPB SCH ×3 (04:50→22:34)
[2019-03-31] MEDS: LEVOTHYROXINE NA 75 MCG TABLET (FP) PO SCH (06:00)
[2019-03-31] MEDS: INSULIN SLIDING SCALE (NOVOLOG) 1 VIAL SQ SCH ×2 (06:00→17:21)
[2019-03-31 08:34] LABS: BASO % 0.2 % (0-2.0); EOS % 1.3 % (0-4.5); HEMATOCRIT 27.6 % (32.4-45.2); HEMOGLOBIN 9.7 GM/dL (10.7-15.3); LYMPH % 10.3 % (8-40); MCH 33.5 pg (25.7-33.7); MCHC 35.1 g/dl (32.0-36.0); MEAN CELL VOLUME 95.5 fl (80-96); MEAN PLT VOLUME 10.8 fl (7.5-11.1); NEUT % 82.2 % (42.8-82.8); PLATELET COUNT 44 K/MM3 (134-434); RBC 2.89 M/mm3 (3.60-5.2); RDW 14.9 % (11.6-15.6); WHITE BLOOD COUNT 6.3 K/mm3 (4.0-10.0)
[2019-03-31 08:53] LABS: BILIRUBIN,TOTAL 2.1 mg/dL (0.2-1); BLOOD UREA NITROGEN 16.3 mg/dL (7-18); CALCIUM 8.2 mg/dL (8.5-10.1); CREATININE 0.9 mg/dL (0.55-1.3); MAGNESIUM 1.8 mg/dL (1.8-2.4); POTASSIUM 3.7 mmol/L (3.5-5.1); TOT PROT 4.9 g/dl (6.4-8.2)
[2019-03-31] MEDS ORDERED: PT OWN MED DRAWER 7, Y5N ONE ×2 (09:47→13:54)
[2019-03-31] MEDS ORDERED: PIPERACILLIN/TAZOBACTAM 3.375 GM VIAL IVPB ONE ×2 (09:47→17:16)
[2019-03-31] MEDS ORDERED: DEXTROSE 5%-WATER - 50 ML IVPB ONE ×2 (09:47→17:16)
[2019-03-31] MEDS: POTASSIUM CHLORIDE TABS 10 MEQ TABLET.ER (FP) PO SCH (09:51)
[2019-03-31] MEDS: RIFAXIMIN 550 MG TABLET (UD) PO SCH ×2 (09:51→22:34)
[2019-03-31] MEDS: HEPARIN NA (PORCINE) 5,000 UNITS/ML 1ML VIAL SQ SCH ×2 (09:53→22:34)
--- NOTE | 2019-03-31 10:48 | PN ---
Progress Note, Physician Chief Complaint: S/P NEUPOGEN TX NO FEVERS NO CHILLS - Current Medication List Current Medications: Active Medications Heparin Sodium (Porcine) (Heparin -) 5,000 unit SQ BID [facility] Last Admin: 03/31/19 09:53 Dose: 5,000 unit Potassium Chloride 10 meq/ (Sodium Chloride) 1,005 mls @ 75 mls/hr IVPB Q13H [facility] Last Admin: 03/31/19 06:41 Dose: 75 mls/hr Piperacillin Sod/Tazobactam (Sod 3.375 gm/ Dextrose) 50 mls @ 100 mls/hr IVPB Q8H-IV [facility]; Protocol Last Admin: 03/31/19 09:51 Dose: 100 mls/hr Insulin Aspart (Novolog Vial Sliding Scale -) 1 vial SQ BIDAC [facility]; Protocol Last Admin: 03/31/19 06:00 Dose: Not Given Lactulose (Cephulac (Oral Use)) 20 gm PO TID PRN PRN Reason: CONSTIPATION Last Admin: 03/30/19 17:21 Dose: 20 gm Levothyroxine Sodium (Synthroid -) 75 mcg PO AM [facility] Last Admin: 03/31/19 06:00 Dose: 75 mcg Potassium Chloride (K-Dur -) 10 meq PO DAILY [facility] Last Admin: 03/31/19 09:51 Dose: 10 meq Rifaximin (Xifaxan -) 550 mg PO BID [facility] Last Admin: 03/31/19 09:51 Dose: 550 mg Tbo-Filgrastim (Granix -) 300 mcg SQ DAILY [facility] Last Admin: 03/30/19 17:33 Dose: 300 mcg - Objective Vital Signs: Vital Signs Temperature 98 F 03/31/19 06:32 Pulse Rate 83 03/31/19 06:32 Respiratory Rate 18 03/31/19 06:32 Blood Pressure 139/65 03/31/19 06:32 O2 Sat by Pulse Oximetry (%) 97 03/30/19 21:00 Constitutional: Yes: No Distress Cardiovascular: Yes: Regular Rate and Rhythm Respiratory: Yes: WNL Gastrointestinal: Yes: Soft Genitourinary: Yes: Incontinence Musculoskeletal: Yes: Muscle Weakness Edema: No Neurological: Yes: Pre-Existing Deficit Labs: CBC, BMP 03/31/19 07:34 03/31/19 08:00 INR, PTT INR 1.44 (0.83-1.09) H 03/30/19 07:30 Fibrinogen 214.0 mg/dL (238-498) L 03/30/19 07:30 Problem List - Problems (1) Toxic metabolic encephalopathy Code(s): G92 - TOXIC ENCEPHALOPATHY (2) Hyperammonemia Code(s): E72.20 - DISORDER OF UREA CYCLE METABOLISM, UNSPECIFIED (3) Hypotension Code(s): I95.9 - HYPOTENSION, UNSPECIFIED (4) UTI (urinary tract infection) Code(s): N39.0 - URINARY TRACT INFECTION, SITE NOT SPECIFIED (5) Cirrhosis Code(s): K74.60 - UNSPECIFIED CIRRHOSIS OF LIVER (6) Hepatic encephalopathy Code(s): K72.90 - HEPATIC FAILURE, UNSPECIFIED WITHOUT COMA Assessment/Plan DC PLANNING TOMORROW IV ABX PER ID SWALLOW EVAL DYSPHAGIA WORKUP PT EVAL leukopeni precautions neurology f/u DVT PROPHYLAXIS NEURO WORKUP IN PROGRESS KCL ADDED TO NS IV FLUIDS RENAL F/U
[2019-03-31 13:02] LABS: ANISOCYTOSIS 1+; MACROCYTOSIS 1+; OVALOCYTE 1+; PLATELET ESTIMATE DECREASED; TOXIC GRANULATION 1+
[2019-03-31] MEDS: TBO-FILGRASTIM 300 MCG/0.5 ML DISP.SYRINGE SQ SCH (13:57)
--- NOTE | 2019-03-31 19:45 | PN ---
Progress Note (short form) - Note Progress Note: Progress Note: Patient seen and examined Responds to simple questions. Denies pain OOB to chair with assistance of 2 persons Poor p.o. intake Last Vital Signs Temp Pulse Resp BP Pulse Ox 99 F 104 H 20 111/60 97 03/31/19 17:08 03/31/19 17:08 03/31/19 17:08 03/31/19 17:08 03/30/19 21:00 Anicteric Lungs - clear Cor-RSR Soft abd, ventral hernia Ext- SCD Laboratory Last Values WBC 6.3 K/mm3 (4.0-10.0) 03/31/19 07:34 RBC 2.89 M/mm3 (3.60-5.2) L 03/31/19 07:34 Hgb 9.7 GM/dL (10.7-15.3) L 03/31/19 07:34 Hct 27.6 % (32.4-45.2) L 03/31/19 07:34 MCV 95.5 fl (80-96) 03/31/19 07:34 MCH 33.5 pg (25.7-33.7) 03/31/19 07:34 MCHC 35.1 g/dl (32.0-36.0) 03/31/19 07:34 RDW 14.9 % (11.6-15.6) 03/31/19 07:34 Plt Count 44 K/MM3 (134-434) L 03/31/19 07:34 MPV 10.8 fl (7.5-11.1) 03/31/19 07:34 Absolute Neuts (auto) 5.2 K/mm3 (1.5-8.0) 03/31/19 07:34 Total Counted 100 03/30/19 07:30 Neutrophils % 82.2 % (42.8-82.8) D 03/31/19 07:34 Neutrophils % (Manual) 66.0 % (42.8-82.8) 03/31/19 07:34 Band Neutrophils % 19.0 % 03/31/19 07:34 Lymphocytes % 10.3 % (8-40) D 03/31/19 07:34 Lymphocytes % (Manual) 7.0 % (8-40) L D 03/31/19 07:34 Monocytes % 6.0 % (3.8-10.2) 03/31/19 07:34 Monocytes % (Manual) 3 % (3.8-10.2) L D 03/31/19 07:34 Eosinophils % 1.3 % (0-4.5) 03/31/19 07:34 Eosinophils % (Manual) 1.0 % (0-4.5) 03/31/19 07:34 Basophils % 0.2 % (0-2.0) 03/31/19 07:34 Basophils % (Manual) 0.0 % (0-2.0) 03/31/19 07:34 Myelocytes % (Man) 0 % (0-2) 03/31/19 07:34 Promyelocytes % (Man) 0 % (0-2) 03/31/19 07:34 Blast Cells % (Manual) 1 % (0-0) H D 03/31/19 07:34 Nucleated RBC % 0 % (0-0) 03/31/19 07:34 Metamyelocytes 1 % (0-2) D 03/31/19 07:34 Differential Comment Man diff performed 03/30/19 07:30 Hypochromia 0 03/31/19 07:34 Toxic Granulation 1+ 03/31/19 07:34 Platelet Estimate Decreased 03/31/19 07:34 Platelet Comment Present 03/31/19 07:34 Polychromasia 0 03/31/19 07:34 Poikilocytosis 1+ 03/31/19 07:34 Anisocytosis 1+ 03/31/19 07:34 Microcytosis 1+ 03/31/19 07:34 Macrocytosis 1+ 03/31/19 07:34 Spherocytes 2+ 03/31/19 07:34 Ovalocytes 1+ 03/31/19 07:34 PT with INR 17.00 SEC (9.7-13.0) H 03/30/19 07:30 INR 1.44 (0.83-1.09) H 03/30/19 07:30 PTT (Actin FS) 48.1 SECONDS (25.2-36.5) H 03/30/19 07:30 Fibrinogen 214.0 mg/dL (238-498) L 03/30/19 07:30 Sodium 143 mmol/L (136-145) 03/31/19 08:00 Potassium 3.7 mmol/L (3.5-5.1) 03/31/19 08:00 Chloride 113 mmol/L (98-107) H 03/31/19 08:00 Carbon Dioxide 21 mmol/L (21-32) 03/31/19 08:00 Anion Gap 9 MMOL/L (8-16) 03/31/19 08:00 BUN 16.3 mg/dL (7-18) 03/31/19 08:00 Creatinine 0.9 mg/dL (0.55-1.3) 03/31/19 08:00 Est GFR (CKD-EPI)AfAm 69.50 03/31/19 08:00 Est GFR (CKD-EPI)NonAf 59.96 03/31/19 08:00 POC Glucometer 164 UNITS (80-120) 03/31/19 17:18 Random Glucose 109 mg/dL (74-106) H 03/31/19 08:00 Lactic Acid 4.1 mmol/L (0.4-2.0) H* 03/28/19 00:09 Calcium 8.2 mg/dL (8.5-10.1) L 03/31/19 08:00 Magnesium 1.8 mg/dL (1.8-2.4) 03/31/19 08:00 Total Bilirubin 2.1 mg/dL (0.2-1) H 03/31/19 08:00 AST 87 U/L (15-37) H 03/31/19 08:00 ALT 60 U/L (13-61) 03/31/19 08:00 Alkaline Phosphatase 114 U/L (45-117) 03/31/19 08:00 Ammonia 114.80 umol/L (11-32) H 03/28/19 08:42 Creatine Kinase 27 U/L (26-192) 03/27/19 18:30 Troponin I < 0.02 ng/ml (0.00-0.05) 03/27/19 18:30 Total Protein 4.9 g/dl (6.4-8.2) L 03/31/19 08:00 Albumin 2.0 g/dl (3.4-5.0) L 03/31/19 08:00 TSH 4.79 uIU/ml (0.358-3.74) H 03/27/19 18:30 Urine Color Yellow 03/28/19 17:45 Urine Appearance Cloudy 03/28/19 17:45 Urine pH 5.5 (5.0-8.0) 03/28/19 17:45 Ur Specific [place] 1.012 (1.010-1.035) 03/28/19 17:45 Urine Protein Negative (NEGATIVE) 03/28/19 17:45 Urine Glucose (UA) Negative (NEGATIVE) 03/28/19 17:45 Urine Ketones Negative (NEGATIVE) 03/28/19 17:45 Urine Blood 1+ (NEGATIVE) H 03/28/19 17:45 Urine Nitrite Negative (NEGATIVE) 03/28/19 17:45 Urine Bilirubin Negative (NEGATIVE) 03/28/19 17:45 Urine Urobilinogen 1.0 mg/dL (0.2-1.0) 03/28/19 17:45 Ur Leukocyte Esterase 3+ (NEGATIVE) H 03/28/19 17:45 Urine WBC (Auto) 24 /hpf (0-5) 03/28/19 17:45 Urine RBC (Auto) 3.7 /hpf (0-4) 03/28/19 17:45 Urine Casts (Auto) 59 /lpf (0-8) 03/28/19 17:45 U Pathogenic Cast Auto None seen /lpf (NEGATIVE) 03/28/19 17:45 U Epithel Cells (Auto) 26.1 /HPF (0-5/HPF) 03/28/19 17:45 U Sm Round Cell (Auto) None seen 03/28/19 17:45 Urine Bacteria (Auto) 17.1 /hpf (NEGATIVE) 03/28/19 17:45 Random Vancomycin 5.8 ug/ml (18-26) L 03/29/19 07:00 Abnormal Lab Results 03/30/19 03/31/19 03/31/19 07:30 07:34 08:00 RBC 2.89 L Hgb 9.7 L Hct 27.6 L Plt Count 44 L Lymphocytes % (Manual) 7.0 L D Monocytes % (Manual) 16 H D 3 L D Blast Cells % (Manual) 1 H D Chloride 113 H Random Glucose 109 H Calcium 8.2 L Total Bilirubin 2.1 H AST 87 H Total Protein 4.9 L Albumin 2.0 L Current Medications Heparin Sodium (Porcine) (Heparin -) 5,000 unit SQ BID [facility] Last Admin: 03/31/19 09:53 Dose: 5,000 unit Potassium Chloride 10 meq/ (Sodium Chloride) 1,005 mls @ 75 mls/hr IVPB Q13H [facility] Last Admin: 03/31/19 06:41 Dose: 75 mls/hr Piperacillin Sod/Tazobactam (Sod 3.375 gm/ Dextrose) 50 mls @ 100 mls/hr IVPB Q8H-IV [facility]; Protocol Last Admin: 03/31/19 17:20 Dose: 100 mls/hr Insulin Aspart (Novolog Vial Sliding Scale -) 1 vial SQ BIDAC [facility]; Protocol Last Admin: 03/31/19 17:21 Dose: 2 units Lactulose (Cephulac (Oral Use)) 20 gm PO TID PRN PRN Reason: CONSTIPATION Last Admin: 03/30/19 17:21 Dose: 20 gm Levothyroxine Sodium (Synthroid -) 75 mcg PO AM [facility] Last Admin: 03/31/19 06:00 Dose: 75 mcg Potassium Chloride (K-Dur -) 10 meq PO DAILY [facility] Last Admin: 03/31/19 09:51 Dose: 10 meq Rifaximin (Xifaxan -) 550 mg PO BID [facility] Last Admin: 03/31/19 09:51 Dose: 550 mg Tbo-Filgrastim (Granix -) 300 mcg SQ DAILY [facility] Last Admin: 03/31/19 13:57 Dose: 300 mcg Impression: Hepatic encephalopathy Cryptogenic cirrhosis UTI on antibiotics Pancytopenia Liver mass- --09/01----> 3.1 x 3.7 (MRI); 04/01 ---> 4.1 x 3.8 Plan: Neupogen given with excellent response. Hold on neupogen now and evaluate Suspect neutropenia secondary to liver disease, hypersplenism and UTI Monitor CBC
[2019-04-01] MEDS ORDERED: DEXTROSE 5%-WATER - 50 ML IVPB ONE ×3 (01:38→17:03)
[2019-04-01] MEDS ORDERED: PIPERACILLIN/TAZOBACTAM 3.375 GM VIAL IVPB ONE ×3 (01:38→17:03)
[2019-04-01] MEDS: PIPERACILLIN/TAZOB 3.375 GM 3.375 GM in DEXTROSE 5%-WATER - 50 ML IVPB SCH ×3 (01:45→17:13)
[2019-04-01] MEDS: POTASSIUM CHLORIDE 10 MEQ in SODIUM CHLORIDE 1,000 ML IVPB SCH ×3 (04:13→19:02)
[2019-04-01] MEDS: INSULIN SLIDING SCALE (NOVOLOG) 1 VIAL SQ SCH ×2 (06:16→17:11)
[2019-04-01] MEDS: LEVOTHYROXINE NA 75 MCG TABLET (FP) PO SCH (06:18)
[2019-04-01] MEDS ORDERED: PT OWN MED DRAWER 7, Y5N ONE ×2 (10:36→13:13)
[2019-04-01] MEDS: RIFAXIMIN 550 MG TABLET (UD) PO SCH ×2 (10:39→22:48)
[2019-04-01] MEDS: POTASSIUM CHLORIDE TABS 10 MEQ TABLET.ER (FP) PO SCH (10:39)
[2019-04-01] MEDS: HEPARIN NA (PORCINE) 5,000 UNITS/ML 1ML VIAL SQ SCH ×2 (10:41→22:48)
--- NOTE | 2019-04-01 11:09 | DS ---
Physical Examination Vital Signs: Vital Signs Temperature 98.7 F 04/01/19 06:22 Pulse Rate 88 04/01/19 06:22 Respiratory Rate 18 04/01/19 06:22 Blood Pressure 104/59 L 04/01/19 06:22 O2 Sat by Pulse Oximetry (%) 97 03/31/19 21:00 Findings/Remarks: PER FAMILY REQUEST DC TO HOSPICE Constitutional: Yes: No Distress Cardiovascular: Yes: Regular Rate and Rhythm Respiratory: Yes: Diminished Gastrointestinal: Yes: Soft Musculoskeletal: Yes: Muscle Weakness Integumentary: Yes: Other Neurological: Yes: Confusion Labs: CBC, BMP 03/31/19 07:34 03/31/19 08:00 Discharge Summary Reason For Visit: HYPERAMMONEMIA,HYPOTENSION,HEPATIC ENCEPHALOPATHY Current Active Problems JACKELYN (acute kidney injury) (Acute) Hepatic encephalopathy (Acute) Hyperammonemia (Acute) Hypotension (Acute) Hypotension (Acute) Lactic acid acidosis (Acute) Liver lesion, left lobe (Acute) Toxic metabolic encephalopathy (Acute) UTI (urinary tract infection) (Acute) Procedures: Principal: XRAYS/LABS Hospital Course: ADMITTED FOR TOXIC METABOLIC ENCEPHALOPATHY, AMS, WORSENING ENCEPHALOPATHY FAMILY HAS DECIDED ON HOSPICE FOR PALLIATIVE CARE Condition: Poor - Instructions Diet, Activity, Other Instructions: TOLERATED MEALS PO DYSPHAGIA PRECAUTIONS Disposition: TRANSFER ACUTE CARE/OTHER HOSP - Home Medications Comprehensive Discharge Medication List: Ambulatory Orders Furosemide [Lasix] 40 mg PO TID 10/07/18 Levothyroxine [Synthroid -] 75 mcg PO AM #30 tablet 10/13/18 metFORMIN HCL [Glucophage -] 500 mg PO BID #60 tab 11/20/18 Lactulose (Oral Use) [Cephulac -] 20 gm PO Q6H 03/05/19 Lisinopril [Prinivil] 5 mg PO DAILY 03/05/19 Metolazone 5 mg PO DAILY 03/10/19 Potassium Chloride [K-Dur -] 20 meq PO BID #60 tablet.er 03/10/19 Rifaximin [Xifaxan -] 550 mg PO BID #60 tablet 03/10/19 Insulin Sliding Scale [Novolog Vial Sliding Scale -] 0 units SQ TIDAC 03/27/19 Nadolol 20 mg PO DAILY 03/27/19
[2019-04-02] MEDS ORDERED: PIPERACILLIN/TAZOBACTAM 3.375 GM VIAL IVPB ONE ×2 (01:10→09:47)
[2019-04-02] MEDS ORDERED: DEXTROSE 5%-WATER - 50 ML IVPB ONE ×2 (01:11→09:47)
[2019-04-02] MEDS: PIPERACILLIN/TAZOB 3.375 GM 3.375 GM in DEXTROSE 5%-WATER - 50 ML IVPB SCH ×2 (01:33→09:54)
[2019-04-02] MEDS: POTASSIUM CHLORIDE 10 MEQ in SODIUM CHLORIDE 1,000 ML IVPB SCH ×2 (04:07→06:21)
[2019-04-02] MEDS: INSULIN SLIDING SCALE (NOVOLOG) 1 VIAL SQ SCH (06:19)
[2019-04-02] MEDS: LEVOTHYROXINE NA 75 MCG TABLET (FP) PO SCH (06:20)
[2019-04-02 06:22] VITALS: BP 117/64; PULSE 86; TEMP 97.6
--- NOTE | 2019-04-02 09:43 | PN ---
Progress Note, Physician Chief Complaint: AMS UTI Hepatic Encephalopathy History of Present Illness: Previous notes and events reviewed awake and alert NAD denies complaints of pain denies chest pain or SOB patient is awaiting bed assignment for [place] - Current Medication List Current Medications: Active Medications Heparin Sodium (Porcine) (Heparin -) 5,000 unit SQ BID [facility] Last Admin: 04/01/19 22:48 Dose: 5,000 unit Potassium Chloride 10 meq/ (Sodium Chloride) 1,005 mls @ 75 mls/hr IVPB Q13H [facility] Last Admin: 04/02/19 06:21 Dose: 75 mls/hr Piperacillin Sod/Tazobactam (Sod 3.375 gm/ Dextrose) 50 mls @ 100 mls/hr IVPB Q8H-IV [facility]; Protocol Last Admin: 04/02/19 01:33 Dose: 100 mls/hr Insulin Aspart (Novolog Vial Sliding Scale -) 1 vial SQ BIDAC [facility]; Protocol Last Admin: 04/02/19 06:19 Dose: Not Given Lactulose (Cephulac (Oral Use)) 20 gm PO TID PRN PRN Reason: CONSTIPATION Last Admin: 03/30/19 17:21 Dose: 20 gm Levothyroxine Sodium (Synthroid -) 75 mcg PO AM [facility] Last Admin: 04/02/19 06:20 Dose: 75 mcg Potassium Chloride (K-Dur -) 10 meq PO DAILY [facility] Last Admin: 04/01/19 10:39 Dose: 10 meq Rifaximin (Xifaxan -) 550 mg PO BID [facility] Last Admin: 04/01/19 22:48 Dose: 550 mg - Objective Vital Signs: Vital Signs Temperature 97.6 F 04/02/19 06:00 Pulse Rate 86 04/02/19 06:00 Respiratory Rate 20 04/02/19 06:00 Blood Pressure 117/64 04/02/19 06:00 O2 Sat by Pulse Oximetry (%) 97 04/01/19 21:00 Constitutional: Yes: No Distress, Calm Eyes: Yes: Conjunctiva Clear HENT: Yes: Atraumatic Cardiovascular: Yes: Regular Rate and Rhythm Respiratory: Yes: Regular, CTA Bilaterally Gastrointestinal: Yes: Normal Bowel Sounds, Soft Genitourinary: Yes: Nathan Present Musculoskeletal: Yes: Muscle Weakness Extremities: Yes: WNL Neurological: Yes: Alert, Pre-Existing Deficit Psychiatric: Yes: Alert Labs: CBC, BMP 03/31/19 07:34 03/31/19 08:00 INR, PTT INR 1.44 (0.83-1.09) H 03/30/19 07:30 Fibrinogen 214.0 mg/dL (238-498) L 03/30/19 07:30 Microbiology 03/27/19 21:20 Blood - Peripheral Venous Blood Culture - Final NO GROWTH AFTER 5 DAYS INCUBATION 03/27/19 21:20 Blood - Peripheral Venous Blood Culture - Final NO GROWTH AFTER 5 DAYS INCUBATION 03/27/19 21:20 Urine - Urine Nathan Urine Culture - Final Citrobacter Freundii Enterococcus Faecalis 03/28/19 17:45 Urine - Urine - Catheterized Urine Culture - Final Group D Strep Or Entero Coccus Problem List - Problems (1) JACKELYN (acute kidney injury) Assessment/Plan: -resolved -BUN/Cr 16.3/0.9 Code(s): N17.9 - ACUTE KIDNEY FAILURE, UNSPECIFIED (2) Hepatic encephalopathy Assessment/Plan: -Xifaxin BID -Lactulose -elev AST 87, ALT 60 and Alk Phos 114 -last ammonia level 03/28 114.8 Code(s): K72.90 - HEPATIC FAILURE, UNSPECIFIED WITHOUT COMA (3) Hypotension Assessment/Plan: -resolved -monitor BP Code(s): I95.9 - HYPOTENSION, UNSPECIFIED (4) Toxic metabolic encephalopathy Assessment/Plan: -2/2 UTI -improved Code(s): G92 - TOXIC ENCEPHALOPATHY (5) UTI (urinary tract infection) Assessment/Plan: -afebrile -no leukocytosis -UA 1+ blood, 3+ leuks -UC positive -ID on board -Aliya Code(s): N39.0 - URINARY TRACT INFECTION, SITE NOT SPECIFIED (6) Hypothyroidism Assessment/Plan: -Levothyroxine Code(s): E03.9 - HYPOTHYROIDISM, UNSPECIFIED (7) Liver lesion Assessment/Plan: -family does not want aggressive treatment -pending bed assignment to [place] Code(s): K76.9 - LIVER DISEASE, UNSPECIFIED Assessment/Plan see problem list dvt ppx
[2019-04-02] MEDS: POTASSIUM CHLORIDE TABS 10 MEQ TABLET.ER (FP) PO SCH (09:54)
[2019-04-02] MEDS: RIFAXIMIN 550 MG TABLET (UD) PO SCH (09:54)
[2019-04-02] MEDS: HEPARIN NA (PORCINE) 5,000 UNITS/ML 1ML VIAL SQ SCH (09:54)
--- NOTE | 2019-04-02 11:36 | PN ---
Progress Note (short form) - Note Progress Note: alert nad Vital Signs Period Temp Pulse Resp BP Sys/Parker Pulse Ox Last 24 Hr 97.6 F-98.6 F 82-86 18-20 104-117/51-64 97 cor-rrr lungs clear abd soft,nt ext no edema +mo CBC, BMP 03/31/19 07:34 03/31/19 08:00 Microbiology 03/27/19 21:20 Blood - Peripheral Venous Blood Culture - Final NO GROWTH AFTER 5 DAYS INCUBATION 03/27/19 21:20 Blood - Peripheral Venous Blood Culture - Final NO GROWTH AFTER 5 DAYS INCUBATION 03/27/19 21:20 Urine - Urine Mo Urine Culture - Final Citrobacter Freundii Enterococcus Faecalis 03/28/19 17:45 Urine - Urine - Catheterized Urine Culture - Final Group D Strep Or Entero Coccus a/p dehydration 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
== END 2019-04-02 14:31 | disposition hospice, inpatient (51) | DRG 689 ==
LOC: JER 17:04 → JERBED 20:06 → J8W 03-28 00:39
PROVIDERS: ADMIT Family Medicine; ATTEND Family Medicine
DX: N39.0 Urinary tract infection, site not specified (principal); G92 Toxic encephalopathy; I81 Portal vein thrombosis; E72.20 Disorder of urea cycle metabolism, unspecified; I85.00 Esophageal varices without bleeding; E87.2 Acidosis; D61.818 Other pancytopenia; N17.9 Acute kidney failure, unspecified; K74.60 Unspecified cirrhosis of liver; K72.90 Hepatic failure, unspecified without coma; I10 Essential (primary) hypertension; E11.9 Type 2 diabetes mellitus without complications; K76.0 Fatty (change of) liver, not elsewhere classified; E86.0 Dehydration; I95.9 Hypotension, unspecified; D70.9 Neutropenia, unspecified; E78.5 Hyperlipidemia, unspecified; E03.9 Hypothyroidism, unspecified
CPT/HCPCS: 36415; 71045-TC-FY; 80048; 80053; 81003; 82140; 82550; 82962; 83605; 83735; 84443; 84484; 85025; 85027; 85384; 85610; 85730; 87040; 87086; 87186; 93005; 93010; 99285-25; G0480; J1447; J1644; J7030